=== PATIENT | male | born 1950 | race Caucasian/White ===

== ENCOUNTER 2020-11-04 16:18 | Emergency (ER) | payer MEDICARE, OTHER ==
[2020-11-04 18:46] LABS: Urine Blood 1+ (NEG); Urine Glucose TRACE (NEG); Urine Protein 2+ (NEG); Urine pH 5.5 (5.0-7.0)
[2020-11-04 19:04] LABS: Absolute Lymphocytes (CBC) 1.5 K/uL (0.7-4.9); Basophils % 1.2 % (0-1.3); Hematocrit 45.8 % (39.6-49.0); Lymphocytes % 20.6 % (15.3-44.8); MPV 8.8 fL (7.6-11.3); RBC Red Blood Cell Count 4.16 M/uL (4.33-5.43)
[2020-11-04] MEDS ORDERED: NA CHLORIDE 0.9% 1,000 ML ONE (19:11)
[2020-11-04] MEDS ORDERED: CEFTRIAXONE/SWI 1gm 1 GM/10 ML SYR ONE (19:11)
[2020-11-04 19:18] LABS: Albumin 3.4 g/dL (3.4-5.0); Bilirubin Total 4.1 mg/dL (0.2-1.0)
[2020-11-04 19:26] LABS: Platelet Estimate DECR; White Blood Cell Scan OK (OK)
[2020-11-04 19:26] LABS: Urine Bacteria <20 /HPF (NONE SEEN); Urine Mucus HEAVY /HPF (NONE SEEN); Urine RBC <5 /HPF (NONE SEEN)
[2020-11-04 19:27] LABS: Blood Morphology Comment NOTED (NOT SEEN); Macrocytosis 2+
[2020-11-04] MEDS ORDERED: POTASSIUM CL SA 10 MEQ TAB PO ONE (20:21)
--- NOTE | 2020-11-04 20:42 | EDPHYS ---
Physician Documentation [facility] Name: Peter Carson Age: 70 yrs Sex: Male : 1950 Arrival Date: 11/04/2020 Time: 16:22 Bed 5 Private MD: ED Physician Jewel Gonzalez HPI: 11/04 20:31 This 70 yrs old Male presents to ER via Ambulatory with complaints of Urinary jr8 Problem, Abdominal Pain, Nausea/Vomiting. 20:31 The patient presents with urinary symptoms, dysuria. Onset: The symptoms/episode jr8 began/occurred gradually, 4 day(s) ago. Modifying factors: The symptoms are alleviated by nothing, the symptoms are aggravated by nothing. Associated signs and symptoms: Pertinent positives: abdominal pain, nausea. Severity of symptoms: At their worst the symptoms were mild. The patient has not experienced similar symptoms in the past. The patient has not recently seen a physician. Patient stated that he has had a few days of urinary symptoms with mild right lower abdominal discomfort that has since subsided and some nausea. Stated that he relapsed from previously quitting alcohol as well and has been more anxious and wants to quit again . Historical: - Allergies: 16:41 PENICILLINS; ca1 - Home Meds: 16:41 aspirin Oral [Active]; Omeprazole Oral [Active]; ca1 16:43 atorvastatin 40 mg oral tab 1 tab once daily [Active]; ca1 - PMHx: 16:41 High Cholesterol; ca1 - PSHx: 16:41 Appendectomy; Exploratory lap; ca1 - Immunization history:: Pneumococcal vaccine is not up to date, Flu vaccine is not up to date. - Social history:: Smoking status: Patient reports the use of cigarette tobacco products, smokes one pack cigarettes per day. ROS: 20:31 Eyes: Negative for injury, pain, redness, and discharge, ENT: Negative for injury, jr8 pain, and discharge, Neck: Negative for injury, pain, and swelling, Cardiovascular: Negative for chest pain, palpitations, and edema, Respiratory: Negative for shortness of breath, cough, wheezing, and pleuritic chest pain, Back: Negative for injury and pain, MS/Extremity: Negative for injury and deformity, Skin: Negative for injury, rash, and discoloration, Neuro: Negative for headache, weakness, numbness, tingling, and seizure. 20:31 Abdomen/GI: Positive for abdominal pain, nausea and vomiting, Negative for diarrhea, constipation, abdominal cramps, abdominal distension, anorexia, dysphagia, hematemesis, black/tarry stool, rectal pain, rectal bleeding, bowel incontinence, flatulence. 20:31 : Positive for urinary symptoms. Exam: 20:31 Eyes: Pupils equal round and reactive to light, extra-ocular motions intact. Lids and jr8 lashes normal. Conjunctiva and sclera are non-icteric and not injected. Cornea within normal limits. Periorbital areas with no swelling, redness, or edema. ENT: Nares patent. No nasal discharge, no septal abnormalities noted. Tympanic membranes are normal and external auditory canals are clear. Oropharynx with no redness, swelling, or masses, exudates, or evidence of obstruction, uvula midline. Mucous membranes moist. Neck: Trachea midline, no thyromegaly or masses palpated, and no cervical lymphadenopathy. Supple, full range of motion without nuchal rigidity, or vertebral point tenderness. No Meningismus. Cardiovascular: Regular rate and rhythm with a normal S1 and S2. No gallops, murmurs, or rubs. Normal PMI, no JVD. No pulse deficits. Respiratory: Lungs have equal breath sounds bilaterally, clear to auscultation and percussion. No rales, rhonchi or wheezes noted. No increased work of breathing, no retractions or nasal flaring. Abdomen/GI: Soft, non-tender, with normal bowel sounds. No distension or tympany. No guarding or rebound. No evidence of tenderness throughout. Back: No spinal tenderness. No costovertebral tenderness. Full range of motion. Skin: Warm, dry with normal turgor. Normal color with no rashes, no lesions, and no evidence of cellulitis. MS/ Extremity: Pulses equal, no cyanosis. Neurovascular intact. Full, normal range of motion. Neuro: Awake and alert, GCS 15, oriented to person, place, time, and situation. Cranial nerves II-XII grossly intact. Motor strength 5/5 in all extremities. Sensory grossly intact. Cerebellar exam normal. Normal gait. Vital Signs: 16:35 BP 159 / 104; Pulse 94; Resp 18 S; Temp 97.9(TE); Pulse Ox 99% on R/A; Weight 83.91 kg ca1 (R); Height 5 ft. 9 in. (175.26 cm) (R); Pain 1/10; 20:08 BP 172 / 75; Pulse 76; Resp 19; Pulse Ox 99% ; ea 16:35 Body Mass Index 27.32 (83.91 kg, 175.26 cm) ca1 MDM: 18:46 Patient medically screened. jr8 20:31 Data reviewed: vital signs, nurses notes, lab test result(s), and as a result, I will jr8 discharge patient. Data interpreted: Pulse oximetry: on room air is 99 %. Interpretation: normal. Counseling: I had a detailed discussion with the patient and/or guardian regarding: the historical points, exam findings, and any diagnostic results supporting the discharge/admit diagnosis, lab results, the need for outpatient follow up, a family practitioner, a electrical electronics engineer, to return to the emergency department if symptoms worsen or persist or if there are any questions or concerns that arise at home. ED course: Detailed discussion with patient that even though his dipstick looked infected, it was thrown off by his urobilinogen count. Urine nereyda was clean. Pain had resolved and labs stable other than LFTs which we talked about. Discussed with him that we need to get him off alcohol immediately and that he needs to see GI for further cirrhosis work up. Patient agrees and wants to stop. Will also f/u. Discussed with him that if his pain were to come back or worsen to come back for further evaluation . 11/04 18:42 Order name: Urine Microscopic Only; Complete Time: 19:49 ca1 11/04 18:42 Order name: Urine Culture ca1 11/04 18:42 Order name: Urine Dipstick--Ancillary (enter results); Complete Time: 18:52 tt3 11/04 18:44 Order name: Basic Metabolic Panel; Complete Time: 19:49 jr8 11/04 18:44 Order name: CBC with Diff; Complete Time: 19:49 jr8 11/04 18:44 Order name: Hepatic Function; Complete Time: 19:49 jr8 11/04 18:42 Order name: Urine Dipstick-Ancillary (obtain specimen); Complete Time: 18:42 ca1 11/04 18:44 Order name: Lipase; Complete Time: 19:49 jr8 11/04 19:26 Order name: CBC Smear Scan; Complete Time: 19:49 EDMS 11/04 18:44 Order name: IV Saline Lock; Complete Time: 18:59 jr8 11/04 18:44 Order name: Labs collected and sent; Complete Time: 18:58 jr8 Administered Medications: 18:57 Drug: NS 0.9% 1000 ml Route: IV; Rate: 1000 ml; Site: right antecubital; ca1 20:00 Follow up: Response: No adverse reaction; IV Status: Completed infusion; IV Intake: ea 1000ml 18:58 Drug: Rocephin 1 grams Route: IV; Rate: calculated rate; Site: right antecubital; ca1 20:08 Drug: Potassium Chloride 40 mEq Route: PO; ea 20:48 Follow up: Response: Medication administered at discharge. ea 20:40 Drug: Zofran (Ondansetron) 4 mg Route: IVP; Site: right antecubital; ea 20:48 Follow up: Response: No adverse reaction ea 20:45 Drug: Librium - chlordiazePOXIDE 50 mg Route: PO; ea 20:48 Follow up: Response: Medication administered at discharge. ea Disposition: 11/04/20 20:40 Discharged to Home. Impression: Abnormal results of liver function studies, Alcohol abuse counseling and surveillance of alcoholic, Alcohol abuse with alcohol-induced anxiety disorder. - Condition is Stable. - Discharge Instructions: Finding Treatment for Addiction, Alcohol Use Disorder, Alcohol Abuse and Nutrition. - Prescriptions for chlordiazepoxide HCl 25 mg Oral capsule - take 2 capsule by ORAL route 3 times per day As needed up to 300 mg/day; 120 capsule. Zofran 4 mg Oral Tablet - take 1 tablet by ORAL route every 12 hours As needed; 20 tablet. - Medication Reconciliation Form, Thank You Letter, Antibiotic Education, Prescription Opioid Use form. - Follow up: Skyler Perez MD; When: 5 - 6 days; Reason: Recheck today's complaints, Continuance of care, Re-evaluation by your physician. - Problem is new. - Symptoms have improved. Addendum: 11/07/2020 06:26 Co-signature as Attending Physician, Jewel Gonzalez MD I agree with the assessment and t w4 plan of care. Signatures: Dispatcher [employer] [facility] Jarrett Hart PA PA jr8 Mayte Crockett, RN RN Jewel Mccullough MD MD tw4 Amanda Arthur RN RN ca1 Reji Maria tt3 Corrections: (The following items were deleted from the chart) 11/04 18:42 18:42 Urine Dipstick-Ancillary ordered. tt3 tt3 20:50 20:40 11/04/2020 20:40 Discharged to Home. Impression: Abnormal results of liver ea function studies; Alcohol abuse counseling and surveillance of alcoholic; Alcohol abuse with alcohol-induced anxiety disorder. Condition is Stable. Forms are Medication Reconciliation Form, Thank You Letter, Antibiotic Education, Prescription Opioid Use. Follow up: Skyler Perez; When: 5 - 6 days; Reason: Recheck today's complaints, Continuance of care, Re-evaluation by your physician. Problem is new. Symptoms have improved. jr8
--- NOTE | 2020-11-04 20:42 | ER ---
Nurse's Notes [facility] Name: Peter Carson Age: 70 yrs Sex: Male : 1950 Arrival Date: 11/04/2020 Time: 16:22 Bed 5 Private MD: Diagnosis: Abnormal results of liver function studies;Alcohol abuse counseling and surveillance of alcoholic;Alcohol abuse with alcohol-induced anxiety disorder Presentation: 11/04 16:35 Chief complaint: Patient states: N/V x 3 - 4 days. RLQ, R inguinal area pain since ca1 yesterday. Today, urine was dark and concentrated. Denies burning with urination, urinary urgency and frequency. Coronavirus screen: Client denies travel out of the [place] in the last 14 days. nausea, vomiting. Client presents with at least one sign or symptom that may indicate coronavirus-19. Standard/surgical mask placed on the client. Provider contacted for isolation considerations. Ebola Screen: Patient negative for fever greater than or equal to 101.5 degrees Fahrenheit, and additional compatible Ebola Virus Disease symptoms Patient denies exposure to infectious person. Patient denies travel to an Ebola-affected area in the 21 days before illness onset. No symptoms or risks identified at this time. Initial Sepsis Screen: Does the patient meet any 2 criteria? No. Patient's initial sepsis screen is negative. Does the patient have a suspected source of infection? No. Patient's initial sepsis screen is negative. Risk Assessment: Do you want to hurt yourself or someone else? Patient reports no desire to harm self or others. Onset of symptoms was November 04, 2020. 16:35 Method Of Arrival: Ambulatory ca1 16:35 Acuity: DEMETRI 3 ca1 Historical: - Allergies: 16:41 PENICILLINS; ca1 - Home Meds: 16:41 aspirin Oral [Active]; Omeprazole Oral [Active]; ca1 16:43 atorvastatin 40 mg oral tab 1 tab once daily [Active]; ca1 - PMHx: 16:41 High Cholesterol; ca1 - PSHx: 16:41 Appendectomy; Exploratory lap; ca1 - Immunization history:: Pneumococcal vaccine is not up to date, Flu vaccine is not up to date. - Social history:: Smoking status: Patient reports the use of cigarette tobacco products, smokes one pack cigarettes per day. Screenin:59 Abuse screen: Denies threats or abuse. Denies injuries from another. Nutritional ca1 screening: No deficits noted. Tuberculosis screening: No symptoms or risk factors identified. Fall Risk IV access (20 points). Assessment: 18:59 General: Appears in no apparent distress. comfortable, Behavior is calm, cooperative, ca1 appropriate for age. Pain: Complains of pain in right inguinal area. RLQ Pain currently is 1 out of 10 on a pain scale. Is intermittent. Neuro: Level of Consciousness is awake, alert, obeys commands, Oriented to person, place, time, situation. Cardiovascular: Heart tones S1 S2 present Capillary refill < 3 seconds. Respiratory: Airway is patent Respiratory effort is even, unlabored, Respiratory pattern is regular, symmetrical, Breath sounds are clear bilaterally. GI: Abdomen is round non-distended, Bowel sounds present X 4 quads. Abd is soft and non tender X 4 quads. : Urine is cloudy. EENT: No signs and/or symptoms were reported regarding the EENT system. Derm: Skin is intact, is healthy with good turgor, Skin is pink, warm \T\ dry. Musculoskeletal: Circulation, motion, and sensation intact. Capillary refill < 3 seconds. 20:08 General: Appears in no apparent distress. comfortable, Behavior is appropriate for age. ea Pain: Denies pain. Neuro: Level of Consciousness is awake, alert, obeys commands, Oriented to person, place, time, situation. Respiratory: Airway is patent Respiratory effort is even, unlabored, Respiratory pattern is regular, symmetrical. Derm: Skin is pink, warm \T\ dry. 20:49 Reassessment: Patient and/or family updated on plan of care and expected duration. Pain ea level reassessed. Patient is alert, oriented x 3, equal unlabored respirations, skin warm/dry/pink. Discharge instruction given to patient, verbalized the understanding of instruction. Given to patient, verbalized the understanding of instruction. Vital Signs: 16:35 BP 159 / 104; Pulse 94; Resp 18 S; Temp 97.9(TE); Pulse Ox 99% on R/A; Weight 83.91 kg ca1 (R); Height 5 ft. 9 in. (175.26 cm) (R); Pain 1/; 20:08 BP 172 / 75; Pulse 76; Resp 19; Pulse Ox 99% ; ea 16:35 Body Mass Index 27.32 (83.91 kg, 175.26 cm) ca1 ED Course: 16:22 Patient arrived in ED. ag5 16:38 Triage completed. ca1 16:41 Arm band placed on right wrist. ca1 18:43 Jarrett Hart PA is PHCP. jr8 18:43 Jewel Gonzalez MD is Attending Physician. jr8 18:47 Urine Microscopic Only Sent. ca1 18:47 Urine Culture Sent. ca1 18:59 Patient has correct armband on for positive identification. Bed in low position. Call ca1 light in reach. Side rails up X 1. Side rails up X 1. Side rails up X2. Pulse ox on. NIBP on. 18:59 Initial lab(s) drawn, by me, sent to lab. Inserted saline lock: 20 gauge in right ca1 antecubital area, using aseptic technique. Blood collected. 19:16 Pillow given. ekg monitor on. 5 19:56 Mayte Crockett, [place] is Primary Nurse. ea 20:38 Skyler Perez MD is Referral Physician. jr8 20:47 IV discontinued, intact, bleeding controlled, No redness/swelling at site. Pressure ea dressing applied. 20:49 No provider procedures requiring assistance completed. ea Administered Medications: 18:57 Drug: NS 0.9% 1000 ml Route: IV; Rate: 1000 ml; Site: right antecubital; ca1 20:00 Follow up: Response: No adverse reaction; IV Status: Completed infusion; IV Intake: ea 1000ml 18:58 Drug: Rocephin 1 grams Route: IV; Rate: calculated rate; Site: right antecubital; ca1 20:08 Drug: Potassium Chloride 40 mEq Route: PO; ea 20:48 Follow up: Response: Medication administered at discharge. ea 20:40 Drug: Zofran (Ondansetron) 4 mg Route: IVP; Site: right antecubital; ea 20:48 Follow up: Response: No adverse reaction ea 20:45 Drug: Librium - chlordiazePOXIDE 50 mg Route: PO; ea 20:48 Follow up: Response: Medication administered at discharge. ea Intake: 20:00 IV: 1000ml; Total: 1000ml. ea Outcome: 20:40 Discharge ordered by . jr8 20:50 Discharged to home ambulatory, with family. ea 20:50 Condition: stable 20:50 Discharge instructions given to patient, Instructed on discharge instructions, follow up and referral plans. medication usage, Demonstrated understanding of instructions, follow-up care, medications, Prescriptions given X 2. 20:50 Patient left the ED. ea Signatures: Jarrett Hart PA PA jr8 Martinez, [facility] Mayte Crockett RN Amanda Rowe ea, RN RN ca1 [place], [facility]
[2020-11-04] MEDS ORDERED: ONDANSETRON 4 MG/2 ML VIAL ONE (20:56)
[2020-11-04] MEDS ORDERED: chlordiazePOXIDE HCl 25 MG CAP ONE (20:56)
[2020-11-04 21:45] VITALS: TEMP 97.9; O2SAT 99
[2020-11-04 21:46] VITALS: BP 172/75
== END 2020-11-04 20:50 | disposition home or self-care (01) ==
LOC: ER 16:18
DX: F10.280 Alcohol dependence with alcohol-induced anxiety disorder (principal); Z71.41 Alcohol abuse counseling and surveillance of alcoholic; F17.210 Nicotine dependence, cigarettes, uncomplicated; E78.00 Pure hypercholesterolemia, unspecified; Z79.82 Long term (current) use of aspirin; Z88.0 Allergy status to penicillin
CPT/HCPCS: 96361; 85025; 87086; 80048; 36415; 80076; 83690; 96375; 96374; 99284; J0696; J7030; J2405; 81003; 81015; 87088

== ENCOUNTER 2021-04-08 09:24 | Emergency (ER) | payer OTHER ==
--- OUTSIDE RECORDS SUMMARY | 2021-04-08 09:27 | XMS REPORT | Continuity of Care Document ---
:1950 Author Organization [facility] t Address [address] [place] [address] Care Team Providers Name Role Phone Farmer DO Attending Clinician Doctor Unassigned, Name Attending Clinician Unavailable Problems This patient has no known problems. Allergies, Adverse Reactions, Alerts This patient has no known allergies or adverse reactions. Medications This patient has no known medications. Procedures This patient has no known procedures. Encounters Start End Encounter Admission Attending Care Care Encounter Source Date/Time Date/Time Type Type Clinicians Facility Department ID 2021-03-24 2021-03-24 Emergency Farmer, RUST [id number] 16:23:00 20:39:00 Rhys Cadet [id number] [place] [id number] [place] [id number] 2021-03-24 2021-03-24 Orders Doctor BRANT [id number] 00:00:00 00:00:00 Only UnassignedDOLLY [id number] [place] [facility] [id number] Results Test Description Test Time Test Comments Results Result Comments Source Comprehensive Metabolic Panel 2019-09-08 21:33:25 Test Item Value Reference Range Interpretation Comme nts Sodium Level (test code = Sodium Level) 146.0 mmol/L 135.0-145.0 H Potassium Level (test code = Potassium Level) 4.0 mmol/L 3.5-5.1 Chloride Level (test code = Chloride Level) 104 mmol/L 98-105 CO2 (test code = CO2) 30 mmol/L 22-29 H Anion Gap (test code = Anion Gap) 12 mmol/L 7-16 BUN (test code = BUN) 8.60 mg/dL 8.00-23.00 Creatinine Level (test code = Creatinine Level) 0.90 mg/dL 0.70-1 .20 BUN/Creat Ratio (test code = BUN/Creat Ratio) 10 N Glucose Level (test code = Glucose Level) 90 mg/dL 70-115 Calcium Level (test code = Calcium Level) 9.3 mg/dL 8.3-10.5 Alk Phos (test code = Alk Phos) 80 U/L 40-129 Bilirubin Total (test code = Bilirubin Total) 0.5 mg/dL 0.1-0.9 Albumin Level (test code = Albumin Level) 4.1 g/dL 3.5-5.2 Protein Total (test code = Protein Total) 6.9 g/dL 6.4-8.3 ALT (test code = ALT) 57 U/L 1-41 H AST (test code = AST) 54 U/L 1-40 H Globulin (test code = Globulin) 2.8 g/dL 2.9-3.1 L A/G Ratio (test code = A/G Ratio) 1.5 ratio N Comprehensive Metabolic [id number] 21:33:25 Test Item Value Reference Range Interpretation Comments Sodium Level (test 146.0 mmol/L 135.0-145.0 H code = Sodium Level) Potassium Level 4.0 mmol/L 3.5-5.1 (test code = Potassium Level) Chloride Level (test 104 mmol/L 98-105 code = Chloride Level) CO2 (test code = 30 mmol/L 22-29 H CO2) Anion Gap (test code 12 mmol/L 7-16 = Anion Gap) BUN (test code = 8.60 mg/dL 8.00-23.00 BUN) Creatinine Level 0.90 mg/dL 0.70-1.20 (test code = Creatinine Level) BUN/Creat Ratio 10 N (test code = BUN/Creat Ratio) Glucose Level (test 90 mg/dL 70-115 code = Glucose Level) Calcium Level (test 9.3 mg/dL 8.3-10.5 code = Calcium Level) Alk Phos (test code 80 U/L 40-129 = Alk Phos) Bilirubin Total 0.5 mg/dL 0.1-0.9 (test code = Bilirubin Total) Albumin Level (test 4.1 g/dL 3.5-5.2 code = Albumin Level) Protein Total (test 6.9 g/dL 6.4-8.3 code = Protein Total) ALT (test code = 57 U/L 1-41 H ALT) AST (test code = 54 U/L 1-40 H AST) Globulin (test code 2.8 g/dL 2.9-3.1 L = Globulin) A/G Ratio (test code 1.5 ratio N = A/G Ratio) eGFR AA (test code = >60 N eGFR (e stimated eGFR AA) mL/min/1.73 m2 Glomerular Filtration Rate ) is an estimated va lue, calculated from the patient's serum creatinine usin g the MDRD equation. It is NOT the patient 's actual GFR. The eGFR provides a more clinically usef ul measure of kidn ey disease than se rum creatinine alone.This calculation danielle es sex and race in to account, if the information is provided. If th e race is not provided, and t he patient is -Sandra n, multiply by 1.2 12. If sex is not provided, and t he patient is fema le, multiply by 0.7 42. Results for pat ients <18 years of ag e have not been validated by th e MDRD study and should be interpreted wit h caution. eGFR R esult Interpretation: eGFR > or = 60 is in the Normal RangeeGF R < 60 may mean kid marco a diseaseeGFR < 1 5 may mean kidney failure Rang es recommended by the National Kidney Foundation, http://nkdep.ni h.gov Lipid [id number] 21:33:25 Test Item Value Reference Range Interpretation Comments Cholesterol Total 132 mg/dL 0-200 RISK OF HE ART (test code = DISEASEPublishe d by Cholesterol Total) [place] [employer] María lyte Optimal Borderl ine Increased RiskC HOL <200 200-239 >2 40TRIG <150 150-199 >2 00HDL Male >60 <40H DL Female >60 <5 0LDL <100 130-159 >1 60LDL Near optimal is 100-129 Triglycerides (test 144 mg/dL 9-200 code = Triglycerides) HDL (test code = HDL) 59 mg/dL 40-60 LDL (test code = LDL) 44 mg/dL 0-130 The eq uation being used in this calcula tion is LDL = (Chol - H DL) - (Trig / 5) VLDL (test code = 29 mg/dL 5-40 The equati on being used VLDL) in this calcula tion is VLDL = Trig / 5 Chol/HDL (test code = 2.2 ratio 0.0-5.0 Chol/HDL) LDL/HDL Ratio (test 1 N The equa tion being used code = LDL/HDL Ratio) in thi s calculation is LDL/HDL Ratio=L DL Calc/HDL Chol Comprehensive Metabolic [id number] 21:33:25 Test Item Value Reference Range Interpretation Comments Sodium Level (test 146.0 mmol/L 135.0-145.0 H code = Sodium Level) Potassium Level 4.0 mmol/L 3.5-5.1 (test code = Potassium Level) Chloride Level (test 104 mmol/L 98-105 code = Chloride Level) CO2 (test code = 30 mmol/L 22-29 H CO2) Anion Gap (test code 12 mmol/L 7-16 = Anion Gap) BUN (test code = 8.60 mg/dL 8.00-23.00 BUN) Creatinine Level 0.90 mg/dL 0.70-1.20 (test code = Creatinine Level) BUN/Creat Ratio 10 N (test code = BUN/Creat Ratio) Glucose Level (test 90 mg/dL 70-115 code = Glucose Level) Calcium Level (test 9.3 mg/dL 8.3-10.5 code = Calcium Level) Alk Phos (test code 80 U/L 40-129 = Alk Phos) Bilirubin Total 0.5 mg/dL 0.1-0.9 (test code = Bilirubin Total) Albumin Level (test 4.1 g/dL 3.5-5.2 code = Albumin Level) Protein Total (test 6.9 g/dL 6.4-8.3 code = Protein Total) ALT (test code = 57 U/L 1-41 H ALT) AST (test code = 54 U/L 1-40 H AST) Globulin (test code 2.8 g/dL 2.9-3.1 L = Globulin) A/G Ratio (test code 1.5 ratio N = A/G Ratio) eGFR AA (test code = >60 N eGFR (e stimated eGFR AA) mL/min/1.73 m2 Glomerular Filtration Rate ) is an estimated va lue, calculated from the patient's serum creatinine usin g the MDRD equation. It is NOT the patient 's actual GFR. The eGFR provides a more clinically usef ul measure of kidn ey disease than se rum creatinine alone.This calculation danielle es sex and race in to account, if the information is provided. If th e race is not provided, and t he patient is -Sandra n, multiply by 1.2 12. If sex is not provided, and t he patient is fema le, multiply by 0.7 42. Results for pat ients <18 years of ag e have not been validated by [facility] MDRD study and should be interpreted wit h caution. eGFR R esult Interpretation: eGFR > or = 60 is in the Normal RangeeGF R < 60 may mean kid marco a diseaseeGFR < 1 5 may mean kidney failure Rang es recommended by the National Kidney Foundation, http://nkdep.ni h.gov eGFR Non-AA (test >60.00 N eGFR (dony mated code = eGFR Non-AA) mL/min/1.73 m2 Glomer ular Filtration Rate ) is an estimated va lue, calculated from the patient's serum creatinine usin g the MDRD equation. It is NOT the patient 's actual GFR. The eGFR provides a more clinically usef ul measure of kidn ey disease than se rum creatinine alone.This calculation danielle es sex and race in to account, if the information is provided. If th e race is not provided, and t he patient is -Sandra n, multiply by 1.2 12. If sex is not provided, and t he patient is fema le, multiply by 0.7 42. Results for pat ients <18 years of ag e have not been validated by [facility] MDRD study and should be interpreted wit h caution. eGFR R esult Interpretation: eGFR > or = 60 is in the Normal RangeeGF R < 60 may mean kid marco a diseaseeGFR < 1 5 may mean kidney failure Rang es recommended by the National Kidney Foundation, http://nkdep.ni h.gov Automated [id number] 20:56:24 Test Item Value Reference Range Interpretation Comments Neutro Auto (test code = Neutro 62.4 % 36.0-70.0 Auto) Lymph Auto (test code = Lymph Auto) 26.7 % 12.0-44.0 [place] Auto (test code = [place] Auto) 8.4 % 0.0-11.0 Eos, Auto (test code = Eos, Auto) 1.7 % 0.0-7.0 Basophil Auto (test code = Basophil 0.5 % 0.0-2.0 Auto) Neutro Absolute (test code = Neutro 6.0 x10 1.6-7.4 Absolute) Lymph Absolute (test code = Lymph 2.56 x10 .50-4.60 Absolute) [place] Absolute (test code = [place] .81 x10 .00-1.20 Absolute) Eos Absolute (test code = Eos 0.16 x10 0.00-0.74 Absolute) Baso Absolute (test code = Baso 0.05 x10 0.00-0.21 Absolute) IG [id number] 20:56:24 Test Item Value Reference Range Interpretation Comments IG (test code = IG) 0.3 % 0.0-5.0 IG Abs (test code = IG Abs) 0 x10 N Complete Blood Count with [id number] 20:56:24 Test Item Value Reference Range Interpretation Comments WBC (test code = WBC) 9.6 x10 4.4-10.5 RBC (test code = RBC) 4.23 x10 4.10-5.70 Hgb (test code = Hgb) 15.5 g/dL 13.4-17.4 MCV (test code = MCV) 111.60 fL 80.00-100.00 H Hct (test code = Hct) 47.2 % 38.7-52.0 MCHC (test code = 32.80 g/dL 32.00-37.50 MCHC) RDW CV (test code = 13.7 % 11.5-14.5 RDW CV) MCH (test code = MCH) 36.6 pg 27.0-32.5 H Platelets (test code = 204.0 x10 140.0-440.0 Platelets) MPV (test code = MPV) 11.8 fL N Slide Review (test Auto Auto Result cr eated by code = Slide Review) GL_SJM_ SLIDE_REV_AUTO [id number] nRBC (test code = 0 N nRBC) NRBC Abs (test code = 0.00 x10 N NRBC Abs) Pos Morph XN (test A N code = Pos Morph XN) IPF (test code = IPF) 0 % N
[2021-04-08 10:30] LABS: Absolute Lymphocytes (CBC) 1.5 K/uL (0.7-4.9); Basophils % 0.7 % (0-1.3); Hematocrit 41.5 % (39.6-49.0); Lymphocytes % 16.8 % (15.3-44.8); MPV 8.5 fL (7.6-11.3); RBC Red Blood Cell Count 4.13 M/uL (4.33-5.43)
[2021-04-08] MEDS ORDERED: NA CHLORIDE 0.9% 1,000 ML ONE (10:40)
[2021-04-08] MEDS ORDERED: THIAMINE 200 MG/2 ML INJ ONE (10:40)
[2021-04-08 10:41] LABS: Protime INR 1.01
[2021-04-08] MEDS ORDERED: FOLIC ACID 5 MG/ML VIAL ONE (10:50)
[2021-04-08 10:59] LABS: ALT/SGPT 81 U/L (12-78); AST/SGOT 131 U/L (15-37); Albumin 3.3 g/dL (3.4-5.0); Alkaline Phosphatase 125 U/L (45-117); BUN Blood Urea Nitrogen 26 mg/dL (7-18); Bicarbonate 30 mmol/L (21-32); Glucose Level 96 mg/dL (74-106); Lipase 195 U/L (73-393); NT PRO-BNP 252 pg/mL (<125); Potassium 3.1 mmol/L (3.5-5.1); Protein, Total 8.1 g/dL (6.4-8.2); Sodium Level 137 mmol/L (136-145); Troponin (Emerg Dept Use Only) < 0.02 ng/mL (0.0-0.045)
[2021-04-08] MEDS ORDERED: LORazepam 2 MG/ML VIAL ONE ×2 (11:07→12:08)
--- NOTE | 2021-04-08 11:16 | RAD REPORT ---
EXAM DESCRIPTION: RAD - Chest Single View - 04/08/2021 10:38 am CLINICAL HISTORY: COUGH TECHNIQUE: AP portable chest image was obtained 04/08/2021 10:38 am . FINDINGS: Lungs are clear. A few small granulomas are seen. Hilar granulomatous calcifications also present. Heart and vasculature are normal. No measurable pleural effusion and no pneumothorax. No acu te bony abnormality seen. No acute aortic findings suspected. IMPRESSION: No acute cardiopulmonary process.
[2021-04-08] MEDS ORDERED: FAMOTIDINE 20 MG/2 ML VIAL IV ONE (11:30)
[2021-04-08] MEDS ORDERED: CEFTRIAXONE/SWI 1gm 1 GM/10 ML SYR ONE (11:41)
[2021-04-08] MEDS ORDERED: FOLIC ACID 1 MG, MULTIVITAMINS INJ 10 ML, THIAMINE HCL 100 MG in NA CHLORIDE 0.9% 1,000 ML IV ONE (12:00)
--- NOTE | 2021-04-08 12:16 | RAD REPORT ---
EXAM DESCRIPTION: CT - Head C Spine Cap Frannie Sesay - 04/08/2021 12:00 pm CLINICAL HISTORY: Pain;Swellinghead, neck, chest and abdomen pain COMPARISON: No comparisons TECHNIQUE: Axial [address] head images were obtained. Axial [address] cervical spine images were obtaine d with sagittal and coronal reconstruction images reviewed. During dynamic enhancement of 100mL non-i onic contrast, axial 5 mm images of the chest, abdomen and pelvis were obtained. Biphasic technique p erformed of the abdomen and pelvis. All CT scans are performed using dose optimization technique as appropriate and may include automated exposure control or mA/KV adjustment according to patient size. FINDINGS: No intracranial hemorrhage, mass or edema. No midline shift or abnormal fluid collection. Mastoid air cells and paranasal sinuses are clear of acute findings. No skull fracture. Atrophy an d chronic ischemic changes are present mild to moderate in severity with ventricles in proportion to volume loss. Arterial tree calcifications are present. CT cervical spine imaging shows normal height. Normal alignment of the vertebrae. Mild C5-6 and moder ate C6-7 disc space narrowing. Endplate spurring and uncovertebral joint hypertrophy present along wi th facet hypertrophy. Multilevel foraminal stenosis seen. Canal is borderline stenotic at C5-6. No pa raspinal mass or hematoma seen. Central canal detail is inherently limited. Concerns for traumatic di sc herniation or traumatic cord injury can be further addressed with MR imaging. CT chest shows no pneumothorax, pulmonary contusion or pleural fluid collection. No mediastinal hemat rosa and the aorta and pulmonary arteries are unremarkable. No chest will mass or abnormal axillary fi nding. No displaced rib fractures seen. An acute thoracic bone process is not identified. Severity of respiratory motion degradation could obscure nondisplaced rib fractures. Atelectasis and scarring changes are present. CT abdomen and pelvis show no injury to solid abdominal viscera. Gallbladder and biliary tree are unr emarkable. No bowel injury or significant finding. No free air, free fluid or abnormal stranding. No urinary bladder abnormality. No significant bony finding. Disc and bone degenerative changes are present. No acute bone finding id entifiable. No significant vascular finding. IMPRESSION: No significant CT Head finding. Cervical spondylosis changes are present as detailed. No acute findings seen. No acute traumatic chest injury identified. The amount of respiratory motion degradation could obscur e nondisplaced rib fractures. No significant CT Abdomen and Pelvis finding.
[2021-04-08 12:59] LABS: Arterial Blood Carboxyhemoglob 1.5 % (0-1.5); Blood Gas Oxyhemoglobin 95.6 % (94-97); Blood O2 Saturation 97.9 % (92-98.5)
[2021-04-08] MEDS ORDERED: NA CHLORIDE 0.9% 250 ML ONE (13:00)
[2021-04-08] MEDS ORDERED: KCL 20 MEQ/100 mL IVPB 20 MEQ/100 ML BAG IV ONE (13:00)
[2021-04-08 13:22] LABS: Urine Blood Negative (Negative); Urine Glucose Negative (Negative); Urine Protein Trace (Negative); Urine pH 5.5 (5.0-7.0)
--- NOTE | 2021-04-08 13:28 | EDPHYS ---
Physician Documentation [facility] Name: Peter Carson Age: 71 yrs Sex: Male : 1950 Arrival Date: 04/08/2021 Time: : Bed 15 Private MD: MARGOTH Physician Aorldo Michelle HPI: 04/08 11:03 This 71 yrs old Male presents to ER via Wheelchair with complaints of javad disoriented/hallucinations. 11:03 The patient presents with abdominal pain abdominal distention in the lower abdomen. javad Onset: The symptoms/episode began/occurred 3 day(s) ago. hx of heavy etoh abuse. The patient presents with agitation, confusion, decreased mental status, trouble concentrating. Onset: The symptoms/episode began/occurred 1 week(s) ago. Possible causes: CVA or TIA, drug use, alcohol, head injury, low blood sugar, seizure, sepsis. Associated signs and symptoms: Pertinent positives: combativeness, confusion. Current symptoms: In the emergency department the patient's symptoms are unchanged from the initial presentation. The symptoms do not radiate. Historical: - Allergies: 09:45 PENICILLINS; iw - Home Meds: 09:45 None [Active]; iw - PMHx: 09:45 High Cholesterol; iw - PSHx: 09:45 Appendectomy; Exploratory lap; iw - Immunization history:: Adult Immunizations. - Social history:: Smoking status: Patient reports the use of cigarette tobacco products, smokes one pack cigarettes per day. Patient uses alcohol, on a daily basis. claims drinking about a 6 pack/day. patient/guardian reports chronic longstanding heavy alcohol consumption. - Family history:: not pertinent. ROS: 11:03 Constitutional: Negative for fever, chills, and weight loss, Eyes: Negative for injury, javad pain, redness, and discharge, ENT: Negative for injury, pain, and discharge, Neck: Negative for injury, pain, and swelling, Cardiovascular: Negative for chest pain, palpitations, and edema, Respiratory: Negative for shortness of breath, cough, wheezing, and pleuritic chest pain, Back: Negative for injury and pain, : Negative for injury, bleeding, discharge, and swelling, MS/Extremity: Negative for injury and deformity, Skin: Negative for injury, rash, and discoloration, Psych: Negative for depression, anxiety, suicide ideation, homicidal ideation, and hallucinations, Allergy/Immunology: Negative for hives, rash, and allergies, Endocrine: Negative for neck swelling, polydipsia, polyuria, polyphagia, and marked weight changes, Hematologic/Lymphatic: Negative for swollen nodes, abnormal bleeding, and unusual bruising. 11:03 Abdomen/GI: Positive for abdominal pain, of the suprapubic area, right lower quadrant and left lower quadrant. 11:03 Skin: Positive for jaundice. 11:03 Neuro: Positive for altered mental status, dizziness, gait disturbance, weakness. Exam: 11:03 Head/Face: Normocephalic, atraumatic. Neck: Trachea midline, no thyromegaly or masses javad palpated, and no cervical lymphadenopathy. Supple, full range of motion without nuchal rigidity, or vertebral point tenderness. No Meningismus. Respiratory: Lungs have equal breath sounds bilaterally, clear to auscultation and percussion. No rales, rhonchi or wheezes noted. No increased work of breathing, no retractions or nasal flaring. Back: No spinal tenderness. No costovertebral tenderness. Full range of motion. MS/ Extremity: Pulses equal, no cyanosis. Neurovascular intact. Full, normal range of motion. 11:03 Constitutional: The patient appears in obvious distress, mildly distressed. 11:03 Eyes: Sclera: icterus. 11:03 Cardiovascular: Exam negative for acute changes, Rate: normal. 11:03 ECG was reviewed by the Attending Physician. 11:03 Abdomen/GI: Inspection: distension, that is mild, that is moderate, Bowel sounds: normal, Palpation: mild abdominal tenderness, in the right lower quadrant and left lower quadrant, Liver: no appreciated palpable abnormalities, Hernia: not appreciated. 13:22 Neck: External neck: is normal, no acute changes, C-spine: appears grossly normal, no javad acute changes, Trachea: is midline with no obvious abnormalities, no acute changes, ROM/movement: is normal, no acute changes, Lymph nodes: no appreciated lymphadenopathy. Vital Signs: 09:41 BP 116 / 51; Pulse 73; Resp 16; Temp 97.4; Pulse Ox 97% on R/A; iw 11:00 BP 124 / 99; Pulse 90; Resp 20; Pulse Ox 100% on R/A; ca1 12:04 BP 132 / 78; Pulse 87; Resp 20; Pulse Ox 100% on 2 lpm NC; ca1 13:00 BP 120 / 77; Pulse 77; Resp 19 S; Pulse Ox 99% on R/A; ca1 14:05 BP 136 / 84; Pulse 75; Resp 18 S; Pulse Ox 100% on R/A; ca1 15:00 BP 125 / 76; Pulse 74; Resp 18 S; Pulse Ox 100% on 2 lpm NC; ca1 MDM: 10:10 Patient medically screened. [facility] 11:08 Differential Diagnosis altered mental status, sepsis, flu. Differential Diagnosis: CVA, javad electrolyte abnormality, alcohol intoxication, hypoglycemia, intracranial bleed, overdose, seizure, sepsis, TIA, UTI, volume depletion. Differential diagnosis: appendicitis, bowel obstruction, cholecystitis, Cholelithiasis, diverticulitis, gastritis, gastroesophageal reflux disease, GI Bleed, non-specific abd pain, pancreatitis, Peptic Ulcer Disease, Perf. Duodenal Ulcer, Peritonitis, Ureterolithiasis. Data reviewed: vital signs, nurses notes, lab test result(s), EKG, radiologic studies. Data interpreted: gambling monitor: rate is 73 beats/min, rhythm is regular, with no ectopy, Pulse oximetry: on room air is 73 %. Test interpretation: by ED physician or midlevel provider: ECG, plain radiologic studies. Counseling: I had a detailed discussion with the patient and/or guardian regarding: the historical points, exam findings, and any diagnostic results supporting the discharge/admit diagnosis, lab results. 04/08 10:14 Order name: Basic Metabolic Panel [facility] 04/08 10:14 Order name: CBC with Diff 04/08 10:14 Order name: LFT's; Complete Time: 11:35 04/08 10:14 Order name: Magnesium; Complete Time: 11:35 04/08 10:14 Order name: NT PRO-BNP; Complete Time: 11:35 04/08 10:14 Order name: PT-INR; Complete Time: 10:57 04/08 10:14 Order name: Troponin (emerg Dept Use Only); Complete Time: 11:35 04/08 10:14 Order name: Lipase; Complete Time: 11:35 [facility] 04/08 10:14 Order name: Acetaminophen; Complete Time: 11:35 [facility] 04/08 10:14 Order name: ETOH Level; Complete Time: 12:37 [facility] 04/08 10:14 Order name: Ptt, Activated; Complete Time: 10:57 [facility] 04/08 10:14 Order name: Salicylate; Complete Time: 11:35 04/08 10:14 Order name: Urine Drug Screen 04/08 10:14 Order name: XRAY Chest (1 view); Complete Time: 11:35 [facility] 04/08 10:14 Order name: Basic Metabolic Panel; Complete Time: 11:35 EDFL 04/08 10:14 Order name: CBC with Automated Diff; Complete Time: 10:57 EDFL 04/08 10:38 Order name: AMMONIA; Complete Time: 12:37 [facility] 04/08 11:01 Order name: CT Traumagram (Head C Spine CAP W Con); Complete Time: 12:37 [facility] 04/08 11:10 Order name: Blood Culture Adult (2) 04/08 11:10 Order name: Lactate; Complete Time: 12:37 [facility] 04/08 11:43 Order name: SARS-COV-2 RT PCR; Complete Time: 12:37 EDFL 04/08 12:38 Order name: ABG; Complete Time: 13:13 [facility] 04/08 13:13 Order name: Glucose, Ancillary Testing; Complete Time: 13:19 EDFL 04/08 13:22 Order name: Urine Dipstick-Ancillary; Complete Time: 13:49 EDFL 04/08 10:14 Order name: EKG; Complete Time: 10:15 04/08 10:14 Order name: Cardiac monitoring; Complete Time: 10: [facility] 04/08 10:14 Order name: EKG - Nurse/Tech; Complete Time: 10:31 04/08 10:14 Order name: IV Saline Lock; Complete Time: 10:04/08 10:14 Order name: Labs collected and sent; Complete Time: 10: [facility] 04/08 10:14 Order name: O2 Per Protocol; Complete Time: 10:04/08 10:14 Order name: O2 Sat Monitoring; Complete Time: :04/08 10:14 Order name: Urine Dipstick-Ancillary (obtain specimen); Complete Time: 13:22 [facility] 04/08 11:35 Order name: Labs - recollect needed: blood culture, cannot be drawn at same time; iw Complete Time: 12:43 EC:03 Rate is 87 beats/min. Rhythm is regular. QRS Harts is Normal. TX interval is normal. QRS javad interval is normal. QT interval is normal. No Q waves. T waves are Inverted in leads II, III, aVF, V1, V2, V3, V4, V5, V6. No ST changes noted. Clinical impression: NSR w/ Non-specific ST/T Changes and No evidence of ischemia. Interpreted by me. Reviewed by me. Administered Medications: 10:28 Drug: NS 0.9% 1000 ml Route: IV; Rate: 1 bolus; Site: right antecubital; ca1 11:30 Follow up: Response: No adverse reaction; IV Status: Completed infusion; IV Intake: ca1 1000ml 10:30 Drug: Thiamine 100 mg Route: IV; Rate: bolus; Site: right antecubital; ca1 11:30 Follow up: IV Status: Completed infusion ca1 10:32 Drug: foLIC Acid 1 mg Route: IVPB; Site: right antecubital; ca1 11:30 Follow up: Response: No adverse reaction; IV Status: Completed infusion ca1 11:15 Drug: Pepcid (famotidine) 20 mg Route: IVP; Site: right antecubital; ca1 12:00 Follow up: Response: No adverse reaction ca1 11:29 Drug: Ativan (LORazepam) 1 mg Route: IVP; Site: right antecubital; ca1 11:35 Follow up: Response: No adverse reaction ca1 11:35 Drug: Ativan (LORazepam) 1 mg Route: IVP; Site: right antecubital; ca1 11:45 Follow up: Response: No adverse reaction ca1 11:40 Drug: Ativan (LORazepam) 1 mg Route: IVP; Site: right antecubital; ca1 14:34 Follow up: Response: No adverse reaction ca1 11:45 Drug: Ativan (LORazepam) 1 mg Route: IVP; Site: right antecubital; ca1 12:00 Follow up: Response: No adverse reaction ca1 12:05 Drug: Rocephin (cefTRIAXone) 1 grams Route: IV; Rate: per protocol; Site: right ca1 antecubital; 13:00 Follow up: Response: No adverse reaction; IV Status: Completed infusion ca1 12:10 Drug: Banana Bag - (NS 0.9% 1000 ml, foLIC Acid 1 mg, Thiamine 100 mg, Multivitamin 1 ca1 amp) Route: IV; Rate: 125 ml/hr; Site: right antecubital; 14:33 Follow up: Response: No adverse reaction; IV Status: Infusion continued upon transfer ca1 12:43 Drug: Potassium Chloride 20 mEq Route: IV; Rate: per protocol; Site: left antecubital; ca1 14:50 Follow up: Response: No adverse reaction; IV Status: Completed infusion; IV Intake: ca1 100ml Disposition: 04/08/21 13:[address] [facility]. Diagnosis are Altered mental status, unspecified, Alcoholic cirrhosis of liver, Alcoholic cirrhosis of liver without ascites, Hypokalemia, Alcohol abuse, Urinary tract infection, site not specified. - Reason for transfer: Higher level of care. - Accepting physician is TO [facility]. - Condition is Fair. - Problem is new. - Symptoms have improved. Signatures: Dispatcher [employer] EDMS Aroldo Michelle MD MD cha Williams, Irene, RN RN iw Amanda Arthur RN RN ca1 Corrections: (The following items were deleted from the chart) 10:30 10:14 Suicide Screening ([place]) ordered. [facility] ca1 10:51 10:15 CORONAVIRUS+MR.LAB.BRZ ordered. EDMS EDMS 11:10 10:15 Head Brain Wo Cont+CT.RAD.BRZ ordered. EDFL EDMS 13:53 13:27 04/08/2021 13:[address] [facility]. javad Diagnosis is Altered mental status, unspecified; Alcoholic cirrhosis of liver; Alcoholic cirrhosis of liver without ascites; Hypokalemia; Alcohol abuse. Reason for transfer: Higher level of care. Accepting physician is TO [facility]. Condition is Fair. Problem is new. Symptoms have improved. javad 15:35 13:53 04/08/2021 13:[address] [facility]. ca1 Diagnosis is Altered mental status, unspecified; Alcoholic cirrhosis of liver; Alcoholic cirrhosis of liver without ascites; Hypokalemia; Alcohol abuse; Urinary tract infection, site not specified. Reason for transfer: Higher level of care. Accepting physician is TO [facility]. Condition is Fair. Problem is new. Symptoms have improved. javad
--- NOTE | 2021-04-08 13:28 | ER ---
Nurse's Notes [facility] Name: Peter Carson Age: 71 yrs Sex: Male : 1950 Arrival Date: 04/08/2021 Time: : Bed 15 Private MD: Diagnosis: Altered mental status, unspecified;Alcoholic cirrhosis of liver;Alcoholic cirrhosis of liver without ascites;Hypokalemia;Alcohol abuse;Urinary tract infection, site not specified Presentation: 04/08 09:41 Chief complaint: Patient's son or daughter states: has not been making sense for past iw 3-4 days, ammonia level was high recently, ETOH daily , also has been weak for 3-4 weeks , had labs drawn at upsetter yesterday , has been using wheelchair for past week, can't stand up on his own, pt seems to be hallucinating also. Coronavirus screen: At this time, the client does not indicate any symptoms associated with coronavirus-19. Ebola Screen: Patient negative for fever greater than or equal to 101.5 degrees Fahrenheit, and additional compatible Ebola Virus Disease symptoms Patient denies exposure to infectious person. Patient denies travel to an Ebola-affected area in the 21 days before illness onset. No symptoms or risks identified at this time. Initial Sepsis Screen: Does the patient meet any 2 criteria? No. Patient's initial sepsis screen is negative. Does the patient have a suspected source of infection? No. Patient's initial sepsis screen is negative. Risk Assessment: Do you want to hurt yourself or someone else? Patient reports no desire to harm self or others. Onset of symptoms was March 2021. 09:41 Method Of Arrival: Wheelchair iw 09:41 Acuity: DEMETRI 3 iw Historical: - Allergies: 09:45 PENICILLINS; iw - Home Meds: 09:45 None [Active]; iw - PMHx: 09:45 High Cholesterol; iw - PSHx: 09:45 Appendectomy; Exploratory lap; iw - Immunization history:: Adult Immunizations. - Social history:: Smoking status: Patient reports the use of cigarette tobacco products, smokes one pack cigarettes per day. Patient uses alcohol, on a daily basis. claims drinking about a 6 pack/day. patient/guardian reports chronic longstanding heavy alcohol consumption. - Family history:: not pertinent. Screenin:00 Abuse screen: Denies threats or abuse. Denies injuries from another. Nutritional ca1 screening: No deficits noted. Tuberculosis screening: No symptoms or risk factors identified. Fall Risk Fall in past 12 months (25 points). IV access (20 points). Mental Status- Overestimates/Forgets Limitations (15 pts.). Total Garcia Fall Scale indicates High Risk Score (45 or more points). Fall prevention measures have been instituted. Side Rails Up X 2 Frequent Obs/Assessments Occuring Family Present and informed to notify staff if the need to leave the bedside As available patient and family educated on Fall Prevention Program and Strategies. Assessment: 10:00 General: Appears in no apparent distress. uncomfortable, Behavior is drowsy. Pain: ca1 Complains of pain in right lower quadrant and left lower quadrant Unable to use pain scale. Patient is disoriented. Neuro: Level of Consciousness is confused, lethargic, Oriented to person. Cardiovascular: Heart tones S1 S2 present Capillary refill < 3 seconds Patient's skin is warm and dry. Rhythm is. Respiratory: Airway is patent Respiratory effort is even, unlabored, Respiratory pattern is regular, symmetrical, Breath sounds are clear bilaterally. GI: Abdomen is flat, non-distended, Bowel sounds present X 4 quads. Abd is soft and non tender X 4 quads. : No signs and/or symptoms were reported regarding the genitourinary system. EENT: No signs and/or symptoms were reported regarding the EENT system. Derm: Skin is fragile, is thin, with poor turgor Skin is pink, warm \T\ dry. Musculoskeletal: Circulation, motion, and sensation intact. Capillary refill < 3 seconds. 11:00 Reassessment: Patient appears in no apparent distress at this time. No changes from ca1 previously documented assessment. Patient and/or family updated on plan of care and expected duration. Pain level reassessed. 12:00 Reassessment: Patient appears in no apparent distress at this time. No changes from ca1 previously documented assessment. Patient and/or family updated on plan of care and expected duration. Pain level reassessed. 13:00 Reassessment: Patient appears in no apparent distress at this time. No changes from ca1 previously documented assessment. Patient and/or family updated on plan of care and expected duration. Pain level reassessed. 14:05 Reassessment: Patient appears in no apparent distress at this time. No changes from ca1 previously documented assessment. 14:34 Reassessment: Called for report. RN still in another pt's room. ca1 14:48 Reassessment: Report called to ANDRIA Haq. ca1 15:27 Reassessment: Patient appears in no apparent distress at this time. No changes from ca1 previously documented assessment. Patient and/or family updated on plan of care and expected duration. Pain level reassessed. Vital Signs: 09:41 BP 116 / 51; Pulse 73; Resp 16; Temp 97.4; Pulse Ox 97% on R/A; iw 11:00 BP 124 / 99; Pulse 90; Resp 20; Pulse Ox 100% on R/A; ca1 12:04 BP 132 / 78; Pulse 87; Resp 20; Pulse Ox 100% on 2 lpm NC; ca1 13:00 BP 120 / 77; Pulse 77; Resp 19 S; Pulse Ox 99% on R/A; ca1 14:05 BP 136 / 84; Pulse 75; Resp 18 S; Pulse Ox 100% on R/A; ca1 15:00 BP 125 / 76; Pulse 74; Resp 18 S; Pulse Ox 100% on 2 lpm NC; ca1 ED Course: 09:26 Patient arrived in ED. as 09:44 Triage completed. iw 09:46 Arm band placed on. iw 09:50 Merced Galloway, RN is Primary Nurse. ll1 10:00 Patient has correct armband on for positive identification. Placed in gown. Bed in low ca1 position. Call light in reach. Side rails up X2. engine monitor on. Pulse ox on. NIBP on. Door closed. Noise minimized. Lights dimmed. Warm blanket given. 10:08 Primary Nurse role handed off by Merced Galloway, ANDRIA ca1 10:08 Amanda Arthur, ANDRIA is Primary Nurse. ca1 10:10 Aroldo Michelle MD is Attending Physician. javad 10:23 Initial lab(s) drawn, by me, sent to lab. Inserted saline lock: 20 gauge in right ca1 antecubital area, using aseptic technique. Blood collected. 10:38 XRAY Chest (1 view) In Process Unspecified. EDMS 12:00 CT Traumagram (Head C Spine CAP W Con) In Process Unspecified. EDMS 12:39 Inserted saline lock: 22 gauge in left forearm, using aseptic technique. Blood ca1 collected. 12:39 Second set of blood cultures drawn by me. ca1 13:[address] Michelle with Mango Serrato Rn from the [facility]. 13:22 Straight cath inserted, using sterile technique, 16 Fr. Specimen obtained. Returned ca1 princess urine. Patient tolerated well. 13:48 connected the Chalk Molding Machine Operator and Hospitalist manager monitoring for [facility] with Dr. Miguel Angel ruano for patient transfer consultation. 15:27 No provider procedures requiring assistance completed. Patient transferred, IV remains ca1 in place. Administered Medications: 10:28 Drug: NS 0.9% 1000 ml Route: IV; Rate: 1 bolus; Site: right antecubital; ca1 11:30 Follow up: Response: No adverse reaction; IV Status: Completed infusion; IV Intake: ca1 1000ml 10:30 Drug: Thiamine 100 mg Route: IV; Rate: bolus; Site: right antecubital; ca1 11:30 Follow up: IV Status: Completed infusion ca1 10:32 Drug: foLIC Acid 1 mg Route: IVPB; Site: right antecubital; ca1 11:30 Follow up: Response: No adverse reaction; IV Status: Completed infusion ca1 11:15 Drug: Pepcid (famotidine) 20 mg Route: IVP; Site: right antecubital; ca1 12:00 Follow up: Response: No adverse reaction ca1 11:29 Drug: Ativan (LORazepam) 1 mg Route: IVP; Site: right antecubital; ca1 11:35 Follow up: Response: No adverse reaction ca1 11:35 Drug: Ativan (LORazepam) 1 mg Route: IVP; Site: right antecubital; ca1 11:45 Follow up: Response: No adverse reaction ca1 11:40 Drug: Ativan (LORazepam) 1 mg Route: IVP; Site: right antecubital; ca1 14:34 Follow up: Response: No adverse reaction ca1 11:45 Drug: Ativan (LORazepam) 1 mg Route: IVP; Site: right antecubital; ca1 12:00 Follow up: Response: No adverse reaction ca1 12:05 Drug: Rocephin (cefTRIAXone) 1 grams Route: IV; Rate: per protocol; Site: right ca1 antecubital; 13:00 Follow up: Response: No adverse reaction; IV Status: Completed infusion ca1 12:10 Drug: Banana Bag - (NS 0.9% 1000 ml, foLIC Acid 1 mg, Thiamine 100 mg, Multivitamin 1 ca1 amp) Route: IV; Rate: 125 ml/hr; Site: right antecubital; 14:33 Follow up: Response: No adverse reaction; IV Status: Infusion continued upon transfer ca1 12:43 Drug: Potassium Chloride 20 mEq Route: IV; Rate: per protocol; Site: left antecubital; ca1 14:50 Follow up: Response: No adverse reaction; IV Status: Completed infusion; IV Intake: ca1 100ml Intake: 11:30 IV: 1000ml; Total: 1000ml. ca1 14:50 IV: 100ml; Total: 1100ml. ca1 Output: 13:22 Urine: 100ml (Straight Cath); Total: 100ml. ca1 Outcome: 13:27 ER care complete, transfer ordered by MD. farnsworth 15:27 Transferred by ground EMS to [facility], Transfer form completed. ca1 X-rays sent w/ patient. 15:27 Condition: stable 15:27 Instructed on the need for transfer. 15:35 Patient left the ED. ca1 Signatures: Dispatcher [employer] Aroldo Lopez MD MD cha Martinez, Amelia as Williams, Irene, RN RN iw Botello, Elizabeth eb Acob, Cheryl, RN RN ca1 Lewis, Lynsay, RN RN ll1
[2021-04-08 14:32] LABS: Barbiturates NEGATIVE (NEGATIVE); Benzodiazepines POSITIVE (NEGATIVE); Cocaine NEGATIVE (NEGATIVE); METHAMPHETAM NEGATIVE (NEGATIVE); Methadone NEGATIVE (NEGATIVE); Opiates NEGATIVE (NEGATIVE); Phencyclidine NEGATIVE (NEGATIVE); THC Cannibis NEGATIVE (NEGATIVE)
[2021-04-08 15:59] VITALS: TEMP 97.4
[2021-04-08 16:07] VITALS: O2SAT 100
[2021-04-08 16:08] VITALS: BP 125/76
--- NOTE | 2021-04-09 08:45 | EKG ---
Test Date: 2021-04-08 Test Time: 10:34:54 Pesticide Use Medical Coordinator: AHMET MEASUREMENT RESULTS: Intervals: Rate: 87 MS: 182 QRSD: 112 QT: 434 QTc: 522 Orestes: P: 37 MS: 182 QRS: -37 T: -34 INTERPRETIVE STATEMENTS: Sinus rhythm with premature atrial complexes Left axis deviation Low voltage QRS Right bundle branch block T wave abnormality, consider lateral ischemia Abnormal ECG Compared to ECG 05/13/2007 07:28:10 Atrial premature complex(es) now present Left-axis deviation now present Low QRS voltage now present Right bundle-branch block now present T-wave abnormality now present Possible ischemia now present Sinus bradycardia no longer present Incomplete right bundle-branch block no longer present Electronically Signed On 04-09-21 08:43:23 CDT by Shankar Harry
== END 2021-04-08 15:35 | disposition short-term general hospital (02) ==
LOC: ER 09:24
DX: K70.30 Alcoholic cirrhosis of liver without ascites (principal); F10.10 Alcohol abuse, uncomplicated; N39.0 Urinary tract infection, site not specified; E87.6 Hypokalemia; F17.210 Nicotine dependence, cigarettes, uncomplicated; Z88.0 Allergy status to penicillin
CPT/HCPCS: 93005; 87040 ×2; 85025; 80048; 36415; 80320; 82140; 83735; 80329 ×2; 85610; 82947; 80076; 83605; 85730; 81003; 84484; 83690; 83880; 80307; 70450; 72125; 71260; 74177; 71045; 82805; U0003; Q9967; J3411 ×2; J3480; J0696; J7050; J7030 ×2; 51702; 99285

== ENCOUNTER 2022-03-28 13:15 | Emergency (ER) | payer OTHER ==
--- OUTSIDE RECORDS SUMMARY | 2022-03-28 13:20 | XMS REPORT | Continuity of Care Document ---
:1950 Author Organization [facility] t Address [address] [place] [address] Care Team Providers Name Role Phone Ann DEMARCO Attending Clinician Unavailable Singer VELEZ Attending Clinician Doctor Unassigned, Name Attending Clinician Unavailable Ann DEMARCO Admitting Clinician Unavailable [facility] Admitting Clinician Unavailable Payers Payer Name Policy Type Policy Number Effective Date Expiration Date S [facility] MEDICARE PART A \T\ [id number] 2015 B 00:00:00 [facility] [id number] 2018 MEDICARE SUPPLEMENT 00:00:00 UNITED MEDICARE HMO [id number] 2020 00:00:00 Problems This patient has no known problems. Allergies, Adverse Reactions, Alerts Allergy Allergy Status Severity Reaction(s) Onset Inactive Treating Comm ents Source Name Type Date Date Clinician [facility] DRUG Active Unknown-Cmnt 2018-0 Un kuldeep IN [facility] 3- ity of 00:00: [address] [facility] Allergy Active Other 2017- [facility] [place] [address] [facility] Medications This patient has no known medications. Vital Signs Vital Name Observation Time Observation Value Comments Source HEIGHT 2021-04-08 23:00:00 175.3 cm HEIGHT 2021-04-08 23:00:00 175.3 cm Procedures This patient has no known procedures. Encounters Start End Encounter Admission Attending Care Care Encounter Source Date/Time Date/Time Type Type Clinicians Facility Department ID 2021-08-14 Emergency [facility] [id number] [facility] 00:46:25 ity of [facility] 2021-07-23 Inpatient ER ADIO, [facility] [id number] [facility] 02:36:06 [place] 2021-03-24 2021-03-24 Emergency Farmer, [facility] [id number] 16:23:00 20:39:00 Rhys Cadet [id number] [place] [id number] Bernard [id number] 2021-03-24 2021-03-24 Orders Doctor BRANT [id number] 00:00:00 00:00:00 Only Unassigned, DOLLY 350.1.13.10 [facility] [id number] Results Test Description Test Time Test Comments Results Result Comments Source BASIC METABOLIC PANEL 2021-04-21 07:01:00 Test Item Value Reference Range Interpretation Comme nts SODIUM (BEAKER) (test code 136 meq/L 136-145 = 381) POTASSIUM (BEAKER) (test 3.6 meq/L 3.5-5.1 code = 379) CHLORIDE (BEAKER) (test 102 meq/L 98-107 code = 382) CO2 (BEAKER) (test code = 21 meq/L 22-29 L 355) BLOOD UREA NITROGEN 9 mg/dL 7-21 (BEAKER) (test code = 354) CREATININE (BEAKER) (test 0.74 mg/dL 0.57-1.25 code = 358) GLUCOSE RANDOM (BEAKER) 90 mg/dL 70-105 (test code = 652) CALCIUM (BEAKER) (test 9.8 mg/dL 8.4-10.2 code = 697) EGFR (BEAKER) (test code = 104 mL/min/1.73 sq m ESTIMATED GFR IS NOT 1092) ACCURATE CRE ATININE CLEARANCE IN RI EDICTING GLOMERULAR FILT RATION RATE. ESTIMATED GFR IS NOT APPLICABLE FOR DIALYSIS PATIENTS. Blue Line Trimmer ID - ADMINCBC W/PLT COUNT & AUTO [id number] 06:32:00 Test Item Value Reference Range Interpretation Comments WHITE BLOOD CELL COUNT (BEAKER) 5.8 K/ L 3.5-10.5 (test code = 775) RED BLOOD CELL COUNT (BEAKER) 3.41 M/ L 4.63-6.08 L (test code = 761) HEMOGLOBIN (BEAKER) (test code = 11.4 GM/DL 13.7-17.5 L 410) HEMATOCRIT (BEAKER) (test code = 34.1 % 40.1-51.0 L 411) MEAN CORPUSCULAR VOLUME (BEAKER) 100.0 fL 79.0-92.2 H (test code = 753) MEAN CORPUSCULAR HEMOGLOBIN 33.4 pg 25.7-32.2 H (BEAKER) (test code = 751) MEAN CORPUSCULAR HEMOGLOBIN CONC 33.4 GM/DL 32.3-36.5 (BEAKER) (test code = 752) RED CELL DISTRIBUTION WIDTH 17.0 % 11.6-14.4 H (BEAKER) (test code = 412) PLATELET COUNT (BEAKER) (test 343 K/CU MM 150-450 code = 756) MEAN PLATELET VOLUME (BEAKER) 10.2 fL 9.4-12.4 (test code = 754) NUCLEATED RED BLOOD CELLS 0 /100 WBC 0-0 (BEAKER) (test code = 413) NEUTROPHILS RELATIVE PERCENT 58 % (BEAKER) (test code = 429) LYMPHOCYTES RELATIVE PERCENT 29 % (BEAKER) (test code = 430) MONOCYTES RELATIVE PERCENT 12 % (BEAKER) (test code = 431) EOSINOPHILS RELATIVE PERCENT 1 % (BEAKER) (test code = 432) BASOPHILS RELATIVE PERCENT 1 % (BEAKER) (test code = 437) NEUTROPHILS ABSOLUTE COUNT 3.40 K/ L 1.78-5.38 (BEAKER) (test code = 670) LYMPHOCYTES ABSOLUTE COUNT 1.66 K/ L 1.32-3.57 (BEAKER) (test code = 414) MONOCYTES ABSOLUTE COUNT (BEAKER) 0.68 K/ L 0.30-0.82 (test code = 415) EOSINOPHILS ABSOLUTE COUNT 0.04 K/ L 0.04-0.54 (BEAKER) (test code = 416) BASOPHILS ABSOLUTE COUNT (BEAKER) 0.04 K/ L 0.01-0.08 (test code = 417) IMMATURE GRANULOCYTES-RELATIVE 0 % 0-1 PERCENT (BEAKER) (test code = 2801) CBC W/PLT COUNT & AUTO [id number] 05:38:00 Test Item Value Reference Range Interpretation Comments WHITE BLOOD CELL COUNT (BEAKER) 6.5 K/ L 3.5-10.5 (test code = 775) RED BLOOD CELL COUNT (BEAKER) 3.10 M/ L 4.63-6.08 L (test code = 761) HEMOGLOBIN (BEAKER) (test code = 10.3 GM/DL 13.7-17.5 L 410) HEMATOCRIT (BEAKER) (test code = 32.1 % 40.1-51.0 L 411) MEAN CORPUSCULAR VOLUME (BEAKER) 103.5 fL 79.0-92.2 H (test code = 753) MEAN CORPUSCULAR HEMOGLOBIN 33.2 pg 25.7-32.2 H (BEAKER) (test code = 751) MEAN CORPUSCULAR HEMOGLOBIN CONC 32.1 GM/DL 32.3-36.5 L (BEAKER) (test code = 752) RED CELL DISTRIBUTION WIDTH 17.3 % 11.6-14.4 H (BEAKER) (test code = 412) PLATELET COUNT (BEAKER) (test 293 K/CU MM 150-450 code = 756) MEAN PLATELET VOLUME (BEAKER) 10.5 fL 9.4-12.4 (test code = 754) NUCLEATED RED BLOOD CELLS 0 /100 WBC 0-0 (BEAKER) (test code = 413) (CELLAVISION MANUAL DIFF)2021-04-19 05:38:00 Test Item Value Reference Range Interpretation Comments NEUTROPHILS - REL 72 % (CELLAVISION)(BEAKER) (test code = 2816) LYMPHOCYTES - REL 20 % (CELLAVISION)(BEAKER) (test code = 2817) MONOCYTES - REL 6 % (CELLAVISION)(BEAKER) (test code = 2818) EOSINOPHILS - REL 1 % (CELLAVISION)(BEAKER) (test code = 2819) BASOPHILS - REL 1 % (CELLAVISION)(BEAKER) (test code = 2820) NEUTROPHILS - ABS 4.68 K/ul 1.78-5.38 (CELLAVISION)(BEAKER) (test code = 2830) LYMPHOCYTES - ABS 1.30 K/ul 1.32-3.57 L (CELLAVISION)(BEAKER) (test code = 2831) MONOCYTES - ABS 0.39 K/uL 0.30-0.82 (CELLAVISION)(BEAKER) (test code = 2832) EOSINOPHILS - ABS 0.07 K/uL 0.04-0.54 (CELLAVISION)(BEAKER) (test code = 2834) BASOPHILS - ABS 0.07 K/uL 0.01-0.08 (CELLAVISION)(BEAKER) (test code = 2835) TOTAL COUNTED (BEAKER) (test code = 100 1351) WBC MORPHOLOGY (BEAKER) (test code Normal = 487) GIANT PLATELETS (BEAKER) (test code Present = 313) ANISOCYTOSIS (BEAKER) (test code = 1+ few 961) MACROCYTES (BEAKER) (test code = 1+ few 964) POIKILOCYTES (BEAKER) (test code = 1+ few 966) OVALOCYTES (BEAKER) (test code = 1+ few 477) ARTIFACT (CELLAVISION)(BEAKER) Present (test code = 3432) PLATELET CONCENTRATION Adequate (CELLAVISION)(BEAKER) (test code = 3438) Blue Line Trimmer ID - Debbi comments: Slide comments:BASIC METABOLIC [id number] 05:14:00 Test Item Value Reference Range Interpretation Comments SODIUM (BEAKER) 135 meq/L 136-145 L (test code = 381) POTASSIUM (BEAKER) 4.1 meq/L 3.5-5.1 (test code = 379) CHLORIDE (BEAKER) 102 meq/L 98-107 (test code = 382) CO2 (BEAKER) (test 21 meq/L 22-29 L code = 355) BLOOD UREA NITROGEN 9 mg/dL 7-21 (BEAKER) (test code = 354) CREATININE (BEAKER) 0.69 mg/dL 0.57-1.25 (test code = 358) GLUCOSE RANDOM 97 mg/dL 70-105 (BEAKER) (test code = 652) CALCIUM (BEAKER) 9.5 mg/dL 8.4-10.2 (test code = 697) EGFR (BEAKER) (test 113 mL/min/1.73 ESTIM ATED GFR IS code = 1092) sq m NOT ACCURATE CREATININE CLEARANCE IN PREDICTING GLOMERULAR FILTRATION RATE . ESTIMATED GFR I S NOT APPLICABLE FOR DIALYSIS PATIEN TS. Blue Line Trimmer ID Wilbert RADER WCBC W/PLT COUNT & AUTO [id number] 08:36:00 Test Item Value Reference Range Interpretation Comments WHITE BLOOD CELL COUNT (BEAKER) 6.6 K/ L 3.5-10.5 (test code = 775) RED BLOOD CELL COUNT (BEAKER) 3.18 M/ L 4.63-6.08 L (test code = 761) HEMOGLOBIN (BEAKER) (test code = 10.7 GM/DL 13.7-17.5 L 410) HEMATOCRIT (BEAKER) (test code = 32.9 % 40.1-51.0 L 411) MEAN CORPUSCULAR VOLUME (BEAKER) 103.5 fL 79.0-92.2 H (test code = 753) MEAN CORPUSCULAR HEMOGLOBIN 33.6 pg 25.7-32.2 H (BEAKER) (test code = 751) MEAN CORPUSCULAR HEMOGLOBIN CONC 32.5 GM/DL 32.3-36.5 (BEAKER) (test code = 752) RED CELL DISTRIBUTION WIDTH 17.1 % 11.6-14.4 H (BEAKER) (test code = 412) PLATELET COUNT (BEAKER) (test 271 K/CU MM 150-450 code = 756) MEAN PLATELET VOLUME (BEAKER) 10.1 fL 9.4-12.4 (test code = 754) NUCLEATED RED BLOOD CELLS 0 /100 WBC 0-0 (BEAKER) (test code = 413) (CELLAVISION MANUAL DIFF)2021-04-18 08:36:00 Test Item Value Reference Range Interpretation Comments NEUTROPHILS - REL 52 % (CELLAVISION)(BEAKER) (test code = 2816) LYMPHOCYTES - REL 35 % (CELLAVISION)(BEAKER) (test code = 2817) MONOCYTES - REL 12 % (CELLAVISION)(BEAKER) (test code = 2818) EOSINOPHILS - REL 1 % (CELLAVISION)(BEAKER) (test code = 2819) NEUTROPHILS - ABS 3.43 K/ul 1.78-5.38 (CELLAVISION)(BEAKER) (test code = 2830) LYMPHOCYTES - ABS 2.31 K/ul 1.32-3.57 (CELLAVISION)(BEAKER) (test code = 2831) MONOCYTES - ABS 0.79 K/uL 0.30-0.82 (CELLAVISION)(BEAKER) (test code = 2832) EOSINOPHILS - ABS 0.07 K/uL 0.04-0.54 (CELLAVISION)(BEAKER) (test code = 2834) TOTAL COUNTED (BEAKER) (test code 100 = 1351) WBC MORPHOLOGY (BEAKER) (test Normal code = 487) PLT MORPHOLOGY (BEAKER) (test Normal code = 486) ANISOCYTOSIS (BEAKER) (test code 2+ moderate = 961) MACROCYTES (BEAKER) (test code = 2+ moderate 964) ARTIFACT (CELLAVISION)(BEAKER) Present (test code = 3432) PLATELET CONCENTRATION Adequate (CELLAVISION)(BEAKER) (test code = 3438) Blue Line Trimmer ID - Renetta OverholtUser comments: Slide comments:BASIC METABOLIC PANEL 2021-04-18 05:01:00 Test Item Value Reference Range Interpretation Comments SODIUM (BEAKER) 136 meq/L 136-145 (test code = 381) POTASSIUM (BEAKER) 4.2 meq/L 3.5-5.1 (test code = 379) CHLORIDE (BEAKER) 103 meq/L 98-107 (test code = 382) CO2 (BEAKER) (test 22 meq/L 22-29 code = 355) BLOOD UREA NITROGEN 9 mg/dL 7-21 (BEAKER) (test code = 354) CREATININE (BEAKER) 0.73 mg/dL 0.57-1.25 (test code = 358) GLUCOSE RANDOM 97 mg/dL 70-105 (BEAKER) (test code = 652) CALCIUM (BEAKER) 9.7 mg/dL 8.4-10.2 (test code = 697) EGFR (BEAKER) (test 106 mL/min/1.73 ESTIM ATED GFR IS code = 1092) sq m NOT ACCURATE CREATININE CLEARANCE IN PREDICTING GLOMERULAR FILTRATION RATE . ESTIMATED GFR I S NOT APPLICABLE FOR DIALYSIS PATIEN TS. Blue Line Trimmer ID - KAREEN MBASIC METABOLIC [id number] 06:24:00 Test Item Value Reference Range Interpretation Comments SODIUM (BEAKER) 135 meq/L 136-145 L (test code = 381) POTASSIUM (BEAKER) 4.7 meq/L 3.5-5.1 (test code = 379) CHLORIDE (BEAKER) 104 meq/L 98-107 (test code = 382) CO2 (BEAKER) (test 21 meq/L 22-29 L code = 355) BLOOD UREA NITROGEN 6 mg/dL 7-21 L (BEAKER) (test code = 354) CREATININE (BEAKER) 0.67 mg/dL 0.57-1.25 (test code = 358) GLUCOSE RANDOM 88 mg/dL 70-105 (BEAKER) (test code = 652) CALCIUM (BEAKER) 9.4 mg/dL 8.4-10.2 (test code = 697) EGFR (BEAKER) (test 117 mL/min/1.73 ESTIM ATED GFR IS code = 1092) sq m NOT ACCURATE CREATININE CLEARANCE IN PREDICTING GLOMERULAR FILTRATION RATE . ESTIMATED GFR I S NOT APPLICABLE FOR DIALYSIS PATIEN TS. Blue Line Trimmer ID - PIAYA LCBC W/PLT COUNT & AUTO [id number] 05:16:00 Test Item Value Reference Range Interpretation Comments WHITE BLOOD CELL COUNT (BEAKER) 6.3 K/ L 3.5-10.5 (test code = 775) RED BLOOD CELL COUNT (BEAKER) 3.07 M/ L 4.63-6.08 L (test code = 761) HEMOGLOBIN (BEAKER) (test code = 10.2 GM/DL 13.7-17.5 L 410) HEMATOCRIT (BEAKER) (test code = 31.2 % 40.1-51.0 L 411) MEAN CORPUSCULAR VOLUME (BEAKER) 101.6 fL 79.0-92.2 H (test code = 753) MEAN CORPUSCULAR HEMOGLOBIN 33.2 pg 25.7-32.2 H (BEAKER) (test code = 751) MEAN CORPUSCULAR HEMOGLOBIN CONC 32.7 GM/DL 32.3-36.5 (BEAKER) (test code = 752) RED CELL DISTRIBUTION WIDTH 17.1 % 11.6-14.4 H (BEAKER) (test code = 412) PLATELET COUNT (BEAKER) (test 244 K/CU MM 150-450 code = 756) MEAN PLATELET VOLUME (BEAKER) 10.8 fL 9.4-12.4 (test code = 754) NUCLEATED RED BLOOD CELLS 0 /100 WBC 0-0 (BEAKER) (test code = 413) NEUTROPHILS RELATIVE PERCENT 49 % (BEAKER) (test code = 429) LYMPHOCYTES RELATIVE PERCENT 38 % (BEAKER) (test code = 430) MONOCYTES RELATIVE PERCENT 11 % (BEAKER) (test code = 431) EOSINOPHILS RELATIVE PERCENT 1 % (BEAKER) (test code = 432) BASOPHILS RELATIVE PERCENT 1 % (BEAKER) (test code = 437) NEUTROPHILS ABSOLUTE COUNT 3.08 K/ L 1.78-5.38 (BEAKER) (test code = 670) LYMPHOCYTES ABSOLUTE COUNT 2.38 K/ L 1.32-3.57 (BEAKER) (test code = 414) MONOCYTES ABSOLUTE COUNT (BEAKER) 0.67 K/ L 0.30-0.82 (test code = 415) EOSINOPHILS ABSOLUTE COUNT 0.07 K/ L 0.04-0.54 (BEAKER) (test code = 416) BASOPHILS ABSOLUTE COUNT (BEAKER) 0.05 K/ L 0.01-0.08 (test code = 417) IMMATURE GRANULOCYTES-RELATIVE 1 % 0-1 PERCENT (BEAKER) (test code = 2801) BASIC METABOLIC [id number] 05:18:00 Test Item Value Reference Range Interpretation Comments SODIUM (BEAKER) 135 meq/L 136-145 L (test code = 381) POTASSIUM (BEAKER) 4.8 meq/L 3.5-5.1 (test code = 379) CHLORIDE (BEAKER) 106 meq/L 98-107 (test code = 382) CO2 (BEAKER) (test 20 meq/L 22-29 L code = 355) BLOOD UREA NITROGEN 7 mg/dL 7-21 (BEAKER) (test code = 354) CREATININE (BEAKER) 0.61 mg/dL 0.57-1.25 (test code = 358) GLUCOSE RANDOM 80 mg/dL 70-105 (BEAKER) (test code = 652) CALCIUM (BEAKER) 8.7 mg/dL 8.4-10.2 (test code = 697) EGFR (BEAKER) (test 130 mL/min/1.73 ESTIM ATED GFR IS code = 1092) sq m NOT ACCURATE CREATININE CLEARANCE IN PREDICTING GLOMERULAR FILTRATION RATE . ESTIMATED GFR I S NOT APPLICABLE FOR DIALYSIS PATIEN TS. Blue Line Trimmer ID - PIAYA LCBC W/PLT COUNT & AUTO [id number] 04:48:00 Test Item Value Reference Range Interpretation Comments WHITE BLOOD CELL COUNT (BEAKER) 5.3 K/ L 3.5-10.5 (test code = 775) RED BLOOD CELL COUNT (BEAKER) 2.81 M/ L 4.63-6.08 L (test code = 761) HEMOGLOBIN (BEAKER) (test code = 9.3 GM/DL 13.7-17.5 L 410) HEMATOCRIT (BEAKER) (test code = 29.3 % 40.1-51.0 L 411) MEAN CORPUSCULAR VOLUME (BEAKER) 104.3 fL 79.0-92.2 H (test code = 753) MEAN CORPUSCULAR HEMOGLOBIN 33.1 pg 25.7-32.2 H (BEAKER) (test code = 751) MEAN CORPUSCULAR HEMOGLOBIN CONC 31.7 GM/DL 32.3-36.5 L (BEAKER) (test code = 752) RED CELL DISTRIBUTION WIDTH 17.0 % 11.6-14.4 H (BEAKER) (test code = 412) PLATELET COUNT (BEAKER) (test 185 K/CU MM 150-450 code = 756) MEAN PLATELET VOLUME (BEAKER) 10.8 fL 9.4-12.4 (test code = 754) NUCLEATED RED BLOOD CELLS 0 /100 WBC 0-0 (BEAKER) (test code = 413) NEUTROPHILS RELATIVE PERCENT 51 % (BEAKER) (test code = 429) LYMPHOCYTES RELATIVE PERCENT 37 % (BEAKER) (test code = 430) MONOCYTES RELATIVE PERCENT 10 % (BEAKER) (test code = 431) EOSINOPHILS RELATIVE PERCENT 1 % (BEAKER) (test code = 432) BASOPHILS RELATIVE PERCENT 1 % (BEAKER) (test code = 437) NEUTROPHILS ABSOLUTE COUNT 2.66 K/ L 1.78-5.38 (BEAKER) (test code = 670) LYMPHOCYTES ABSOLUTE COUNT 1.96 K/ L 1.32-3.57 (BEAKER) (test code = 414) MONOCYTES ABSOLUTE COUNT (BEAKER) 0.54 K/ L 0.30-0.82 (test code = 415) EOSINOPHILS ABSOLUTE COUNT 0.03 K/ L 0.04-0.54 L (BEAKER) (test code = 416) BASOPHILS ABSOLUTE COUNT (BEAKER) 0.04 K/ L 0.01-0.08 (test code = 417) IMMATURE GRANULOCYTES-RELATIVE 0 % 0-1 PERCENT (BEAKER) (test code = 2801) BASIC METABOLIC [id number] 04:36:00 Test Item Value Reference Range Interpretation Comments SODIUM (BEAKER) 136 meq/L 136-145 (test code = 381) POTASSIUM (BEAKER) 5.0 meq/L 3.5-5.1 Specimen slightly (test code = 379) hemolyzed CHLORIDE (BEAKER) 106 meq/L 98-107 (test code = 382) CO2 (BEAKER) (test 21 meq/L 22-29 L code = 355) BLOOD UREA NITROGEN 17 mg/dL 7-21 (BEAKER) (test code = 354) CREATININE (BEAKER) 0.64 mg/dL 0.57-1.25 Specimen slightly (test code = 358) hemolyzed GLUCOSE RANDOM 98 mg/dL 70-105 (BEAKER) (test code = 652) CALCIUM (BEAKER) 9.4 mg/dL 8.4-10.2 (test code = 697) EGFR (BEAKER) (test 123 mL/min/1.73 ESTIM ATED GFR IS code = 1092) sq m NOT ACCURATE CREATININE CLEARANCE IN PREDICTING GLOMERULAR FILTRATION RATE . ESTIMATED GFR I S NOT APPLICABLE FOR DIALYSIS PATIEN TS. Blue Line Trimmer ID - KAREEN MCBC W/PLT COUNT & AUTO [id number] 04:11:00 Test Item Value Reference Range Interpretation Comments WHITE BLOOD CELL COUNT (BEAKER) 7.6 K/ L 3.5-10.5 (test code = 775) RED BLOOD CELL COUNT (BEAKER) 3.25 M/ L 4.63-6.08 L (test code = 761) HEMOGLOBIN (BEAKER) (test code = 10.6 GM/DL 13.7-17.5 L 410) HEMATOCRIT (BEAKER) (test code = 33.6 % 40.1-51.0 L 411) MEAN CORPUSCULAR VOLUME (BEAKER) 103.4 fL 79.0-92.2 H (test code = 753) MEAN CORPUSCULAR HEMOGLOBIN 32.6 pg 25.7-32.2 H (BEAKER) (test code = 751) MEAN CORPUSCULAR HEMOGLOBIN CONC 31.5 GM/DL 32.3-36.5 L (BEAKER) (test code = 752) RED CELL DISTRIBUTION WIDTH 17.1 % 11.6-14.4 H (BEAKER) (test code = 412) PLATELET COUNT (BEAKER) (test 215 K/CU MM 150-450 code = 756) MEAN PLATELET VOLUME (BEAKER) 10.8 fL 9.4-12.4 (test code = 754) NUCLEATED RED BLOOD CELLS 0 /100 WBC 0-0 (BEAKER) (test code = 413) NEUTROPHILS RELATIVE PERCENT 59 % (BEAKER) (test code = 429) LYMPHOCYTES RELATIVE PERCENT 30 % (BEAKER) (test code = 430) MONOCYTES RELATIVE PERCENT 10 % (BEAKER) (test code = 431) EOSINOPHILS RELATIVE PERCENT 1 % (BEAKER) (test code = 432) BASOPHILS RELATIVE PERCENT 1 % (BEAKER) (test code = 437) NEUTROPHILS ABSOLUTE COUNT 4.43 K/ L 1.78-5.38 (BEAKER) (test code = 670) LYMPHOCYTES ABSOLUTE COUNT 2.26 K/ L 1.32-3.57 (BEAKER) (test code = 414) MONOCYTES ABSOLUTE COUNT (BEAKER) 0.75 K/ L 0.30-0.82 (test code = 415) EOSINOPHILS ABSOLUTE COUNT 0.04 K/ L 0.04-0.54 (BEAKER) (test code = 416) BASOPHILS ABSOLUTE COUNT (BEAKER) 0.04 K/ L 0.01-0.08 (test code = 417) IMMATURE GRANULOCYTES-RELATIVE 0 % 0-1 PERCENT (BEAKER) (test code = 2801) COMPREHENSIVE METABOLIC [id number] 06:30:00 Test Item Value Reference Range Interpretation Comments TOTAL PROTEIN 6.6 gm/dL 6.0-8.3 Specimen sligh tly (BEAKER) (test code = hemoly zed 770) ALBUMIN (BEAKER) 3.2 g/dL 3.5-5.0 L Specimen sl ightly (test code = 1145) hemolyzed ALKALINE PHOSPHATASE 100 U/L 40-150 (BEAKER) (test code = 346) BILIRUBIN TOTAL 1.1 mg/dL 0.2-1.2 Specimen sli ghtly (BEAKER) (test code = hemoly zed 377) SODIUM (BEAKER) (test 138 meq/L 136-145 code = 381) POTASSIUM (BEAKER) 5.0 meq/L 3.5-5.1 Specimen slightly (test code = 379) hemolyzed CHLORIDE (BEAKER) 107 meq/L 98-107 (test code = 382) CO2 (BEAKER) (test 24 meq/L 22-29 code = 355) BLOOD UREA NITROGEN 17 mg/dL 7-21 (BEAKER) (test code = 354) CREATININE (BEAKER) 0.61 mg/dL 0.57-1.25 Specimen slightly (test code = 358) hemolyzed GLUCOSE RANDOM 86 mg/dL 70-105 (BEAKER) (test code = 652) CALCIUM (BEAKER) 8.8 mg/dL 8.4-10.2 (test code = 697) AST (SGOT) (BEAKER) 73 U/L 5-34 H Specimen slightly (test code = 353) hemolyzed ALT (SGPT) (BEAKER) 72 U/L 6-55 H Specimen slightly (test code = 347) hemolyzed EGFR (BEAKER) (test 130 ESTIMATE D GFR IS code = 1092) mL/min/1.73 sq NOT ACCURA TE m CREATININE CLEARANCE IN PREDICTING GLOMERULAR FILTRATION RATE . ESTIMATED GFR I S NOT APPLICABLE FOR DIALYSIS PATIEN TS. Blue Line Trimmer ID - EDASICBC W/PLT COUNT & AUTO [id number] 05:04:00 Test Item Value Reference Range Interpretation Comments WHITE BLOOD CELL COUNT (BEAKER) 9.8 K/ L 3.5-10.5 (test code = 775) RED BLOOD CELL COUNT (BEAKER) 3.92 M/ L 4.63-6.08 L (test code = 761) HEMOGLOBIN (BEAKER) (test code = 12.9 GM/DL 13.7-17.5 L 410) HEMATOCRIT (BEAKER) (test code = 40.0 % 40.1-51.0 L 411) MEAN CORPUSCULAR VOLUME (BEAKER) 102.0 fL 79.0-92.2 H (test code = 753) MEAN CORPUSCULAR HEMOGLOBIN 32.9 pg 25.7-32.2 H (BEAKER) (test code = 751) MEAN CORPUSCULAR HEMOGLOBIN CONC 32.3 GM/DL 32.3-36.5 (BEAKER) (test code = 752) RED CELL DISTRIBUTION WIDTH 17.2 % 11.6-14.4 H (BEAKER) (test code = 412) PLATELET COUNT (BEAKER) (test 227 K/CU MM 150-450 code = 756) MEAN PLATELET VOLUME (BEAKER) 10.6 fL 9.4-12.4 (test code = 754) NUCLEATED RED BLOOD CELLS 0 /100 WBC 0-0 (BEAKER) (test code = 413) NEUTROPHILS RELATIVE PERCENT 67 % (BEAKER) (test code = 429) LYMPHOCYTES RELATIVE PERCENT 21 % (BEAKER) (test code = 430) MONOCYTES RELATIVE PERCENT 11 % (BEAKER) (test code = 431) EOSINOPHILS RELATIVE PERCENT 0 % (BEAKER) (test code = 432) BASOPHILS RELATIVE PERCENT 0 % (BEAKER) (test code = 437) NEUTROPHILS ABSOLUTE COUNT 6.59 K/ L 1.78-5.38 H (BEAKER) (test code = 670) LYMPHOCYTES ABSOLUTE COUNT 2.06 K/ L 1.32-3.57 (BEAKER) (test code = 414) MONOCYTES ABSOLUTE COUNT (BEAKER) 1.03 K/ L 0.30-0.82 H (test code = 415) EOSINOPHILS ABSOLUTE COUNT 0.04 K/ L 0.04-0.54 (BEAKER) (test code = 416) BASOPHILS ABSOLUTE COUNT (BEAKER) 0.03 K/ L 0.01-0.08 (test code = 417) IMMATURE GRANULOCYTES-RELATIVE 0 % 0-1 PERCENT (BEAKER) (test code = 2801) BLOOD [id number] 22:00:00 Test Item Value Reference Range Interpretation Comments CULTURE (BEAKER) (test No growth in 5 days code = 1095) BLOOD [id number] 22:00:00 Test Item Value Reference Range Interpretation Comments CULTURE (BEAKER) (test No growth in 5 days code = 1095) VITAMIN D, [id number] 09:36:00 Test Item Value Reference Range Interpretation Comments VITAMIN D 25-OH (BEAKER) (test code 5.2 ng/mL 6.6-49.9 L = 2764) Effective 07/24/2017: Reference Range ChangeNew: 6.6-49.9 ng/mL Previous: 13.0-47.8 ng/mLRecommended Vitamin D Target Range: 30.0-40.0 ng/mLOperator ID - PIAYA LTSH/FREE T4 IF [id number] 08:53:00 Test Item Value Reference Range Interpretation Comments THYROID STIMULATING HORMONE 3.700 uIU/mL 0.350-4.940 (BEAKER) (test code = 772) [employer] Line Trimmer ID - PIAYA LVITAMIN B12 AND [id number] 08:53:00 Test Item Value Reference Range Interpretation Comments VITAMIN B12 (BEAKER) 830 pg/mL 213-816 H (test code = 774) FOLATE (BEAKER) 4.50 ng/mL See_Comment L [Automated message] (test code = 362) The system which generated this result transmitted ref erence range: >=7.00. The reference range was not used to interpr et this result as normal/abnormal . [employer] Line Trimmer ID - PIAYA LCOMPREHENSIVE METABOLIC [id number] 08:20:00 Test Item Value Reference Range Interpretation Comments TOTAL PROTEIN 6.8 gm/dL 6.0-8.3 (BEAKER) (test code = 770) ALBUMIN (BEAKER) 3.3 g/dL 3.5-5.0 L (test code = 1145) ALKALINE PHOSPHATASE 110 U/L 40-150 (BEAKER) (test code = 346) BILIRUBIN TOTAL 1.5 mg/dL 0.2-1.2 H (BEAKER) (test code = 377) SODIUM (BEAKER) (test 136 meq/L 136-145 code = 381) POTASSIUM (BEAKER) 4.7 meq/L 3.5-5.1 (test code = 379) CHLORIDE (BEAKER) 102 meq/L 98-107 (test code = 382) CO2 (BEAKER) (test 27 meq/L 22-29 code = 355) BLOOD UREA NITROGEN 10 mg/dL 7-21 (BEAKER) (test code = 354) CREATININE (BEAKER) 0.62 mg/dL 0.57-1.25 (test code = 358) GLUCOSE RANDOM 97 mg/dL 70-105 (BEAKER) (test code = 652) CALCIUM (BEAKER) 8.7 mg/dL 8.4-10.2 (test code = 697) AST (SGOT) (BEAKER) 102 U/L 5-34 H (test code = 353) ALT (SGPT) (BEAKER) 79 U/L 6-55 H (test code = 347) EGFR (BEAKER) (test 128 ESTIMATE D GFR IS code = 1092) mL/min/1.73 sq NOT ACCURA TE m CREATININE CLEARANCE IN PREDICTING GLOMERULAR FILTRATION RATE . ESTIMATED GFR I S NOT APPLICABLE FOR DIALYSIS PATIEN TS. [employer] Line Trimmer ID - PIAYA LCBC W/PLT COUNT & AUTO [id number] 08:04:00 Test Item Value Reference Range Interpretation Comments WHITE BLOOD CELL COUNT (BEAKER) 8.1 K/ L 3.5-10.5 (test code = 775) RED BLOOD CELL COUNT (BEAKER) 4.01 M/ L 4.63-6.08 L (test code = 761) HEMOGLOBIN (BEAKER) (test code = 13.2 GM/DL 13.7-17.5 L 410) HEMATOCRIT (BEAKER) (test code = 40.4 % 40.1-51.0 411) MEAN CORPUSCULAR VOLUME (BEAKER) 100.7 fL 79.0-92.2 H (test code = 753) MEAN CORPUSCULAR HEMOGLOBIN 32.9 pg 25.7-32.2 H (BEAKER) (test code = 751) MEAN CORPUSCULAR HEMOGLOBIN CONC 32.7 GM/DL 32.3-36.5 (BEAKER) (test code = 752) RED CELL DISTRIBUTION WIDTH 16.6 % 11.6-14.4 H (BEAKER) (test code = 412) PLATELET COUNT (BEAKER) (test 199 K/CU MM 150-450 code = 756) MEAN PLATELET VOLUME (BEAKER) 10.3 fL 9.4-12.4 (test code = 754) NUCLEATED RED BLOOD CELLS 0 /100 WBC 0-0 (BEAKER) (test code = 413) NEUTROPHILS RELATIVE PERCENT 68 % (BEAKER) (test code = 429) LYMPHOCYTES RELATIVE PERCENT 20 % (BEAKER) (test code = 430) MONOCYTES RELATIVE PERCENT 11 % (BEAKER) (test code = 431) EOSINOPHILS RELATIVE PERCENT 1 % (BEAKER) (test code = 432) BASOPHILS RELATIVE PERCENT 1 % (BEAKER) (test code = 437) NEUTROPHILS ABSOLUTE COUNT 5.50 K/ L 1.78-5.38 H (BEAKER) (test code = 670) LYMPHOCYTES ABSOLUTE COUNT 1.57 K/ L 1.32-3.57 (BEAKER) (test code = 414) MONOCYTES ABSOLUTE COUNT (BEAKER) 0.86 K/ L 0.30-0.82 H (test code = 415) EOSINOPHILS ABSOLUTE COUNT 0.04 K/ L 0.04-0.54 (BEAKER) (test code = 416) BASOPHILS ABSOLUTE COUNT (BEAKER) 0.05 K/ L 0.01-0.08 (test code = 417) IMMATURE GRANULOCYTES-RELATIVE 0 % 0-1 PERCENT (BEAKER) (test code = 2801) POCT-GLUCOSE [id number] 05:44:00 Test Item Value Reference Range Interpretation Comments POC-GLUCOSE METER 77 mg/dL 70-110 : TESTED A T [facility] 6720 (BEAKER) (test code = [place], 1538) [address]: [employer] Line Trimmer/Techni mallory ID = [id number] for [facility] Jennifer nicholas COMPREHENSIVE METABOLIC [id number] 05:19:00 Test Item Value Reference Range Interpretation Comments TOTAL PROTEIN 6.3 gm/dL 6.0-8.3 (BEAKER) (test code = 770) ALBUMIN (BEAKER) 3.1 g/dL 3.5-5.0 L (test code = 1145) ALKALINE PHOSPHATASE 107 U/L 40-150 (BEAKER) (test code = 346) BILIRUBIN TOTAL 1.2 mg/dL 0.2-1.2 (BEAKER) (test code = 377) SODIUM (BEAKER) (test 139 meq/L 136-145 code = 381) POTASSIUM (BEAKER) 4.1 meq/L 3.5-5.1 (test code = 379) CHLORIDE (BEAKER) 104 meq/L 98-107 (test code = 382) CO2 (BEAKER) (test 24 meq/L 22-29 code = 355) BLOOD UREA NITROGEN 6 mg/dL 7-21 L (BEAKER) (test code = 354) CREATININE (BEAKER) 0.64 mg/dL 0.57-1.25 (test code = 358) GLUCOSE RANDOM 77 mg/dL 70-105 (BEAKER) (test code = 652) CALCIUM (BEAKER) 8.4 mg/dL 8.4-10.2 (test code = 697) AST (SGOT) (BEAKER) 109 U/L 5-34 H (test code = 353) ALT (SGPT) (BEAKER) 77 U/L 6-55 H (test code = 347) EGFR (BEAKER) (test 123 ESTIMATE D GFR IS code = 1092) mL/min/1.73 sq NOT ACCURA TE m CREATININE CLEARANCE IN PREDICTING GLOMERULAR FILTRATION RATE . ESTIMATED GFR I S NOT APPLICABLE FOR DIALYSIS PATIEN TS. [employer] Line Trimmer ID - KAREEN [facility] W/PLT COUNT & AUTO [id number] 04:38:00 Test Item Value Reference Range Interpretation Comments WHITE BLOOD CELL COUNT (BEAKER) 5.9 K/ L 3.5-10.5 (test code = 775) RED BLOOD CELL COUNT (BEAKER) 3.62 M/ L 4.63-6.08 L (test code = 761) HEMOGLOBIN (BEAKER) (test code = 12.0 GM/DL 13.7-17.5 L 410) HEMATOCRIT (BEAKER) (test code = 37.4 % 40.1-51.0 L 411) MEAN CORPUSCULAR VOLUME (BEAKER) 103.3 fL 79.0-92.2 H (test code = 753) MEAN CORPUSCULAR HEMOGLOBIN 33.1 pg 25.7-32.2 H (BEAKER) (test code = 751) MEAN CORPUSCULAR HEMOGLOBIN CONC 32.1 GM/DL 32.3-36.5 L (BEAKER) (test code = 752) RED CELL DISTRIBUTION WIDTH 16.5 % 11.6-14.4 H (BEAKER) (test code = 412) PLATELET COUNT (BEAKER) (test 176 K/CU MM 150-450 code = 756) MEAN PLATELET VOLUME (BEAKER) 9.7 fL 9.4-12.4 (test code = 754) NUCLEATED RED BLOOD CELLS 0 /100 WBC 0-0 (BEAKER) (test code = 413) NEUTROPHILS RELATIVE PERCENT 59 % (BEAKER) (test code = 429) LYMPHOCYTES RELATIVE PERCENT 28 % (BEAKER) (test code = 430) MONOCYTES RELATIVE PERCENT 11 % (BEAKER) (test code = 431) EOSINOPHILS RELATIVE PERCENT 1 % (BEAKER) (test code = 432) BASOPHILS RELATIVE PERCENT 0 % (BEAKER) (test code = 437) NEUTROPHILS ABSOLUTE COUNT 3.48 K/ L 1.78-5.38 (BEAKER) (test code = 670) LYMPHOCYTES ABSOLUTE COUNT 1.67 K/ L 1.32-3.57 (BEAKER) (test code = 414) MONOCYTES ABSOLUTE COUNT (BEAKER) 0.62 K/ L 0.30-0.82 (test code = 415) EOSINOPHILS ABSOLUTE COUNT 0.05 K/ L 0.04-0.54 (BEAKER) (test code = 416) BASOPHILS ABSOLUTE COUNT (BEAKER) 0.02 K/ L 0.01-0.08 (test code = 417) IMMATURE GRANULOCYTES-RELATIVE 1 % 0-1 PERCENT (BEAKER) (test code = 2801) COMPREHENSIVE METABOLIC [id number] 06:06:00 Test Item Value Reference Range Interpretation Comments TOTAL PROTEIN 6.2 gm/dL 6.0-8.3 (BEAKER) (test code = 770) ALBUMIN (BEAKER) 3.1 g/dL 3.5-5.0 L (test code = 1145) ALKALINE PHOSPHATASE 107 U/L 40-150 (BEAKER) (test code = 346) BILIRUBIN TOTAL 1.3 mg/dL 0.2-1.2 H (BEAKER) (test code = 377) SODIUM (BEAKER) (test 141 meq/L 136-145 code = 381) POTASSIUM (BEAKER) 4.2 meq/L 3.5-5.1 (test code = 379) CHLORIDE (BEAKER) 106 meq/L 98-107 (test code = 382) CO2 (BEAKER) (test 22 meq/L 22-29 code = 355) BLOOD UREA NITROGEN 9 mg/dL 7-21 (BEAKER) (test code = 354) CREATININE (BEAKER) 0.69 mg/dL 0.57-1.25 (test code = 358) GLUCOSE RANDOM 65 mg/dL 70-105 L (BEAKER) (test code = 652) CALCIUM (BEAKER) 8.5 mg/dL 8.4-10.2 (test code = 697) AST (SGOT) (BEAKER) 114 U/L 5-34 H (test code = 353) ALT (SGPT) (BEAKER) 78 U/L 6-55 H (test code = 347) EGFR (BEAKER) (test 113 ESTIMATE D GFR IS code = 1092) mL/min/1.73 sq NOT ACCURA TE m CREATININE CLEARANCE IN PREDICTING GLOMERULAR FILTRATION RATE . ESTIMATED GFR I S NOT APPLICABLE FOR DIALYSIS PATIEN TS. [employer] Line Trimmer ID - KAREEN [id number] 06:06:00 Test Item Value Reference Range Interpretation Comments MAGNESIUM (BEAKER) (test code = 1.5 mg/dL 1.6-2.6 L 627) [employer] Line Trimmer ID - KAREEN [id number] 06:06:00 Test Item Value Reference Range Interpretation Comments PHOSPHORUS (BEAKER) (test code = 2.1 mg/dL 2.3-4.7 L 604) [employer] Trimmer ID - KAREEN [facility] W/PLT COUNT & AUTO [id number] 05:32:00 Test Item Value Reference Range Interpretation Comments WHITE BLOOD CELL COUNT (BEAKER) 5.1 K/ L 3.5-10.5 (test code = 775) RED BLOOD CELL COUNT (BEAKER) 3.55 M/ L 4.63-6.08 L (test code = 761) HEMOGLOBIN (BEAKER) (test code = 11.7 GM/DL 13.7-17.5 L 410) HEMATOCRIT (BEAKER) (test code = 36.6 % 40.1-51.0 L 411) MEAN CORPUSCULAR VOLUME (BEAKER) 103.1 fL 79.0-92.2 H (test code = 753) MEAN CORPUSCULAR HEMOGLOBIN 33.0 pg 25.7-32.2 H (BEAKER) (test code = 751) MEAN CORPUSCULAR HEMOGLOBIN CONC 32.0 GM/DL 32.3-36.5 L (BEAKER) (test code = 752) RED CELL DISTRIBUTION WIDTH 16.2 % 11.6-14.4 H (BEAKER) (test code = 412) PLATELET COUNT (BEAKER) (test 172 K/CU MM 150-450 code = 756) MEAN PLATELET VOLUME (BEAKER) 9.8 fL 9.4-12.4 (test code = 754) NUCLEATED RED BLOOD CELLS 0 /100 WBC 0-0 (BEAKER) (test code = 413) NEUTROPHILS RELATIVE PERCENT 59 % (BEAKER) (test code = 429) LYMPHOCYTES RELATIVE PERCENT 28 % (BEAKER) (test code = 430) MONOCYTES RELATIVE PERCENT 11 % (BEAKER) (test code = 431) EOSINOPHILS RELATIVE PERCENT 1 % (BEAKER) (test code = 432) BASOPHILS RELATIVE PERCENT 1 % (BEAKER) (test code = 437) NEUTROPHILS ABSOLUTE COUNT 3.01 K/ L 1.78-5.38 (BEAKER) (test code = 670) LYMPHOCYTES ABSOLUTE COUNT 1.42 K/ L 1.32-3.57 (BEAKER) (test code = 414) MONOCYTES ABSOLUTE COUNT (BEAKER) 0.54 K/ L 0.30-0.82 (test code = 415) EOSINOPHILS ABSOLUTE COUNT 0.05 K/ L 0.04-0.54 (BEAKER) (test code = 416) BASOPHILS ABSOLUTE COUNT (BEAKER) 0.03 K/ L 0.01-0.08 (test code = 417) IMMATURE GRANULOCYTES-RELATIVE 1 % 0-1 PERCENT (BEAKER) (test code = 2801) COMPREHENSIVE METABOLIC [id number] 05:37:00 Test Item Value Reference Range Interpretation Comments TOTAL PROTEIN 5.8 gm/dL 6.0-8.3 L (BEAKER) (test code = 770) ALBUMIN (BEAKER) 2.9 g/dL 3.5-5.0 L (test code = 1145) ALKALINE PHOSPHATASE 98 U/L 40-150 (BEAKER) (test code = 346) BILIRUBIN TOTAL 1.4 mg/dL 0.2-1.2 H (BEAKER) (test code = 377) SODIUM (BEAKER) (test 138 meq/L 136-145 code = 381) POTASSIUM (BEAKER) 3.4 meq/L 3.5-5.1 L (test code = 379) CHLORIDE (BEAKER) 104 meq/L 98-107 (test code = 382) CO2 (BEAKER) (test 24 meq/L 22-29 code = 355) BLOOD UREA NITROGEN 10 mg/dL 7-21 (BEAKER) (test code = 354) CREATININE (BEAKER) 0.66 mg/dL 0.57-1.25 (test code = 358) GLUCOSE RANDOM 69 mg/dL 70-105 L (BEAKER) (test code = 652) CALCIUM (BEAKER) 8.2 mg/dL 8.4-10.2 L (test code = 697) AST (SGOT) (BEAKER) 114 U/L 5-34 H (test code = 353) ALT (SGPT) (BEAKER) 66 U/L 6-55 H (test code = 347) EGFR (BEAKER) (test 119 ESTIMATE D GFR IS code = 1092) mL/min/1.73 sq NOT ACCURA TE m CREATININE CLEARANCE IN PREDICTING GLOMERULAR FILTRATION RATE . ESTIMATED GFR I S NOT APPLICABLE FOR DIALYSIS PATIEN TS. [employer] Trimmer ID - DIOR [id number] 05:37:00 Test Item Value Reference Range Interpretation Comments PHOSPHORUS (BEAKER) (test code = 2.0 mg/dL 2.3-4.7 L 604) [employer] Line Trimmer MARISOL RADER WCBC W/PLT COUNT & AUTO [id number] 04:53:00 Test Item Value Reference Range Interpretation Comments WHITE BLOOD CELL COUNT (BEAKER) 5.3 K/ L 3.5-10.5 (test code = 775) RED BLOOD CELL COUNT (BEAKER) 3.46 M/ L 4.63-6.08 L (test code = 761) HEMOGLOBIN (BEAKER) (test code = 11.4 GM/DL 13.7-17.5 L 410) HEMATOCRIT (BEAKER) (test code = 36.0 % 40.1-51.0 L 411) MEAN CORPUSCULAR VOLUME (BEAKER) 104.0 fL 79.0-92.2 H (test code = 753) MEAN CORPUSCULAR HEMOGLOBIN 32.9 pg 25.7-32.2 H (BEAKER) (test code = 751) MEAN CORPUSCULAR HEMOGLOBIN CONC 31.7 GM/DL 32.3-36.5 L (BEAKER) (test code = 752) RED CELL DISTRIBUTION WIDTH 16.4 % 11.6-14.4 H (BEAKER) (test code = 412) PLATELET COUNT (BEAKER) (test 151 K/CU MM 150-450 code = 756) MEAN PLATELET VOLUME (BEAKER) 10.0 fL 9.4-12.4 (test code = 754) NUCLEATED RED BLOOD CELLS 0 /100 WBC 0-0 (BEAKER) (test code = 413) NEUTROPHILS RELATIVE PERCENT 56 % (BEAKER) (test code = 429) LYMPHOCYTES RELATIVE PERCENT 32 % (BEAKER) (test code = 430) MONOCYTES RELATIVE PERCENT 10 % (BEAKER) (test code = 431) EOSINOPHILS RELATIVE PERCENT 1 % (BEAKER) (test code = 432) BASOPHILS RELATIVE PERCENT 1 % (BEAKER) (test code = 437) NEUTROPHILS ABSOLUTE COUNT 2.95 K/ L 1.78-5.38 (BEAKER) (test code = 670) LYMPHOCYTES ABSOLUTE COUNT 1.68 K/ L 1.32-3.57 (BEAKER) (test code = 414) MONOCYTES ABSOLUTE COUNT (BEAKER) 0.52 K/ L 0.30-0.82 (test code = 415) EOSINOPHILS ABSOLUTE COUNT 0.06 K/ L 0.04-0.54 (BEAKER) (test code = 416) BASOPHILS ABSOLUTE COUNT (BEAKER) 0.06 K/ L 0.01-0.08 (test code = 417) IMMATURE GRANULOCYTES-RELATIVE 0 % 0-1 PERCENT (BEAKER) (test code = 2801) BASIC METABOLIC [id number] 07:51:00 Test Item Value Reference Range Interpretation Comments SODIUM (BEAKER) 138 meq/L 136-145 (test code = 381) POTASSIUM (BEAKER) 3.0 meq/L 3.5-5.1 L (test code = 379) CHLORIDE (BEAKER) 103 meq/L 98-107 (test code = 382) CO2 (BEAKER) (test 25 meq/L 22-29 code = 355) BLOOD UREA NITROGEN 13 mg/dL 7-21 (BEAKER) (test code = 354) CREATININE (BEAKER) 0.68 mg/dL 0.57-1.25 (test code = 358) GLUCOSE RANDOM 81 mg/dL 70-105 (BEAKER) (test code = 652) CALCIUM (BEAKER) 8.1 mg/dL 8.4-10.2 L (test code = 697) EGFR (BEAKER) (test 115 mL/min/1.73 ESTIM ATED GFR IS code = 1092) sq m NOT ACCURATE CREATININE CLEARANCE IN PREDICTING GLOMERULAR FILTRATION RATE . ESTIMATED GFR I S NOT APPLICABLE FOR DIALYSIS PATIEN TS. [employer] Line Trimmer ID - DBHEPATIC FUNCTION [id number] 07:51:00 Test Item Value Reference Range Interpretation Comments TOTAL PROTEIN (BEAKER) (test code = 5.9 gm/dL 6.0-8.3 L 770) ALBUMIN (BEAKER) (test code = 1145) 2.9 g/dL 3.5-5.0 L BILIRUBIN TOTAL (BEAKER) (test code 1.4 mg/dL 0.2-1.2 H = 377) BILIRUBIN DIRECT (BEAKER) (test 1.0 mg/dL 0.1-0.5 H code = 706) ALKALINE PHOSPHATASE (BEAKER) (test 89 U/L 40-150 code = 346) AST (SGOT) (BEAKER) (test code = 94 U/L 5-34 H 353) ALT (SGPT) (BEAKER) (test code = 54 U/L 6-55 347) [employer] Trimmer ID - DBPROTHROMBIN [id number] 07:48:00 Test Item Value Reference Range Interpretation Comments PROTIME (BEAKER) 13.3 seconds 11.9-14.2 (test code = 759) INR (BEAKER) (test 1.03 See_Comment [Automat ed message] code = 370) The system Advise Only generated this result transmitted ref erence range: <=5.90. The reference range was not used to int erpret this result as normal/abnormal . RECOMMENDED COUMADIN/WARFARIN INR THERAPY RANGESSTANDARD DOSE: 2.0 - 3.0 Includes: PROPHYLAXIS forvenous thrombosis, systemic embolization; TREATMENT for venous thrombosis and/or pulmonary embolus.HIGH RISK: Target INR is 2.5-3.5 for patients with mechanical heart valves.CBC W/PLT COUNT & AUTO DIFFERENTIAL 2021-04-09 07:33:00 Test Item Value Reference Range Interpretation Comments WHITE BLOOD CELL COUNT (BEAKER) 6.3 K/ L 3.5-10.5 (test code = 775) RED BLOOD CELL COUNT (BEAKER) 3.61 M/ L 4.63-6.08 L (test code = 761) HEMOGLOBIN (BEAKER) (test code = 11.8 GM/DL 13.7-17.5 L 410) HEMATOCRIT (BEAKER) (test code = 37.5 % 40.1-51.0 L 411) MEAN CORPUSCULAR VOLUME (BEAKER) 103.9 fL 79.0-92.2 H (test code = 753) MEAN CORPUSCULAR HEMOGLOBIN 32.7 pg 25.7-32.2 H (BEAKER) (test code = 751) MEAN CORPUSCULAR HEMOGLOBIN CONC 31.5 GM/DL 32.3-36.5 L (BEAKER) (test code = 752) RED CELL DISTRIBUTION WIDTH 16.6 % 11.6-14.4 H (BEAKER) (test code = 412) PLATELET COUNT (BEAKER) (test 163 K/CU MM 150-450 code = 756) MEAN PLATELET VOLUME (BEAKER) 10.3 fL 9.4-12.4 (test code = 754) NUCLEATED RED BLOOD CELLS 0 /100 WBC 0-0 (BEAKER) (test code = 413) NEUTROPHILS RELATIVE PERCENT 55 % (BEAKER) (test code = 429) LYMPHOCYTES RELATIVE PERCENT 33 % (BEAKER) (test code = 430) MONOCYTES RELATIVE PERCENT 9 % (BEAKER) (test code = 431) EOSINOPHILS RELATIVE PERCENT 1 % (BEAKER) (test code = 432) BASOPHILS RELATIVE PERCENT 1 % (BEAKER) (test code = 437) NEUTROPHILS ABSOLUTE COUNT 3.51 K/ L 1.78-5.38 (BEAKER) (test code = 670) LYMPHOCYTES ABSOLUTE COUNT 2.10 K/ L 1.32-3.57 (BEAKER) (test code = 414) MONOCYTES ABSOLUTE COUNT (BEAKER) 0.55 K/ L 0.30-0.82 (test code = 415) EOSINOPHILS ABSOLUTE COUNT 0.09 K/ L 0.04-0.54 (BEAKER) (test code = 416) BASOPHILS ABSOLUTE COUNT (BEAKER) 0.05 K/ L 0.01-0.08 (test code = 417) IMMATURE GRANULOCYTES-RELATIVE 1 % 0-1 PERCENT (BEAKER) (test code = 2801) [id number] 07:12:00 Test Item Value Reference Range Interpretation Comments AMMONIA (BEAKER) (test code = 348) 40 mol/L 18-72 [employer] Trimmer ID - LORRIE WRAPID DRUG SCREEN, [id number] 03:47:00 Test Item Value Reference Range Interpretation Comments BARBITURATE URINE (BEAKER) (test Negative Negative code = 725) BENZODIAZEPINE SCREEN URINE (BEAKER) Positive Negative A (test code = 726) COCAINE (METAB.) SCREEN (BEAKER) Negative Negative (test code = 1164) METHADONE SCREEN (BEAKER) (test code Negative Negative = 1436) OPIATE SCREEN URINE (BEAKER) (test Negative Negative code = 734) CANNABINOID SCREEN URINE (BEAKER) Negative Negative (test code = 727) AMPH/METHAMPH SCREEN (BEAKER) (test Negative Negative code = 1438) PHENCYCLIDINE SCREEN URINE (BEAKER) Negative Negative (test code = 608) PH UA (BEAKER) (test code = 467) 6.0 5.0-8.0 DRUG CUTOFF CONC.Cocaine 300 ng/mL Cannabinoid 50 ng/mLBenzodiazepine 200 ng/mLBarbiturate 200 ng/mLPhencyclidine 25 ng/mLOpiate 300 ng/mLMethadone 300 ng/mLAmphetamine/ 1000 ng/mL MethamphetamineThis assay provides an unconfirmed qualitative test result for the clinical management of patients in emergency situations. Chain of custody not maintained. Some bmsm-deg-zbqntsm medications, as well as adulterants, may cause inaccurate results. Clinical correlation should be applied. A more comprehensivedrug screen or confirmation of a detected drug may be performed upon request.[employer] Trimmer ID - DBOperator ID - [auto][id number] 22:04:00 Test Item Value Reference Range Interpretation Comments PROCALCITONIN (BEAKER) (test code 0.15 ng/mL <0.05 H = 3036) SEPSIS RISK (ng/mL)Low: 0.05-0.50Intermediate: 0.51-2.00High: >=2.01URINALYSIS W/ REFLEX URINE [id number] 22:00:00 Test Item Value Reference Range Interpretation Comments COLOR (BEAKER) (test code = 470) Yellow CLARITY (BEAKER) (test code = 469) Clear SPECIFIC GRAVITY UA (BEAKER) (test 1.050 1.001-1.035 H code = 468) PH UA (BEAKER) (test code = 467) 6.5 5.0-8.0 PROTEIN UA (BEAKER) (test code = 10 mg/dL Negative A 464) GLUCOSE UA (BEAKER) (test code = Negative Negative 365) KETONES UA (BEAKER) (test code = Negative Negative 371) BILIRUBIN UA (BEAKER) (test code = Negative Negative 462) BLOOD UA (BEAKER) (test code = 461) Negative Negative NITRITE UA (BEAKER) (test code = Negative Negative 465) LEUKOCYTE ESTERASE UA (BEAKER) Trace Negative A (test code = 466) UROBILINOGEN UA (BEAKER) (test code 2.0 mg/dL 0.2-1.0 H = 463) RBC UA (BEAKER) (test code = 519) 1 /HPF WBC UA (BEAKER) (test code = 520) 14 /HPF BACTERIA (BEAKER) (test code = 517) Rare MUCUS (BEAKER) (test code = 1574) Rare CRYSTALS, URINE (BEAKER) (test code Rare = 1521) SOURCE(BEAKER) (test code = 2795) [employer] Trimmer ID - [auto][employer] Trimmer ID - techCOMPREHENSIVE METABOLIC [id number] 21:34:00 Test Item Value Reference Range Interpretation Comments TOTAL PROTEIN 6.3 gm/dL 6.0-8.3 (BEAKER) (test code = 770) ALBUMIN (BEAKER) 3.1 g/dL 3.5-5.0 L (test code = 1145) ALKALINE PHOSPHATASE 96 U/L 40-150 (BEAKER) (test code = 346) BILIRUBIN TOTAL 1.6 mg/dL 0.2-1.2 H (BEAKER) (test code = 377) SODIUM (BEAKER) (test 138 meq/L 136-145 code = 381) POTASSIUM (BEAKER) 3.3 meq/L 3.5-5.1 L (test code = 379) CHLORIDE (BEAKER) 103 meq/L 98-107 (test code = 382) CO2 (BEAKER) (test 24 meq/L 22-29 code = 355) BLOOD UREA NITROGEN 17 mg/dL 7-21 (BEAKER) (test code = 354) CREATININE (BEAKER) 0.82 mg/dL 0.57-1.25 (test code = 358) GLUCOSE RANDOM 81 mg/dL 70-105 (BEAKER) (test code = 652) CALCIUM (BEAKER) 8.2 mg/dL 8.4-10.2 L (test code = 697) AST (SGOT) (BEAKER) 92 U/L 5-34 H (test code = 353) ALT (SGPT) (BEAKER) 55 U/L 6-55 (test code = 347) EGFR (BEAKER) (test 93 mL/min/1.73 ESTIMA OLI GFR IS code = 1092) sq m NOT ACCURATE CREATININE CLEARANCE IN PREDICTING GLOMERULAR FILTRATION RATE . ESTIMATED GFR I S NOT APPLICABLE FOR DIALYSIS PATIEN TS. [employer] Trimmer ID - [id number] 21:34:00 Test Item Value Reference Range Interpretation Comments MAGNESIUM (BEAKER) (test code = 1.8 mg/dL 1.6-2.6 627) [employer] Trimmer ID - DBLACTIC ACID, [id number] 21:24:00 Test Item Value Reference Range Interpretation Comments LACTATE BLOOD VENOUS (2) (BEAKER) 1.26 mmol/L 0.50-2.20 (test code = 2872) [employer] Trimmer ID - DBPROTHROMBIN [id number] 21:24:00 Test Item Value Reference Range Interpretation Comments PROTIME (BEAKER) 13.5 seconds 11.9-14.2 (test code = 759) INR (BEAKER) (test 1.04 See_Comment [Automat ed message] code = 370) The system Advise Only generated this result transmitted ref erence range: <=5.90. The reference range was not used to int erpret this result as normal/abnormal . RECOMMENDED COUMADIN/WARFARIN INR THERAPY RANGESSTANDARD DOSE: 2.0 - 3.0 Includes: PROPHYLAXIS forvenous thrombosis, systemic embolization; TREATMENT for venous thrombosis and/or pulmonary embolus.HIGH RISK: Target INR is 2.5-3.5 for patients with mechanical heart valves.CBC W/PLT COUNT & AUTO DIFFERENTIAL 2021-04-08 21:16:00 Test Item Value Reference Range Interpretation Comments WHITE BLOOD CELL COUNT (BEAKER) 7.2 K/ L 3.5-10.5 (test code = 775) RED BLOOD CELL COUNT (BEAKER) 3.67 M/ L 4.63-6.08 L (test code = 761) HEMOGLOBIN (BEAKER) (test code = 12.3 GM/DL 13.7-17.5 L 410) HEMATOCRIT (BEAKER) (test code = 37.8 % 40.1-51.0 L 411) MEAN CORPUSCULAR VOLUME (BEAKER) 103.0 fL 79.0-92.2 H (test code = 753) MEAN CORPUSCULAR HEMOGLOBIN 33.5 pg 25.7-32.2 H (BEAKER) (test code = 751) MEAN CORPUSCULAR HEMOGLOBIN CONC 32.5 GM/DL 32.3-36.5 (BEAKER) (test code = 752) RED CELL DISTRIBUTION WIDTH 16.5 % 11.6-14.4 H (BEAKER) (test code = 412) PLATELET COUNT (BEAKER) (test 180 K/CU MM 150-450 code = 756) MEAN PLATELET VOLUME (BEAKER) 10.6 fL 9.4-12.4 (test code = 754) NUCLEATED RED BLOOD CELLS 0 /100 WBC 0-0 (BEAKER) (test code = 413) NEUTROPHILS RELATIVE PERCENT 58 % (BEAKER) (test code = 429) LYMPHOCYTES RELATIVE PERCENT 33 % (BEAKER) (test code = 430) MONOCYTES RELATIVE PERCENT 7 % (BEAKER) (test code = 431) EOSINOPHILS RELATIVE PERCENT 1 % (BEAKER) (test code = 432) BASOPHILS RELATIVE PERCENT 0 % (BEAKER) (test code = 437) NEUTROPHILS ABSOLUTE COUNT 4.17 K/ L 1.78-5.38 (BEAKER) (test code = 670) LYMPHOCYTES ABSOLUTE COUNT 2.36 K/ L 1.32-3.57 (BEAKER) (test code = 414) MONOCYTES ABSOLUTE COUNT (BEAKER) 0.52 K/ L 0.30-0.82 (test code = 415) EOSINOPHILS ABSOLUTE COUNT 0.07 K/ L 0.04-0.54 (BEAKER) (test code = 416) BASOPHILS ABSOLUTE COUNT (BEAKER) 0.03 K/ L 0.01-0.08 (test code = 417) IMMATURE GRANULOCYTES-RELATIVE 0 % 0-1 PERCENT (BEAKER) (test code = 2801) Comprehensive Metabolic [id number] 21:33:25 Test Item Value Reference Range Interpretation Comments Sodium Level (test code = Sodium 146.0 mmol/L 135.0-145.0 H Level) Potassium Level (test code = 4.0 mmol/L 3.5-5.1 Potassium Level) Chloride Level (test code = 104 mmol/L 98-105 Chloride Level) CO2 (test code = CO2) 30 mmol/L 22-29 H Anion Gap (test code = Anion 12 mmol/L 7-16 Gap) BUN (test code = BUN) 8.60 mg/dL 8.00-23.00 Creatinine Level (test code = 0.90 mg/dL 0.70-1.20 Creatinine Level) BUN/Creat Ratio (test code = 10 N BUN/Creat Ratio) Glucose Level (test code = 90 mg/dL 70-115 Glucose Level) Calcium Level (test code = 9.3 mg/dL 8.3-10.5 Calcium Level) Alk Phos (test code = Alk Phos) 80 U/L 40-129 Bilirubin Total (test code = 0.5 mg/dL 0.1-0.9 Bilirubin Total) Albumin Level (test code = 4.1 g/dL 3.5-5.2 Albumin Level) Protein Total (test code = 6.9 g/dL 6.4-8.3 Protein Total) ALT (test code = ALT) 57 U/L 1-41 H AST (test code = AST) 54 U/L 1-40 H Globulin (test code = Globulin) 2.8 g/dL 2.9-3.1 L A/G Ratio (test code = A/G 1.5 ratio N Ratio) Comprehensive Metabolic [id number] 21:33:25 Test Item Value Reference Range Interpretation [...] the National Kid[employer] Foundation, http://nkdep.ni h.gov Lipid [id number] 21:33:25 Test Item Value Reference Range Interpretation Comments Cholesterol Total 132 mg/dL 0-200 RISK OF HE ART (test code = DISEASEPublishe d by Cholesterol Total) [employer] María lyte Optimal Borderl ine [...] LDL/HDL Ratio=L DL Calc/HDL Chol Comprehensive Metabolic [id number] 21:33:25 Test Item Value Reference Range Interpretation [...] account, if the information is provided. If e race is not provided, and t he patient is -Sandra n, multiply by 1.2 12. If sex is not provided, and t he patient is fema le, multiply by 0.7 42. Results for pat ients <18 years of ag e have not been validated by [facility] MDRD study and should be interpreted wit h caution. eGFR R esult Interpretation: eGFR > or = 60 is in the Normal RangeeGF R < 60 may mean kid marco a diseaseeGFR < 1 5 may mean kidney failure Rang es recommended by the National Kid[employer] Foundation, http://nkdep.ni h.gov Complete Blood Count with [id number] 20:56:24 Test Item Value Reference Range Interpretation [...] (test code = IPF) 0 % N Automated [id number] 20:56:24 Test Item Value Reference Range Interpretation Comments Neutro Auto (test code = Neutro 62.4 % 36.0-70.0 Auto) Lymph Auto (test code = Lymph Auto) 26.7 % 12.0-44.0 Hernando Auto (test code = Hernando Auto) 8.4 % 0.0-11.0 Eos, Auto (test code = Eos, Auto) 1.7 % 0.0-7.0 Basophil Auto (test code = Basophil 0.5 % 0.0-2.0 Auto) Neutro Absolute (test code = Neutro 6.0 x10 1.6-7.4 Absolute) Lymph Absolute (test code = Lymph 2.56 x10 .50-4.60 Absolute) Hernando Absolute (test code = Hernando .81 x10 .00-1.20 Absolute) Eos Absolute (test code = Eos 0.16 x10 0.00-0.74 Absolute) Baso Absolute (test code = Baso 0.05 x10 0.00-0.21 Absolute) IG [id number] 20:56:24 Test Item Value Reference Range Interpretation Comments IG (test code = IG) 0.3 % 0.0-5.0 IG Abs (test code = IG Abs) 0 x10 N
[2022-03-28] MEDS ORDERED: LORazepam 2 MG/ML VIAL ONE ×2 (15:10→16:59)
[2022-03-28 15:34] LABS: Absolute Lymphocytes (CBC) 2.2 K/uL (0.7-4.9); Hematocrit 53.3 % (39.6-49.0); Lymphocytes % 30.9 % (15.3-44.8); MPV 8.3 fL (7.6-11.3); RBC Red Blood Cell Count 5.01 M/uL (4.33-5.43)
--- NOTE | 2022-03-28 16:26 | RAD REPORT ---
EXAM DESCRIPTION: US - Extrem Venous W Compress Phillip - 03/28/2022 4:16 pm CLINICAL HISTORY: SWELLING COMPARISON: No comparisons TECHNIQUE: Real-time sonographic evaluation of the lower extremity deep venous systems was performed using color Doppler, grayscale, and compression. FINDINGS: Bilateral lower extremities. Normal compressibility, flow augmentation, phasic flow and spontaneous flow is identified in both the left and right lower extremity deep venous systems. No intraluminal filling defects seen. IMPRESSION: No DVT in either lower extremity.
--- NOTE | 2022-03-28 16:28 | RAD REPORT ---
EXAM DESCRIPTION: US - Lower Extremity Arterial Bilat - 03/28/2022 4:16 pm CLINICAL HISTORY: Leg pain COMPARISON: None FINDINGS: The common femoral, superficial femoral and popliteal arteries bilaterally demonstrate tri phasic waveforms Monophasic flow is present within the right posterior tibial artery and dorsalis pedis artery. Biphas ic flow involving the left posterior tibial and dorsalis pedis arteries. IMPRESSION: Monophasic flow in the right posterior tibial artery and dorsalis pedis artery consisten t with at least a moderate stenosis.
[2022-03-28 17:07] LABS: Potassium 3.9 mmol/L (3.5-5.1)
[2022-03-28] MEDS ORDERED: ASPIRIN 81 MG CHEWABLE TABLET ONE (17:22)
--- NOTE | 2022-03-28 17:37 | EDPHYS ---
Physician Documentation [facility] Name: Peter Carson Age: 72 yrs Sex: Male : 1950 Arrival Date: 03/28/2022 Time: 13:16 Bed 12 Private MD: ED Physician Osmar العلي HPI: 03/28 15:00 This 72 yrs old Male presents to ER via Wheelchair with complaints of Feet Swelling - cp redness. 15:00 The patient presents with swelling, tenderness. The complaints affect the right foot. cp Context: resulted from an unknown cause, the patient can fully bear weight, the patient is able to ambulate, with mild difficulty, Problem is a result from a previous injury: No. 15:00 Onset: The symptoms/episode began/occurred 2 week(s) ago. cp 15:00 Modifying factors: the symptoms are aggravated by weight bearing, walking, sitting on cp edge of bed. Associated signs and symptoms: The patient has no apparent associated signs or symptoms. Historical: - Allergies: 13:28 PENICILLINS; "given to me in past, reaction when i was small child, dont remember"; tw2 - Home Meds: 13:28 None [Active]; tw2 - PMHx: 13:28 High Cholesterol; Parkinson like symptoms; Diverticulitis; tw2 - PSHx: 13:28 colon sx; tw2 - Immunization history:: Client reports receiving the 2nd dose of the Covid vaccine. - Social history:: Smoking status: Patient reports the use of cigarette tobacco products, smokes one pack cigarettes per day. "not that much anymore", Patient uses alcohol, on a daily basis. ROS: 15:05 Constitutional: Negative for body aches, chills, fever, poor PO intake. cp 15:05 Eyes: Negative for injury, pain, redness, and discharge. cp 15:05 ENT: Negative for drainage from ear(s), ear pain, sore throat, difficulty swallowing, difficulty handling secretions. 15:05 Cardiovascular: Negative for chest pain, edema, palpitations. 15:05 Respiratory: Negative for cough, shortness of breath, wheezing. 15:05 Abdomen/GI: Negative for abdominal pain, nausea, vomiting, and diarrhea. 15:05 Back: Negative for pain at rest, pain with movement. 15:05 : Negative for urinary symptoms. 15:05 Neuro: Negative for altered mental status, dizziness, headache, syncope, weakness. 15:05 All other systems are negative. Exam: 15:10 Head/Face: Normocephalic, atraumatic. cp 15:10 Constitutional: The patient appears in no acute distress, alert, awake, non-diaphoretic, non-toxic, well developed, well nourished, uncomfortable. 15:10 Eyes: Periorbital structures: appear normal, Conjunctiva: normal, no exudate, no injection, Sclera: no appreciated abnormality, Lids and lashes: appear normal, bilaterally. 15:10 ENT: External ear(s): are unremarkable, Nose: is normal, Mouth: Lips: moist, Oral mucosa: moist, Posterior pharynx: Airway: no evidence of obstruction, patent. 15:10 Neck: ROM/movement: is normal, is supple, without pain, no range of motions limitations. 15:10 Chest/axilla: Inspection: normal. 15:10 Cardiovascular: Rate: normal, Rhythm: regular, Pulses: bilateral dorsalis pedis pulse palpable but right weak, Edema: pedal edema, that is very mild, JVD: is not appreciated. 15:10 Respiratory: the patient does not display signs of respiratory distress, Respirations: normal, no use of accessory muscles, no retractions, labored breathing, is not present, Breath sounds: are clear throughout, no decreased breath sounds, no stridor, no wheezing. 15:10 Abdomen/GI: Inspection: abdomen appears normal, Palpation: abdomen is soft and non-tender, in all quadrants. 15:10 Back: pain, is absent, ROM is normal. 15:10 Skin: cellulitis, is not appreciated, right foot with mild redness/discoloration but skin not erythematous and not warm or cool to touch, no open wounds noted. 15:10 Neuro: Orientation: to person, place \\T\\ time. Mentation: is normal, Motor: moves all fours, strength is normal, Sensation: no obvious gross deficits. 15:15 ECG was reviewed by the Attending Physician. cp Vital Signs: 13:31 BP 128 / 66; Pulse 65; Resp 17; Temp 97.8(TE); Pulse Ox 95% on R/A; Weight 72.57 kg; tw2 Height 5 ft. 9 in. (175.26 cm); 13:32 Pain 5/10; tw2 15:24 BP 139 / 72; Pulse 71; Resp 18; Pulse Ox 97% on R/A; ld1 16:51 BP 137 / 81; Pulse 74; Resp 24; Pulse Ox 96% on R/A; ld1 13:31 Body Mass Index 23.63 (72.57 kg, 175.26 cm) tw2 MDM: 14:37 Patient medically screened. cp 15:00 Differential diagnosis: cellulitis, DVT, kidney failure, PAD, arterial occlusion. cp 17:35 Data reviewed: vital signs, nurses notes, lab test result(s), EKG, radiologic studies, cp ultrasound. 17:35 Test interpretation: by ED physician or midlevel provider: ECG. Counseling: I had a cp detailed discussion with the patient and/or guardian regarding: the historical points, exam findings, and any diagnostic results supporting the discharge/admit diagnosis, the presence of at least one elevated blood pressure reading (>120/80) during this emergency department visit, lab results, radiology results, the need for outpatient follow up, for definitive care, a product inspection supervisor, a family practitioner, vascular, to return to the emergency department if symptoms worsen or persist or if there are any questions or concerns that arise at home, smoking cessation. Response to treatment: the patient's symptoms have markedly improved after treatment, and as a result, I will discharge patient. ED course: VSS. Discussed results of labs. Patient with history of untreated hyperlipidemia. Discussed need for smoking cessation and f/u with vascular. Recommend daily baby aspirin. 03/28 14:57 Order name: Basic Metabolic Panel; Complete Time: 17:12 cp 03/28 17:12 Interpretation: Normal except: NA 135; GFR 78. cp 03/28 14:57 Order name: CBC with Diff; Complete Time: 16:24 cp 03/28 16:24 Interpretation: Normal except: HCT 53.3; MCV 106.5; MCH 35.4. cp 03/28 14:57 Order name: US Extremity Venous W Compression Phillip; Complete Time: 16:33 cp 03/28 16:57 Interpretation: Report reviewed. cp 03/28 14:57 Order name: US Lower Extremity Arterial Bilateral; Complete Time: 16:33 cp 03/28 16:34 Interpretation: Report reviewed. cp 03/28 14:57 Order name: BNP; Complete Time: 17:12 03/28 14:57 Order name: Troponin HS; Complete Time: 17:12 03/28 14:57 Order name: Cardiac monitoring; Complete Time: 15:23 03/28 14:57 Order name: IV Saline Lock; Complete Time: 15:23 03/28 14:57 Order name: Labs collected and sent; Complete Time: 15:23 03/28 14:57 Order name: EKG; Complete Time: 14:58 03/28 16:58 Order name: Foot Right 3 View XRAY 03/28 14:57 Order name: O2 Per Protocol; Complete Time: 15:24 03/28 14:57 Order name: O2 Sat Monitoring; Complete Time: 15:24 03/28 14:59 Order name: EKG - Nurse/Tech; Complete Time: 15:23 03/28 15:42 Order name: Labs - recollect needed: recollect lavender and green top; Complete Time: bd 16:42 EC:15 Rate is 57 beats/min. Rhythm is regular. [place] interval is normal. QRS interval is cp prolonged at 110 msec. QT interval is normal. T waves are Inverted in lead aVR. Interpreted by me. Reviewed by me. Administered Medications: 15:23 Drug: Ativan (LORazepam) 1 mg Route: IVP; Site: right forearm; ld1 16:55 Drug: Ativan (LORazepam) 1 mg Route: IVP; Site: right forearm; ld1 17:00 Follow up: Response: No adverse reaction jl7 17:20 Drug: Aspirin Chewable Tablet 324 mg Route: PO; tw2 17:50 Follow up: Response: No adverse reaction tw2 Disposition Summary: 03/28/22 17:37 Discharge Ordered Location: Home cp Problem: new cp Symptoms: have improved cp Condition: Stable cp Diagnosis - Peripheral vascular disease, unspecified cp Followup: cp - With: Shankar Harry MD - When: 2 - 3 days - Reason: Recheck today's complaints Discharge Instructions: - Discharge Summary Sheet cp - Intermittent Claudication cp - Peripheral Vascular Disease cp - Aspirin and Your Heart cp Forms: - Medication Reconciliation Form cp - Thank You Letter cp - Antibiotic Education cp - Prescription Opioid Use cp Signatures: Dispatcher [employer] EDJaqui Dunham Corey, PA PA cp Constanza Wilson RN RN tw2 Filomena Carter RN RN ld1 Deric Lowe RN jl7 Corrections: (The following items were deleted from the chart) 13:30 13:28 Home Meds: atorvastatin 40 mg Oral tab 1 tab once daily; tw2 tw2 14:58 14:57 EKG - Nurse/Tech ordered. cp cp 03/29 16:03/28 14:45 Constitutional: The patient appears in no acute distress, alert, awake, cp non-diaphoretic, non-toxic, well developed, well nourished, uncomfortable, cp 03/29 16:03/28 14:45 Head/Face: Normocephalic, atraumatic. cp cp 03/29 16:03/28 14:45 Eyes: Periorbital structures: appear normal, Conjunctiva: normal, no cp exudate, no injection, Sclera: no appreciated abnormality, Lids and lashes: appear normal, bilaterally, cp 03/29 16:03/28 14:45 ENT: External ear(s): are unremarkable, Nose: is normal, Mouth: Lips: cp moist, Oral mucosa: moist, Posterior pharynx: Airway: no evidence of obstruction, patent, cp 03/29 16:03/28 14:45 Neck: ROM/movement: is normal, is supple, without pain, no range of motions cp limitations, cp 03/29 16:03/28 14:45 Chest/axilla: Inspection: normal, cp cp 03/29 16:03/28 14:45 Cardiovascular: Rate: normal, Rhythm: regular, Pulses: bilateral dorsalis cp pedis pulse palpable but right weak, Edema: pedal edema, that is very mild, JVD: is not appreciated, cp 03/29 16:03/28 14:45 Respiratory: the patient does not display signs of respiratory distress, cp Respirations: normal, no use of accessory muscles, no retractions, labored breathing, is not present, Breath sounds: are clear throughout, no decreased breath sounds, no stridor, no wheezing, cp 03/29 16:03/28 14:45 Abdomen/GI: Inspection: abdomen appears normal, Palpation: abdomen is soft cp and non-tender, in all quadrants, cp 03/29 16:37 03/28 14:45 Back: pain, is absent, ROM is normal, cp cp 03/29 16:37 03/28 14:45 Skin: cellulitis, is not appreciated, right foot with mild cp redness/discoloration but skin not erythematous and not warm or cool to touch, no open wounds noted. cp 03/29 16:37 03/28 14:45 Neuro: Orientation: to person, place \\T\\ time. Mentation: is normal, Motor: cp moves all fours, strength is normal, Sensation: no obvious gross deficits, cp
--- NOTE | 2022-03-28 17:37 | ER ---
Nurse's Notes [facility] Name: Peter Carson Age: 72 yrs Sex: Male : 1950 Arrival Date: 03/28/2022 Time: 13:16 Bed 12 Private MD: Diagnosis: Peripheral vascular disease, unspecified Presentation: 03/28 13:26 Chief complaint: Patient states: i can feel the swelling in it Spouse and/or tw2 significant other states: he seems to have cellulitis in RIGHT foot. swelling redness. its been like this about 2 weeks and seems to be getting worse. Coronavirus screen: At this time, the client does not indicate any symptoms associated with coronavirus-19. Ebola Screen: Patient denies travel to an Ebola-affected area in the 21 days before illness onset. Onset of symptoms was March 28, 2022. 13:26 Method Of Arrival: Wheelchair tw2 13:26 Acuity: DEMETRI 3 tw2 13:31 Initial Sepsis Screen: Does the patient meet any 2 criteria? No. Patient's initial tw2 sepsis screen is negative. Does the patient have a suspected source of infection? No. Patient's initial sepsis screen is negative. Risk Assessment: Do you want to hurt yourself or someone else? Patient reports no desire to harm self or others. Triage Assessment: 13:28 General: Appears in no apparent distress. well groomed, Behavior is calm, cooperative, tw2 appropriate for age. Pain: Complains of pain in right foot. Derm: Skin temperature is warm. Musculoskeletal: Swelling present in right foot Reports increased redness noted. Historical: - Allergies: 13:28 PENICILLINS; "given to me in past, reaction when i was small child, dont remember"; tw2 - Home Meds: 13:28 None [Active]; tw2 - PMHx: 13:28 High Cholesterol; Parkinson like symptoms; Diverticulitis; tw2 - PSHx: 13:28 colon sx; tw2 - Immunization history:: Client reports receiving the 2nd dose of the Covid vaccine. - Social history:: Smoking status: Patient reports the use of cigarette tobacco products, smokes one pack cigarettes per day. "not that much anymore", Patient uses alcohol, on a daily basis. Screenin:24 Abuse screen: Denies threats or abuse. Denies injuries from another. Nutritional ld1 screening: No deficits noted. Tuberculosis screening: No symptoms or risk factors identified. Fall Risk None identified. Assessment: 15:24 General: Appears in no apparent distress. uncomfortable, Behavior is cooperative, ld1 anxious. Pain: Complains of pain in right leg and left leg Pain does not radiate. Pain currently is 8 out of 10 on a pain scale. Neuro: Level of Consciousness is awake, alert, obeys commands, Oriented to person, place, time, situation. Cardiovascular: Capillary refill < 3 seconds Patient's skin is warm and dry. Respiratory: Airway is patent Respiratory effort is even, unlabored. GI: Abdomen is round non-distended. : No signs and/or symptoms were reported regarding the genitourinary system. EENT: No signs and/or symptoms were reported regarding the EENT system. Derm: No signs and/or symptoms reported regarding the dermatologic system. Musculoskeletal: No signs and/or symptoms reported regarding the musculoskeletal system. 16:51 Reassessment: Patient appears in no apparent distress at this time. Patient and/or ld1 family updated on plan of care and expected duration. Pain level reassessed. Pt reporting anxiety and left foot pain. Notified ERP. See MAR for orders. 17:55 Reassessment: Patient appears in no apparent distress at this time. Patient and/or tw2 family updated on plan of care and expected duration. Pain level reassessed. Vital Signs: 13:31 BP 128 / 66; Pulse 65; Resp 17; Temp 97.8(TE); Pulse Ox 95% on R/A; Weight 72.57 kg; tw2 Height 5 ft. 9 in. (175.26 cm); 13:32 Pain 5/10; tw2 15:24 BP 139 / 72; Pulse 71; Resp 18; Pulse Ox 97% on R/A; ld1 16:51 BP 137 / 81; Pulse 74; Resp 24; Pulse Ox 96% on R/A; ld1 13:31 Body Mass Index 23.63 (72.57 kg, 175.26 cm) tw2 ED Course: 13:16 Patient arrived in ED. as 13:28 Triage completed. tw2 13:31 Arm band placed on. tw2 13:57 Aroldo Miller PA is PHCP. cp 13:57 Osmar العلي MD is Attending Physician. cp 14:40 Filomena Carter, RN is Primary Nurse. ld1 15:20 Inserted saline lock: 20 gauge in right antecubital area, using aseptic technique. tp1 Blood collected. 15:24 Patient has correct armband on for positive identification. Placed in gown. Bed in low ld1 position. Call light in reach. Side rails up X2. airline station agent on. Pulse ox on. NIBP on. Door closed. Noise minimized. Warm blanket given. 15:24 No provider procedures requiring assistance completed. ld1 16:18 US Extremity Venous W Compression Phillip In Process Unspecified. EDMS 16:18 US Lower Extremity Arterial Bilateral In Process Unspecified. EDMS 16:37 Lab(s) recollected, by me, sent to lab. tp1 17:30 Foot Right 3 View XRAY In Process Unspecified. EDMS 17:36 Shankar Harry MD is Referral Physician. cp 17:55 IV discontinued, intact, bleeding controlled, No redness/swelling at site. Pressure tw2 dressing applied. Administered Medications: 15:23 Drug: Ativan (LORazepam) 1 mg Route: IVP; Site: right forearm; ld1 16:55 Drug: Ativan (LORazepam) 1 mg Route: IVP; Site: right forearm; ld1 17:00 Follow up: Response: No adverse reaction jl7 17:20 Drug: Aspirin Chewable Tablet 324 mg Route: PO; tw2 17:50 Follow up: Response: No adverse reaction tw2 Medication: 15:24 VIS not applicable for this client. ld1 Outcome: 17:37 Discharge ordered by MD. cp 17:54 Discharged to home via wheelchair, with significant other. tw2 17:54 Condition: stable 17:54 Discharge instructions given to patient, significant other, Instructed on discharge instructions, follow up and referral plans. Demonstrated understanding of instructions, follow-up care. 17:55 Patient left the ED. tw2 Signatures: Dispatcher [employer] EDMS Inga Odonnell Corey, PA PA cp Constanza Wilson, RN RN tw2 Deric Lowe RN RN jl7 Filomena Carter, ANDRIA RN ld1 Eri Pacheco tp1 Corrections: (The following items were deleted from the chart) 13:30 13:28 Home Meds: atorvastatin 40 mg Oral tab 1 tab once daily; tw2 tw2 13:32 13:26 Chief complaint: Patient states: i can feel the swelling in it Spouse and/or tw2 significant other states: he seems to have cellulitis in RIGHT foot. swelling redness. tw2
--- NOTE | 2022-03-28 17:52 | RAD REPORT ---
EXAM DESCRIPTION: RAD - Foot Right 3 View - 03/28/2022 5:28 pm CLINICAL HISTORY: Pain COMPARISON: No comparisons FINDINGS/IMPRESSION: No acute fracture. No malalignment. Calcaneal spurring. Mild midfoot and forefo ot degenerative changes. No radiographic evidence of osteomyelitis identified.
[2022-03-28 18:10] VITALS: TEMP 97.8
[2022-03-28 18:15] VITALS: BP 137/81; O2SAT 96
--- NOTE | 2022-03-28 19:15 | EKG ---
Test Date: 2022-03-28 Test Time: 15:10:22 Regional Construction Manager: SCOTT MEASUREMENT RESULTS: Intervals: Rate: 57 OK: 194 QRSD: 110 QT: 410 QTc: 399 Lexa: P: 73 OK: 194 QRS: -30 T: 26 INTERPRETIVE STATEMENTS: Sinus bradycardia Left axis deviation Right bundle branch block Abnormal ECG Compared to ECG 04/08/2021 10:34:54 Sinus rhythm no longer present Atrial premature complex(es) no longer present T-wave abnormality no longer present Possible ischemia no longer present Electronically Signed On 03-28-22 19:15:37 CDT by Shankar Harry
== END 2022-03-28 17:55 | disposition home or self-care (01) ==
LOC: ER 13:15
DX: I73.9 Peripheral vascular disease, unspecified (principal); Z88.0 Allergy status to penicillin; E78.00 Pure hypercholesterolemia, unspecified; F17.210 Nicotine dependence, cigarettes, uncomplicated
CPT/HCPCS: 36415; 80048; 83880; 84484; 85025; 93005; 93925; 93970; 96374; 99284

== ENCOUNTER 2022-09-12 09:03 | Emergency (ER) | payer OTHER ==
--- NOTE | 2022-09-12 09:39 | RAD REPORT ---
EXAM DESCRIPTION: CT - Ct Stroke Brain Wo Cont - 09/12/2022 9:32 am CLINICAL HISTORY: Right-sided weakness COMPARISON: none TECHNIQUE: Computed axial tomography of the head was obtained. All CT scans are performed using dose optimization technique as appropriate and may include automated exposure control or mA/KV adjustment according to patient size. FINDINGS: An intracranial bleed is not seen . The ventricles are normal in caliber. No extra-axial fluid collection is noted. Mild low-density within periventricular, deep and subcortical white matter likely ischemic changes se condary to small vessel disease Fluid within the sinuses/ mastoids is not seen. IMPRESSION: No acute intracranial abnormality is seen. If patient's symptoms persist MRI of the bra in would be recommended. Dr Diggs of the emergency room was notified at 9:34 a.m. September 12, 2022
--- NOTE | 2022-09-12 10:08 | RAD REPORT ---
EXAM DESCRIPTION: Pradip Angio09/12/2022 9:51 am CLINICAL HISTORY: Syncope COMPARISON: None TECHNIQUE: 50 cc Isovue 370 was administered intravenously. 3D MIP reconstruction performed All CT scans are performed using dose optimization technique as appropriate and may include automated exposure control or mA/KV adjustment according to patient size. FINDINGS: Mild stenosis left subclavian artery. Mild plaque right subclavian artery. Mild plaque common carotid, internal and external carotid arteries bilaterally Mild calcified plaque origin right vertebral artery. The proximal and mid left vertebral artery unopacified. Distal left vertebral artery is small IMPRESSION: Unopacification of the proximal and mid left vertebral artery. This could be secondary t o a dissection. The age is indeterminate although chronic is probably more likely than acute. This sh ould be correlated clinically NASCET criteria used. Mild 0-49% stenosis Moderate 50-69% stenosis Severe 70-99% stenosis
--- NOTE | 2022-09-12 10:13 | RAD REPORT ---
EXAM DESCRIPTION: CTHead angio09/12/2022 9:51 am CLINICAL HISTORY: Right-sided weakness COMPARISON: None TECHNIQUE: CT angiogram of the head was obtained. 3D MIPS reconstruction performed. All CT scans are performed using dose optimization technique as appropriate and may include automated exposure control or mA/KV adjustment according to patient size. FINDINGS: Plaque is present within the basilar artery resulting in a high-grade stenosis. Minimal calcified plaque distal internal carotid arteries. Anterior cerebral, middle cerebral and posterior cerebral arteries do not demonstrate a significant a bnormality. 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
[2022-09-12] MEDS ORDERED: FOLIC ACID 1 MG, THIAMINE HCL 100 MG, MULTIVITAMINS INJ 10 ML in NA CHLORIDE 0.9% 1,000 ML IV ONE (10:45)
[2022-09-12 10:53] LABS: Absolute Lymphocytes (CBC) 1.3 K/uL (0.7-4.9); Lymphocytes % 14.2 % (15.3-44.8); MCV 103.5 fL (80-100); MPV 8.1 fL (7.6-11.3); RBC Red Blood Cell Count 5.02 M/uL (4.33-5.43)
--- NOTE | 2022-09-12 10:54 | ER ---
Nurse's Notes [facility] Name: Peter Carson Age: 72 yrs Sex: Male : 1950 Arrival Date: 09/12/2022 Time: 09:10 Bed 17 Private MD: Diagnosis: Right sided weakness;Altered mental status;Hypokalemia;Vertebral artery dissection;High grade basilar artery stenosis Presentation: 09/12 09:14 Chief complaint: EMS states: toned out for swelling of bilateral lower extremities, kr3 patient has hx of ETOH, patient had a mix drink by chairside when EMS arrived. Daughter stated he has had withdrawal and she bought him a pint of alcohol. patient is in and out of AMS. Coronavirus screen: Vaccine status: Patient reports being unvaccinated. Client denies travel out of the [place] in the last 14 days. Ebola Screen: Patient denies exposure to infectious person. Patient denies travel to an Ebola-affected area in the 21 days before illness onset. Initial Sepsis Screen: Does the patient meet any 2 criteria? No. Patient's initial sepsis screen is negative. Does the patient have a suspected source of infection? No. Patient's initial sepsis screen is negative. Risk Assessment: Do you want to hurt yourself or someone else? Patient reports no desire to harm self or others. Onset of symptoms was September 12, 2022. 09:14 Method Of Arrival: EMS kr3 09:14 Acuity: DEMETRI 3 kr3 Triage Assessment: 09:20 General: Appears distressed, unkempt, eyes are red, hollering out, smells of ETOH . kr3 General: Behavior is cooperative, hollering for daughter on minute and asleep the next. . Historical: - Allergies: 14:34 PENICILLINS; "given to me in past, reaction when i was small child, dont remember"; kr3 - PMHx: 14:34 Parkinson like symptoms; High Cholesterol; Diverticulitis; kr3 - PSHx: 14:34 colon sx; kr3 - Immunization history:: Adult Immunizations not up to date. - Social history:: Smoking status: Patient reports the use of cigarette tobacco products, smokes one pack cigarettes per day. Screenin:02 Abuse screen: Denies threats or abuse. Denies injuries from another. Nutritional iw screening: No deficits noted. Tuberculosis screening: No symptoms or risk factors identified. Fall Risk IV access (20 points). Assessment: 10:15 Pain: Unable to use pain scale. Patient is disoriented. Neuro: Level of Consciousness kr3 is awake, confused, Oriented to person. Cardiovascular: Patient's skin is warm and dry. Respiratory: Airway is patent Respiratory effort is even, unlabored, Respiratory pattern is regular, symmetrical. GI: Abdomen is round non-distended. : Urine is clear. EENT: No signs and/or symptoms were reported regarding the EENT system. Derm: Skin is dry, Skin temperature is warm. Musculoskeletal: Circulation, motion, and sensation intact. 11:15 Reassessment: Patient and/or family updated on plan of care and expected duration. Pain kr3 level reassessed. patient left lateral position in bed with eyes closed . 12:15 Reassessment: Patient and/or family updated on plan of care and expected duration. Pain kr3 level reassessed. General: Appears uncomfortable, Behavior is calm, restless. 13:15 Reassessment: Patient and/or family updated on plan of care and expected duration. Pain kr3 level reassessed. daughter at bedside, causing patient to be anxious. 14:07 Reassessment: daughter at bedside causing the patient to become more agitated. Daughter kr3 was told if she continues to cause him to be anxious she will have to leave. Daughter caught by ex sister in law trying to give patient Valium out of her medication bottle, ex ATIF took daughter to lobby . 14:10 Reassessment: Patient and/or family updated on plan of care and expected duration. Pain kr3 level reassessed. patient has jerking motions with arms on and off. states it is because he has seen a lot and been through alot.. 14:12 Reassessment: ex at bedside helping keep patient calm . kr3 14:36 Reassessment: Patient and/or family updated on plan of care and expected duration. Pain kr3 level reassessed. 14:55 Reassessment: patient has less jerking of arms and has eyes closed . kr3 15:10 Reassessment: Patient and/or family updated on plan of care and expected duration. Pain kr3 level reassessed. patient sitting at edge of bed with feet hanging for comfort. 15:40 Reassessment: patient back in bed sitting up. kr3 16:59 Reassessment: Patient and/or family updated on plan of care and expected duration. Pain kr3 level reassessed. patient sitting upright in bed with eyes closed, less arm jerking noted at this time . 19:20 Reassessment: ASSUMED CARE OF PT. PT LYING IN BED. FAMILY AT BEDSIDE. VS STABLE. PT IS jj7 JUMPY AND ANXIOUS. EX STATES HE IS VERY ANXIOUS WOULD LIKE SOMETHING FOR HIS ANXIETY. MD INFORMED. 20:00 Reassessment: PT READJUSTED IN BED FOR COMFORT WITH ASSISTANCE. ALL ORDERED MEDS GIVEN jj7 PT TOLERATED WELL. VS STABLE. 21:18 Reassessment: REPORT GIVEN TO KRISTA CARBAJAL RN AT [facility]. jj7 21:30 Reassessment: PT SLEEPING IN BED. NO DISTRESS NOTED. FAMILY INFORMED OF PLAN OF CARE jj7 AND EMS ARRIVAL TIME FOR TRANSFER. 22:04 Reassessment: EMS AT BEDSIDE PREPARING TO TAKE PT FOR TRANSFER. PT VERY ANXIOUS. WILL jj7 MEDICATE WITH ATIVAN BEFORE DEPARTURE. Vital Signs: 09:14 BP 146 / 78; Pulse 66; Resp 17; Temp 97.6; Pulse Ox 97% ; Weight 70.31 kg; Height 5 ft. kr3 9 in. (175.26 cm); 10:15 BP 131 / 70; Pulse 61; Resp 17; Pulse Ox 91% on R/A; kr3 11:15 BP 121 / 68; Pulse 75; Resp 17; Pulse Ox 96% on R/A; kr3 12:15 BP 111 / 57; Pulse 86; Resp 17; Pulse Ox 93% on R/A; kr3 13:15 BP 121 / 65; Pulse 93; Resp 20; Pulse Ox 92% on R/A; kr3 14:15 BP 148 / 67; Pulse 71; Resp 17; Pulse Ox 94% on 2 lpm NC; kr3 15:15 BP 125 / 96; Pulse 62; Resp 18; Pulse Ox 96% on 2 lpm NC; kr3 16:15 BP 134 / 53; Pulse 64; Resp 18; Pulse Ox 95% 2 lpm ; kr3 19:10 BP 142 / 71; Pulse 61; Resp 20; Pulse Ox 96% ; jj7 20:10 BP 142 / 76; Pulse 75; Resp 20; Pulse Ox 95% ; jj7 21:16 BP 102 / 57; Pulse 62; Resp 20; Pulse Ox 96% ; Pain 0/10; jj7 09:14 Body Mass Index 22.89 (70.31 kg, 175.26 cm) kr3 NIH Stroke Scale Scores: 19:47 NIHSS Score: 0 javad ED Course: 09:10 Patient arrived in ED. bd 09:10 Jennifer Diggs MD is Attending Physician. sd2 09:14 Roula Lomeli, RN is Primary Nurse. kr3 09:20 Triage completed. kr3 09:24 Arm band placed on right wrist. Patient placed in an exam room, on a stretcher. kr3 09:33 Ct Stroke Brain Wo Cont In Process Unspecified. EDMS 09:53 CT Head Angio In Process Unspecified. EDMS 09:53 CT Neck Angio In Process Unspecified. EDMS 10:15 Stroke CXR 1 View In Process Unspecified. EDMS 10:33 initiated transfer to [facility]. bd 11:01 Maintain EMS IV. Gauge \\T\\ site: 18 rac. iw 11:45 Jennifer Diggs MD is Hospitalizing Provider. sd2 11:45 Jeremías Lowe is Hospitalizing Provider. sd2 11:[address] Diggs. bd 13:49 re initiated transfer to [facility]. bd 18:13 pt on wait list for ICU bed at [facility], may be a couple of days for pt to get a bed. [facility] not taking any transfers from "sister" hospitals, per Tamela. 19:08 Attending Physician role handed off by Jennifer Diggs MD rt 19:08 Rafael Cardenas MD is Attending Physician. rt 19:10 Attending Physician role handed off by Rafael Cardenas MD javad 19:10 Aroldo Michelle MD is Attending Physician. javad 19:20 Patient has correct armband on for positive identification. Call light in reach. Side jj7 rails up X2. Adult w/ patient. 19:21 Attempting to initiate a transfer with [facility] [place]. wm 19:52 Pt accepted for transfer to [facility], by Dr. Oziel Mac per Monalisa Vargas. 22:10 Patient transferred, IV remains in place. jj7 22:23 No provider procedures requiring assistance completed. jj7 Administered Medications: 09:14 CANCELLED (Physician Discretion): NS 0.9% 500 ml IV at bolus once sd2 11:13 Drug: Banana Bag - (NS 0.9% 1000 ml, foLIC Acid 1 mg, Thiamine 100 mg, Multivitamin 1 db amp) Route: IV; Rate: calculated rate; Site: right wrist; 12:23 Drug: Aspirin 325 mg Route: PO; iw 22:12 Follow up: Response: No adverse reaction jj7 12:23 Drug: PlaVIX (clopidogrel) 75 mg Route: PO; iw 14:32 Drug: Ativan (LORazepam) 0.5 mg Route: IVP; Site: left antecubital; kr3 22:12 Follow up: Response: No adverse reaction jj7 18:56 Drug: Nicotine Patch 21 mg/24 hr 1 patches Route: Transdermal; Site: anterior chest kr3 wall; 22:10 Follow up: Response: No adverse reaction jj7 20:08 Drug: Potassium Effervescent Tablet 25 mEq Route: PO; jj7 22:10 Follow up: Response: No adverse reaction jj7 20:08 Drug: foLIC Acid 1 mg Route: IVPB; Site: right antecubital; jj7 22:09 Follow up: Response: No adverse reaction jj7 20:08 Drug: Ativan (LORazepam) 1 mg Route: IVP; Site: right antecubital; jj7 22:09 Follow up: Response: No adverse reaction jj7 22:08 Drug: Ativan (LORazepam) 1 mg Route: IVP; Site: right wrist; jj7 Medication: 19:20 VIS not applicable for this client. jj7 Outcome: 10:54 ER care complete, transfer ordered by . sd2 11:46 Decision to Hospitalize by Provider. sd2 12:42 ER care complete, transfer ordered by . sd2 22:10 Transferred by ground EMS to other acute care facility: [facility]. jj7 Transfer form completed. 22:10 Condition: stable 22:25 Patient left the ED. jj7 NIH Stroke Scale - NIH Stroke Score Date: 09/12/2022 Time: 19:47 Total Score = 0 1a. Level of Consciousness (LOC) - 0(Alert) 1b. Level of Consciousness (LOC) (Month \\T\\ Age) - 0(Both) 1c. LOC Commands (Open \\T\\ Closes Eyes/Political Organizer) - 0(Both) 2. Best Gaze (Lateral Gaze Paresis) - 0(Normal) 3. Visual Field Loss - 0(No visual loss) 4. Facial Palsy - 0(Normal) 5a. Left Arm: Motor (10-second hold) - 0(No drift) 5b. Right Arm: Motor (10-second hold) - 0(No drift) 6a. Left Leg: Motor (5-second hold - always test supine) - 0(No drift) 6b. Right Leg: Motor (5-second hold - always test supine) - 0(No drift) 7. Limb Ataxia (finger/nose \\T\\ heel/frank - test with eyes open) - 0(Absent) 8. Sensory Loss (pinprick arms/legs/face) - 0(Normal) 9. Best Language: Aphasia (description/naming/reading) - 0(No aphasia) 10. Dysarthria (speech clarity - read or repeat words) - 0(Normal) 11. Extinction and Inattention (visual/tactile/auditory/spatial/personal) - 0(No abnormality) Initials: javad Signatures: Dispatcher [employer] EDMS Jaqui Carty Corey, MD MD cha Williams, Irene, RN RN iw Marsh, Wendy wm Dunlop, Stephanie, MD MD sd2 Roula Lomeli RN RN kr3 Johnson, Juwairiyah, RN RN jj7 Yarelis Benoit RN RN db Rafael Cardenas MD MD rt Corrections: (The following items were deleted from the chart) 14:45 14:07 Reassessment: daughter at bedside causing the patient to become more kr3 agitated. Daughter was told if she continues to cause him to be anxious she will have to leave.. kr3 14:46 12:15 General: Appears uncomfortable, Behavior is kr3 kr3 16:54 14:12 Reassessment: ex at bedside keeping patient calm . kr3 kr3 16:58 15:30 Reassessment: No changes from previously documented assessment. Patient kr3 and/or family updated on plan of care and expected duration. Pain level reassessed. kr3 16:59 16:58 Reassessment: patient back in bed sitting up. kr3 kr3
--- NOTE | 2022-09-12 10:54 | EDPHYS ---
Physician Documentation [facility] Name: Peter Carson Age: 72 yrs Sex: Male : 1950 Arrival Date: 09/12/2022 Time: 09:10 Bed 17 Private MD: ED Physician Aroldo Michelle HPI: 09/12 09:14 72 yo M presents with CC of AMS via EMS. EMS reports they were initially called by sd2 patient's daughter because of leg swelling. When they arrived, the patient was altered and not answering questions appropriately with R sided deficits on exam. Deficits resolved briefly thereafter and patient returned to his baseline and was A\\T\\Ox3 just with slurred speech. However, deficits and confusion returned upon patient's arrival to the ER. pt does have extensive history of ETOH abuse and daughter gives him a pint of rum a day to keep him from withdrawing and he has had that already today as well. Daughter also reported he was diagnosed with "mini strokes" 2 weeks ago. Symptoms per daughter's report have been ongoing since 4AM at least but unclear last known well time as daughter was a poor historian per EMS. Unclear if patient is taking blood thinners as well.. Historical: - Allergies: 14:34 PENICILLINS; "given to me in past, reaction when i was small child, dont remember"; kr3 - PMHx: 14:34 Parkinson like symptoms; High Cholesterol; Diverticulitis; kr3 - PSHx: 14:34 colon sx; kr3 - Immunization history:: Adult Immunizations not up to date. - Social history:: Smoking status: Patient reports the use of cigarette tobacco products, smokes one pack cigarettes per day. ROS: 09:14 Unable to obtain ROS due to altered mental status. sd2 Exam: 09:14 Constitutional: This is a well developed, well nourished patient who is awake, alert, sd2 and in no acute distress. Head/Face: Normocephalic, atraumatic. Eyes: EOMI, normal conjunctiva bilaterally, pupils sluggish but reactive and equal bilaterally Chest/axilla: Normal chest wall appearance and motion. Nontender with no deformity. Cardiovascular: Regular rate and rhythm with a normal S1 and S2. No gallops, murmurs, or rubs. 2+ distal pulses. Respiratory: Lungs have equal breath sounds bilaterally, clear to auscultation and percussion. No rales, rhonchi or wheezes noted. No increased work of breathing, no retractions or nasal flaring. Abdomen/GI: Soft, non-tender, with normal bowel sounds. No guarding or rebound. No evidence of tenderness throughout. Skin: Warm, dry with normal turgor. Normal color with no rashes, no lesions, and no evidence of cellulitis. MS/ Extremity: Pulses equal, no cyanosis. Full, normal range of motion. Neuro: Awake and alert, mumbling words only stating he is cold repeatedly when asked, unable to tell me his name or follow commands but patient observed moving all 4 extremities, he was able to hold his LUE in the air with no drift but not with the right but unclear if this is due to patient not following command or actual weakness 12:20 ECG was reviewed by the Attending Physician. NSR, rate 69, no SEMI criteria, RBBB sd2 present, 1st degree AV block Vital Signs: 09:14 BP 146 / 78; Pulse 66; Resp 17; Temp 97.6; Pulse Ox 97% ; Weight 70.31 kg; Height 5 ft. kr3 9 in. (175.26 cm); 10:15 BP 131 / 70; Pulse 61; Resp 17; Pulse Ox 91% on R/A; kr3 11:15 BP 121 / 68; Pulse 75; Resp 17; Pulse Ox 96% on R/A; kr3 12:15 BP 111 / 57; Pulse 86; Resp 17; Pulse Ox 93% on R/A; kr3 13:15 BP 121 / 65; Pulse 93; Resp 20; Pulse Ox 92% on R/A; kr3 14:15 BP 148 / 67; Pulse 71; Resp 17; Pulse Ox 94% on 2 lpm NC; kr3 15:15 BP 125 / 96; Pulse 62; Resp 18; Pulse Ox 96% on 2 lpm NC; kr3 16:15 BP 134 / 53; Pulse 64; Resp 18; Pulse Ox 95% 2 lpm ; kr3 19:10 BP 142 / 71; Pulse 61; Resp 20; Pulse Ox 96% ; jj7 20:10 BP 142 / 76; Pulse 75; Resp 20; Pulse Ox 95% ; jj7 21:16 BP 102 / 57; Pulse 62; Resp 20; Pulse Ox 96% ; Pain 0/10; jj7 09:14 Body Mass Index 22.89 (70.31 kg, 175.26 cm) kr3 NIH Stroke Scale Scores: 19:47 NIHSS Score: 0 javad MDM: 09:10 Patient medically screened. sd2 09:20 Differential Diagnosis Dehydration, electrolyte abnormality, UTI, PNA, anemia among sd2 others. Data reviewed: vital signs, nurses notes, EMS record. 10:20 ED course: CT Head negative. CTA with possible vertebral artery dissection. Pt remains sd2 altered but is moving all extremities now with good strength once again. Discussed case with Dr. Varma who recommends transfer for possible intervention 2/2 dissection or LVO.. 11:28 ED course: Discussed case with Dr. Andrade, Neuro ICU at [facility], who sd2 states no intervention recommended at this time even if dissection present and states ASA or heparin gtt dependent upon provider preference. Currently no deficits and no signs of LVO. Dr. Varma contacted and is comfortable with keeping patient here and recommends ASA and plavix which have been ordered. Pt to be admitted to hospitalist at this time. . 09/12 09:14 Order name: Basic Metabolic Panel; Complete Time: 11:21 sd09/12 09:14 Order name: CBC with Diff; Complete Time: 11:09/12 09:14 Order name: Hepatic Function; Complete Time: 11:09/12 09:14 Order name: High Sensitivity Troponin; Complete Time: 11:09/12 09:14 Order name: Magnesium; Complete Time: 11:09/12 09:14 Order name: Protime (+inr); Complete Time: 11:21 09/12 09:14 Order name: Ptt, Activated; Complete Time: 11:21 09/12 09:14 Order name: UDS; Complete Time: 11:21 09/12 09:14 Order name: Procalcitonin; Complete Time: 11:21 sd2 09/12 09:14 Order name: AMMONIA; Complete Time: 12:24 sd2 09/12 09:14 Order name: Urine Microscopic Only; Complete Time: 11:21 sd09/12 09:14 Order name: Ethanol; Complete Time: 11:09/12 09:14 Order name: BNP; Complete Time: 11:21 sd2 09/12 10:30 Order name: SARS RAPID; Complete Time: 11:44 bd 09/12 09:14 Order name: CT Stroke Brain w/o Contrast sd2 09/12 09:14 Order name: Stroke CXR 1 View; Complete Time: 11:21 sd2 09/12 09:14 Order name: CT Head Angio; Complete Time: 10:53 sd2 09/12 09:14 Order name: CT Neck Angio; Complete Time: 10:10 sd2 09/12 09:18 Order name: Ct Stroke Brain Wo Cont; Complete Time: 10:03 EDMS 09/12 11:05 Order name: Urine Dipstick-Ancillary; Complete Time: 11:21 EDMS 09/12 12:15 Order name: CREATININE WHOLE BLOOD; Complete Time: 12:24 EDMS 09/12 09:14 Order name: EKG; Complete Time: 09:15 sd2 09/12 09:14 Order name: Accucheck; Complete Time: 11:02 sd2 09/12 09:14 Order name: Cardiac monitoring; Complete Time: 11:02 sd2 09/12 09:14 Order name: EKG - Nurse/Tech; Complete Time: 12:01 sd2 09/12 09:14 Order name: IV Saline Lock; Complete Time: 10:39 sd2 09/12 09:14 Order name: Labs collected and sent; Complete Time: 10:39 sd2 09/12 09:14 Order name: NPO; Complete Time: 10:39 sd2 09/12 09:14 Order name: O2 Per Protocol; Complete Time: 10:39 sd2 09/12 09:14 Order name: O2 Sat Monitoring; Complete Time: 10:39 sd2 09/12 09:14 Order name: Stroke Swallow Screen; Complete Time: 11:02 sd2 09/12 09:14 Order name: Urine Dipstick-Ancillary (obtain specimen); Complete Time: 11:07 sd2 09/12 10:56 Order name: Labs - recollect needed: recollect ammonia; Complete Time: 11:43 bd 09/12 16:28 Order name: Diet Regular; Complete Time: 16:29 bd Administered Medications: 09:14 CANCELLED (Physician Discretion): NS 0.9% 500 ml IV at bolus once sd2 11:13 Drug: Banana Bag - (NS 0.9% 1000 ml, foLIC Acid 1 mg, Thiamine 100 mg, Multivitamin 1 db amp) Route: IV; Rate: calculated rate; Site: right wrist; 12:23 Drug: Aspirin 325 mg Route: PO; iw 22:12 Follow up: Response: No adverse reaction jj7 12:23 Drug: PlaVIX (clopidogrel) 75 mg Route: PO; iw 14:32 Drug: Ativan (LORazepam) 0.5 mg Route: IVP; Site: left antecubital; kr3 22:12 Follow up: Response: No adverse reaction jj7 18:56 Drug: Nicotine Patch 21 mg/24 hr 1 patches Route: Transdermal; Site: anterior chest kr3 wall; 22:10 Follow up: Response: No adverse reaction jj7 20:08 Drug: Potassium Effervescent Tablet 25 mEq Route: PO; jj7 22:10 Follow up: Response: No adverse reaction jj7 20:08 Drug: foLIC Acid 1 mg Route: IVPB; Site: right antecubital; jj7 22:09 Follow up: Response: No adverse reaction jj7 20:08 Drug: Ativan (LORazepam) 1 mg Route: IVP; Site: right antecubital; jj7 22:09 Follow up: Response: No adverse reaction jj7 22:08 Drug: Ativan (LORazepam) 1 mg Route: IVP; Site: right wrist; jj7 Disposition: 12:20 Chart complete. sd2 Disposition Summary: 09/12/22 12:42 Transfer Ordered Transfer Location: [facility](09/12/22 12:42) sd2 Reason: Higher level of care(09/12/22 12:42) sd2 Condition: Stable(09/12/22 12:42) sd2 Problem: new(09/12/22 12:42) sd2 Symptoms: are resolved(09/12/22 12:42) sd2 Accepting Physician: Dr. Andrade(09/12/22 22:25) jj7 Diagnosis - Right sided weakness sd2 - Altered mental status sd2 - Hypokalemia sd2 - Vertebral artery dissection sd2 - High grade basilar artery stenosis sd2 Forms: - Medication Reconciliation Form sd2 - SBAR form sd2 NIH Stroke Scale - NIH Stroke Score Date: 09/12/2022 Time: 19:47 Total Score = 0 1a. Level of Consciousness (LOC) - 0(Alert) 1b. Level of Consciousness (LOC) (Month \\T\\ Age) - 0(Both) 1c. LOC Commands (Open \\T\\ Closes Eyes/Institution Director) - 0(Both) 2. Best Gaze (Lateral Gaze Paresis) - 0(Normal) 3. Visual Field Loss - 0(No visual loss) 4. Facial Palsy - 0(Normal) 5a. Left Arm: Motor (10-second hold) - 0(No drift) 5b. Right Arm: Motor (10-second hold) - 0(No drift) 6a. Left Leg: Motor (5-second hold - always test supine) - 0(No drift) 6b. Right Leg: Motor (5-second hold - always test supine) - 0(No drift) 7. Limb Ataxia (finger/nose \\T\\ heel/frank - test with eyes open) - 0(Absent) 8. Sensory Loss (pinprick arms/legs/face) - 0(Normal) 9. Best Language: Aphasia (description/naming/reading) - 0(No aphasia) 10. Dysarthria (speech clarity - read or repeat words) - 0(Normal) 11. Extinction and Inattention (visual/tactile/auditory/spatial/personal) - 0(No abnormality) Initials: javad Signatures: Dispatcher [employer] Jaqui Hernandez Corey, MD MD cha Mickail, Joel, PA PA jmm Williams, Irene, RN RN iw Dunlop, Stephanie, MD MD sd2 Roula Lomeli RN RN kr3 Bruce Lawson RN RN jj7 Yarelis Benoit, ANDRIA RN db Corrections: (The following items were deleted from the chart) 09:14 09:14 NS 0.9% 500 ml IV at bolus once ordered. sd2 sd2 11:44 10:54 TBD sd2 sd2 11:44 10:54 [facility] sd2 sd2 11:44 10:54 Higher level of care sd2 sd2 11:44 10:54 Stable sd2 sd2 11:44 10:54 new sd2 sd2 11:44 10:54 are unchanged sd2 sd2 11:44 10:54 Vertebral artery dissection sd2 sd2 11:44 10:54 Right sided weakness, resolved sd2 sd2 11:44 10:54 Altered mental status sd2 sd2 11:44 10:54 Alcohol abuse sd2 sd2 12:41 11:46 Inpatient Admission sd2 sd2 12:41 11:46 LatriciaJeremías turcios sd2 sd2 12:41 11:46 Telemetry/MedSurg (Inpatient) sd2 sd2 12:41 11:46 Stable sd2 sd2 12:41 11:46 new sd2 sd2 12:41 11:46 have improved sd2 sd2 12:41 11:46 Standard sd2 sd2 12:41 11:46 sd2 sd2 12:41 11:46 Right sided weakness, resolved sd2 sd2 12:41 11:46 Altered mental status sd2 sd2 12:41 11:46 Hypokalemia sd2 sd2 12:41 11:46 Alcohol abuse sd2 sd2 22:25 12:42 Dr. Andrade sd2 jj7
[2022-09-12 11:02] LABS: Protime INR 1.01
[2022-09-12 11:05] LABS: Urine Blood Negative (Negative); Urine Glucose Negative (Negative); Urine Protein Negative (Negative)
[2022-09-12 11:07] LABS: Urine Mucus Slight /HPF (None Seen); Urine RBC <5 /HPF (None Seen)
--- NOTE | 2022-09-12 11:07 | RAD REPORT ---
EXAM DESCRIPTION: Janet Single View09/12/2022 10:14 am CLINICAL HISTORY: CVA COMPARISON: 2020 FINDINGS: The lungs appear clear of acute infiltrate. The heart is normal size IMPRESSION: No acute abnormalities displayed
[2022-09-12 11:12] LABS: ALT/SGPT 21 U/L (12-78); AST/SGOT 18 U/L (15-37); Albumin 3.3 g/dL (3.4-5.0); Alkaline Phosphatase 74 U/L (45-117); BUN Blood Urea Nitrogen 8 mg/dL (7-18); Bicarbonate 27 mmol/L (21-32); Bilirubin Total 0.3 mg/dL (0.2-1.0); Glomerular Filtration Rate 93 ml/min (=/>90); Glucose Level 91 mg/dL (74-106); Magnesium 1.8 mg/dL (1.8-2.4); NT PRO-BNP 76 pg/mL (<125); Potassium 3.2 mmol/L (3.5-5.1); Protein, Total 7.3 g/dL (6.4-8.2); Sodium Level 142 mmol/L (136-145); Troponin High Sensitivity 8.1 pg/mL (<58.9)
[2022-09-12 11:17] LABS: Barbiturates NEGATIVE (NEGATIVE); Benzodiazepines POSITIVE (NEGATIVE); Cocaine NEGATIVE (NEGATIVE); METHAMPHETAM NEGATIVE (NEGATIVE); Methadone NEGATIVE (NEGATIVE); Opiates NEGATIVE (NEGATIVE); Phencyclidine NEGATIVE (NEGATIVE); THC Cannibis NEGATIVE (NEGATIVE)
[2022-09-12 11:17] LABS: Bilirubin Direct < 0.1 mg/dL (0-0.2)
[2022-09-12 11:33] LABS: SARS-CoV-2 Antigen Rapid Res Negative (Negative)
[2022-09-12] MEDS ORDERED: CLOPIDOGREL 75 MG TABLET ONE (12:18)
[2022-09-12] MEDS ORDERED: ASPIRIN 325 MG TAB ONE (12:18)
[2022-09-12] MEDS ORDERED: LORazepam 2 MG/ML VIAL ONE ×3 (14:30→22:07)
[2022-09-12] MEDS ORDERED: CEFTRIAXONE 1000 MG/VIAL ONE (17:18)
[2022-09-12] MEDS ORDERED: NA CHLORIDE 0.9% 50 ML IV ONE (17:18)
[2022-09-12] MEDS ORDERED: NICOTINE 21 MG/PAT TD ONE (18:57)
[2022-09-12] MEDS ORDERED: POTASSIUM 25 MEQ EFFERV TAB ONE (19:52)
[2022-09-12] MEDS ORDERED: FOLIC ACID 5 MG/ML VIAL ONE (19:53)
[2022-09-12 23:26] VITALS: TEMP 97.6
[2022-09-12 23:38] VITALS: BP 102/57; O2SAT 96
--- NOTE | 2022-09-13 13:23 | EKG ---
Test Date: 2022-09-12 Test Time: 11:17:17 Scorekeeper: AMOL MEASUREMENT RESULTS: Intervals: Rate: 69 TN: 230 QRSD: 118 QT: 404 QTc: 432 [place]: P: 52 TN: 230 QRS: -64 T: 25 INTERPRETIVE STATEMENTS: Sinus rhythm with 1st degree AV block Left axis deviation Right bundle branch block Abnormal ECG Compared to ECG 03/28/2022 15:10:22 First degree AV block now present Sinus bradycardia no longer present Electronically Signed On 09-13-22 13:22:18 MATERIAL YARD CLERK by Alex Quispe
== END 2022-09-12 22:25 | disposition short-term general hospital (02) ==
LOC: ER 09:03
DX: G81.91 Hemiplegia, unspecified affecting right dominant side (principal); R41.82 Altered mental status, unspecified; E87.6 Hypokalemia; I77.74 Dissection of vertebral artery; I65.1 Occlusion and stenosis of basilar artery; F17.210 Nicotine dependence, cigarettes, uncomplicated; Z88.0 Allergy status to penicillin; Z20.822 Contact with and (suspected) exposure to COVID-19
CPT/HCPCS: 93005; 85025; 80048; 36415; 80320; 82140; 83735; 85610; 82565; 80076; 85730; 84484; 84145; 83880; 80307; 70496; 70498; 70450; 71045; 99285; 87811; Q9967; J3411; J7030; 81003; 81015

== ENCOUNTER 2022-10-10 09:47 | Emergency (ER) | payer OTHER ==
--- OUTSIDE RECORDS SUMMARY | 2022-10-10 09:53 | XMS REPORT | Continuity of Care Document ---
:1950 Author Organization [facility] t Address [address] [place] [place] [address] Care Team Providers Name Role Phone Pricila Andrade MD, I. Attending Clinician ARMINDA DEMARCO Attending Clinician Unavailable MARY ALICE GORDON Attending Clinician Unavailable Rhys Farmer DO Attending Clinician Doctor Unassigned, Boomer Attending Clinician Unavailable PRICILA ANDRADE I. Admitting Clinician Unavailable ARMINDA DEMARCO Admitting Clinician Unavailable LOWELL HAMMER Admitting Clinician Unavailable HAIDER TOM Admitting Clinician Unavailable Payers Payer Name Policy Type Policy Number Effective Date Ex[place] [facility] [place] \T\ [id number] 2015 B 00:00:00 [facility] [id number] 2018 MEDICARE SUPPLEMENT 00:00:00 Problems Condition Condition Condition Status Onset Resolution Last Treating Co mments Source Name Details Category Date Date Treatment Clinician Date Hepatic Hepatic Disease Active [facility] Center AMS AMS Disease Active [facility]: [facility] status) status) 00 Center Allergies, Adverse Reactions, Alerts Allergy Allergy Status Severity Reaction(s) Onset Inactive Treating Comm ents Source Name Type Date Date Clinician PENICILL DRUG Active Unknown-Cmnt Un kuldeep IN [facility] 01-09 [facility] [place] [facility]ICILL Allergy Active Other [facility] Penicill Drug Active Other (See Other [facility] Allergy Comments) 2-05 reaction( [facility] 00:00: s): Other Medical 00 (see Center comments) Unknown reaction as an infant.Un known reaction as an . Social History Social Habit Start Date Stop Date Quantity Comments Source History of tobacco Cigarette Smoker [facility] use [facility] Alcohol intake 2021-04-08 2021-04-08 [facility]00 of alcohol [facility] (finding) Cigarettes smoked 2021-04-08 2021-04-[address] [facility] current (pack per 00:00:00 00:00:00 [facility] Center day) - Reported Cigarette 2021-04-08 2021-04-[address] [facility] pack-years 00:00:00 00:00:00 [facility] Tobacco use and 2021-04-08 2021-04-[address] [facility] exposure 00:00:00 00:00:00 [facility] Sex Assigned [birth year] [facility] kes 00:00:00 00:00:00 [facility] Smoking Status Start Date Stop Date Source Current every day smoker 2021-04-08 00:00:00 [facility] Medications Ordered Filled Start Stop Current Ordering Indication Dosage Frequency Signature Comments Components Source Medication Medication Date Date Medication? Clinician (SIG) Name Name tamsulosin Yes .4mg QD Take 1 [facility]FL[facility] 0.4 mg Cap 00:00: (0.4 mg Medi phyllis 24 hr 00 total) by Center capsule mouth daily. tamsulosin Yes .4mg QD Take [facility] 0.4 mg Cap 00:00: (0.4 mg Medi phyllis 24 hr 00 total) by Center capsule mouth daily. tamsulosin 2021-0 Yes .4mg QD Take 1 [facility]FLOMAX[facility] 0.4 mg Cap 00:00: (0.4 mg Medi phyllis 24 hr 00 total) by Center capsule mouth daily. tamsulosin 2021-0 Yes .4mg QD Take 1 [facility] (FLOMAX[facility] 0.4 mg Cap 00:00: (0.4 mg Medi phyllis 24 hr 00 total) by Center capsule mouth daily. tamsulosin 2021-0 Yes .4mg QD Take 1 [facility] (FLOMAX[facility]10 [facility] 0.4 mg Cap 00:00: (0.4 mg Medi phyllis 24 hr 00 total) by Center capsule mouth daily. tamsulosin 2021-0 Yes .4mg QD Take 1 [facility] (FLOMAX[facility]10 [facility] 0.4 mg Cap 00:00: (0.4 mg Medi phyllis 24 hr 00 total) by Center capsule mouth daily. tamsulosin 2021-0 Yes .4mg QD Take 1 [facility] (FLOMAX[facility] 7[facility]10 [facility] 0.4 mg Cap 00:00: (0.4 mg Medi phyllis 24 hr 00 total) by Center capsule mouth daily. tamsulosin 2021-0 Yes .4mg QD Take 1 [facility] (FLOMAX[facility] 7[facility]10 [facility] 0.4 mg Cap 00:00: (0.4 mg Medi phyllis 24 hr 00 total) by Center capsule mouth daily. tamsulosin 2021-0 Yes .4mg QD Take 1 [facility] (FLOMAX[facility]10 [facility] 0.4 mg Cap 00:00: (0.4 mg Medi phyllis 24 hr 00 total) by Center capsule mouth daily. tamsulosin 2021-0 Yes .4mg QD Take 1 [facility] (FLOMAX[facility] 7[facility]10 [facility] 0.4 mg Cap 00:00: (0.4 mg Medi phyllis 24 hr 00 total) by Center capsule mouth daily. tamsulosin 2021-0 Yes .4mg QD Take 1 [facility] (FLOMAX[facility]10 [facility] 0.4 mg Cap 00:00: (0.4 mg Medi phyllis 24 hr 00 total) by Center capsule mouth daily. tamsulosin 2021-0 Yes .4mg QD Take 1 [facility] (FLOMAX[facility] 7-10 [facility] 0.4 mg Cap 00:00: (0.4 mg Medi phyllis 24 hr 00 total) by Center capsule mouth daily. tamsulosin 2021-0 Yes .4mg QD Take 1 [facility] (FLOMAX[facility]10 [facility] 0.4 mg Cap 00:00: (0.4 mg Medi phyllis 24 hr 00 total) by Center capsule mouth daily. tamsulosin 2021-0 Yes .4mg QD Take 1 [facility] (FLOMAX[facility]10 [facility] 0.4 mg Cap 00:00: (0.4 mg Medi phyllis 24 hr 00 total) by Center capsule mouth daily. tamsulosin 2021-0 Yes .4mg QD Take 1 [facility] (FLOMAX) 7-10 [facility] 0.4 mg Cap 00:00: (0.4 mg Medi phyllis 24 hr 00 total) by Center capsule mouth daily. tamsulosin 2021-0 Yes .4mg QD Take 1 [facility] (FLOMAX[facility] 7-10 [facility] 0.4 mg Cap 00:00: (0.4 mg Medi phyllis 24 hr 00 total) by Center capsule mouth daily. folic acid 2021- No 1mg QD Take [address] [facility] (FOLVITE) 1 7-10 07-10 tablet (1 [facility] MG tablet 00:00: 23:59 mg total) Me dical 00 :00 by mouth Center daily. multivitami 2020-2021- No 1{tbl} QD Take [address] [facility] 7-10 07-10 tablet by [facility] (THERAGRAN) 00:00: 23:59 mouth Medi phyllis tablet 00 :00 daily. Center thiamine 2021- No 100mg QD Take 1 [facility] 100 MG 7-10 07-10 tablet [facility] tablet 00:00: 23:59 (100 mg Medical 00 :00 total) by Center mouth daily. folic acid 2020-2021- No 1mg QD Take [address] [facility] (FOLVITE) 1 7-10 07-10 tablet (1 [facility] MG tablet 00:00: 23:59 mg total) Me dical 00 :00 by mouth Center daily. multivitami 2020-2021- No 1{tbl} QD Take [address] n 7-10 07-10 tablet by [facility] (THERAGRAN) 00:00: 23:59 mouth Medi phyllis tablet 00 :00 daily. [place] thiamine 2020-2021- No 100mg QD Take 1 [facility] MG 7-10 07-10 tablet [facility] tablet 00:00: 23:59 (100 mg Medical 00 :00 total) by Center mouth daily. folic acid 2020-2021- No 1mg QD Take [address] [facility] (FOLVITE) 1 7-10 07-10 tablet (1 [facility] MG tablet 00:00: 23:59 mg total) Me dical 00 :00 by mouth Center daily. multivitami 2020-2021- No 1{tbl} QD Take [address] n 7-10 07-10 tablet by [facility] (Effcon MXRAN) 00:00: 23:59 mouth Medi phyllis tablet 00 :00 daily. [place] thiamine 2020-2021- No 100mg QD Take 1 [facility] 100 MG 7-10 07-10 tablet [facility] tablet 00:00: 23:59 (100 mg Medical 00 :00 total) by Center mouth daily. folic acid 2020-2021- No 1mg QD Take [address] [facility] (FOLVITE) 1 7-10 07-10 tablet (1 [facility] MG tablet 00:00: 23:59 mg total) Me dical 00 :00 by mouth Center daily. multivitami 2020-2021- No 1{tbl} QD Take [address] n 7-10 07-10 tablet by [facility] (THERAGRAN) 00:00: 23:59 mouth Medi phyllis tablet 00 :00 daily. [place] thiamine 2020-2021- No 100mg QD Take 1 [facility] 100 MG 7-10 07-10 tablet [facility] tablet 00:00: 23:59 (100 mg Medical 00 :00 total) by Center mouth daily. folic acid 2020-2021- No 1mg QD Take [address] [facility] (FOLVITE) 1 7-10 07-10 tablet (1 [facility] MG tablet 00:00: 23:59 mg total) Me dical 00 :00 by mouth Center daily. multivitami 2020-2021- No 1{tbl} QD Take [address] n 7-10 07-10 tablet by [facility] ([place]ff[place] MXRAN) 00:00: 23:59 mouth Medi phyllis tablet 00 :00 daily. [place] thiamine 2020-2021- No 100mg QD Take 1 [facility] 100 MG 7-10 07-10 tablet [facility] tablet 00:00: 23:59 (100 mg Medical 00 :00 total) by Center mouth daily. folic acid 2021- No 1mg QD Take [address] [facility] [address] (FOLVITE) 1 7-10 07-10 tablet (1 [facility] MG tablet 00:00: 23:59 mg total) Me dical 00 :00 by mouth Center daily. multivitami 2020-2021- No 1{tbl} QD Take [address] n 7-10 07-10 tablet by [facility] (THERAGRAN) 00:00: 23:59 mouth Medi phyllis tablet 00 :00 daily. [place] thiamine 2020-2021- No 100mg QD Take 1 [facility] MG 7-10 07-10 tablet [facility] tablet 00:00: 23:59 (100 mg Medical 00 :00 total) by Center mouth daily. folic acid 2021- No 1mg QD Take [address] [facility] (FOLVITE) 1 7-10 07-10 tablet (1 [facility] MG tablet 00:00: 23:59 mg total) Me dical 00 :00 by mouth Center daily. multivitami 2020-2021- No 1{tbl} QD Take [address] n 7-10 07-10 tablet by [facility] (THERAGRAN) 00:00: 23:59 mouth Medi phyllis tablet 00 :00 daily. [place] thiamine 2020-2021- No 100mg QD Take 1 [facility] MG 7-10 07-10 tablet [facility] tablet 00:00: 23:59 (100 mg Medical 00 :00 total) by Center mouth daily. folic acid 2021- No 1mg QD Take [address] [facility] (FOLVITE) 1 7-10 07-10 tablet (1 [facility] MG tablet 00:00: 23:59 mg total) Me dical 00 :00 by mouth Center daily. multivitami 2020-2021- No 1{tbl} QD Take [address] n 7-10 07-10 tablet by [facility] (THERAGRAN) 00:00: 23:59 mouth Medi phyllis tablet 00 :00 daily. [place] thiamine 2021- No 100mg QD Take 1 [facility] MG 7-10 07-10 tablet [facility] tablet 00:00: 23:59 (100 mg Medical 00 :00 total) by Center mouth daily. folic acid 2020-2021- No 1mg QD Take [address] [facility] (FOLVITE) 1 7-10 07-10 tablet (1 [facility] MG tablet 00:00: 23:59 mg total) Me dical 00 :00 by mouth Center daily. multivitami 2020-2021- No 1{tbl} QD Take [address] n 7-10 07-10 tablet by [facility] (THERAGRAN) 00:00: 23:59 mouth Medi phyllis tablet 00 :00 daily. [place] thiamine 2020-2021- No 100mg QD Take 1 [facility] MG 7-10 07-10 tablet [facility] tablet 00:00: 23:59 (100 mg Medical 00 :00 total) by Center mouth daily. folic acid 2020-2021- No 1mg QD Take [address] [facility] (FOLVITE) 1 7-10 07-10 tablet (1 [facility] MG tablet 00:00: 23:59 mg total) Me dical 00 :00 by mouth Center daily. multivitami 2020-2021- No 1{tbl} QD Take [address] n 7-10 07-10 tablet by [facility] (THERAGRAN) 00:00: 23:59 mouth Medi phyllis tablet 00 :00 daily. [place] thiamine 2021- No 100mg QD Take 1 [facility] 100 MG 7-10 07-10 tablet [facility] tablet 00:00: 23:59 (100 mg Medical 00 :00 total) by Center mouth daily. folic acid 2021- No 1mg QD Take [address] [facility] (FOLVITE) 1 7-10 07-10 tablet (1 [facility] MG tablet 00:00: 23:59 mg total) Me dical 00 :00 by mouth Center daily. multivitami 2020-2021- No 1{tbl} QD Take [address] n 7-10 07-10 tablet by [facility] (THERAGRAN) 00:00: 23:59 mouth Medi phyllis tablet 00 :00 daily. [place] thiamine 2020-2021- No 100mg QD Take 1 [facility] 100 MG 7-10 07-10 tablet [facility] tablet 00:00: 23:59 (100 mg Medical 00 :00 total) by Center mouth daily. folic acid 2021- No 1mg QD Take [address] [facility] (FOLVITE) 1 7-10 07-10 tablet (1 [facility] MG tablet 00:00: 23:59 mg total) Me dical 00 :00 by mouth Center daily. multivitami 2021- No 1{tbl} QD Take [address] n 7-10 07-10 tablet by [facility] (THERAGRAN) 00:00: 23:59 mouth Medi phyllis tablet 00 :00 daily. Center thiamine 2020-2021- No 100mg QD Take 1 [facility] 7-10 07-10 tablet [facility] tablet 00:00: 23:59 (100 mg Medical 00 :00 total) by Center mouth daily. folic acid 2021- No 1mg QD Take [address] [facility] (FOLVITE) 1 7-10 07-10 tablet (1 [facility] MG tablet 00:00: 23:59 mg total) Me dical 00 :00 by mouth Center daily. multivitami 2021- No 1{tbl} QD Take [address] n 7-10 07-10 tablet by [facility] (THERAGRAN) 00:00: 23:59 mouth Medi phyllis tablet 00 :00 daily. [place] thiamine 2020-2021- No 100mg QD Take [facility] 7-10 07-10 [facility] tablet 00:00: 23:59 (100 mg Medical 00 :00 total) by Center mouth daily. folic acid 2021- No 1mg QD Take [address] [facility] (FOLVITE) 1 7-10 07-10 tablet (1 [facility] MG tablet 00:00: 23:59 mg total) Me dical 00 :00 by mouth Center daily. multivitami 2021- No 1{tbl} QD Take [address] n 7-10 07-10 tablet by [facility] (THERAGRAN) 00:00: 23:59 mouth Medi phyllis tablet 00 :00 daily. [place] thiamine 2020-2021- No 100mg QD Take 1 [facility] MG 7-10 07-10 tablet [facility] tablet 00:00: 23:59 (100 mg Medical 00 :00 total) by Center mouth daily. folic acid 2020-2021- No 1mg QD Take [address] [facility] (FOLVITE) 1 7-10 07-10 tablet (1 [facility] MG tablet 00:00: 23:59 mg total) Me dical 00 :00 by mouth Center daily. multivitami 2020-2021- No 1{tbl} QD Take [address] n 7-10 07-10 tablet by [facility] (THERAGRAN) 00:00: 23:59 mouth Medi phyllis tablet 00 :00 daily. [place] thiamine 2020-2021- No 100mg QD Take 1 [facility] 7-10 07-10 tablet [facility] tablet 00:00: 23:59 (100 mg Medical 00 :00 total) by Center mouth daily. folic acid 2021- No 1mg QD Take [address] [facility] (FOLVITE) 1 7-10 07-10 tablet (1 [facility] MG tablet 00:00: 23:59 mg total) Me dical 00 :00 by mouth Center daily. multivitami 2020-2021- No 1{tbl} QD Take [address] n 7-10 07-10 tablet by [facility] (THERAGRAN) 00:00: 23:59 mouth Medi phyllis tablet 00 :00 daily. [place] thiamine 2020-2021- No 100mg QD Take 1 [facility] 7-10 07-10 [facility] tablet 00:00: 23:59 (100 mg Medical 00 :00 total) by Center mouth daily. omeprazole 2020-0 Yes 20mg QD Take [address] (PriLOSEC) 7-09 by mouth [facility] 20 MG 15:27: daily. Medical capsule 38 [place] ondansetron 2020-0 Yes 4mg Take [address] (ZOFRAN) 4 7-09 by mouth 3 [facility] MG tablet 15:27: (three) Medic al 38 times Center daily as needed for Nausea. omeprazole 2020-0 Yes 20mg QD Take [address] (PriLOSEC) 7-09 by mouth [facility] 20 MG 15:27: daily. Medical capsule 38 [place] ondansetron 2020-0 Yes 4mg Take [address] (ZOFRAN) 4 7-09 by mouth 3 [facility] MG tablet 15:27: (three) Medic al 38 times Center daily as needed for Nausea. omeprazole 2021-0 Yes 20mg QD Take [address] (PriLOSEC) 7-09 by mouth [facility] 20 MG 15:27: daily. Medical capsule 38 Center ondansetron 2021-0 Yes 4mg Take [address] (ZOFRAN) 4 7-09 by mouth 3 [facility] MG tablet 15:27: (three) Medic al 38 times Center daily as needed for Nausea. omeprazole 2021-0 Yes 20mg QD Take [address] (PriLOSEC) 7-09 by mouth [facility] 20 MG 15:27: daily. Medical capsule 38 Center ondansetron 2021-0 Yes 4mg Take [address] (ZOFRAN) 4 7-09 by mouth 3 [facility] MG tablet 15:27: (three) Medic al 38 times Center daily as needed for Nausea. omeprazole 2021-0 Yes 20mg QD Take [address] (PriLOSEC) 7-09 by mouth [facility] 20 MG 15:27: daily. Medical capsule 38 Center ondansetron 1-0 Yes 4mg Take [address] (ZOFRAN) 4 7-09 by mouth 3 [facility] MG tablet 15:27: (three) Medic al 38 times Center daily as needed for Nausea. omeprazole 2021-0 Yes 20mg QD Take [address] (PriLOSEC) 7-09 by mouth [facility] 20 MG 15:27: daily. Medical capsule 38 Center ondansetron 2021-0 Yes 4mg Take [address] (ZOFRAN) 4 7-09 by mouth 3 [facility] MG tablet 15:27: (three) Medic al 38 times Center daily as needed for Nausea. omeprazole 2021-0 Yes 20mg QD Take [address] (PriLOSEC) 7-09 by mouth [facility] 20 MG 15:27: daily. Medical capsule 38 Center ondansetron 2021-0 Yes 4mg Take [address] (ZOFRAN) 4 7-09 by mouth 3 [facility] MG tablet 15:27: (three) Medic al 38 times Center daily as needed for Nausea. omeprazole 2021-0 Yes 20mg QD Take [address] (PriLOSEC) 7-09 by mouth [facility] 20 MG 15:27: daily. Medical capsule 38 Center ondansetron 2021-0 Yes 4mg Take [address] (ZOFRAN) 4 7-09 by mouth 3 [facility] MG tablet 15:27: (three) Medic al 38 times Center daily as needed for Nausea. omeprazole 2021-0 Yes 20mg QD Take [address] (PriLOSEC) 7-09 by mouth [facility] 20 MG 15:27: daily. Medical capsule 38 Center ondansetron 2021-0 Yes 4mg Take [address] (ZOFRAN) 4 7-09 by mouth 3 [facility] MG tablet 15:27: (three) Medic al 38 times Center daily as needed for Nausea. omeprazole 2021-0 Yes 20mg QD Take [address] (PriLOSEC) 7-09 by mouth [facility] 20 MG 15:27: daily. Medical capsule 38 Center ondansetron 1-0 Yes 4mg Take [address] (ZOFRAN) 4 7-09 by mouth 3 [facility] MG tablet 15:27: (three) Medic al 38 times Center daily as needed for Nausea. omeprazole 2021-0 Yes 20mg QD Take [address] (PriLOSEC) 7-09 by mouth [facility] 20 MG 15:27: daily. Medical capsule 38 Center ondansetron 2021-0 Yes 4mg Take [address] (ZOFRAN) 4 7-09 by mouth 3 [facility] MG tablet 15:27: (three) Medic al 38 times Center daily as needed for Nausea. omeprazole 2021-0 Yes 20mg QD Take [address] (PriLOSEC) 7-09 by mouth [facility] 20 MG 15:27: daily. Medical capsule 38 Center ondansetron 2021-0 Yes 4mg Take [address] (ZOFRAN) 4 7-09 by mouth 3 [facility] MG tablet 15:27: (three) Medic al 38 times Center daily as needed for Nausea. omeprazole 2021-0 Yes 20mg QD Take [address] (PriLOSEC) 7-09 by mouth [facility] 20 MG 15:27: daily. Medical capsule 38 Center ondansetron 2021-0 Yes 4mg Take [address] (ZOFRAN) 4 7-09 by mouth 3 [facility] MG tablet 15:27: (three) Medic al 38 times Center daily as needed for Nausea. omeprazole 2021-0 Yes 20mg QD Take [address] (PriLOSEC) 7-09 by mouth [facility] 20 MG 15:27: daily. Medical capsule 38 Center ondansetron 2021-0 Yes 4mg Take [address] (ZOFRAN) 4 7-09 by mouth 3 [facility] MG tablet 15:27: (three) Medic al 38 times Center daily as needed for Nausea. omeprazole 2021-0 Yes 20mg QD Take [address] (PriLOSEC) 7-09 by mouth [facility] 20 MG 15:27: daily. Medical capsule 38 Center ondansetron 2021-0 Yes 4mg Take [address] (ZOFRAN) 4 7-09 by mouth 3 [facility] MG tablet 15:27: (three) Medic al 38 times Center daily as needed for Nausea. omeprazole 2021-0 Yes 20mg QD Take [address] (PriLOSEC) 7-09 by mouth [facility] 20 MG 15:27: daily. Medical capsule 38 Center ondansetron 2021-0 Yes 4mg Take [address] (ZOFRAN) 4 7-09 by mouth 3 [facility] MG tablet 15:27: (three) Medic al 38 times Center daily as needed for Nausea. Vital Signs Vital Name Observation Time Observation Value Comments Source HEIGHT 2021-04-08 23:00:00 175.3 cm HEIGHT 2021-04-08 23:00:00 175.3 cm Procedures This patient has no known procedures. Plan of Care Planned Activity Planned Date Details Comments Source Future Scheduled 2022-06-14 INFLUENZA VACCINE (#1) [facility] 00:00:00 [code = INFLUENZA Medical Ce nter VACCINE (#1)] Future Scheduled 2022-06-14 INFLUENZA VACCINE (#1) [facility] 00:00:00 [code = INFLUENZA Medical Ce nter VACCINE (#1)] Future Scheduled 2022-06-14 INFLUENZA VACCINE (#1) [facility] 00:00:00 [code = INFLUENZA Medical Ce nter VACCINE (#1)] Future Scheduled 2022-06-14 INFLUENZA VACCINE (#1) [facility] 00:00:00 [code = INFLUENZA Medical Ce nter VACCINE (#1)] Future Scheduled 2022-06-14 INFLUENZA VACCINE (#1) [facility] 00:00:00 [code = INFLUENZA Medical Ce nter VACCINE (#1)] Future Scheduled 2022-06-14 INFLUENZA VACCINE (#1) [facility] 00:00:00 [code = INFLUENZA Medical Ce nter VACCINE (#1)] Future Scheduled 2022-06-14 INFLUENZA VACCINE (#1) [facility] 00:00:00 [code = INFLUENZA Medical Ce nter VACCINE (#1)] Future Scheduled 2022-06-14 INFLUENZA VACCINE (#1) [facility] 00:00:00 [code = INFLUENZA Medical Ce nter VACCINE (#1)] Future Scheduled 2022-06-14 INFLUENZA VACCINE (#1) [facility] 00:00:00 [code = INFLUENZA Medical Ce nter VACCINE (#1)] Future Scheduled 2022-06-14 INFLUENZA VACCINE (#1) [facility] 00:00:00 [code = INFLUENZA Medical Ce nter VACCINE (#1)] Future Scheduled 2022-06-14 INFLUENZA VACCINE (#1) [facility] 00:00:00 [code = INFLUENZA Medical Ce nter VACCINE (#1)] Future Scheduled 2022-06-14 INFLUENZA VACCINE (#1) [facility] 00:00:00 [code = INFLUENZA Medical Ce nter VACCINE (#1)] Future Scheduled 2022-06-14 INFLUENZA VACCINE (#1) [facility] 00:00:00 [code = INFLUENZA Medical Ce nter VACCINE (#1)] Future Scheduled 2022-06-14 INFLUENZA VACCINE (#1) [facility] 00:00:00 [code = INFLUENZA Medical Ce nter VACCINE (#1)] Future Scheduled 2022-06-14 INFLUENZA VACCINE (#1) [facility] 00:00:00 [code = INFLUENZA Medical Ce nter VACCINE (#1)] Future Scheduled 2022-06-14 INFLUENZA VACCINE (#1) [facility] 00:00:00 [code = INFLUENZA Medical Ce nter VACCINE (#1)] Future Scheduled 2021-10-[address] [facility] 00:00:00 WELLNESS (YEAR 2 or Medical Center FIRST YEAR if no IPPE) [code = MEDICARE ANNUAL WELLNESS (YEAR 2 or FIRST YEAR if no IPPE)] Future Scheduled 2021-10-[address] [facility] 00:00:00 WELLNESS (YEAR 2 or Medical Center FIRST YEAR if no IPPE) [code = MEDICARE ANNUAL WELLNESS (YEAR 2 or FIRST YEAR if no IPPE)] Future Scheduled 2021-10-[address] [facility] 00:00:00 WELLNESS (YEAR 2 or Medical Center FIRST YEAR if no IPPE) [code = MEDICARE ANNUAL WELLNESS (YEAR 2 or FIRST YEAR if no IPPE)] Future Scheduled 2021-10-[address] [facility] 00:00:00 WELLNESS (YEAR 2 or Medical Center FIRST YEAR if no IPPE) [code = MEDICARE ANNUAL WELLNESS (YEAR 2 or FIRST YEAR if no IPPE)] Future Scheduled 2021-10-[address] [address] [facility] 00:00:00 WELLNESS (YEAR 2 or Medical Center FIRST YEAR if no IPPE) [code = MEDICARE ANNUAL WELLNESS (YEAR 2 or FIRST YEAR if no IPPE)] Future Scheduled 2021-10-[address] [address] [facility] 00:00:00 WELLNESS (YEAR 2 or Medical Center FIRST YEAR if no IPPE) [code = MEDICARE ANNUAL WELLNESS (YEAR 2 or FIRST YEAR if no IPPE)] Future Scheduled 2021-10-[address] [facility] 00:00:00 WELLNESS (YEAR 2 or Medical Center FIRST YEAR if no IPPE) [code = MEDICARE ANNUAL WELLNESS (YEAR 2 or FIRST YEAR if no IPPE)] Future Scheduled 2021-10-[address] [facility] 00:00:00 WELLNESS (YEAR 2 or Medical Center FIRST YEAR if no IPPE) [code = MEDICARE ANNUAL WELLNESS (YEAR 2 or FIRST YEAR if no IPPE)] Future Scheduled 2021-10-[address] [facility] 00:00:00 WELLNESS (YEAR 2 or Medical Center FIRST YEAR if no IPPE) [code = MEDICARE ANNUAL WELLNESS (YEAR 2 or FIRST YEAR if no IPPE)] Future Scheduled 2021-10-[address] [address] [facility] 00:00:00 WELLNESS (YEAR 2 or Medical Center FIRST YEAR if no IPPE) [code = MEDICARE ANNUAL WELLNESS (YEAR 2 or FIRST YEAR if no IPPE)] Future Scheduled 2021-10-[address] [facility] 00:00:00 WELLNESS (YEAR 2 or Medical Center FIRST YEAR if no IPPE) [code = MEDICARE ANNUAL WELLNESS (YEAR 2 or FIRST YEAR if no IPPE)] Future Scheduled 2021-10-[address] [facility] 00:00:00 WELLNESS (YEAR 2 or Medical Center FIRST YEAR if no IPPE) [code = MEDICARE ANNUAL WELLNESS (YEAR 2 or FIRST YEAR if no IPPE)] Future Scheduled 2021-10-[address] [facility] Test 00:00:00 WELLNESS (YEAR 2 or Medical Center FIRST YEAR if no IPPE) [code = MEDICARE ANNUAL WELLNESS (YEAR 2 or FIRST YEAR if no IPPE)] Future Scheduled 2021-10-[address] [facility] Test 00:00:00 WELLNESS (YEAR 2 or Medical Center FIRST YEAR if no IPPE) [code = MEDICARE ANNUAL WELLNESS (YEAR 2 or FIRST YEAR if no IPPE)] Future Scheduled 2021-10-[address] [facility] Test 00:00:00 WELLNESS (YEAR 2 or Medical Center FIRST YEAR if no IPPE) [code = MEDICARE ANNUAL WELLNESS (YEAR 2 or FIRST YEAR if no IPPE)] Future Scheduled 2021-10-[address] [facility] Test 00:00:00 WELLNESS (YEAR 2 or Medical Center FIRST YEAR if no IPPE) [code = MEDICARE ANNUAL WELLNESS (YEAR 2 or FIRST YEAR if no IPPE)] Future Scheduled 2021-10-[address] [facility] 00:00:00 (12+) [code = Medical Center DEPRESSION SCREENING (12+)] Future Scheduled 2021-10-14 [place] [address] [facility]CREENING [facility] 00:00:00 [code = FALLS RISK Medical C enter SCREENING] Future Scheduled 2021-10-[address] [facility] 00:00:00 (12+) [code = Medical Center DEPRESSION SCREENING (12+)] Future Scheduled 2021-10-14 FALLS RISK SCREENING [facility] 00:00:00 [code = FALLS RISK Medical C enter SCREENING] Future Scheduled 2021-10-[address] [facility] Test 00:00:00 (12+) [code = Medical Center DEPRESSION SCREENING (12+)] Future Scheduled 2021-10-14 FALLS RISK SCREENING [facility] 00:00:00 [code = FALLS RISK Medical C enter SCREENING] Future Scheduled 2021-10-[address] [facility] 00:00:00 (12+) [code = Medical Center DEPRESSION SCREENING (12+)] Future Scheduled 2021-10-14 FALLS RISK SCREENING [facility] 00:00:00 [code = FALLS RISK Medical C enter SCREENING] Future Scheduled 2021-10-[address] [facility] 00:00:00 (12+) [code = Medical Center DEPRESSION SCREENING (12+)] Future Scheduled 2021-10-14 FALLS RISK SCREENING [facility] 00:00:00 [code = FALLS RISK Medical C enter SCREENING] Future Scheduled 2021-10-[address] [facility] 00:00:00 (12+) [code = Medical Center DEPRESSION SCREENING (12+)] Future Scheduled 2021-10-14 FALLS RISK SCREENING [facility] 00:00:00 [code = FALLS RISK Medical C enter SCREENING] Future Scheduled 2021-10-[address] [facility] 00:00:00 (12+) [code = Medical Center DEPRESSION SCREENING (12+)] Future Scheduled 2021-10-14 FALLS RISK SCREENING [facility] 00:00:00 [code = FALLS RISK Medical C enter SCREENING] Future Scheduled 2021-10-[address] [facility] 00:00:00 (12+) [code = Medical Center DEPRESSION SCREENING (12+)] Future Scheduled 2021-10-14 FALLS RISK SCREENING [facility] 00:00:00 [code = FALLS RISK Medical C enter SCREENING] Future Scheduled 2021-10-[address] [facility] 00:00:00 (12+) [code = Medical Center DEPRESSION SCREENING (12+)] Future Scheduled 2021-10-14 FALLS RISK SCREENING [facility] 00:00:00 [code = FALLS RISK Medical C enter SCREENING] Future Scheduled 2021-10-[address] [facility] 00:00:00 (12+) [code = Medical Center DEPRESSION SCREENING (12+)] Future Scheduled 2021-10-14 FALLS RISK SCREENING [facility] 00:00:00 [code = FALLS RISK Medical C enter SCREENING] Future Scheduled 2021-10-[address] [facility] 00:00:00 (12+) [code = Medical Center DEPRESSION SCREENING (12+)] Future Scheduled 2021-10-14 FALLS RISK SCREENING [facility] 00:00:00 [code = FALLS RISK Medical C enter SCREENING] Future Scheduled 2021-10-[address] [facility] 00:00:00 (12+) [code = Medical Center DEPRESSION SCREENING (12+)] Future Scheduled 2021-10-14 FALLS RISK SCREENING [facility] 00:00:00 [code = FALLS RISK Medical C enter SCREENING] Future Scheduled 2021-10-[address] [facility] 00:00:00 (12+) [code = Medical Center DEPRESSION SCREENING (12+)] Future Scheduled 2021-10-14 FALLS RISK SCREENING [facility] 00:00:00 [code = FALLS RISK Medical C enter SCREENING] Future Scheduled 2021-10-[address] [facility] 00:00:00 (12+) [code = Medical Center DEPRESSION SCREENING (12+)] Future Scheduled 2021-10-14 FALLS RISK SCREENING [facility] 00:00:00 [code = FALLS RISK Medical C enter SCREENING] Future Scheduled 2021-10-[address] [facility] 00:00:00 (12+) [code = Medical Center DEPRESSION SCREENING (12+)] Future Scheduled 2021-10-14 FALLS RISK SCREENING [facility] 00:00:00 [code = FALLS RISK Medical C enter SCREENING] Future Scheduled 2021-10-[address] [facility] 00:00:00 (12+) [code = Medical Center DEPRESSION SCREENING (12+)] Future Scheduled 2021-10-14 FALLS RISK SCREENING [facility] 00:00:00 [code = FALLS RISK Medical C enter SCREENING] Future Scheduled 2020-09-30 SHINGLES VACCINES ([address] [facility] 00:00:00 3) [code = SHINGLES Medical Center VACCINES (2 of 3)] Future Scheduled 2020-09-30 SHINGLES VACCINES ([address] [facility] 00:00:00 3) [code = SHINGLES Medical Center VACCINES (2 of 3)] Future Scheduled 2020-09-30 SHINGLES VACCINES ([address] [facility] 00:00:00 3) [code = SHINGLES Medical Center VACCINES (2 of 3)] Future Scheduled 2020-09-30 SHINGLES VACCINES ([address] [facility] 00:00:00 3) [code = SHINGLES Medical Center VACCINES (2 of 3)] Future Scheduled 2020-09-30 SHINGLES VACCINES ([address] [facility] 00:00:00 3) [code = SHINGLES Medical Center VACCINES (2 of 3)] Future Scheduled 2020-09-30 SHINGLES VACCINES ([address] [facility] 00:00:00 3) [code = SHINGLES Medical Center VACCINES (2 of 3)] Future Scheduled 2020-09-30 SHINGLES VACCINES ([address] [facility] 00:00:00 3) [code = SHINGLES Medical Center VACCINES (2 of 3)] Future Scheduled 2020-09-30 SHINGLES VACCINES ([address] [facility] 00:00:00 3) [code = SHINGLES Medical Center VACCINES (2 of 3)] Future Scheduled 2020-09-30 SHINGLES VACCINES ([address] [facility] 00:00:00 3) [code = SHINGLES Medical Center VACCINES (2 of 3)] Future Scheduled 2020-09-30 SHINGLES VACCINES ([address] [facility] 00:00:00 3) [code = SHINGLES Medical Center VACCINES (2 of 3)] Future Scheduled 2020-09-30 SHINGLES VACCINES ([address] [facility] 00:00:00 3) [code = SHINGLES Medical Center VACCINES (2 of 3)] Future Scheduled 2020-09-30 SHINGLES VACCINES ([address] [facility] 00:00:00 3) [code = SHINGLES Medical Center VACCINES (2 of 3)] Future Scheduled 2020-09-30 SHINGLES VACCINES ([address] [facility] 00:00:00 3) [code = SHINGLES Medical Center VACCINES (2 of 3)] Future Scheduled 2020-09-30 SHINGLES VACCINES ([address] [facility] 00:00:00 3) [code = SHINGLES Medical Center VACCINES (2 of 3)] Future Scheduled 2020-09-30 SHINGLES VACCINES ([address] [facility] 00:00:00 3) [code = SHINGLES Medical Center VACCINES (2 of 3)] Future Scheduled 2020-09-30 SHINGLES VACCINES ([address] [facility] 00:00:00 3) [code = SHINGLES [facility] VACCINES (2 of 3)] Future Scheduled 2000-02-21 Screening for malignant [facility] 00:00:00 neoplasm of lung [facility] (procedure) [code = [id number]] Future Scheduled 2000-02-21 Screening for malignant [facility] 00:00:00 neoplasm of lung [facility] (procedure) [code = [id number]] Future Scheduled 2000-02-21 Screening for malignant [facility] 00:00:00 neoplasm of lung [facility] (procedure) [code = [id number]] Future Scheduled 2000-02-21 Screening for malignant [facility] 00:00:00 neoplasm of lung [facility] (procedure) [code = [id number]] Future Scheduled 2000-02-21 Screening for malignant [facility] 00:00:00 neoplasm of lung [facility] (procedure) [code = 822304570] Future Scheduled 2000-02-21 Screening for malignant [facility] 00:00:00 neoplasm of lung [facility] (procedure) [code = 242807962] Future Scheduled 2000-02-21 Screening for malignant [facility] 00:00:00 neoplasm of lung [facility] (procedure) [code = 948214417] Future Scheduled 2000-02-21 Screening for malignant [facility] 00:00:00 neoplasm of lung [facility] (procedure) [code = 829276465] Future Scheduled 2000-02-21 Screening for malignant [facility] 00:00:00 neoplasm of lung [facility] (procedure) [code = [id number]] Future Scheduled 2000-02-21 Screening for malignant [facility] 00:00:00 neoplasm of lung [facility] (procedure) [code = 754937757] Future Scheduled 2000-02-21 Screening for malignant [facility] 00:00:00 neoplasm of lung [facility] (procedure) [code = 535125216] Future Scheduled 2000-02-21 Screening for malignant [facility] 00:00:00 neoplasm of lung [facility] (procedure) [code = 284777903] Future Scheduled 2000-02-21 Screening for malignant [facility] 00:00:00 neoplasm of lung [facility] (procedure) [code = 601566271] Future Scheduled 2000-02-21 Screening for malignant [facility] 00:00:00 neoplasm of lung [facility] (procedure) [code = 342043048] Future Scheduled 2000-02-21 Screening for malignant [facility] 00:00:00 neoplasm of lung [facility] (procedure) [code = 892596403] Future Scheduled 2000-02-21 Screening for malignant [facility] 00:00:00 neoplasm of lung Medical [facility] (procedure) [code = 015809523] Future Scheduled 1969 DTAP/TDAP/TD VACCINES [facility] 00:00:00 (1 - Tdap) [code = Medical C enter DTAP/TDAP/TD VACCINES (1 - Tdap)] Future Scheduled 1969 DTAP/TDAP/TD VACCINES [facility] 00:00:00 (1 - Tdap) [code = Medical C enter DTAP/TDAP/TD VACCINES (1 - Tdap)] Future Scheduled 1969 DTAP/TDAP/TD VACCINES [facility] 00:00:00 (1 - Tdap) [code = Medical C enter DTAP/TDAP/TD VACCINES (1 - Tdap)] Future Scheduled 1969 DTAP/TDAP/TD VACCINES [facility] 00:00:00 (1 - Tdap) [code = Medical C enter DTAP/TDAP/TD VACCINES (1 - Tdap)] Future Scheduled 1969 DTAP/TDAP/TD VACCINES [facility] 00:00:00 (1 - Tdap) [code = Medical C enter DTAP/TDAP/TD VACCINES (1 - Tdap)] Future Scheduled 1969 DTAP/TDAP/TD VACCINES [facility] 00:00:00 (1 - Tdap) [code = Medical C enter DTAP/TDAP/TD VACCINES (1 - Tdap)] Future Scheduled 1969 DTAP/TDAP/TD VACCINES [facility] 00:00:00 (1 - Tdap) [code = Medical C enter DTAP/TDAP/TD VACCINES (1 - Tdap)] Future Scheduled 1969 DTAP/TDAP/TD VACCINES [facility] 00:00:00 (1 - Tdap) [code = Medical C enter DTAP/TDAP/TD VACCINES (1 - Tdap)] Future Scheduled 1969 DTAP/TDAP/TD [facility]00 (1 - Tdap) [code = Medical C enter DTAP/TDAP/TD VACCINES (1 - Tdap)] Future Scheduled 1969 DTAP/TDAP/TD [facility]00 (1 - Tdap) [code = Medical C enter DTAP/TDAP/TD VACCINES (1 - Tdap)] Future Scheduled 1969 DTAP/TDAP/TD [facility]:00:00 (1 - Tdap) [code = Medical C enter DTAP/TDAP/TD VACCINES (1 - Tdap)] Future Scheduled 1969 DTAP/TDAP/TD [facility]:00 (1 - Tdap) [code = Medical C enter DTAP/TDAP/TD VACCINES (1 - Tdap)] Future Scheduled 1969 DTAP/TDAP/TD [facility]:00:00 (1 - Tdap) [code = Medical C enter DTAP/TDAP/TD VACCINES (1 - Tdap)] Future Scheduled 1969 DTAP/TDAP/TD VACCINES [facility] 00:00:00 (1 - Tdap) [code = Medical C enter DTAP/TDAP/TD VACCINES (1 - Tdap)] Future Scheduled 1969 DTAP/TDAP/TD [facility]:00:00 (1 - Tdap) [code = Medical C enter DTAP/TDAP/TD VACCINES (1 - Tdap)] Future Scheduled 1969 DTAP/TDAP/TD VACCINES [facility] 00:00:00 (1 - Tdap) [code = Medical C enter DTAP/TDAP/TD VACCINES (1 - Tdap)] Future Scheduled 1968-02-21 HEPATITIS C SCREENING [facility] 00:00:00 [code = HEPATITIS C [facility] Center SCREENING] Future Scheduled 1968-02-21 HEPATITIS C SCRE[facility]ING [facility] 00:00:00 [code = HEPATITIS C Medical Center SCREENING] Future Scheduled 1968-02-21 HEPATITIS C SCRE[facility]ING [facility] 00:00:00 [code = HEPATITIS C [facility] Center SCREENING] Future Scheduled 1968-02-21 HEPATITIS C SCRE[facility]ING [facility] 00:00:00 [code = HEPATITIS C [facility] Center SCREENING] Future Scheduled 1968-02-21 HEPATITIS C SCRE[facility]ING [facility]:00:00 [code = HEPATITIS C [facility] Center SCREENING] Future Scheduled 1968-02-21 HEPATITIS C SCRE[facility]ING [facility] 00:00:00 [code = HEPATITIS C [facility] Center SCREENING] Future Scheduled 1968-02-21 HEPATITIS C [facility]CRE[facility]ING [facility] 00:00:00 [code = HEPATITIS C [facility] Center SCREENING] Future Scheduled 1968-02-21 HEPATITIS C [facility]CRE[facility]ING [facility] 00:00:00 [code = HEPATITIS C Medical Center SCREENING] Future Scheduled 1968-02-21 HEPATITIS C [facility]CRE[facility]ING [facility] 00:00:00 [code = HEPATITIS C [facility] Center SCREENING] Future Scheduled 1968-02-21 HEPATITIS C [facility]CRE[facility]ING [facility] 00:00:00 [code = HEPATITIS C [facility] Center SCREENING] Future Scheduled 1968-02-21 HEPATITIS C [facility]CRE[facility]ING [facility] 00:00:00 [code = HEPATITIS C [facility] Center SCREENING] Future Scheduled 1968-02-21 HEPATITIS C [facility]CRE[facility]ING [facility] 00:00:00 [code = HEPATITIS C [facility] Center SCREENING] Future Scheduled 1968-02-21 HEPATITIS C [facility]CRE[facility]ING [facility] 00:00:00 [code = HEPATITIS C [facility] Center SCREENING] Future Scheduled 1968-02-21 HEPATITIS C [facility]CRE[facility]ING [facility] 00:00:00 [code = HEPATITIS C [facility] Center SCREENING] Future Scheduled 1968-02-21 HEPATITIS C [facility]CRE[facility]ING [facility] 00:00:00 [code = HEPATITIS C [facility] Center SCREENING] Future Scheduled 1968-02-21 HEPATITIS C SCRE[facility]ING [facility] 00:00:00 [code = HEPATITIS C Medical Center SCREENING] Future Scheduled [address] [facility] 00:00:00 Counseling and Medical Cente r Screening (12+) [code = Tobacco Cessation Counseling and Screening (12+)] Future Scheduled [address] [facility] 00:00:00 Counseling and Medical Cente r Screening (12+) [code = Tobacco Cessation Counseling and Screening (12+)] Future Scheduled [address] [facility] 00:00:00 Counseling and Medical Cente r Screening (12+) [code = Tobacco Cessation Counseling and Screening (12+)] Future Scheduled [address] [facility] 00:00:00 Counseling and Medical Cente r Screening (12+) [code = Tobacco Cessation Counseling and Screening (12+)] Future Scheduled [address] [facility] 00:00:00 Counseling and Medical Cente r Screening (12+) [code = Tobacco Cessation Counseling and Screening (12+)] Future Scheduled [address] [facility] 00:00:00 Counseling and Medical Cente r Screening (12+) [code = Tobacco Cessation Counseling and Screening (12+)] Future Scheduled [address] [facility] 00:00:00 Counseling and Medical Cente r Screening (12+) [code = Tobacco Cessation Counseling and Screening (12+)] Future Scheduled [address] [facility] 00:00:00 Counseling and Medical Cente r Screening (12+) [code = Tobacco Cessation Counseling and Screening (12+)] Future Scheduled [address] [facility] 00:00:00 Counseling and Medical Cente r Screening (12+) [code = Tobacco Cessation Counseling and Screening (12+)] Future Scheduled [address] [facility] 00:00:00 Counseling and Medical Cente r Screening (12+) [code = Tobacco Cessation Counseling and Screening (12+)] Future Scheduled [address] [facility] 00:00:00 Counseling and Medical Cente r Screening (12+) [code = Tobacco Cessation Counseling and Screening (12+)] Future Scheduled [address] [facility] 00:00:00 Counseling and Medical Cente r Screening (12+) [code = Tobacco Cessation Counseling and Screening (12+)] Future Scheduled [address] [facility] 00:00:00 Counseling and Medical Cente r Screening (12+) [code = Tobacco Cessation Counseling and Screening (12+)] Future Scheduled [address] [facility] 00:00:00 Counseling and Medical Cente r Screening (12+) [code = Tobacco Cessation Counseling and Screening (12+)] Future Scheduled [address] [facility] 00:00:00 Counseling and Medical Cente r Screening (12+) [code = Tobacco Cessation Counseling and Screening (12+)] Future Scheduled [address] [facility] 00:00:00 Counseling and Medical Cente r Screening (12+) [code = Tobacco Cessation Counseling and Screening (12+)] Future Scheduled 1956-02-21 PNEUMOCOCCAL 65+ YRS ([address] [facility] 00:00:00 - PCV) [code = Medical Cent[facility] r PNEUMOCOCCAL 65+ YRS (1 - PCV)] Future Scheduled 1956-02-21 PNEUMOCOCCAL 65+ YRS ([address] [facility] 00:00:00 - PCV) [code = Medical Cente r PNEUMOCOCCAL 65+ YRS (1 - PCV)] Future Scheduled 1956-02-21 PNEUMOCOCCAL 65+ YRS ([address] [facility] 00:00:00 - PCV) [code = Medical Cent[facility] r PNEUMOCOCCAL 65+ YRS (1 - PCV)] Future Scheduled 1956-02-21 PNEUMOCOCCAL 65+ YRS ([address] [facility] 00:00:00 - PCV) [code = Medical Cent[facility] PNEUMOCOCCAL 65+ YRS (1 - PCV)] Future Scheduled 1956-02-21 PNEUMOCOCCAL 65+ YRS ([address] [facility] 00:00:00 - PCV) [code = Medical Cent[facility] r PNEUMOCOCCAL 65+ YRS (1 - PCV)] Future Scheduled 1956-02-21 PNEUMOCOCCAL 65+ YRS ([address] [facility] 00:00:00 - PCV) [code = Medical Cent[facility] r PNEUMOCOCCAL 65+ YRS (1 - PCV)] Future Scheduled 1956-02-21 PNEUMOCOCCAL 65+ YRS ([address] [facility] 00:00:00 - PCV) [code = Medical Cent[facility] r PNEUMOCOCCAL 65+ YRS (1 - PCV)] Future Scheduled 1956-02-21 PNEUMOCOCCAL 65+ YRS ([address] [facility] 00:00:00 - PCV) [code = Medical Cent[facility] PNEUMOCOCCAL 65+ YRS (1 - PCV)] Future Scheduled 1956-02-21 PNEUMOCOCCAL 65+ YRS ([address] [facility] 00:00:00 - PCV) [code = Medical Cent[facility] r PNEUMOCOCCAL 65+ YRS (1 - PCV)] Future Scheduled 1956-02-21 PNEUMOCOCCAL 65+ YRS ([address] [facility] 00:00:00 - PCV) [code = Medical Cent[facility] PNEUMOCOCCAL 65+ YRS (1 - PCV)] Future Scheduled 1956-02-21 PNEUMOCOCCAL 65+ YRS ([address] [facility] 00:00:00 - PCV) [code = Medical [facility] PNEUMOCOCCAL 65+ YRS (1 - PCV)] Future Scheduled 1956-02-21 PNEUMOCOCCAL 65+ YRS ([address] [facility] 00:00:00 - PCV) [code = Medical [facility] PNEUMOCOCCAL 65+ YRS (1 - PCV)] Future Scheduled 1956-02-21 PNEUMOCOCCAL 65+ YRS ([address] [facility] 00:00:00 - PCV) [code = Medical [facility] PNEUMOCOCCAL 65+ YRS (1 - PCV)] Future Scheduled 1956-02-21 PNEUMOCOCCAL 65+ YRS ([address] [facility] 00:00:00 - PCV) [code = Medical [facility] PNEUMOCOCCAL 65+ YRS (1 - PCV)] Future Scheduled 1956-02-21 PNEUMOCOCCAL 65+ YRS ([address] [facility] 00:00:00 - PCV) [code = Medical [facility] PNEUMOCOCCAL 65+ YRS (1 - PCV)] Future Scheduled 1956-02-21 PNEUMOCOCCAL 65+ YRS ([address] [facility] 00:00:00 - PCV) [code = Medical Cent[facility] PNEUMOCOCCAL 65+ YRS (1 - PCV)] Future Scheduled 1950 COVID-19 VACCINE (#1) [facility]:00 [code = COVID-[address] VACCINE (#1)] Future Scheduled 1950 COVID-19 VACCINE (#1) [facility]:00:00 [code = COVID-[address] VACCINE (#1)] Future Scheduled 1950 COVID-19 VACCINE (#1) [facility]:00:00 [code = COVID-[address] VACCINE (#1)] Future Scheduled 1950 COVID-19 VACCINE (#1) [facility]:00:00 [code = COVID-[address] VACCINE (#1)] Future Scheduled 1950 COVID-19 VACCINE (#1) [facility]:00:00 [code = COVID-[address] VACCINE (#1)] Future Scheduled 1950 COVID-19 VACCINE (#1) [facility]:00:00 [code = COVID-[address] VACCINE (#1)] Future Scheduled 1950 COVID-19 VACCINE (#1) [facility]:00:00 [code = COVID-[address] VACCINE (#1)] Future Scheduled 1950 COVID-19 VACCINE (#1) [facility]:00:00 [code = COVID-[address] VACCINE (#1)] Future Scheduled 1950 COVID-19 VACCINE (#1) [facility]:00:00 [code = COVID-[address] VACCINE (#1)] Future Scheduled 1950 COVID-19 VACCINE (#1) [facility]:00:00 [code = COVID-[address] VACCINE (#1)] Future Scheduled 1950 COVID-19 VACCINE (#1) [facility]:00:00 [code = COVID-[address] VACCINE (#1)] Future Scheduled 1950 COVID-19 VACCINE (#1) [facility]:00:00 [code = COVID-[address] VACCINE (#1)] Future Scheduled 1950 COVID-19 VACCINE (#1) [facility]:00:00 [code = COVID-[address] VACCINE (#1)] Future Scheduled 1950 COVID-19 VACCINE (#1) [facility]:00:00 [code = COVID-[address] VACCINE (#1)] Future Scheduled 1950 COVID-19 VACCINE (#1) [facility]:00:00 [code = COVID-[address] VACCINE (#1)] Future Scheduled 1950 COVID-19 VACCINE (#1) [facility]:00:00 [code = COVID-[address] VACCINE (#1)] Future Scheduled 1950 CT Colonography (combo) [facility] 00:[facility]:00 [code = CT Colonography [facility] (combo)] Future Scheduled 1950 Screening for malignant [facility] 00:00:00 neoplasm of colon [facility] Ce [facility] (procedure) [code = [id number]] Future Scheduled 1950 Screening for malignant [facility] 00:00:00 neoplasm of colon Medical Ce [facility] (procedure) [code = 279882370] Future Scheduled 1950 Screening for malignant [facility] 00:00:00 neoplasm of colon Medical Ce [facility] (procedure) [code = 532412336] Future Scheduled 1950 Screening for malignant [facility] 00:00:00 neoplasm of colon Medical Ce [facility] (procedure) [code = 126043958] Future Scheduled 1950 Sigmoidoscopy [code = [facility] S[facility]oidoscopy] Medical Cent[facility] Future Scheduled 1950 CT Colonography (combo) [facility] 00:00:00 [code = CT Colonography [facility] (combo)] Future Scheduled 1950 Screening for malignant [facility] 00:00:00 neoplasm of colon [facility] (procedure) [code = 577300880] Future Scheduled 1950 Screening for malignant [facility] 00:00:00 neoplasm of colon Medical Ce [facility] (procedure) [code = 603401556] Future Scheduled 1950 Screening for malignant [facility] 00:00:00 neoplasm of colon Medical Ce [facility] (procedure) [code = 399082454] Future Scheduled 1950 Screening for malignant [facility] 00:00:00 neoplasm of colon [facility] Ce [facility] (procedure) [code = 746202348] Future Scheduled 1950 Sigmoidoscopy [code = [facility] S[facility]oidoscopy] [facility] Cent[facility] Future Scheduled 1950 CT Colonography (combo) [facility] 00:00:00 [code = [facility] ([facility])] Future Scheduled 1950 Screening for malignant [facility] 00:00:00 neoplasm of colon [facility] (procedure) [code = 636116175] Future Scheduled 1950 Screening for malignant [facility] 00:00:00 neoplasm of colon [facility] (procedure) [code = 731941563] Future Scheduled 1950 Screening for malignant [facility] 00:00:00 neoplasm of colon [facility] Ce [facility] (procedure) [code = 081674023] Future Scheduled 1950 Screening for malignant [facility] 00:00:00 neoplasm of colon [facility] (procedure) [code = 594143194] Future Scheduled 1950 Sigmoidoscopy [code = [facility] Sigmoidoscopy] [facility] Cent[facility] Future Scheduled 1950 CT Colonography (combo) [facility] 00:00:00 [code = CT Colonography [facility] (combo)] Future Scheduled 1950 Screening for malignant [facility] 00:00:00 neoplasm of colon [facility] Ce [facility] (procedure) [code = 874128943] Future Scheduled 1950 Screening for malignant [facility] 00:00:00 neoplasm of colon [facility] Ce [facility] (procedure) [code = 204637489] Future Scheduled 1950 Screening for malignant [facility] 00:00:00 neoplasm of colon [facility] Ce [facility] (procedure) [code = 069127261] Future Scheduled 1950 Screening for malignant [facility] 00:00:00 neoplasm of colon [facility] Ce [facility] (procedure) [code = 108169566] Future Scheduled 1950 Sigmoidoscopy [code = [facility] Sigmoidoscopy] [facility] Cent[facility] Future Scheduled 1950 CT Colonography (combo) [facility] 00:00:00 [code = [facility] ([facility])] Future Scheduled 1950 Screening for malignant [facility] 00:00:00 neoplasm of colon Medical Ce [facility] (procedure) [code = 531136995] Future Scheduled 1950 Screening for malignant [facility] 00:00:00 neoplasm of colon [facility] Ce [facility] (procedure) [code = 278794040] Future Scheduled 1950 Screening for malignant [facility] 00:00:00 neoplasm of colon [facility] Ce [facility] (procedure) [code = 273040107] Future Scheduled 1950 Screening for malignant [facility] 00:00:00 neoplasm of colon Medical Ce [facility]ter (procedure) [code = 602458382] Future Scheduled 1950 Sigmoidoscopy [code = [facility] Sigmoidoscopy] [facility] [place] [facility] Future Scheduled 1950 CT Colonography (combo) [facility] 00:00:00 [code = CT [facility] (com[facility])] Future Scheduled 1950 Screening for malignant [facility] 00:00:00 neoplasm of colon Medical Ce [facility] (procedure) [code = 680085532] Future Scheduled 1950 Screening for malignant [facility] 00:00:00 neoplasm of colon Medical Ce [facility] (procedure) [code = 606440724] Future Scheduled 1950 Screening for malignant [facility] 00:00:00 neoplasm of colon Medical Ce [facility] (procedure) [code = 040324926] Future Scheduled 1950 Screening for malignant [facility] 00:00:00 neoplasm of colon Medical Ce [facility] (procedure) [code = 285732612] Future Scheduled 1950 Sigmoidoscopy [code = [facility] Sigmoidoscopy] [facility] Cent[facility] Future Scheduled 1950 CT Colonography (combo) [facility] 00:00:00 [code = [facility] ([facility])] Future Scheduled 1950 Screening for malignant [facility] 00:00:00 neoplasm of colon Medical Ce [facility] (procedure) [code = 133163604] Future Scheduled 1950 Screening for malignant [facility] 00:00:00 neoplasm of colon Medical Ce [facility]ter (procedure) [code = 189520459] Future Scheduled 1950 Screening for malignant [facility] 00:00:00 neoplasm of colon [facility] (procedure) [code = 591723134] Future Scheduled 1950 Screening for malignant [facility] 00:00:00 neoplasm of colon Medical Ce [facility] (procedure) [code = 470698945] Future Scheduled 1950 Sigmoidoscopy [facility]code = [facility] Future Scheduled 1950 CT Colonography (combo) [facility] 00:00:00 [code = [facility] Future Scheduled 1950 Screening for malignant [facility] 00:00:00 neoplasm of colon [facility] Ce [facility] (procedure) [code = 985368170] Future Scheduled 1950 Screening for malignant [facility] 00:00:00 neoplasm of colon [facility] (procedure) [code = 470728782] Future Scheduled 1950 Screening for malignant [facility] 00:00:00 neoplasm of colon Medical Ce [facility] (procedure) [code = 502935960] Future Scheduled 1950 Screening for malignant [facility] 00:00:00 neoplasm of colon [facility] (procedure) [code = 465468031] Future Scheduled 1950 Sigmoidoscopy [facility]code = [facility] S[facility]oscopy] [facility] Cent[facility] Future Scheduled 1950 CT Colonography (combo) [facility] 00:00:00 [code = CT [facility])] Future Scheduled 1950 Screening for malignant [facility] 00:00:00 neoplasm of colon [facility] (procedure) [code = 737696483] Future Scheduled 1950 Screening for malignant [facility] 00:00:00 neoplasm of colon [facility] (procedure) [code = 487378874] Future Scheduled 1950 Screening for malignant [facility] 00:00:00 neoplasm of colon [facility] (procedure) [code = 546781173] Future Scheduled 1950 Screening for malignant [facility] 00:00:00 neoplasm of colon [facility] Ce [facility] (procedure) [code = 873866444] Future Scheduled 1950 Sigmoidoscopy [facility]code [facility] (combo) [facility] 00:00:00 [code = CT Colonography [facility] (combo)] Future Scheduled 1950 Screening for malignant [facility] 00:00:00 neoplasm of colon Medical Ce [facility] (procedure) [code = 949963535] Future Scheduled 1950 Screening for malignant [facility] 00:00:00 neoplasm of colon Medical Ce [facility] (procedure) [code = 088462720] Future Scheduled 1950 Screening for malignant [facility] 00:00:00 neoplasm of colon Medical Ce [facility] (procedure) [code = 705267065] Future Scheduled 1950 Screening for malignant [facility] 00:00:00 neoplasm of colon Medical Ce [facility] (procedure) [code = 974281883] Future Scheduled 1950 Sigmoidoscopy [facility]code [facility] Colon[facility] (combo) [facility] 00:00:00 [code = CT Colonography [facility] (combo)] Future Scheduled 1950 Screening for malignant [facility] 00:00:00 neoplasm of colon Medical [facility] (procedure) [code = 940861668] Future Scheduled 1950 Screening for malignant [facility] 00:00:00 neoplasm of colon Medical Ce [facility] (procedure) [code = 598026724] Future Scheduled 1950 Screening for malignant [facility] 00:00:00 neoplasm of colon Medical Ce [facility] (procedure) [code = 875434873] Future Scheduled 1950 Screening for malignant [facility] 00:00:00 neoplasm of colon Medical Ce [facility] (procedure) [code = 808233188] Future Scheduled 1950 Sigmoidoscopy [code = [facility] 00:[facility] S[facility]oscopy] [facility] Cent[facility] Future Scheduled 1950 CT Colonography (combo) [facility] 00:00:00 [code = CT Colonography [facility] (combo)] Future Scheduled 1950 Screening for malignant [facility] 00:00:00 neoplasm of colon Medical Ce [facility] (procedure) [code = 323160270] Future Scheduled 1950 Screening for malignant [facility] 00:00:00 neoplasm of colon Medical Ce [facility] (procedure) [code = 754439884] Future Scheduled 1950 Screening for malignant [facility] 00:00:00 neoplasm of colon Medical Ce [facility] (procedure) [code = 339206433] Future Scheduled 1950 Screening for malignant [facility] 00:00:00 neoplasm of colon Medical Ce [facility] (procedure) [code = 614997430] Future Scheduled 1950 Sigmoidoscopy [code = [facility] 00:[facility] S[facility]oscopy] [facility] Future Scheduled 1950 CT Colonography (combo) [facility] 00:00:00 [code = CT Colonography [facility] (combo)] Future Scheduled 1950 Screening for malignant [facility] 00:00:00 neoplasm of colon Medical Ce [facility] (procedure) [code = 494105664] Future Scheduled 1950 Screening for malignant [facility] 00:00:00 neoplasm of colon Medical Ce [facility] (procedure) [code = 949269247] Future Scheduled 1950 Screening for malignant [facility] 00:00:00 neoplasm of colon Medical Ce [facility]ter (procedure) [code = 571018389] Future Scheduled 1950 Screening for malignant [facility] 00:00:00 neoplasm of colon Medical Ce [facility] (procedure) [code = 342984197] Future Scheduled 1950 Sigmoidoscopy [code = [facility] 00:[facility] S[facility]oidoscopy] [facility] Cent[facility] Future Scheduled 1950 CT Colonography (combo) [facility] 00:00:00 [code = CT [facility])] Future Scheduled 1950 Screening for malignant [facility] 00:00:00 neoplasm of colon Medical Ce [facility]ter (procedure) [code = 352339682] Future Scheduled 1950 Screening for malignant [facility] 00:00:00 neoplasm of colon Medical Ce [facility]ter (procedure) [code = 141504490] Future Scheduled 1950 Screening for malignant [facility] 00:00:00 neoplasm of colon Medical Ce [facility] (procedure) [code = 593536897] Future Scheduled 1950 Screening for malignant [facility] 00:00:00 neoplasm of colon Medical Ce [facility] (procedure) [code = 766481209] Future Scheduled 1950 Sigmoidoscopy [facility]code = [facility] 00:[facility]oscopy] [facility] Cent[facility] Future Scheduled 1950 CT Colonography (combo) [facility] 00:00:00 [code = CT Colonography [facility] (combo)] Future Scheduled 1950 Screening for malignant [facility] 00:00:00 neoplasm of colon Medical Ce [facility]ter (procedure) [code = 317903712] Future Scheduled 1950 Screening for malignant [facility] 00:00:00 neoplasm of colon Medical Ce [facility]ter (procedure) [code = 020254529] Future Scheduled 1950 Screening for malignant [facility] 00:00:00 neoplasm of colon Medical Ce [facility]ter (procedure) [code = 688820374] Future Scheduled 1950 Screening for malignant [facility] 00:00:00 neoplasm of colon Medical Ce [facility]ter (procedure) [code = 430886394] Future Scheduled 1950 Sigmoidoscopy [code = [facility] 00:[facility] S[facility]oidoscopy] Medical Cent[facility] Future Scheduled 1950 CT Colonography (combo) [facility] 00:00:00 [code = CT [facility] Future Scheduled 1950 Screening for malignant [facility] 00:00:00 neoplasm of colon Medical Ce [facility]ter (procedure) [code = 923358136] Future Scheduled 1950 Screening for malignant [facility] 00:00:00 neoplasm of colon Medical Ce [facility]ter (procedure) [code = 681910271] Future Scheduled 1950 Screening for malignant [facility] 00:00:00 neoplasm of colon Medical Ce [facility]ter (procedure) [code = 343395690] Future Scheduled 1950 Screening for malignant [facility] 00:00:00 neoplasm of colon Medical Ce [facility]ter (procedure) [code = 420588852] Future Scheduled 1950 Sigmoidoscopy [facility]code [facility] S[facility]oscopy] Medical Cente r Encounters Start End Encounter Admission Attending Care Care Encounter Source Date/Time Date/Time Type Type Clinicians Facility Department ID 2022-09-12 [facility] ER [facility] [id number] 00:[facility]00 Encounter [facility] 2022-09-[address] [facility] [id number] 00:[facility]:00 Encounter [facility] 2021-08-14 Emergency [facility] [id number] [facility] 00:46:25 [facility] 2021-07-23 Inpatient ER ADIO, [facility] [id number] [facility] 02:36:06 [place] 2022-09-12 2022-09-16 [facility] [id number] [address] 23:38:00 15:50:00 MARY ALICE Nichols [facility] 2021-03-24 2021-03-24 [facility] [id number] 16:23:00 20:39:00 Rhys Cadet 350.1.13.10 [place] [id number] [place] [id number] 2021-03-24 2021-03-24 Orders Doctor BRANT [id number] 00:00:00 00:00:00 Only Unassigned, DOLLY 350.1.13.10 [facility] 4.2.7.2.686 [id number] Results Test Description Test Time Test [...] NOT 1092) ACCURATE CRE ATININE CLEARANCE IN [place] EDICTING GLOMERULAR FILT RATION RATE. ESTIMATED GFR IS NOT APPLICABLE FOR DIALYSIS PATIENTS. Marine Engine Driver ID - ADMINCBC W/PLT COUNT & AUTO [id number] 06:32:00 Test Item Value Reference Range Interpretation [...] = 2801) CBC W/PLT COUNT & AUTO [id number] 05:38:00 Test Item Value Reference Range Interpretation [...] CONCENTRATION Adequate (CELLAVISION)(BEAKER) (test code = 3438) Marine Engine Driver ID - Debib comments: Slide comments:BASIC METABOLIC [id number] 05:14:00 Test Item Value Reference Range Interpretation [...] S NOT APPLICABLE FOR DIALYSIS PATIEN TS. Marine Engine Driver ID - DIOR WCBC W/PLT COUNT & AUTO [id number] 08:36:00 Test Item Value Reference Range Interpretation [...] CONCENTRATION Adequate (CELLAVISION)(BEAKER) (test code = 3438) Marine Engine Driver ID - Renetta OverholtUser comments: Slide comments:BASIC [...] S NOT APPLICABLE FOR DIALYSIS PATIEN TS. Marine Engine Driver ID - KAREEN PHLILIPSASIC METABOLIC [id number] 06:24:00 Test Item Value Reference Range Interpretation [...] S NOT APPLICABLE FOR DIALYSIS PATIEN TS. Marine Engine Driver ID - CASS LCBC W/PLT COUNT & AUTO [id number] 05:16:00 Test Item Value Reference Range Interpretation [...] (BEAKER) (test code = 2801) BASIC METABOLIC [id number] 05:18:00 Test Item Value Reference Range Interpretation [...] S NOT APPLICABLE FOR DIALYSIS PATIEN TS. Marine Engine Driver ID - PIAYA LCBC W/PLT COUNT & AUTO [id number] 04:48:00 Test Item Value Reference Range Interpretation [...] (BEAKER) (test code = 2801) BASIC METABOLIC [id number] 04:36:00 Test Item Value Reference Range Interpretation [...] S NOT APPLICABLE FOR DIALYSIS PATIEN TS. Marine Engine Driver ID - KAREEN MCBC W/PLT COUNT & AUTO [id number] 04:11:00 Test Item Value Reference Range Interpretation [...] (BEAKER) (test code = 2801) COMPREHENSIVE METABOLIC [id number] 06:30:00 Test Item Value Reference Range Interpretation [...] S NOT APPLICABLE FOR DIALYSIS PATIEN TS. Marine Engine Driver ID - EDASICBC W/PLT COUNT & AUTO [id number] 05:04:00 Test Item Value Reference Range Interpretation [...] PERCENT (BEAKER) (test code = 2801) BLOOD [id number] 22:00:00 Test Item Value Reference Range Interpretation Comments CULTURE (BEAKER) (test No growth in 5 days code = 1095) BLOOD [id number] 22:00:00 Test Item Value Reference Range Interpretation Comments CULTURE (BEAKER) (test No growth in 5 days code = 1095) VITAMIN D, [id number] 09:36:00 Test Item Value Reference Range Interpretation Comments VITAMIN D 25-OH (BEAKER) (test code 5.2 ng/mL 6.6-49.9 L = 2764) Effective 07/24/2017: Reference Range ChangeNew: 6.6-49.9 ng/mL Previous: 13.0- 47.8 ng/mLRecommendedVitamin D Target Range: 30.0-40.0 ng/mLOperator ID - TONYAYA LTSH/FREE T4 IF [id number] 08:53:00 Test Item Value Reference Range Interpretation Comments THYROID STIMULATING HORMONE 3.700 uIU/mL 0.350-4.940 (BEAKER) (test code = 772) Marine Engine Driver ID - PIAYA LVITAMIN B12 AND [id number] 08:53:00 Test Item Value Reference Range Interpretation Comments VITAMIN B12 (BEAKER) 830 pg/mL 213-816 H (test code = 774) FOLATE (BEAKER) 4.50 ng/mL See_Comment L [Automated message] (test code = 362) The system which generated this result transmitted ref erence range: >=7.00. The reference range was not used to interpr et this result as normal/abnormal . Marine Engine Driver ID - PIAYA LCOMPREHENSIVE METABOLIC [id number] 08:20:00 Test Item Value Reference Range Interpretation [...] S NOT APPLICABLE FOR DIALYSIS PATIEN TS. Marine Engine Driver ID - PIAYA LCBC W/PLT COUNT & AUTO [id number] 08:04:00 Test Item Value Reference Range Interpretation [...] PERCENT (BEAKER) (test code = 2801) POCT-GLUCOSE [id number] 05:44:00 Test Item Value Reference Range Interpretation Comments POC-GLUCOSE METER 77 mg/dL 70-110 : TESTED A T [facility] 6720 (BEAKER) (test code = [place], 1538) [address]: Marine Engine Driver/Techni mallory ID = [id number] for [facility] tamicarmen Jennifer COMPREHENSIVE METABOLIC [id number] 05:19:00 Test Item Value Reference Range Interpretation [...] S NOT APPLICABLE FOR DIALYSIS PATIEN TS. Marine Engine Driver ID - KAREEN MCBC W/PLT COUNT & AUTO [id number] 04:38:00 Test Item Value Reference Range Interpretation [...] (BEAKER) (test code = 2801) COMPREHENSIVE METABOLIC [id number] 06:06:00 Test Item Value Reference Range Interpretation [...] S NOT APPLICABLE FOR DIALYSIS PATIEN TS. Marine Engine Driver ID - KAREEN [id number] 06:06:00 Test Item Value Reference Range Interpretation Comments MAGNESIUM (BEAKER) (test code = 1.5 mg/dL 1.6-2.6 L 627) Marine Engine Driver ID - KAREEN [id number] 06:06:00 Test Item Value Reference Range Interpretation Comments PHOSPHORUS (BEAKER) (test code = 2.1 mg/dL 2.3-4.7 L 604) Marine Engine Driver ID - KAREEN MCBC W/PLT COUNT & AUTO [id number] 05:32:00 Test Item Value Reference Range Interpretation [...] (BEAKER) (test code = 2801) COMPREHENSIVE METABOLIC [id number] 05:37:00 Test Item Value Reference Range Interpretation [...] S NOT APPLICABLE FOR DIALYSIS PATIEN TS. Marine Engine Driver ID Wilbert RADER [id number] 05:37:00 Test Item Value Reference Range Interpretation Comments PHOSPHORUS (BEAKER) (test code = 2.0 mg/dL 2.3-4.7 L 604) Marine Engine Driver ID - DIOR WCBC W/PLT COUNT & AUTO [id number] 04:53:00 Test Item Value Reference Range Interpretation [...] (BEAKER) (test code = 2801) BASIC METABOLIC [id number] 07:51:00 Test Item Value Reference Range Interpretation [...] S NOT APPLICABLE FOR DIALYSIS PATIEN TS. Marine Engine Driver ID - DBHEPATIC FUNCTION [id number] 07:51:00 Test Item Value Reference Range Interpretation [...] (test code = 54 U/L 6-55 347) Marine Engine Driver ID - DBPROTHROMBIN [id number] 07:48:00 Test Item Value Reference Range Interpretation Comments PROTIME (BEAKER) 13.3 seconds 11.9-14.2 (test code = 759) INR (BEAKER) (test 1.03 See_Comment [Automat ed message] code = 370) The system [employer] generated this result transmitted ref erence range: <=5.90. The reference range was not used to int erpret this result as normal/abnormal . RECOMMENDED COUMADIN/WARFARIN INR THERAPY RANGESSTANDARD DOSE: 2.0 - 3.0 Includes: PROPHYLAXIS for venous thrombosis, systemic embolization; TREATMENT for venous thrombosis and/or pulmonary embolus.HIGH RISK: Target INR is 2.5-3.5 for patients with mechanical heart valves.CBC W/PLT COUNT & AUTO [id number] 07:33:00 Test Item Value Reference Range Interpretation [...] 0-1 PERCENT (BEAKER) (test code = 2801) [id number] 07:12:00 Test Item Value Reference Range Interpretation Comments AMMONIA (BEAKER) (test code = 348) 40 mol/L 18-72 Marine Engine Driver ID - LORRIE PENA DRUG SCREEN, [id number] 03:47:00 Test Item Value Reference Range Interpretation [...] ng/mLOpiate 300 ng/mLMethadone 300 ng/mLAmphetamine/ 1000 ng/mL MethamphetamineThisassay provides an unconfirmed qualitative test result for the clinical management of patients in emergency situations. Chain of custody not maintained. Some axai-dli-dmvjuhb medications, as well as adulterants, may cause inaccurate results. Clinical correlation should be applied. A more comprehensive drug screen or confirmation of a detected drug may be performed upon request.Marine Engine Driver ID - DBOperatorID - [auto] [id number] 22:04:00 Test Item Value Reference Range Interpretation Comments PROCALCITONIN (BEAKER) (test code 0.15 ng/mL <0.05 H = 3036) SEPSIS RISK (ng/mL)Low: 0.05-0.50Intermediate: 0.51-2.00High: >=2.01 URINALYSIS W/ REFLEX URINE [id number] 22:00:00 Test Item Value Reference Range Interpretation [...] = 1521) SOURCE(BEAKER) (test code = 2795) Marine Engine Driver ID - [auto]Marine Engine Driver ID - techCOMPREHENSIVE METABOLIC [id number] 21:34:00 Test Item Value Reference Range Interpretation [...] S NOT APPLICABLE FOR DIALYSIS PATIEN TS. Marine Engine Driver ID - [id number] 21:34:00 Test Item Value Reference Range Interpretation Comments MAGNESIUM (BEAKER) (test code = 1.8 mg/dL 1.6-2.6 627) Marine Engine Driver ID - DBLACTIC ACID, [id number] 21:24:00 Test Item Value Reference Range Interpretation Comments LACTATE BLOOD VENOUS (2) (BEAKER) 1.26 mmol/L 0.50-2.20 (test code = 2872) Marine Engine Driver ID - DBPROTHROMBIN [id number] 21:24:00 Test Item Value Reference Range Interpretation Comments PROTIME (BEAKER) 13.5 seconds 11.9-14.2 (test code = 759) INR (BEAKER) (test 1.04 See_Comment [Automat ed message] code = 370) The system [employer] generated this result transmitted ref erence range: <=5.90. The reference range was not used to int erpret this result as normal/abnormal . RECOMMENDED COUMADIN/WARFARIN INR THERAPY RANGESSTANDARD DOSE: 2.0 - 3.0 Includes: PROPHYLAXIS for venous thrombosis, systemic embolization; TREATMENT for venous thrombosis and/or pulmonary embolus.HIGH RISK: Target INR is 2.5-3.5 for patients with mechanical heart valves.CBC W/PLT COUNT & AUTO [id number] 21:16:00 Test Item Value Reference Range Interpretation [...] (BEAKER) (test code = 2801) Comprehensive Metabolic [id number] 21:33:25 Test Item Value Reference Range Interpretation [...] A/G 1.5 ratio N Ratio) Comprehensive Metabolic [id number] 21:33:25 Test Item Value Reference Range Interpretation [...] the National Kidney Foundation, http://nkdep.ni h.gov Lipid [id number] 21:33:25 Test Item Value Reference Range Interpretation Comments Cholesterol Total 132 mg/dL 0-200 RISK OF HE ART (test code = DISEASEPublishe d by Cholesterol Total) [place] [employer] María lyte Optimal Borderl ine Increased RiskC HOL <200 200-239 >240TRI G <150 150-199 >200HDL Male >60 <40HDL Fema le >60 <50LDL <100 130 -159 >160LDL Near op timal is 100-129 Triglycerides (test 144 mg/dL 9-200 [...] LDL/HDL Ratio=L DL Calc/HDL Chol Comprehensive Metabolic [id number] 21:33:25 Test Item Value Reference Range Interpretation [...] Foundation, http://nkdep.ni h.gov Complete Blood Count with [id number] 20:56:24 Test Item Value Reference Range Interpretation [...] code = IPF) 0 % N Automated [id number] 20:56:24 Test Item Value Reference Range Interpretation Comments Neutro Auto (test code = Neutro 62.4 % 36.0-70.0 Auto) Lymph Auto (test code = Lymph Auto) 26.7 % 12.0-44.0 Norman Auto (test code = Norman Auto) 8.4 % 0.0-11.0 Eos, Auto (test code = Eos, Auto) 1.7 % 0.0-7.0 Basophil Auto (test code = Basophil 0.5 % 0.0-2.0 Auto) Neutro Absolute (test code = Neutro 6.0 x10 1.6-7.4 Absolute) Lymph Absolute (test code = Lymph 2.56 x10 .50-4.60 Absolute) Norman Absolute (test code = Norman .81 x10 .00-1.20 Absolute) Eos Absolute (test code = Eos 0.16 x10 0.00-0.74 Absolute) Baso Absolute (test code = Baso 0.05 x10 0.00-0.21 Absolute) IG [id number] 20:56:24 Test Item Value Reference Range Interpretation Comments IG (test code = IG) 0.3 % 0.0-5.0 IG Abs (test code = IG Abs) 0 x10 N
--- NOTE | 2022-10-10 11:05 | RAD REPORT ---
EXAM DESCRIPTION: CT - Ct Stroke Brain Wo Cont - 10/10/2022 10:59 am CLINICAL HISTORY: ams COMPARISON: Head angio dated 09/12/2022; Ct Stroke Brain Wo Cont dated 09/12/2022 TECHNIQUE: All CT scans are performed using dose optimization technique as appropriate and may inclu de automated exposure control or mA/KV adjustment according to patient size. FINDINGS: No intracranial hemorrhage, hydrocephalus or extra-axial fluid collection.No areas of brai n edema or evidence of midline shift. The paranasal sinuses and mastoids are clear. The calvarium is intact. IMPRESSION: No acute intracranial abnormality. Called to Dr. Cardenas by Dr. Interiano at 1101 on 10/10/22
[2022-10-10 11:12] LABS: Absolute Lymphocytes (CBC) 1.4 K/uL (0.7-4.9); Hematocrit 50.5 % (39.6-49.0); Lymphocytes % 16.2 % (15.3-44.8); MCV 102.7 fL (80-100); MPV 9.1 fL (7.6-11.3); Protime INR 1.05; RBC Red Blood Cell Count 4.91 M/uL (4.33-5.43)
--- NOTE | 2022-10-10 11:28 | RAD REPORT ---
EXAM DESCRIPTION: CT - Neck Angio - 10/10/2022 11:18 am CLINICAL HISTORY: ams COMPARISON: Neck Angio dated 09/12/2022 TECHNIQUE: CT angiography of the neck vessels was performed with MIPs. All CT scans are performed using dose optimization technique as appropriate and may include automated exposure control or mA/KV adjustment according to patient size. FINDINGS: No significant flow abnormality is seen of the common carotid bilaterally. Moderate stenosis (50-69%) of the right proximal ICA just beyond the bulb secondary to calcified and noncalcified plaque. Calcified and noncalcified plaque is present at the left proximal ICA but no hem odynamically significant stenosis. Both common carotid arteries are widely patent. The external carot id arteries are patent. 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 The right vertebral artery is dominant but likely has at least a moderate if not severe stenosis a t its origin. IMPRESSION: 1. 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 Note that the right vertebral artery is dominant and also likely has a stenosis at its origin wh ich is probably moderate if not severe. 2. Moderate (50-69%) stenosis at the right proximal ICA which is unchanged. The left carotid system i s widely patent.
--- NOTE | 2022-10-10 11:31 | RAD REPORT ---
EXAM DESCRIPTION: CT - Head angio - 10/10/2022 11:18 am CLINICAL HISTORY: ams COMPARISON: Ct Stroke Brain Wo Cont dated 10/10/2022; Head angio dated 09/12/2022 TECHNIQUE: CT angiography of the head was performed with MIPs. All CT scans are performed using dose optimization technique as appropriate and may include automated exposure control or mA/KV adjustment according to patient size. FINDINGS: Anterior circulation: No aneurysm or large vessel occlusion. No hemodynamically significant stenosis. No arteriovenous malf ormation identified. Posterior circulation: No aneurysm or large vessel occlusion. No hemodynamically significant stenosis. No arteriovenous malf ormation identified. Diminutive nondominant left vertebral artery. IMPRESSION: No significant flow abnormality is detected. Basilar filling defect on the prior head CT A is no longer identified.
[2022-10-10 11:41] LABS: Albumin 3.7 g/dL (3.4-5.0); Bilirubin Direct 0.2 mg/dL (0-0.2); Bilirubin Total 0.6 mg/dL (0.2-1.0); Magnesium 1.9 mg/dL (1.6-2.4); Potassium 3.7 mmol/L (3.5-5.1); Protein, Total 7.7 g/dL (6.4-8.2); Troponin High Sensitivity 8.4 pg/mL (<58.9)
[2022-10-10 12:19] LABS: Urine Blood Trace-intact (Negative); Urine Glucose Negative (Negative); Urine Protein Negative (Negative); Urine pH 5.5 (5.0-7.0)
--- NOTE | 2022-10-10 12:33 | RAD REPORT ---
EXAM DESCRIPTION: RAD - Chest Single View - 10/10/2022 12:28 pm CLINICAL HISTORY: ams COMPARISON: Chest Single View dated 09/12/2022; Chest Single View dated 04/08/2021 FINDINGS: Lines: None. Lungs: No evidence of edema or pneumonia. Pleural: No significant pleural effusions or pneumothorax. Cardiac: The heart size is within normal limits. Mediastinum: Within normal limits. Bones: No acute fractures. Other: None IMPRESSION: No acute cardiopulmonary disease.
[2022-10-10 12:37] LABS: Urine Bacteria None Seen /HPF (<20); Urine RBC <5 /HPF (None Seen)
[2022-10-10 12:53] LABS: Barbiturates NEGATIVE (NEGATIVE); Benzodiazepines POSITIVE (NEGATIVE); Cocaine NEGATIVE (NEGATIVE); METHAMPHETAM NEGATIVE (NEGATIVE); Methadone NEGATIVE (NEGATIVE); Opiates NEGATIVE (NEGATIVE); Phencyclidine NEGATIVE (NEGATIVE); THC Cannibis NEGATIVE (NEGATIVE)
--- NOTE | 2022-10-10 13:08 | EDPHYS ---
Physician Documentation [facility] Name: Peter Carson Age: 72 yrs Sex: Male : 1950 Arrival Date: 10/10/2022 Time: 09:53 Bed 7 Private MD: ED Physician Rafael Cardenas HPI: 10/10 13:02 This 72 yrs old Male presents to ER via EMS with complaints of Hallucinations. rt 13:08 The patient presents to the emergency department with hallucination. Severity of rt symptoms: At their worst the symptoms were moderate. Patient presents to the ED with a visual hallucination, seeing alligators in his room. This did resolve when the patient was given Valium by his daughter. The patient has reported history of alcohol abuse, however, states that he has not had a drink in about a year. The patient denies any physical complaints at this time. Symptoms are moderate in severity, no other aggravating or alleviating factors.. Historical: - Allergies: 09:55 PENICILLINS; "given to me in past, reaction when i was small child, dont remember"; ss - PMHx: 09:55 Diverticulitis; High Cholesterol; Parkinson like symptoms; ss - PSHx: 09:55 colon sx; ss - Immunization history:: unknown. - Social history:: Smoking status: Patient reports the use of cigarette tobacco products, smokes one pack cigarettes per day. - Family history:: not pertinent. ROS: 13:08 Constitutional: Negative for fever, chills, and weight loss, Eyes: Negative for injury, rt pain, redness, and discharge, ENT: Negative for injury, pain, and discharge, Neck: Negative for injury, pain, and swelling, Cardiovascular: Negative for chest pain, palpitations, and edema, Respiratory: Negative for shortness of breath, cough, wheezing, and pleuritic chest pain, Abdomen/GI: Negative for abdominal pain, nausea, vomiting, diarrhea, and constipation, MS/Extremity: Negative for injury and deformity, Skin: Negative for injury, rash, and discoloration. 13:08 Neuro: Negative for headache, weakness, numbness, tingling, and seizure. 13:08 Psych: Positive for visual hallucinations, Negative for suicidal ideation. Exam: 13:08 Constitutional: This is a well developed, well nourished patient who is awake, alert, rt and in no acute distress. Head/Face: Normocephalic, atraumatic. Eyes: Pupils equal round and reactive to light, extra-ocular motions intact. Lids and lashes normal. Conjunctiva and sclera are non-icteric and not injected. Cornea within normal limits. Periorbital areas with no swelling, redness, or edema. ENT: Nares patent. No nasal discharge, no septal abnormalities noted. Tympanic membranes are normal and external auditory canals are clear. Oropharynx with no redness, swelling, or masses, exudates, or evidence of obstruction, uvula midline. Mucous membranes moist. Neck: Trachea midline, no thyromegaly or masses palpated, and no cervical lymphadenopathy. Supple, full range of motion without nuchal rigidity, or vertebral point tenderness. No Meningismus. Chest/axilla: Normal chest wall appearance and motion. Nontender with no deformity. No lesions are appreciated. Cardiovascular: Regular rate and rhythm with a normal S1 and S2. No gallops, murmurs, or rubs. Normal PMI, no JVD. No pulse deficits. Respiratory: Lungs have equal breath sounds bilaterally, clear to auscultation and percussion. No rales, rhonchi or wheezes noted. No increased work of breathing, no retractions or nasal flaring. Abdomen/GI: Soft, non-tender, with normal bowel sounds. No distension or tympany. No guarding or rebound. No evidence of tenderness throughout. MS/ Extremity: Pulses equal, no cyanosis. Neurovascular intact. Full, normal range of motion. 13:08 ECG was reviewed by the Attending Physician. 13:08 Neuro: Renal nerves II through XII intact, strength and sensation intact in upper and lower extremities, no ataxia on [id number].. 13:08 Psych: On, cooperative, reports resolved visual hallucinations, no suicidal ideation. Vital Signs: 09:53 BP 135 / 75; Pulse 73; Resp 17; Pulse Ox 98% ; Weight 81.65 kg (M); Height 5 ft. 9 in. ss (175.26 cm); 11:30 BP 120 / 72; Pulse 83; Resp 18; Pulse Ox 96% on R/A; kr3 12:35 BP 117 / 68; Pulse 78; Resp 18; Pulse Ox 96% on R/A; kr3 12:52 Temp 97.8; kr3 14:39 BP 118 / 66; Pulse 64; Resp 18; Pulse Ox 96% on R/A; kr3 09:53 Body Mass Index 26.58 (81.65 kg, 175.26 cm) ss MDM: 10:00 Patient medically screened. rt 13:11 Differential diagnosis: drug withdrawal. acute psychotic break, psychosis secondary to rt non-compliance. Data reviewed: vital signs, nurses notes, old medical records, lab test result(s), EKG, radiologic studies. ED course: Presents to the ED with visual hallucinations that resolved when the patient took his prescribed Valium. Warnicke Korsakoff syndrome was considered, ever, patient has not had a drink in several months. Has no vital sign normalities. CT scan of the head is unremarkable, CT angiogram was obtained due to recent stenosis in a vertebral artery, this does appear to be resolved. Patient is on appropriate stroke preventative. He has no focal neurologic deficits. The patient does have returned to baseline mental status. No further work-up syndicate this time, patient is stable for outpatient care, return precautions discussed. 10/10 10:19 Order name: Basic Metabolic Panel; Complete Time: 12:11 rt 10/10 10:19 Order name: CBC with Diff; Complete Time: 12:11 rt 10/10 10:19 Order name: Hepatic Function; Complete Time: 12:11 rt 10/10 10:19 Order name: High Sensitivity Troponin; Complete Time: 12:11 rt 10/10 10:19 Order name: Magnesium; Complete Time: 12:11 rt 10/10 10:19 Order name: Protime (+inr); Complete Time: 12:11 rt 10/10 10:19 Order name: Ptt, Activated; Complete Time: 12:11 rt 10/10 10:19 Order name: UDS; Complete Time: 12:56 rt 10/10 10:19 Order name: CT Stroke Brain w/o Contrast; Complete Time: 12:11 rt 10/10 10:19 Order name: Alcohol Level; Complete Time: 12:11 rt 10/10 10:19 Order name: UA MICROSCOPIC; Complete Time: 12:46 rt 10/10 11:43 Order name: CREATININE WHOLE BLOOD; Complete Time: 12:11 EDMS 10/10 12:20 Order name: Urine Dipstick-Ancillary; Complete Time: 12:46 EDMS 10/10 10:19 Order name: Stroke CXR 1 View; Complete Time: 12:46 rt 10/10 10:19 Order name: EKG; Complete Time: 10:20 rt 10/10 10:19 Order name: Accucheck rt 10/10 10:19 Order name: Cardiac monitoring; Complete Time: 17:32 rt 10/10 10:19 Order name: EKG - Nurse/Tech; Complete Time: 17:32 rt 10/10 10:19 Order name: IV Saline Lock; Complete Time: 17:32 rt 10/10 10:19 Order name: Labs collected and sent; Complete Time: 17:31 rt 10/10 10:19 Order name: NPO; Complete Time: 17:31 rt 10/10 10:19 Order name: O2 Per Protocol; Complete Time: 17:31 rt 10/10 10:19 Order name: O2 Sat Monitoring; Complete Time: 17:31 rt 10/10 10:19 Order name: Stroke Swallow Screen rt 10/10 10:19 Order name: CT Head Angio; Complete Time: 12:11 rt 10/10 10:19 Order name: CT Neck Angio; Complete Time: 12:11 rt EC:08 Rate is 59 beats/min. Rhythm is regular, 1st Degree Block with No ectopy, Right bundle rt branch block. Left axis deviation noted. IL interval is normal. QRS interval is normal. QT interval is normal. No Q waves. Interpreted by me. Administered Medications: No medications were administered Disposition Summary: 10/10/22 13:07 Discharge Ordered Location: Home rt Problem: new rt Symptoms: are resolved rt Condition: Stable rt Diagnosis - Visual hallucinations rt Followup: rt - With: Private Physician - When: 2 - 3 days - Reason: Followup: rt - With: Emergency Department - When: - Reason: Worsening of condition Discharge Instructions: - Discharge Summary Sheet rt - Confusion rt Forms: - Medication Reconciliation Form rt - Thank You Letter rt - Antibiotic Education rt - Prescription Opioid Use rt Signatures: Dispatcher [employer] EDViolet Colbert RN RN Rafael Daniels MD MD rt Corrections: (The following items were deleted from the chart) 12:34 10:19 URINALYSIS+[id number].LAB.BRZ ordered. EDMS EDMS
--- NOTE | 2022-10-10 13:08 | ER ---
Nurse's Notes [facility] Name: Peter Carson Age: 72 yrs Sex: Male : 1950 Arrival Date: 10/10/2022 Time: 09:53 Bed 7 Private MD: Diagnosis: Visual hallucinations Presentation: 10/10 09:53 Chief complaint: EMS states: Called 911 because patient was seeing alligators on the ss floor. Pt has no complaints at this time. Coronavirus screen: Client denies travel out of the [place] in the last 14 days. Ebola Screen: Patient denies exposure to infectious person. Patient denies travel to an Ebola-affected area in the 21 days before illness onset. Initial Sepsis Screen: Does the patient meet any 2 criteria? No. Patient's initial sepsis screen is negative. Does the patient have a suspected source of infection? No. Patient's initial sepsis screen is negative. Risk Assessment: Do you want to hurt yourself or someone else? Patient reports no desire to harm self or others. Onset of symptoms was October 10, 2022. 09:53 Method Of Arrival: EMS: [facility] 09:53 Acuity: DEMETRI 3 Triage Assessment: 10:11 General: Appears in no apparent distress. comfortable, Behavior is calm, cooperative. kr3 Pain: Complains of pain in buttocks. EENT: No signs and/or symptoms were reported regarding the EENT system. Neuro: Level of Consciousness is awake, alert, obeys commands, Oriented to person, place. Cardiovascular: Clubbing of nail beds is present Patient's skin is warm and dry. Respiratory: Airway is patent Respiratory effort is even, unlabored, Respiratory pattern is regular, symmetrical. GI: Abdomen is round non-distended. : No signs and/or symptoms were reported regarding the genitourinary system. Derm: No deficits noted. Musculoskeletal: Range of motion: limited in left knee and right knee. Historical: - Allergies: 09:55 PENICILLINS; "given to me in past, reaction when i was small child, dont remember"; ss - PMHx: 09:55 Diverticulitis; High Cholesterol; Parkinson like symptoms; ss - PSHx: 09:55 colon sx; ss - Immunization history:: unknown. - Social history:: Smoking status: Patient reports the use of cigarette tobacco products, smokes one pack cigarettes per day. - Family history:: not pertinent. Assessment: 10:23 Reassessment: EMS states patient was given 10 mg of diazepam this am. kr3 11:30 Reassessment: Patient appears in no apparent distress at this time. Patient and/or kr3 family updated on plan of care and expected duration. Pain level reassessed. Patient is alert, oriented x 3, equal unlabored respirations, skin warm/dry/pink. 12:30 Reassessment: Patient appears in no apparent distress at this time. Patient and/or kr3 family updated on plan of care and expected duration. Pain level reassessed. Patient is alert, oriented x 3, equal unlabored respirations, skin warm/dry/pink. 13:30 Reassessment: Patient appears in no apparent distress at this time. Patient and/or kr3 family updated on plan of care and expected duration. Pain level reassessed. Patient is alert, oriented x 3, equal unlabored respirations, skin warm/dry/pink. 14:36 Reassessment: Patient appears in no apparent distress at this time. Patient and/or kr3 family updated on plan of care and expected duration. Pain level reassessed. Patient is alert, oriented x 3, equal unlabored respirations, skin warm/dry/pink. 16:30 Reassessment: spoke with daughter and she said she would not come up here to get him. kr3 Spoke with brother and he stated that he would be here in 1 1/2 hrs. 16:31 Reassessment: patient is discharged but does not have a ride home. kr3 Vital Signs: 09:53 BP 135 / 75; Pulse 73; Resp 17; Pulse Ox 98% ; Weight 81.65 kg (M); Height 5 ft. 9 in. (175.26 cm); 11:30 BP 120 / 72; Pulse 83; Resp 18; Pulse Ox 96% on R/A; kr3 12:35 BP 117 / 68; Pulse 78; Resp 18; Pulse Ox 96% on R/A; kr3 12:52 Temp 97.8; kr3 14:39 BP 118 / 66; Pulse 64; Resp 18; Pulse Ox 96% on R/A; kr3 09:53 Body Mass Index 26.58 (81.65 kg, 175.26 cm) ED Course: 09:53 Patient arrived in ED. ss 09:55 Triage completed. ss 09:56 Rafael Cardenas MD is Attending Physician. rt 10:17 Arm band placed on right wrist. Patient placed in an exam room, on a stretcher. kr3 10:23 Roula Lomeli, RN is Primary Nurse. kr3 11:01 CT Stroke Brain w/o Contrast In Process Unspecified. EDMS 11:20 CT Head Angio In Process Unspecified. EDMS 11:20 CT Neck Angio In Process Unspecified. EDMS 12:30 Stroke CXR 1 View In Process Unspecified. EDMS Administered Medications: No medications were administered Outcome: 13:07 Discharge ordered by . rt 19:00 Patient left the ED. kr3 Signatures: Dispatcher [employer] EDMS Violet Perkins RN RN Roula Lomeli, RN RN kr3 Rafael Cardenas MD MD rt
[2022-10-10 19:06] VITALS: O2SAT 96
[2022-10-10 19:08] VITALS: TEMP 97.8
[2022-10-10 19:09] VITALS: BP 118/66
--- NOTE | 2022-10-11 17:46 | EKG ---
Test Date: 2022-10-10 Test Time: 12:57:19 Fire Truck Driver: LIT MEASUREMENT RESULTS: Intervals: Rate: 65 GA: 240 QRSD: 118 QT: 416 QTc: 432 [place]: P: 65 GA: 240 QRS: -39 T: 28 INTERPRETIVE STATEMENTS: Sinus rhythm with 1st degree AV block with premature atrial complexes Left axis deviation Right bundle branch block Abnormal ECG Compared to ECG 09/12/2022 11:17:17 Atrial premature complex(es) now present Electronically Signed On 10-11-22 17:44:11 DESIGN LEADER by Alex Quispe
--- NOTE | 2022-10-11 17:46 | EKG ---
Test Date: 2022-10-10 Test Time: 12:58:35 Core Shaper Top: ES MEASUREMENT RESULTS: Intervals: Rate: 66 CT: 236 QRSD: 128 QT: 422 QTc: 442 [place]: P: 70 CT: 236 QRS: -34 T: 37 INTERPRETIVE STATEMENTS: Sinus rhythm with marked sinus arrhythmia with 1st degree AV block Left axis deviation Right bundle branch block Abnormal ECG Compared to ECG 09/12/2022 11:17:17 No significant changes Electronically Signed On 10-11-22 17:44:08 CHILD LIFE ASSISTANT by Alex Quispe
== END 2022-10-10 19:00 | disposition home or self-care (01) ==
LOC: ER 09:47
DX: R44.1 Visual hallucinations (principal); F17.210 Nicotine dependence, cigarettes, uncomplicated; Z88.0 Allergy status to penicillin
CPT/HCPCS: 85025; 80048; 36415; 80320; 83735; 85610; 82565; 80076; 85730; 84484; 80307; 70496; 70498; 70450; 71045; Q9967; 81003; 81015; 93005

== ENCOUNTER 2023-02-28 13:51 | Observation (INO) | payer OTHER ==
--- OUTSIDE RECORDS SUMMARY | 2023-02-28 13:57 | XMS REPORT | Continuity of Care Document ---
:[address] [facility] t Address [address] [facility]. [address] [place] [address] Care Team Providers Name Role Phone Pricila Andrade MD, I. Attending Clinician [phone] ARMINDA DEMARCO Attending Clinician Unavailable MARY ALICE GORDON Attending Clinician Unavailable Rhys Farmer DO Attending Clinician Doctor Unassigned, [place] Attending Clinician Unavailable PRICILA ANDRADE I. Admitting Clinician Unavailable ARMINDA DEMARCO Admitting Clinician Unavailable LOWELL HAMMER Admitting Clinician Unavailable HAIDER TOM Admitting Clinician Unavailable Payers Payer Name Policy Type Policy Number Effective Date Expiration Date S sania MEDICARE PART A \T\ [id number] 2015 B 00:00:00 [facility] [id number] 2018 MEDICARE SUPPLEMENT 00:00:00 Problems Condition Condition Condition Status Onset Resolution Last Treating Co mments Source Name Details Category Date Date Treatment Clinician Date Hepatic Hepatic Disease Recurre [facility] 6- [facility] at[facility] athy 00:00: Medical 00 Center AMS AMS Disease Active [facility]08 [facility]: Medical status) status) [...] (see Center comments) Unknown reaction as an .Un known reaction as an infant. Social History Social Habit Start Date Stop Date Quantity Comments Source History of tobacco Cigarette Smoker [facility] use [facility] Tobacco use and 2021-04-08 2021-04-08 Never used [facility] St Ling kes exposure 00:00:00 00:00:00 [facility] Alcohol intake 2021-04-08 2021-04-08 [facility]00 of alcohol [facility] (finding) Cigarettes smoked 2021-04-08 2021-04-[address] [facility] [address] [facility] current (pack per 00:00:00 00:00:00 [facility] day) - Reported Cigarette 2021-04-08 2021-04-[address] [facility] [address] [facility] pack-years 00:00:00 00:00:00 [facility] Sex Assigned At [birth year] [facility] 00:00:00 00:00:00 [facility] Smoking Status Start Date Stop Date Source Current every day smoker 2021-04-08 00:00:00 [facility] Medications Ordered Filled Start Stop Current [...] phyllis tablet 00 :00 daily. Center thiamine 2020-2- No 100mg QD Take 1 [facility] [...] mouth Medi phyllis tablet 00 :00 daily. [place] thiamine 2020-2021- No 100mg QD Take 1 [...] mouth Medi phyllis tablet 00 :00 daily. [place] thiamine 2020-2021- No 100mg QD Take 1 [facility] 7-10 07-10 [facility] tablet 00:00: 23:59 (100 mg Medical 00 :00 total) by Center mouth daily. folic acid 2020-2- No 1mg QD Take [address] [facility] (FOLVITE) 1 7-10 07-10 tablet (1 [facility] MG tablet 00:00: 23:59 mg total) Me dical 00 :00 by mouth Center daily. multivitami 2021- No 1{tbl} QD Take [address] n 7-10 07-10 tablet by [facility] (THERAGRAN) 00:00: 23:59 mouth Medi phyllis tablet 00 :00 daily. [place] thiamine 2020-2- No 100mg QD Take 1 [facility] [...] mouth Medi phyllis tablet 00 :00 daily. [place] thiamine 2021- No 100mg QD Take 1 [...] mouth Medi phyllis tablet 00 :00 daily. [place] thiamine 2020-2021- No 100mg QD Take 1 [facility] MG 7-10 07-10 [facility] tablet 00:00: 23:59 (100 mg Medical 00 :00 total) by Center mouth daily. folic acid 2021- No 1mg QD Take [address] [facility] (FOLVITE) 1 7-10 07-10 tablet (1 [facility] MG tablet 00:00: 23:59 mg total) Me dical 00 :00 by mouth Center daily. multivitami 2021-2021- No 1{tbl} QD Take [address] n 7-10 07-10 [facility] by [facility] (THERAGRAN) 00:00: 23:59 mouth Medi phyllis tablet 00 :00 daily. [place] thiamine 2020-2- No 100mg QD Take 1 [facility] [...] mouth Medi phyllis tablet 00 :00 daily. [place] thiamine 2020-2021- No 100mg QD Take 1 [...] mouth Medi phyllis tablet 00 :00 daily. [place] thiamine 2020-2021- No 100mg QD Take 1 [facility] MG 7-10 07-10 [facility] tablet 00:00: 23:59 (100 mg Medical 00 :00 total) by Center mouth daily. folic acid 2020-2021- No 1mg QD Take [address] [facility] (FOLVITE) 1 7-10 07-10 tablet (1 [facility] MG tablet 00:00: 23:59 mg total) Me dical 00 :00 by mouth Center daily. multivitami 2020-0 2022- No 1{tbl} QD Take [address] n 7-10 07-10 [facility] by [facility] (THERAGRAN) 00:00: 23:59 mouth Medi phyllis tablet 00 :00 daily. [place] thiamine 2020-2021- No 100mg QD Take 1 [...] mouth Medi phyllis tablet 00 :00 daily. [place] thiamine 2021- No 100mg QD Take 1 [...] mouth Medi phyllis tablet 00 :00 daily. [place] thiamine 2021- No 100mg QD Take 1 [...] mouth Medi phyllis tablet 00 :00 daily. [place] thiamine 2020-2021- No 100mg QD Take 1 [...] mouth Medi phyllis tablet 00 :00 daily. [place] thiamine 2020-2021- No 100mg QD Take 1 [...] phyllis tablet 00 :00 daily. Center thiamine 2020-0 2022- No 100mg QD Take 1 [facility] 7-10 07-10 [facility] tablet 00:00: 23:59 (100 mg Medical 00 :00 total) by Center mouth daily. omeprazole 1-0 Yes 20mg QD Take [address] (PriLOSEC) 7-09 by mouth [facility] 20 MG 15:27: daily. Medical capsule 38 Center ondansetron 1-0 Yes 4mg Take [address] (ZOFRAN) 4 7-09 by mouth 3 Shira es MG tablet 15:27: (three) Medic al 38 times Center daily as needed for Nausea. omeprazole 1-0 Yes 20mg QD Take [address] (PriLOSEC) 7-09 by mouth [facility] 20 MG 15:27: daily. Medical capsule 38 [place] ondansetron 1-0 Yes 4mg Take [address] (ZOFRAN) 4 7-09 by mouth 3 Shira es MG tablet 15:27: (three) Medic al 38 times Center daily as needed for Nausea. omeprazole 1-0 Yes 20mg QD Take [address] (PriLOSEC) 7-09 by mouth [facility] 20 MG 15:27: daily. Medical capsule 38 [place] ondansetron 1-0 Yes 4mg Take [address] (ZOFRAN) 4 7-09 by mouth 3 Shira es MG tablet 15:27: (three) Medic al 38 times Center daily as needed for Nausea. omeprazole 1-0 Yes 20mg QD Take [address] (PriLOSEC) 7-09 by mouth [facility] 20 MG 15:27: daily. Medical capsule 38 [place] ondansetron 2021-0 Yes 4mg Take [address] (ZOFRAN) 4 7-09 by mouth 3 Shira es MG tablet 15:27: (three) Medic al 38 times Center daily as needed for Nausea. omeprazole 2021-0 Yes 20mg QD Take [address] (PriLOSEC) 7-09 by mouth [facility] 20 MG 15:27: daily. Medical capsule 38 [place] ondansetron 1-0 Yes 4mg Take 4 mg [...] Center daily as needed for Nausea. omeprazole 1-0 Yes 20mg QD Take [address] (PriLOSEC) 7-09 by mouth [facility] 20 MG 15:27: daily. Medical capsule 38 Center ondansetron 1-0 Yes 4mg Take [address] (ZOFRAN) 4 7-09 by mouth 3 [facility]ira es MG tablet 15:27: (three) Medic al 38 times Center daily as needed for Nausea. omeprazole 1-0 Yes 20mg QD Take 20 mg C [...] 20 MG 15:27: daily. Medical capsule 38 [place] ondansetron 2021-0 Yes 4mg Take 4 mg [...] 15:27: daily. Medical capsule 38 Center ondansetron Yes 4mg Take [address] (ZOFRAN) 4 7-09 by mouth 3 Shira es MG tablet 15:27: (three) Medic al 38 times Center daily as needed for Nausea. omeprazole Yes 20mg QD Take [address] (PriLOSEC) 7-09 by mouth [facility] 20 MG 15:27: daily. Medical capsule 38 Center ondansetron 0 Yes 4mg Take 4 mg C [facility] [...] Planned Date Details Comments Source Future Scheduled 2023-06-[address] [facility] 00:00:00 (Season Ended) [code = Medic al Center INFLUENZA VACCINE (Season Ended)] Future Scheduled 2022-10-[address] [facility] 00:00:00 (12+) [code = Medical Center DEPRESSION SCREENING (12+)] Future Scheduled 2022-10-14 FALLS RISK SCREENING [facility] 00:00:00 [code = FALLS RISK Medical C enter SCREENING] Future Scheduled 2022-06-14 INFLUENZA VACCINE (#1) C [...] [facility] Test 00:00:00 3) [code = SHINGLES [facility] VACCINES (2 of 3)] Future Scheduled [...] [facility] Test 00:00:00 3) [code = SHINGLES [facility] VACCINES (2 of 3)] Future Scheduled 2020-09-30 SHINGLES VACCINES ([address] [facility] 00:00:00 3) [code = SHINGLES [facility] VACCINES (2 of 3)] Future Scheduled 2020-09-30 SHINGLES VACCINES ([address] [facility]:00[facility]00 [facility] Future Scheduled 2000-02-21 Screening for malignant [facility] 00:00:00 neoplasm of lung [facility] (procedure) [code = [id number]] Future Scheduled 2000-02-21 Screening [facility] malignant [facility] 00:00:00 neoplasm of lung [facility] (procedure) [code = [id number]] Future Scheduled 2000-02-21 Screening [facility] malignant [facility] 00:00:00 neoplasm of lung [facility] (procedure) [code = 923950284] Future Scheduled 2000-02-21 Screening [facility] malignant [facility] 00:00:00 neoplasm of lung [facility] (procedure) [code = 740419190] Future Scheduled 2000-02-21 Screening [facility] malignant [facility] 00:00:00 neoplasm of lung [facility] (procedure) [code = 608181957] Future Scheduled 2000-02-21 Screening [facility] malignant [facility] 00:00:00 neoplasm of lung [facility] (procedure) [code = 836162291] Future Scheduled 2000-02-21 Screening [facility] malignant [facility] 00:00:00 neoplasm of lung [facility] (procedure) [code = 230864039] Future Scheduled 2000-02-21 Screening [facility] malignant [facility] 00:00:00 neoplasm of lung [facility] (procedure) [code = 172852805] Future Scheduled 2000-02-21 Screening [facility] malignant [facility] 00:00:00 neoplasm of lung [facility] (procedure) [code = 622716262] Future Scheduled 2000-02-21 Screening for malignant [facility] 00:00:00 neoplasm of lung [facility] (procedure) [code = 230649695] Future Scheduled 2000-02-21 Screening for malignant [facility] 00:00:00 neoplasm of lung [facility] (procedure) [code = 432122234] Future Scheduled 2000-02-21 Screening for malignant [facility] 00:00:00 neoplasm of lung [facility] (procedure) [code = 461425954] Future Scheduled 2000-02-21 Screening for malignant [facility] 00:00:00 neoplasm of lung [facility] (procedure) [code = 867430184] Future Scheduled 2000-02-21 Screening for malignant [facility] 00:00:00 neoplasm of lung [facility] (procedure) [code = 073526069] Future Scheduled 2000-02-21 Screening for malignant [facility] 00:00:00 neoplasm of lung [facility] (procedure) [code = 829878641] Future Scheduled 2000-02-21 Screening for malignant [facility] 00:00:00 neoplasm of lung [facility] (procedure) [code = 689012387] Future Scheduled 2000-02-21 Screening [facility] malignant [facility] 00:00:00 neoplasm of lung [facility] (procedure) [code = 241709529] Future Scheduled 1969 DTAP/TDAP/TD VACCINES [facility] [...] [facility] Test 00:00:00 [code = CT Colonography [facility] (combo)] Future Scheduled 1950 Screening for malignant [facility] 00:00:00 neoplasm of colon Medical Ce nter (procedure) [code = 447587203] Future Scheduled 1950 Screening for malignant [facility] 00:00:00 neoplasm of colon Medical Ce nter (procedure) [code = 272630984] Future Scheduled 1950 Screening for malignant [facility] 00:00:00 neoplasm of colon Medical Ce nter (procedure) [code = 912258926] Future Scheduled 1950 Screening for malignant [facility] 00:00:00 neoplasm of colon Medical Ce nter (procedure) [code = 419019113] Future Scheduled 1950 Sigmoidoscopy [facility] 00:[facility] [code = CT Colonography [facility] (combo)] Future Scheduled 1950 Screening for malignant [facility] 00:00:00 neoplasm of colon Medical Ce nter (procedure) [code = 151869010] Future Scheduled 1950 Screening for malignant [facility] 00:00:00 neoplasm of colon Medical Ce nter (procedure) [code = 582196202] Future Scheduled 1950 Screening for malignant [facility] 00:00:00 neoplasm of colon Medical Ce nter (procedure) [code = 739697828] Future Scheduled 1950 Screening for malignant [facility] 00:00:00 neoplasm of colon Medical Ce nter (procedure) [code = 804431744] Future Scheduled 1950 S[facility]oidoscopy [facility]code [facility] ([facility]bo[facility] 00:00:00 [code = CT Colonography [facility] (combo)] Future Scheduled 1950 Screening for malignant [facility] 00:00:00 neoplasm of colon Medical Ce nter (procedure) [code = 565579456] Future Scheduled 1950 Screening for malignant [facility] 00:00:00 neoplasm of colon Medical Ce nter (procedure) [code = 190086693] Future Scheduled 1950 Screening for malignant [facility] 00:00:00 neoplasm of colon Medical Ce nter (procedure) [code = 698033431] Future Scheduled 1950 Screening for malignant [facility] 00:00:00 neoplasm of colon Medical Ce nter (procedure) [code = 747774147] Future Scheduled 1950 Sigmoidoscopy [facility]code = [facility]] [facility] Future Scheduled 1950 CT Colonography (combo) [facility] 00:00:00 [code = CT Colonography [facility] (combo)] Future Scheduled 1950 Screening for malignant [facility] 00:00:00 neoplasm of colon Medical Ce nter (procedure) [code = 945873700] Future Scheduled 1950 Screening for malignant [facility] 00:00:00 neoplasm of colon Medical Ce nter (procedure) [code = 940632822] Future Scheduled 1950 Screening for malignant [facility] 00:00:00 neoplasm of colon Medical Ce nter (procedure) [code = 003890000] Future Scheduled 1950 Screening for malignant [facility] 00:00:00 neoplasm of colon Medical Ce nter (procedure) [code = 615128102] Future Scheduled 1950 Sigmoidoscopy [facility]code = [facility]] [facility] Cent[facility] r Future Scheduled 1950 CT Colonography (combo) [facility] 00:00:00 [code = CT Colonography [facility] (combo)] Future Scheduled 1950 Screening for malignant [facility] 00:00:00 neoplasm of colon Medical Ce [facility]ter (procedure) [code = 363177690] Future Scheduled 1950 Screening for malignant [facility] 00:00:00 neoplasm of colon Medical Ce nter (procedure) [code = 930518924] Future Scheduled 1950 Screening for malignant [facility] 00:00:00 neoplasm of colon Medical Ce nter (procedure) [code = 797328363] Future Scheduled 1950 Screening for malignant [facility] 00:00:00 neoplasm of colon Medical Ce [facility]ter (procedure) [code = 780209552] Future Scheduled 1950 Sigmoidoscopy [facility]code = [facility]] Medical Cent[facility] r Future Scheduled 1950 CT Colonography (combo) [facility] 00:00:00 [code = CT Colonography [facility] (combo)] Future Scheduled 1950 Screening for malignant [facility] 00:00:00 neoplasm of colon Medical Ce [facility]ter (procedure) [code = 742247570] Future Scheduled 1950 Screening for malignant [facility] 00:00:00 neoplasm of colon Medical Ce nter (procedure) [code = 649849954] Future Scheduled 1950 Screening for malignant [facility] 00:00:00 neoplasm of colon Medical Ce [facility]ter (procedure) [code = 587716679] Future Scheduled 1950 Screening for malignant [facility] 00:00:00 neoplasm of colon Medical Ce [facility]ter (procedure) [code = 947498311] Future Scheduled 1950 Sigmoidoscopy [facility]code = [facility]] Medical Cente r Future Scheduled 1950 CT Colonography (combo) [facility] 00:00:00 [code = CT Colonography [facility] (combo)] Future Scheduled 1950 Screening for malignant [facility] 00:00:00 neoplasm of colon Medical Ce [facility]ter (procedure) [code = 703118027] Future Scheduled 1950 Screening for malignant [facility] 00:00:00 neoplasm of colon Medical Ce [facility]ter (procedure) [code = 060111727] Future Scheduled 1950 Screening for malignant [facility] 00:00:00 neoplasm of colon Medical Ce [facility]ter (procedure) [code = 984371549] Future Scheduled 1950 Screening for malignant [facility] 00:00:00 neoplasm of colon Medical Ce nter (procedure) [code = 798133288] Future Scheduled 1950 Sigmoidoscopy [facility]code = [facility]] Medical Cente r Future Scheduled 1950 CT Colonography (combo) [facility] 00:00:00 [code = CT Colonography [facility] (combo)] Future Scheduled 1950 Screening for malignant [facility] 00:00:00 neoplasm of colon Medical Ce [facility]ter (procedure) [code = 167014608] Future Scheduled 1950 Screening for malignant [facility] 00:00:00 neoplasm of colon Medical Ce nter (procedure) [code = 671693854] Future Scheduled 1950 Screening for malignant [facility] 00:00:00 neoplasm of colon Medical Ce [facility]ter (procedure) [code = 319703475] Future Scheduled 1950 Screening for malignant [facility] 00:00:00 neoplasm of colon Medical Ce [facility]ter (procedure) [code = 172584140] Future Scheduled 1950 Sigmoidoscopy [facility]code = [facility]oscopy] Medical Cente r Future Scheduled 1950 CT Colonography (combo) [facility] 00:00:00 [code = [facility] ([facility])] Future Scheduled 1950 Screening for malignant [facility] 00:00:00 neoplasm of colon Medical Ce [facility]ter (procedure) [code = 360383944] Future Scheduled 1950 Screening for malignant [facility] 00:00:00 neoplasm of colon Medical Ce [facility]ter (procedure) [code = 408967700] Future Scheduled 1950 Screening for malignant [facility] 00:00:00 neoplasm of colon Medical Ce [facility]ter (procedure) [code = 073209239] Future Scheduled 1950 Screening for malignant [facility] 00:00:00 neoplasm of colon Medical Ce [facility]ter (procedure) [code = 183013604] Future Scheduled 1950 Sigmoidoscopy [code = [facility]oscopy] Medical Cente r Future Scheduled 1950 CT Colonography (combo) [facility] 00:00:00 [code = CT [facility] (combo)] Future Scheduled 1950 Screening for malignant [facility] 00:00:00 neoplasm of colon Medical Ce [facility] (procedure) [code = 419145929] Future Scheduled 1950 Screening for malignant [facility] 00:00:00 neoplasm of colon Medical Ce [facility]ter (procedure) [code = 742788214] Future Scheduled 1950 Screening for malignant [facility] 00:00:00 neoplasm of colon Medical Ce [facility]ter (procedure) [code = 760474331] Future Scheduled 1950 Screening for malignant [facility] 00:00:00 neoplasm of colon Medical Ce [facility]ter (procedure) [code = 101900571] Future Scheduled 1950 Sigmoidoscopy [facility]code = [facility]oscopy] Medical Cent[facility] r Future Scheduled 1950 CT Colonography (combo) [facility] 00:00:00 [code = CT Colonography [facility] (combo)] Future Scheduled 1950 Screening for malignant [facility] 00:00:00 neoplasm of colon Medical Ce [facility]ter (procedure) [code = 938063110] Future Scheduled 1950 Screening for malignant [facility] 00:00:00 neoplasm of colon Medical Ce [facility]ter (procedure) [code = 030233544] Future Scheduled 1950 Screening for malignant [facility] 00:00:00 neoplasm of colon Medical Ce [facility]ter (procedure) [code = 947102742] Future Scheduled 1950 Screening for malignant [facility] 00:00:00 neoplasm of colon Medical Ce [facility]ter (procedure) [code = 558784322] Future Scheduled 1950 Sigmoidoscopy [facility]code = [facility]oscopy] Medical Cente r Future Scheduled 1950 CT Colonography (combo) [facility] 00:00:00 [code = CT Colonography [facility] (combo)] Future Scheduled 1950 Screening for malignant [facility] 00:00:00 neoplasm of colon Medical Ce [facility]ter (procedure) [code = 586046416] Future Scheduled 1950 Screening for malignant [facility] 00:00:00 neoplasm of colon Medical Ce [facility]ter (procedure) [code = 188749709] Future Scheduled 1950 Screening for malignant [facility] 00:00:00 neoplasm of colon Medical Ce [facility]ter (procedure) [code = 647519826] Future Scheduled 1950 Screening for malignant [facility] 00:00:00 neoplasm of colon Medical Ce nter (procedure) [code = 163668491] Future Scheduled 1950 Sigmoidoscopy [facility]code [facility]oscopy] Medical [place] r Future Scheduled 1950 CT Colonography (combo) [facility] 00:00:00 [code = CT Colonography [facility] (combo)] Future Scheduled 1950 Screening for malignant [facility] 00:00:00 neoplasm of colon Medical Ce [facility]ter (procedure) [code = 962243836] Future Scheduled 1950 Screening for malignant [facility] 00:00:00 neoplasm of colon Medical Ce [facility]ter (procedure) [code = 842176892] Future Scheduled 1950 Screening for malignant [facility] 00:00:00 neoplasm of colon Medical Ce [facility]ter (procedure) [code = 798301480] Future Scheduled 1950 Screening for malignant [facility] 00:00:00 neoplasm of colon Medical Ce [facility]ter (procedure) [code = 592950914] Future Scheduled 1950 Sigmoidoscopy [facility]code [facility]oscopy] Medical [place] r Future Scheduled 1950 CT Colonography (combo) [facility] 00:00:00 [code = CT Colonography [facility] (combo)] Future Scheduled 1950 Screening for malignant [facility] 00:00:00 neoplasm of colon Medical Ce [facility]ter (procedure) [code = 562992529] Future Scheduled 1950 Screening for malignant [facility] 00:00:00 neoplasm of colon Medical Ce [facility]ter (procedure) [code = 122070008] Future Scheduled 1950 Screening for malignant [facility] 00:00:00 neoplasm of colon Medical Ce [facility]ter (procedure) [code = 660905967] Future Scheduled 1950 Screening for malignant [facility] 00:00:00 neoplasm of colon Medical Ce [facility]ter (procedure) [code = 652078491] Future Scheduled 1950 Sigmoidoscopy [facility]code [facility]oscopy] Medical [place] r Future Scheduled 1950 CT Colonography (combo) [facility] 00:00:00 [code = CT Colonography [facility] (combo)] Future Scheduled 1950 Screening for malignant [facility] 00:00:00 neoplasm of colon Medical Ce [facility]ter (procedure) [code = 031632018] Future Scheduled 1950 Screening for malignant [facility] 00:00:00 neoplasm of colon Medical Ce [facility]ter (procedure) [code = 240375018] Future Scheduled 1950 Screening for malignant [facility] 00:00:00 neoplasm of colon Medical Ce [facility]ter (procedure) [code = 473137195] Future Scheduled 1950 Screening for malignant [facility] 00:00:00 neoplasm of colon Medical Ce [facility]ter (procedure) [code = 568691937] Future Scheduled 1950 Sigmoidoscopy [facility]code [facility]] Medical Cente r Future Scheduled 1950 CT Colonography (combo) [facility] 00:00:00 [code = [facility] (combo)] Future Scheduled 1950 Screening for malignant [facility] 00:00:00 neoplasm of colon Medical Ce [facility]ter (procedure) [code = 258104063] Future Scheduled 1950 Screening for malignant [facility] 00:00:00 neoplasm of colon Medical Ce [facility]ter (procedure) [code = 385741282] Future Scheduled 1950 Screening for malignant [facility] 00:00:00 neoplasm of colon Medical Ce [facility]ter (procedure) [code = 358723167] Future Scheduled 1950 Screening for malignant [facility] 00:00:00 neoplasm of colon Medical Ce [facility]ter (procedure) [code = 615932913] Future Scheduled 1950 Sigmoidoscopy [facility]code [facility]] Medical Cent[facility] r Future Scheduled 1950 CT Colonography (combo) [facility] 00:00:00 [code = [facility] ([facility])] Future Scheduled 1950 Screening for malignant [facility] 00:00:00 neoplasm of colon Medical Ce [facility]ter (procedure) [code = 078388141] Future Scheduled 1950 Screening for malignant [facility] 00:00:00 neoplasm of colon Medical Ce [facility]ter (procedure) [code = 839497946] Future Scheduled 1950 Screening for malignant [facility] 00:00:00 neoplasm of colon Medical Ce [facility]ter (procedure) [code = 850923449] Future Scheduled 1950 [facility] malignant [facility] 00:00:00 neoplasm of colon Medical Ce nter (procedure) [code = 330876793] Future Scheduled 1950 Sigmoidoscopy [code = [facility] 00:[facility]:00 S[facility]] Medical Cente r Encounters Start End Encounter Admission Attending Care Care Encounter Source Date/Time Date/Time Type Type Clinicians Facility Department ID 2022-09-12 [facility] ER [facility] [id number] 00:[facility]00 [facility] 2022-09-12 [facility] [id number] 00:00:00 Encounter [facility] Gali Morales [facility] 2021-08-14 Emergency [facility] [id number] Univers 00:46:25 ity [facility] 2021-07-23 Inpatient ER ADIO, [facility] G[facility] [id number] SLE 02:36:06 [place] 2022-09-12 2022-09-16 Inpatient [facility] [id number] Memoria 23:38:00 15:50:00 MARY ALICE Nichols [facility] 2021-03-24 2021-03-24 Emergency [facility] [id number] 16:23:00 20:39:00 Rhys Cadet [id number] [place] [id number] [place] [id number] 2021-03-24 2021-03-24 Orders Doctor BRANT [id number] 00:00:00 00:00:00 Only UnassignedDOLLY 350.1.13.10 [place] [facility] [id number] [id number] Results Test Description Test Time Test [...] NOT 1092) ACCURATE CRE ATININE CLEARANCE IN [place] EDICTING GLOMERULAR FILT RATION RATE. ESTIMATED GFR IS NOT APPLICABLE FOR DIALYSIS PATIENTS. Sewer Builder ID - ADMINCBC W/PLT COUNT & AUTO [id number] 06:32:00 Test Item Value Reference Range Interpretation [...] = 2801) CBC W/PLT COUNT & AUTO [id number] 05:38:00 Test Item Value Reference Range Interpretation [...] CONCENTRATION Adequate (CELLAVISION)(BEAKER) (test code = 3438) Sewer Builder ID - Debbi comments: Slide comments:BASIC METABOLIC [id number] 05:14:00 Test Item Value Reference Range Interpretation [...] S NOT APPLICABLE FOR DIALYSIS PATIEN TS. Sewer Builder ID - DIOR WCBC W/PLT COUNT & AUTO [id number] 08:36:00 Test Item Value Reference Range Interpretation [...] CONCENTRATION Adequate (CELLAVISION)(BEAKER) (test code = 3438) Sewer Builder ID - Renetta OverholtUser comments: Slide comments:BASIC [...] S NOT APPLICABLE FOR DIALYSIS PATIEN TS. Sewer Builder ID - KAREEN MBASIC METABOLIC [id number] 06:24:00 Test Item Value Reference Range Interpretation [...] S NOT APPLICABLE FOR DIALYSIS PATIEN TS. Sewer Builder ID - CASS LCBC W/PLT COUNT & AUTO [id number] 05:16:00 Test Item Value Reference Range Interpretation [...] (BEAKER) (test code = 2801) BASIC METABOLIC [id number] 05:18:00 Test Item Value Reference Range Interpretation [...] S NOT APPLICABLE FOR DIALYSIS PATIEN TS. Sewer Builder ID - PIAYA LCBC W/PLT COUNT & AUTO [id number] 04:48:00 Test Item Value Reference Range Interpretation [...] (BEAKER) (test code = 2801) BASIC METABOLIC [id number] 04:36:00 Test Item Value Reference Range Interpretation [...] S NOT APPLICABLE FOR DIALYSIS PATIEN TS. Sewer Builder ID - KAREEN MCBC W/PLT COUNT & AUTO [id number] 04:11:00 Test Item Value Reference Range Interpretation [...] % 0-1 PERCENT (BEAKER) (test code = 2809) COMPREHENSIVE METABOLIC [id number] 06:30:00 Test Item Value Reference Range Interpretation [...] S NOT APPLICABLE FOR DIALYSIS PATIEN TS. Sewer Builder ID - EDASICBC W/PLT COUNT & AUTO [id number] 05:04:00 Test Item Value Reference Range Interpretation [...] PERCENT (BEAKER) (test code = 2801) BLOOD [id number] 22:00:00 Test Item Value Reference Range Interpretation Comments CULTURE (BEAKER) (test No growth in 5 days code = 1095) BLOOD [id number] 22:00:00 Test Item Value Reference Range Interpretation Comments CULTURE (BEAKER) (test No growth in 5 days code = 1095) VITAMIN D, [id number] 09:36:00 Test Item Value Reference Range Interpretation Comments VITAMIN D 25-OH (BEAKER) (test code 5.2 ng/mL 6.6-49.9 L = 2764) Effective 07/24/2017: Reference Range ChangeNew: 6.6-49.9 ng/mL Previous: 13.0- 47.8 ng/mLRecommendedVitamin D Target Range: 30.0-40.0 ng/mLOperator ID - PIAYA LTSH/FREE T4 IF [id number] 08:53:00 Test Item Value Reference Range Interpretation Comments THYROID STIMULATING HORMONE 3.700 uIU/mL 0.350-4.940 (BEAKER) (test code = 772) Sewer Builder ID - PIAYA LVITAMIN B12 AND [id number] 08:53:00 Test Item Value Reference Range Interpretation Comments VITAMIN B12 (BEAKER) 830 pg/mL 213-816 H (test code = 774) FOLATE (BEAKER) 4.50 ng/mL See_Comment L [Automated message] (test code = 362) The system which generated this result transmitted ref erence range: >=7.00. The reference range was not used to interpr et this result as normal/abnormal . Sewer Builder ID - PIAYA LCOMPREHENSIVE METABOLIC [id number] 08:20:00 Test Item Value Reference Range Interpretation [...] S NOT APPLICABLE FOR DIALYSIS PATIEN TS. Sewer Builder ID - PIAYA LCBC W/PLT COUNT & AUTO [id number] 08:04:00 Test Item Value Reference Range Interpretation [...] PERCENT (BEAKER) (test code = 2801) POCT-GLUCOSE [id number] 05:44:00 Test Item Value Reference Range Interpretation Comments POC-GLUCOSE METER 77 mg/dL 70-110 : TESTED A T [facility] 6720 (BEAKER) (test code = [place], 1538) [address]: Sewer Builder/Techni mallory ID = [id number] for [facility] tamiJennifer morales COMPREHENSIVE METABOLIC [id number] 05:19:00 Test Item Value Reference Range Interpretation [...] S NOT APPLICABLE FOR DIALYSIS PATIEN TS. Sewer Builder ID - KAREEN MCBC W/PLT COUNT & AUTO [id number] 04:38:00 Test Item Value Reference Range Interpretation [...] (BEAKER) (test code = 2801) COMPREHENSIVE METABOLIC [id number] 06:06:00 Test Item Value Reference Range Interpretation [...] S NOT APPLICABLE FOR DIALYSIS PATIEN TS. Sewer Builder ID - KAREEN [id number] 06:06:00 Test Item Value Reference Range Interpretation Comments MAGNESIUM (BEAKER) (test code = 1.5 mg/dL 1.6-2.6 L 627) Sewer Builder ID - KAREEN [id number] 06:06:00 Test Item Value Reference Range Interpretation Comments PHOSPHORUS (BEAKER) (test code = 2.1 mg/dL 2.3-4.7 L 604) Sewer Builder ID - KAREEN MCBC W/PLT COUNT & AUTO [id number] 05:32:00 Test Item Value Reference Range Interpretation [...] (BEAKER) (test code = 2801) COMPREHENSIVE METABOLIC [id number] 05:37:00 Test Item Value Reference Range Interpretation [...] S NOT APPLICABLE FOR DIALYSIS PATIEN TS. Sewer Builder ID Wilbert RADER [id number] 05:37:00 Test Item Value Reference Range Interpretation Comments PHOSPHORUS (BEAKER) (test code = 2.0 mg/dL 2.3-4.7 L 604) Sewer Builder ID Wilbert RADER WCBC W/PLT COUNT & AUTO [id number] 04:53:00 Test Item Value Reference Range Interpretation [...] (BEAKER) (test code = 2801) BASIC METABOLIC [id number] 07:51:00 Test Item Value Reference Range Interpretation [...] S NOT APPLICABLE FOR DIALYSIS PATIEN TS. Sewer Builder ID - DBHEPATIC FUNCTION [id number] 07:51:00 Test Item Value Reference Range Interpretation [...] (test code = 54 U/L 6-55 347) Sewer Builder ID - DBPROTHROMBIN [id number] 07:48:00 Test Item Value Reference Range Interpretation Comments PROTIME (BEAKER) 13.3 seconds 11.9-14.2 (test code = 759) INR (BEAKER) (test 1.03 See_Comment [Automat ed message] code = 370) The system SoundOut generated this result transmitted ref erence range: <=5.90. The reference range was not used to int erpret this result as normal/abnormal . RECOMMENDED COUMADIN/WARFARIN INR THERAPY RANGESSTANDARD DOSE: 2.0 - 3.0 Includes: PROPHYLAXIS for venous thrombosis, systemic embolization; TREATMENT for venous thrombosis and/or pulmonary embolus.HIGH RISK: Target INR is 2.5-3.5 for patients with mechanical heart valves.CBC W/PLT COUNT & AUTO [id number] 07:33:00 Test Item Value Reference Range Interpretation [...] 0-1 PERCENT (BEAKER) (test code = 2801) [id number] 07:12:00 Test Item Value Reference Range Interpretation Comments AMMONIA (BEAKER) (test code = 348) 40 mol/L 18-72 Sewer Builder ID - LORRIE PENA DRUG SCREEN, [id number] 03:47:00 Test Item Value Reference Range Interpretation [...] situations. Chain of custody not maintained. Some nckr-eeu-dpldsya medications, as well as adulterants, may cause inaccurate results. Clinical correlation should be applied. A more comprehensive drug screen or confirmation of a detected drug may be performed upon request.Sewer Builder ID - DBOperator ID - [auto] [id number] 22:04:00 Test Item Value Reference Range Interpretation Comments PROCALCITONIN (BEAKER) (test code 0.15 ng/mL <0.05 H = 3036) SEPSIS RISK (ng/mL)Low: 0.05-0.50Intermediate: 0.51-2.00High: >=2.01 URINALYSIS W/ REFLEX URINE [id number] 22:00:00 Test Item Value Reference Range Interpretation [...] = 1521) SOURCE(BEAKER) (test code = 2795) Sewer Builder ID - [auto]Sewer Builder ID - techCOMPREHENSIVE METABOLIC [id number] 21:34:00 Test Item Value Reference Range Interpretation [...] S NOT APPLICABLE FOR DIALYSIS PATIEN TS. Sewer Builder ID - [id number] 21:34:00 Test Item Value Reference Range Interpretation Comments MAGNESIUM (BEAKER) (test code = 1.8 mg/dL 1.6-2.6 627) Sewer Builder ID - DBLACTIC ACID, [id number] 21:24:00 Test Item Value Reference Range Interpretation Comments LACTATE BLOOD VENOUS (2) (BEAKER) 1.26 mmol/L 0.50-2.20 (test code = 2872) Sewer Builder ID - DBPROTHROMBIN [id number] 21:24:00 Test Item Value Reference Range Interpretation Comments PROTIME (BEAKER) 13.5 seconds 11.9-14.2 (test code = 759) INR (BEAKER) (test 1.04 See_Comment [Automat ed message] code = 370) The system SoundOut generated this result transmitted ref erence range: <=5.90. The reference range was not used to int erpret this result as normal/abnormal . RECOMMENDED COUMADIN/WARFARIN INR THERAPY RANGESSTANDARD DOSE: 2.0 - 3.0 Includes: PROPHYLAXIS for venous thrombosis, systemic embolization; TREATMENT for venous thrombosis and/or pulmonary embolus.HIGH RISK: Target INR is 2.5-3.5 for patients with mechanical heart valves.CBC W/PLT COUNT & AUTO [id number] 21:16:00 Test Item Value Reference Range Interpretation [...] (BEAKER) (test code = 2801) Comprehensive Metabolic [id number] 21:33:25 Test Item Value Reference Range Interpretation [...] A/G 1.5 ratio N Ratio) Comprehensive Metabolic [id number] 21:33:25 Test Item Value Reference Range Interpretation [...] the National Kidney Foundation, http://nkdep.ni h.gov Lipid [id number] 21:33:25 Test Item Value Reference Range Interpretation Comments Cholesterol Total 132 mg/dL 0-200 RISK OF HE ART (test code = DISEASEPublishe d by Cholesterol Total) [place] [employer] María lyte Optimal Borderl ine [...] LDL/HDL Ratio=L DL Calc/HDL Chol Comprehensive Metabolic [id number] 21:33:25 Test Item Value Reference Range Interpretation [...] ag e have not been validated by e MDRD study and should be interpreted wit h caution. eGFR R esult Interpretation: eGFR > or = 60 is in the Normal RangeeGF R < 60 may mean kid marco a diseaseeGFR < 1 5 may mean kidney failure Rang es recommended by the National Kidney Foundation, http://nkdep.ni h.gov Complete Blood Count with [id number] 20:56:24 Test Item Value Reference Range Interpretation [...] code = IPF) 0 % N Automated [id number] 20:56:24 Test Item Value Reference Range Interpretation Comments Neutro Auto (test code = Neutro 62.4 % 36.0-70.0 Auto) Lymph Auto (test code = Lymph Auto) 26.7 % 12.0-44.0 [place] Auto (test code = [place] Auto) 8.4 % 0.0-11.0 Eos, Auto (test code = Eos, Auto) 1.7 % 0.0-7.0 Basophil Auto (test code = Basophil 0.5 % 0.0-2.0 Auto) Neutro Absolute (test code = Neutro 6.0 x10 1.6-7.4 Absolute) Lymph Absolute (test code = Lymph 2.56 x10 .50-4.60 Absolute) [place] Absolute (test code = [place] .81 x10 .00-1.20 Absolute) Eos Absolute (test code = Eos 0.16 x10 0.00-0.74 Absolute) Baso Absolute (test code = Baso 0.05 x10 0.00-0.21 Absolute) IG [id number] 20:56:24 Test Item Value Reference Range Interpretation Comments IG (test code = IG) 0.3 % 0.0-5.0 IG Abs (test code = IG Abs) 0 x10 N
[2023-02-28] MEDS ORDERED: DIAZEPAM 10 MG/2 ML INJ SYRINGE ONE ×2 (14:12→18:47)
[2023-02-28] MEDS ORDERED: DICYCLOMINE HCL 20 MG/2 ML AMP IM ONE (14:13)
[2023-02-28] MEDS ORDERED: NA CHLORIDE 0.9% 1,000 ML ONE (14:13)
[2023-02-28 14:30] LABS: Absolute Lymphocytes (CBC) 0.7 K/uL (0.7-4.9); Hematocrit 56.6 % (39.6-49.0); Lymphocytes % 5.6 % (15.3-44.8); MCV 97.7 fL (80-100); MPV 9.1 fL (7.6-11.3); RBC Red Blood Cell Count 5.79 M/uL (4.33-5.43)
[2023-02-28] MEDS ORDERED: MORPHINE 4 MG/ML SYR ONE (15:25)
[2023-02-28 15:28] LABS: Albumin 4.5 g/dL (3.4-5.0); Bilirubin Total 0.9 mg/dL (0.2-1.0); Protein, Total 9.3 g/dL (6.4-8.2)
[2023-02-28 15:29] LABS: Potassium 4.2 mEq/L (3.5-5.1)
[2023-02-28] MEDS ORDERED: MAGNES/ALUMIN/SIMET 30ML UCUP ONE (16:31)
[2023-02-28] MEDS ORDERED: LIDOCAINE VISCOUS 2% SOLN 15 ML UDC ONE (16:31)
[2023-02-28 17:06] LABS: Specific Gravity > 1.030 (1.005-1.030); Urine Bacteria <20 /HPF (<20); Urine Bilirubin NEGATIVE (Negative); Urine Blood Trace (Negative); Urine Clarity Clear (Clear); Urine Color Yellow (Yellow); Urine Glucose NEGATIVE (Negative); Urine Mucus 2+ /HPF (None Seen); Urine Protein 1+ (Negative); Urine Urobilinogen Normal (Normal); Urine pH 5.5 (5.0-7.0)
--- NOTE | 2023-02-28 17:34 | RAD REPORT ---
EXAM DESCRIPTION: CT - Abdomen Pelvis W Contrast - 02/28/2023 4:09 pm CLINICAL HISTORY: ABD PAIN COMPARISON: Abdomen Pelvis W Contrast dated 11/18/2020; Abdomen Pelvis W Contrast dated 12/09/2018 TECHNIQUE: Thin cut axial CT imaging of the abdomen and pelvis was performed following intravenous a dministration of 95 mL Isovue 300. Multiplanar reformats were generated and reviewed. All CT scans are performed using dose optimization technique as appropriate and may include automated exposure control or mA/KV adjustment according to patient size. FINDINGS: No suspicious findings in the lung bases. Round atelectasis in the posterior right basal l parvez The liver, spleen, and pancreas show no suspicious findings. Gallbladder and biliary tree are also wi thout suspicious finding. Right adrenal ovoid 2.9 x 2.5 centimeter nodule is stable in size, not well characterized on this sin gle-phase CT. Another small nodule on the left, measuring approximately 1.4 centimeter is also stable Symmetric renal function is seen with no hydronephrosis or suspicious renal mass. Dilated proximal small bowel loops with fecalization. Relatively gradual transition to nondistended s mall bowel in the lower abdomen just right of midline, see series 201 images 57-63. No free air, free fluid or inflammatory stranding. No hernia, mass or bulky lymphadenopathy. The urinary bladder is wi thout significant finding. No suspicious bony findings. IMPRESSION: Dilated proximal small bowel loops with fecalization within relatively gradual transitio n, suggestive of ileus. Other stable findings as above.
[2023-02-28] MEDS ORDERED: METOCLOPRAMIDE 10 MG/2mL INJ ONE (18:05)
[2023-02-28] MEDS ORDERED: NA CHLORIDE 0.9% 50 ML ONE (18:05)
[2023-02-28] MEDS ORDERED: DIPHENHYDRAMINE 50 MG/ML VIAL ONE (18:05)
--- NOTE | 2023-02-28 18:06 | ER ---
Nurse's Notes [facility] Name: Peter Carson Age: 73 yrs Sex: Male : 1950 Arrival Date: 02/28/2023 Time: 13:51 Bed 18 Private MD: Diagnosis: Ileus, unspecified Presentation: 02/28 14:01 Chief complaint: EMS states: abdominal pain, n/v with anxiety that started today. kc6 Coronavirus screen: At this time, the client does not indicate any symptoms associated with coronavirus-19. Ebola Screen: No symptoms or risks identified at this time. Initial Sepsis Screen: Does the patient meet any 2 criteria? No. Patient's initial sepsis screen is negative. Does the patient have a suspected source of infection? No. Patient's initial sepsis screen is negative. Risk Assessment: Do you want to hurt yourself or someone else? Patient reports no desire to harm self or others. Onset of symptoms was February 28, 2023. 14:01 Method Of Arrival: EMS kc 14:01 Acuity: DEMETRI 3 kc6 Triage Assessment: 14:01 General: Appears in no apparent distress. uncomfortable, Behavior is cooperative, kc6 appropriate for age, anxious, restless. Pain: Denies pain. Neuro: Hunt Agitation-Sedation Scale (RASS): +1 Restless Level of Consciousness is awake, alert, obeys commands, Oriented to person, place, time, situation, Appropriate for age. GI: Abdomen is flat, non-distended, Reports nausea, vomiting. 14:01 EENT: No signs and/or symptoms were reported regarding the EENT system. Cardiovascular: kc6 Capillary refill < 3 seconds. Respiratory: Airway is patent Trachea midline Respiratory effort is even, unlabored, Respiratory pattern is regular, symmetrical. : No signs and/or symptoms were reported regarding the genitourinary system. Derm: No signs and/or symptoms reported regarding the dermatologic system. Skin is intact, Skin is pink, warm \\T\\ dry. Musculoskeletal: No signs and/or symptoms reported regarding the musculoskeletal system. Circulation, motion, and sensation intact. Capillary refill < 3 seconds, Range of motion: intact in all extremities. Historical: - Allergies: 14:01 PENICILLINS; "given to me in past, reaction when i was small child, dont remember"; [facility]6 [facility] Diverticulitis; High Cholesterol; Parkinson like symptoms; Dementia; Chronic kc6 obstructive lung disease; - PSHx: 14:01 colon sx; kc6 - Immunization history:: Client reports receiving the 2nd dose of the Covid vaccine, Flu vaccine is not up to date. - Social history:: Smoking status: Patient reports the use of cigarette tobacco products, smokes one pack cigarettes per day. - Family history:: not pertinent. Screenin:26 [facility] ED Fall Risk Assessment (Adult) History of falling in the last 3 months, kc6 including since admission No falls in past 3 months (0 pts) Confusion or Disorientation Yes (5 pts) Intoxicated or Sedated No (0 pts) Impaired Gait No (0 pts) Mobility Assist Device Used No (0 pt) Altered Elimination No (0 pt) Score/Fall Risk Level 0 - 2 = Low Risk Oriented to surroundings, Maintained a safe environment, Educated pt \\T\\ family on fall prevention, incl call for assistance when getting out of bed, Assessed \\T\\ reinforced patient's understanding of fall precautions, Hourly rounding (assess needs \\T\\ fall precautionary measures) done. Abuse screen: Denies threats or abuse. Denies injuries from another. Nutritional screening: No deficits noted. Tuberculosis screening: No symptoms or risk factors identified. Assessment: 14:01 Reassessment: please see triage assessment. kc6 15:00 Reassessment: Patient and/or family updated on plan of care and expected duration. Pain eh3 level reassessed. Patient is alert, oriented x 3, equal unlabored respirations, skin warm/dry/pink. 16:00 Reassessment: Patient and/or family updated on plan of care and expected duration. Pain eh3 level reassessed. Patient is alert, oriented x 3, equal unlabored respirations, skin warm/dry/pink. 17:00 Reassessment: Patient and/or family updated on plan of care and expected duration. Pain eh3 level reassessed. Patient is alert, oriented x 3, equal unlabored respirations, skin warm/dry/pink. 18:00 Reassessment: Patient and/or family updated on plan of care and expected duration. Pain eh3 level reassessed. Patient is alert, oriented x 3, equal unlabored respirations, skin warm/dry/pink. 19:34 General: Appears in no apparent distress. uncomfortable, Behavior is cooperative, lg3 anxious. Pain: Complains of pain in abdomen. Neuro: Hunt Agitation-Sedation Scale (RASS): 0 - Alert and Calm Level of Consciousness is awake, obeys commands, confused, Oriented to person, place, situation. Cardiovascular: No deficits noted. Denies chest pain, shortness of breath, Capillary refill < 3 seconds Clubbing of nail beds is absent JVD is absent Patient's skin is warm and dry. Respiratory: No deficits noted. Airway is patent Respiratory effort is even, unlabored, Respiratory pattern is regular, symmetrical. GI: No deficits noted. Abdomen is round non-distended, Reports cramping, nausea. : No deficits noted. No signs and/or symptoms were reported regarding the genitourinary system. EENT: No deficits noted. No signs and/or symptoms were reported regarding the EENT system. Derm: No deficits noted. No signs and/or symptoms reported regarding the dermatologic system. Skin is intact, is healthy with good turgor, Skin is dry, Skin is normal, Skin temperature is warm. Musculoskeletal: No deficits noted. Circulation, motion, and sensation intact. Range of motion: intact in all extremities. 19:47 General: attempted to give report. per Jennifer, nurse not available but she will call [facility] back shortly for report. Vital Signs: 14:01 BP 160 / 74; Pulse 71; Resp 19 S; Pulse Ox 96% on R/A; Weight 86.18 kg; Height 5 ft. 9 kc6 in. ; 15:00 BP 148 / 64; Pulse 63; Resp 18; Pulse Ox 95% on R/A; eh3 16:00 BP 145 / 71; Pulse 68; Resp 18; Pulse Ox 95% on R/A; eh3 17:00 BP 145 / 71; Pulse 71; Resp 18; Pulse Ox 95% on R/A; eh3 18:00 BP 140 / 60; Pulse 76; Resp 18; Pulse Ox 95% on R/A; eh3 19:34 BP 146 / 81; Pulse 89; Resp 16 S; Pulse Ox 96% on R/A; lg3 14:01 Body Mass Index 28.06 (86.18 kg, 175.26 cm) 6 ED Course: 13:54 Patient arrived in ED. em1 13:54 Rafael Cardenas MD is Attending Physician. rt 14:00 Paula Fuentes RN is Primary Nurse. kc6 14:01 Triage completed. kc6 14:01 Arm band placed on. kc6 14:14 Radiology exam delayed due to lab results not completed at this time. (BUN/Creatinine) jg10 IV insertion attempt and/or patient not having appropriate IV at this time. 14:26 Patient has correct armband on for positive identification. Bed in low position. Call kc6 light in reach. Side rails up X2. Adult w/ patient. 14:26 Inserted saline lock: 20 gauge in right antecubital area, using aseptic technique. kc6 Blood collected. 15:00 Report received from ANDRIA Mitchell. 3 15:55 CT Abd/Pelvis - IV Contrast Only In Process Unspecified. 3 18:05 Jeremías Lowe is Hospitalizing Provider. rt 20:13 No provider procedures requiring assistance completed. Patient admitted, IV remains in lg3 place. intact, No redness/swelling at site. Administered Medications: 14:25 Drug: NS 0.9% IV 1000 ml Route: IV; Rate: 1 bolus; Site: right antecubital; kc6 16:00 Follow up: IV Status: Completed infusion; IV Intake: 1000ml 3 14:25 Drug: Dicyclomine IM 20 mg Route: IM; Site: right deltoid; kc6 16:00 Follow up: Response: No adverse reaction eh3 14:25 Drug: Diazepam IM 10 mg Route: IM; Site: left deltoid; kc6 16:00 Follow up: Response: No adverse reaction 3 15:20 Drug: morphine IVP or IV 4 mg Route: IVP; Infused Over: 4 mins; Site: right antecubital;eh3 16:00 Follow up: Response: No adverse reaction eh3 16:30 Drug: GI Cocktail without - (Maalox PO Suspension 30 ml, Lidocaine Mucous eh3 Membrane Liquid 2 % 15 ml) Route: PO; 17:35 Follow up: Response: No adverse reaction eh3 18:07 Drug: metoCLOPramide IVP 10 mg Route: IVP; Site: right antecubital; eh3 19:36 Follow up: Response: No adverse reaction 3 18:07 Drug: diphenhydrAMINE IVP 25 mg Route: IVP; Site: right antecubital; eh3 19:36 Follow up: Response: No adverse reaction lg3 18:38 Not Given (Patient Refused): Ativan IVP 1 mg IVP once ll1 18:45 Drug: Diazepam IVP 5 mg Route: IVP; Site: right antecubital; eh3 19:36 Follow up: Response: No adverse reaction; No change in condition; RASS: Restless (+1) lg3 19:20 Drug: Nicoderm CQ Transdermal Patch 21 mg/24 hr 1 patches Route: Transdermal; Site: lg3 affected area; 19:37 Follow up: Response: No adverse reaction lg3 Medication: 19:34 VIS not applicable for this client. lg3 Intake: 16:00 IV: 1000ml; Total: 1000ml. eh3 Outcome: 18:06 Decision to Hospitalize by Provider. rt 20:13 Admitted to Med/surg accompanied by tech, via wheelchair, room 205, Report called to [facility] Jennifer 20:13 Condition: stable 20:13 Instructed on the need for admit, Demonstrated understanding of instructions. 21:00 Patient left the ED. 3 Signatures: Dispatcher [employer] EDMitchell Dominguez em1 Madelyn Alberts RN RN lg3 Arely Lr RN RN eh3 Paula Fuentes RN RN kc6 Lisette Smith jg10 Rafael Cardenas MD MD rt Merced Galloway RN ll1 Corrections: (The following items were deleted from the chart) 14:26 14:01 Chief complaint: EMS states: abdominal pain, n/v with anxiety that started today kc6 kc6 14:28 14:01 General: Appears in no apparent distress. uncomfortable, Behavior is cooperative, kc6 appropriate for age, anxious, restless, kc6 16:09 16:09 Reassessment: Patient and/or family updated on plan of care and expected eh3 duration. Pain level reassessed. Patient is alert, oriented x 3, equal unlabored respirations, skin warm/dry/pink. eh3 16:10 16:10 In radiology for Abdomen Pelvis W Con+CT.RAD.BRZ. EDMS eh3
--- NOTE | 2023-02-28 18:06 | EDPHYS ---
Physician Documentation [facility] Name: Peetr Carson Age: 73 yrs Sex: Male : 1950 Arrival Date: 02/28/2023 Time: 13:51 Bed 18 Private MD: ED Physician Rafael Cardenas HPI: 02/28 14:29 This 73 yrs old Male presents to ER via EMS with complaints of Abdominal pain. 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 The rt patient presents to the ED with about 1 day of abdominal pain, nausea, vomiting. The patient's caregiver states that he has had pain and tenderness to the right side of the abdomen. Denies other acute complaints at this time. Symptoms are moderate severity, no other aggravating or alleviating factors.. Historical: - Allergies: 14:01 PENICILLINS; "given to me in past, reaction when i was small child, dont remember"; kc6 - PMHx: 14:01 Diverticulitis; High Cholesterol; Parkinson like symptoms; Dementia; Chronic kc6 obstructive lung disease; - PSHx: 14:01 colon sx; kc6 - Immunization history:: Client reports receiving the 2nd dose of the Covid vaccine, Flu vaccine is not up to date. - Social history:: Smoking status: Patient reports the use of cigarette tobacco products, smokes one pack cigarettes per day. - Family history:: not pertinent. ROS: 14:33 Unable to obtain ROS due to baseline dementia. rt Exam: 14:33 Constitutional: This is a well developed, well nourished patient who is awake, alert, rt and in no acute distress. Head/Face: Normocephalic, atraumatic. Chest/axilla: Normal chest wall appearance and motion. Nontender with no deformity. No lesions are appreciated. Cardiovascular: Regular rate and rhythm with a normal S1 and S2. No gallops, murmurs, or rubs. Normal PMI, no JVD. No pulse deficits. Respiratory: Lungs have equal breath sounds bilaterally, clear to auscultation and percussion. No rales, rhonchi or wheezes noted. No increased work of breathing, no retractions or nasal flaring. Skin: Warm, dry with normal turgor. Normal color with no rashes, no lesions, and no evidence of cellulitis. MS/ Extremity: Pulses equal, no cyanosis. Neurovascular intact. Full, normal range of motion. 14:33 ECG was reviewed by the Attending Physician. 14:33 Abdomen/GI: Mild tenderness diffusely without rebound, guarding, distention. 14:33 Neuro: Spastic movements noted, at baseline.. Vital Signs: 14:01 BP 160 / 74; Pulse 71; Resp 19 S; Pulse Ox 96% on R/A; Weight 86.18 kg; Height 5 ft. 9 kc6 in. ; 15:00 BP 148 / 64; Pulse 63; Resp 18; Pulse Ox 95% on R/A; eh3 16:00 BP 145 / 71; Pulse 68; Resp 18; Pulse Ox 95% on R/A; eh3 17:00 BP 145 / 71; Pulse 71; Resp 18; Pulse Ox 95% on R/A; eh3 18:00 BP 140 / 60; Pulse 76; Resp 18; Pulse Ox 95% on R/A; eh3 19:34 BP 146 / 81; Pulse 89; Resp 16 S; Pulse Ox 96% on R/A; lg3 14:01 Body Mass Index 28.06 (86.18 kg, 175.26 cm) kc6 MDM: 13:56 Patient medically screened. rt 18:06 Differential diagnosis: Bowel obstruction, ileus, colitis. Data reviewed: vital signs, rt nurses notes. Consideration of Admission/Observation Patient was admitted/placed on observation. Management of patient was discussed with the following: Hospitalist: Agrees to admit. I considered the following discharge prescriptions or medication management in the emergency department Medications were administered in the Emergency Department. See MAR. Care significantly affected by the following chronic conditions: Warnicke's encephalopathy. Counseling: I had a detailed discussion with the patient and/or guardian regarding: the historical points, exam findings, and any diagnostic results supporting the discharge/admit diagnosis, lab results, radiology results, the need for further work-up and treatment in the hospital. Response to treatment: the patient's symptoms have mildly improved after treatment. 02/28 13:56 Order name: CBC with Diff; Complete Time: 15:13 rt 02/28 13:56 Order name: CMP; Complete Time: 16:25 rt 02/28 13:56 Order name: AMMONIA; Complete Time: 15:13 rt 02/28 13:56 Order name: Lipase; Complete Time: 16:25 rt 02/28 13:56 Order name: UAM; Complete Time: 17:08 rt 02/28 13:56 Order name: Magnesium; Complete Time: 16:25 rt 02/28 14:05 Order name: CT Abd/Pelvis - IV Contrast Only; Complete Time: 17:36 rt 02/28 13:56 Order name: EKG; Complete Time: 13:57 rt 02/28 13:56 Order name: EKG - Nurse/Tech; Complete Time: 14:25 rt EC:33 Rate is 56 beats/min. Rhythm is regular, Normal Sinus Rhythm with No ectopy. Left axis rt deviation noted. GA interval is normal. QRS interval is normal. QT interval is normal. No Q waves. T waves are Inverted in lead V1. Administered Medications: 14:25 Drug: NS 0.9% IV 1000 ml Route: IV; Rate: 1 bolus; Site: right antecubital; kc6 16:00 Follow up: IV Status: Completed infusion; IV Intake: 1000ml eh3 14:25 Drug: Dicyclomine IM 20 mg Route: IM; Site: right deltoid; kc6 16:00 Follow up: Response: No adverse reaction eh3 14:25 Drug: Diazepam IM 10 mg Route: IM; Site: left deltoid; kc6 16:00 Follow up: Response: No adverse reaction eh3 15:20 Drug: morphine IVP or IV 4 mg Route: IVP; Infused Over: 4 mins; Site: right antecubital;eh3 16:00 Follow up: Response: No adverse reaction eh3 16:30 Drug: GI Cocktail without - (Maalox PO Suspension 30 ml, Lidocaine Mucous eh3 Membrane Liquid 2 % 15 ml) Route: PO; 17:35 Follow up: Response: No adverse reaction eh3 18:07 Drug: metoCLOPramide IVP 10 mg Route: IVP; Site: right antecubital; eh3 19:36 Follow up: Response: No adverse reaction lg3 18:07 Drug: diphenhydrAMINE IVP 25 mg Route: IVP; Site: right antecubital; eh3 19:36 Follow up: Response: No adverse reaction lg3 18:38 Not Given (Patient Refused): Ativan IVP 1 mg IVP once ll1 18:45 Drug: Diazepam IVP 5 mg Route: IVP; Site: right antecubital; eh3 19:36 Follow up: Response: No adverse reaction; No change in condition; RASS: Restless (+1) lg3 19:20 Drug: Nicoderm CQ Transdermal Patch 21 mg/24 hr 1 patches Route: Transdermal; Site: lg3 affected area; 19:37 Follow up: Response: No adverse reaction lg3 Disposition Summary: 02/28/23 18:06 Hospitalization Ordered Hospitalization Status: Observation rt Provider: Jeremías Lowe rt Location: Telemetry/MedSurg (observation) rt Condition: Stable rt Problem: new rt Symptoms: have improved rt Bed/Room Type: Standard rt Room Assignment: 205(02/28/23 19:38) dw Diagnosis - Ileus, unspecified rt Forms: - Medication Reconciliation Form rt - SBAR form rt Signatures: Dispatcher [employer] Lauren Mckay RN RN dw Madelyn Alberts RN RN lg3 Mila Siddiqi RN RN vg1 Merced Galloway RN RN ll1 Arely Lr RN RN eh3 Paula Fuentes RN RN kc6 Nubia Randolph PA-C PAJennifer toussaint4 Rafael Cardenas MD MD rt Corrections: (The following items were deleted from the chart) 19:38 18:06 rt dw
[2023-02-28] MEDS ORDERED: LORazepam 2 MG/ML VIAL ONE (18:42)
[2023-02-28] MEDS ORDERED: NICOTINE 21 MG/PAT TD ONE (19:23)
--- NOTE | 2023-02-28 19:25 | P.HP ---
Certification for Inpatient Patient admitted to: Observation With expected LOS: <2 Midnights Patient will require the following post-hospital care: None Practitioner: I am a practitioner with admitting privileges, knowledge of patient current condition, hospital course, and medical plan of care. Services: Services provided to patient in accordance with Admission requirements found in Title 42 Section 412.3 of the Code of Federal Regulations Patient History Date of Service: 02/28/23 Reason for admission: Ileus History of Present Illness: Ms. Carson is a 73 year old male with past medical history of dementia, COPD who presented to the emergency department via EMS with complaints of abdominal pain and vomiting. He does have advanced dementia so history is limited. Ex at bedside giving most history. His labs are significant for WBC 13, hemoglobin 18, hematocrit 56, sodium 131. CT abdomen pelvis showed " Dilated proximal small bowel loops with fecalization within relatively gradual transition, suggestive of ileus." Vomiting has resolved, patient only complains of abdominal cramping at this time. Mild tenderness on exam. He is passing gas, has had very small BMs. Will admit for observation. Allergies Penicillins Allergy (Intermediate, Verified 01/25/17 19:56) Itching Home medications list reviewed: Yes Home Medications: Naproxen Sodium 2 tab PO BID 01/25/17 Ranitidine [Zantac] 150 mg PO DAILY 01/25/17 - Past Medical/Surgical History Diabetic: No -: Dementia -: Diverticulitis -: COPD -: Hyperlipidemia -: BOWEL SURGERY CUT OUT ADHESIONS -: RIB RESECTION -: NECK SURGERY/CERVICAL -: EAR SURGERY Psychosocial/ Personal History: Patient lives at home with his daughter. His ex helps take care of him as well. - Family History Father -: Heart disease Mother -: GI disease, Cancer Notes: GI cancer (intestines) Brother -: Other (see notes) Notes: Hep C and many back surgeries - Social History Smoking Status: Current every day smoker Smoking therapy provided: Yes Alcohol use: Yes CD- Drugs: No Caffeine use: Yes Place of Residence: Home Review of Systems Gastrointestinal: Nausea, Vomiting, Abdominal Pain, No Distention Physical Examination - Vital Signs Blood Pressure: 140/60 Pulse: 76 Respirations: 18 Pulse Ox (%): 95 - Physical Exam General: Alert, In no apparent distress HEENT: Atraumatic, EOMI, Sclerae nonicteric Neck: Supple, 2+ carotid pulse no bruit Respiratory: Clear to auscultation bilaterally, Normal air movement Cardiovascular: Regular rate/rhythm, Normal S1 S2 Gastrointestinal: Hypoactive, No rebound, No guarding, Tenderness Musculoskeletal: No tenderness Integumentary: No rashes Neurological: Normal speech, Normal affect - Studies Laboratory Data (last 24 hrs) 02/28/23 14:22: Sodium 131 L, Potassium 4.2, BUN 15, Creatinine 1.28, Glucose 138 H, Magnesium 2.0, Total Bilirubin 0.9, AST 17, ALT 49, Alkaline Phosphatase 104, Lipase 27 02/28/23 14:22: WBC 13.40 H, Hgb 18.9 H, Hct 56.6 H, Plt Count 253 Assessment and Plan - Problems (Diagnosis) (1) Ileus Current Visit: Yes Status: Acute (2) Tobacco abuse Current Visit: Yes Status: Chronic (3) COPD (chronic obstructive pulmonary disease) Current Visit: Yes Status: Chronic Qualifiers: COPD type: unspecified COPD Qualified Code(s): J44.9 - Chronic obstructive pulmonary disease, unspecified (4) Hyperlipidemia Current Visit: Yes Status: Chronic Qualifiers: Hyperlipidemia type: unspecified Qualified Code(s): E78.5 - Hyperlipidemia, unspecified (5) Dementia Current Visit: Yes Status: Chronic Qualifiers: Dementia type: unspecified type Dementia severity: moderate Dementia behavioral or psychological symptom: with anxiety Qualified Code(s): F03.B4 - Unspecified dementia, moderate, with anxiety - Plan Patient is admitted for observation for management of ileus. NPO. IV hydration. KUB ordered for the morning. Supportive measures with pain medications and antiemetics. Consider surgical consult if no clinical improvement. Patient is not vomiting. Will hold on NGT at this time and insert if necessary. Zosyn ordered given leukocytosis. No infectious process clearly identified at this time. Monitor and replete electrolytes per protocol. Reconcile and continue home medications. Lovenox for VTE prophylaxis. Full code. Discharge Plan: Home Plan to discharge in: 24 Hours - Advance Directives Does patient have a Living Will: Yes Does patient have a Durable POA for Healthcare: Yes - Code Status/Comfort Care Code Status Assessed: Yes Code Status: Full Code Physician Review: Patient Assessed, Agree with Above Assessment and Plan Critical Care: No Time Spent Managing Pts Care (In Minutes): 50
[2023-02-28] MEDS ORDERED: HALOPERIDOL LACT 5 MG/ML INJ IV PRN (21:00)
[2023-02-28] MEDS ORDERED: MORPHINE 2 MG/ML SYR IV PRN (21:00)
[2023-02-28 21:04] VITALS: BMI 24.7
[2023-02-28] MEDS: NA CHLORIDE 0.9% 1,000 ML IV SCH (21:36)
[2023-02-28] MEDS: ONDANSETRON 4 MG/2 ML VIAL IV PRN (21:36)
[2023-02-28] MEDS ORDERED: WATER FOR INJ,STERILE 10 ML IM PRN (22:23)
[2023-02-28] MEDS ORDERED: ZIPRASIDONE MESYLA 20 MG/VIAL IM ONE (22:23)
[2023-02-28] MEDS: PIPER TAZO 3.375 GM in NA CHLORIDE 0.9% 100 ML IV SCH (22:51)
[2023-02-28 23:25] LABS: Urine Bacteria None Seen /HPF (<20); Urine Bilirubin NEGATIVE (Negative); Urine Blood Trace (Negative); Urine Clarity Clear (Clear); Urine Color Light-Yellow (Yellow); Urine Glucose NEGATIVE (Negative); Urine Mucus Slight /HPF (None Seen); Urine Protein NEGATIVE (Negative); Urine RBC <5 /HPF (None Seen); Urine Urobilinogen Normal (Normal); Urine pH 6.5 (5.0-7.0)
[2023-02-28 23:28] LABS: Specific Gravity > 1.030 (1.005-1.030)
[2023-03-01] MEDS ORDERED: PROMETHAZINE INJ 25 MG/ML AMP IV ONE (00:29)
[2023-03-01] MEDS: ONDANSETRON 4 MG/2 ML VIAL IV PRN (03:30)
[2023-03-01] MEDS ORDERED: DIAZEPAM 10 MG/2 ML INJ SYRINGE IV ONE (03:31)
[2023-03-01] MEDS: PIPER TAZO 3.375 GM in NA CHLORIDE 0.9% 100 ML IV SCH ×2 (05:37→14:00)
[2023-03-01] MEDS: NA CHLORIDE 0.9% 1,000 ML IV SCH ×2 (05:40→13:00)
[2023-03-01] MEDS ORDERED: METOCLOPRAMIDE 10 MG/2mL INJ IV SCH (06:00)
[2023-03-01 08:36] LABS: Absolute Lymphocytes (CBC) 0.6 K/uL (0.7-4.9); Hematocrit 50.7 % (39.6-49.0); Lymphocytes % 5.8 % (15.3-44.8); MPV 8.6 fL (7.6-11.3); RBC Red Blood Cell Count 5.17 M/uL (4.33-5.43)
[2023-03-01 08:50] LABS: Magnesium 2.3 mg/dL (1.6-2.4); Phosphorus 3.8 mg/dL (2.5-4.9); Potassium 4.1 mEq/L (3.5-5.1)
[2023-03-01] MEDS ORDERED: ENOXAPARIN 40 MG/0.4 ML SQ SCH (09:00)
--- NOTE | 2023-03-01 09:10 | RAD REPORT ---
EXAM DESCRIPTION: RAD - Abdomen 1 View (KUB) - 02/28/2023 11:49 pm CLINICAL HISTORY: ileus COMPARISON: Abdomen Pelvis W Contrast dated 02/28/2023 TECHNIQUE: Single AP view of the abdomen. FINDINGS: Moderate dilation of small bowel loops in the left flank, up to 5 centimeter in caliber. N o evidence of free air or air-fluid levels. Surgical clips noted left of midline. Excreted contrast i n the bladder. No suspicious calcifications. No significant bony abnormality. IMPRESSION: Persistent dilated small bowel loops in the left flank.
--- NOTE | 2023-03-01 13:27 | EKG ---
Test Date: 2023-02-28 Test Time: 14:25:05 Coin Collector: LIT MEASUREMENT RESULTS: Intervals: Rate: 56 KS: 192 QRSD: 110 QT: 440 QTc: 424 Aneta: P: KS: 192 QRS: -71 T: 30 INTERPRETIVE STATEMENTS: Sinus bradycardia with sinus arrhythmia Left axis deviation Right bundle branch block Abnormal ECG Compared to ECG 10/10/2022 12:58:35 Sinus rhythm no longer present First degree AV block no longer present Electronically Signed On 03-01-23 13:25:53 CDT by Alex Quispe
--- NOTE | 2023-03-01 15:51 | P.DS ---
Admission Date: 02/28/23 Discharge Date: 03/01/23 Disposition: DC HOME/HOME HEALTH CARE Discharge Condition: FAIR Reason for Admission: Ileus - Problems (1) Ileus Current Visit: Yes Status: Acute (2) Dementia with behavioral disturbance Current Visit: Yes Status: Acute Brief History of Present Illness: Ms. Carson is a 73 year old male with past medical history of dementia, COPD who presented to the emergency department via EMS with complaints of abdominal pain and vomiting. He does have advanced dementia so history was limited. His labs were significant for WBC 13, hemoglobin 18, hematocrit 56, sodium 131. CT abdomen pelvis showed " Dilated proximal small bowel loops with fecalization within relatively gradual transition, suggestive of ileus." Vomiting resolved, patient was complaining of only abdominal cramping when seen for examination. He also had flatus and small BMs. Patient was hospitalized for further management. Hospital Course: Patient treated with supportive measures, placed on IV Reglan and antibiotics. He had multiple large bowel movements. Ileus resolved. Patient tolerated diet. He was intermittently agitated. This was managed with IV Haldol. Patient currently has no symptoms, ileus resolved. Patient is discharged with constipation prophylaxis. Vital Signs/Physical Exam: Temp Pulse Resp BP Pulse Ox 99.4 F 129 H 20 129/77 92 03/01/23 08:00 03/01/23 08:00 03/01/23 08:00 03/01/23 08:00 03/01/23 08:00 General: Alert, In no apparent distress, Oriented x3 HEENT: Mucous membr. moist/pink Neck: Supple, JVD not distended Respiratory: Clear to auscultation bilaterally, Normal air movement Cardiovascular: No edema, Regular rate/rhythm, Normal S1 S2 Gastrointestinal: Soft and benign, Non-distended Musculoskeletal: No swelling Integumentary: No cyanosis Neurological: Normal strength at 5/5 x4 extr Laboratory Data at Discharge: WBC 9.70 thou/uL (4.3-10.9) 03/01/23 08:27 Hgb 16.7 g/dL (13.6-17.9) D 03/01/23 08:27 Hct 50.7 % (39.6-49.0) H 03/01/23 08:27 Plt Count 191 thou/uL (152-406) 03/01/23 08:27 Sodium 136 mEq/L (136-145) D 03/01/23 08:27 Potassium 4.1 mEq/L (3.5-5.1) 03/01/23 08:27 BUN 18 mg/dL (7-18) 03/01/23 08:27 Creatinine 1.04 mg/dL (0.70-1.30) 03/01/23 08:27 Glucose 133 mg/dL (74-106) H 03/01/23 08:27 Phosphorus 3.8 mg/dL (2.5-4.9) 03/01/23 08:27 Magnesium 2.3 mg/dL (1.6-2.4) 03/01/23 08:27 Total Bilirubin 0.9 mg/dL (0.2-1.0) 02/28/23 14:22 AST 17 U/L (15-37) 02/28/23 14:22 ALT 49 U/L (16-61) 02/28/23 14:22 Alkaline Phosphatase 104 U/L (45-117) 02/28/23 14:22 Triglycerides 68 mg/dL (<150) 03/01/23 08:27 Cholesterol 158 mg/dL (<200) 03/01/23 08:27 HDL Cholesterol 45 mg/dL (40-60) 03/01/23 08:27 Cholesterol/HDL Ratio 3.51 03/01/23 08:27 Lipase 27 U/L (13-75) 02/28/23 14:22 Home Medications: Ensure Clear 237 ml PO BID #30 can 03/01/23 Polyethylene Glycol 3350 [Miralax] 17 gm PO BID PRN #60 packet 03/01/23 Sennosides [Senokotxtra] 17.2 mg PO BID #120 tab 03/01/23 New Medications: Ensure Clear 237 ml PO BID #30 can Polyethylene Glycol 3350 [Miralax] 17 gm PO BID PRN #60 packet PRN Reason: Constipation Sennosides [Senokotxtra] 17.2 mg PO BID #120 tab Diet: Regular Activity: Fall precautions Time spent managing pt's care (in minutes): 32
[2023-03-01 16:16] VITALS: BP 109/67; TEMP 98.7
[2023-03-01 16:59] VITALS: O2SAT 92
[2023-03-01] MEDS ORDERED: ENSURE CLEAR 200 ML CAN PO SCH (21:00)
== END 2023-03-01 16:42 | disposition home health service (06) ==
LOC: ER 13:51 → ERHOLD 19:18 → 2ND 19:49
PROVIDERS: ADMIT Internal Medicine; ATTEND Internal Medicine
DX: K56.7 Ileus, unspecified (principal); F17.210 Nicotine dependence, cigarettes, uncomplicated; J44.9 Chronic obstructive pulmonary disease, unspecified; F03.918 Unspecified dementia, unspecified severity, with other behavioral disturbance; E78.5 Hyperlipidemia, unspecified; F03.B4 Unspecified dementia, moderate, with anxiety; Z82.49 Family history of ischemic heart disease and other diseases of the circulatory system; Z80.9 Family history of malignant neoplasm, unspecified
CPT/HCPCS: 96361; 93005; 85025 ×2; 81001 ×2; 80048; 36415; 82140; 83735 ×2; 84100; 80061; 83690; 80053; 74177; 74018; 96375; 96372; 96374; 99285; Q9967; J2550; J1630; J2765 ×2; J0500; J1200; J2543 ×2; J3360 ×3; J3486; J2405 ×2; J7030 ×3; G0378; J1650

== ENCOUNTER 2023-09-02 12:31 | Observation (INO) | payer OTHER ==
--- OUTSIDE RECORDS SUMMARY | 2023-09-02 12:38 | XMS REPORT | Continuity of Care Document ---
:1950 Author Organization [facility] t Address [address] [place] [address] [place] [id number] Care Team Providers Name Role Phone Pricila Andrade MD, I Attending Clinician ARMINDA DEMARCO Attending Clinician Unavailable SOTO BARNES Attending Clinician Unavailable RAJINDER TOLBERT Attending Clinician Unavailable MARY ALICE GORDON Attending Clinician Unavailable Rhys Farmer DO Attending Clinician Doctor Unassigned, Teller Attending Clinician Unavailable PRICILA ANDRADE I. Admitting Clinician Unavailable ARMINDA DEMARCO Admitting Clinician Unavailable URVASHI GAGE Admitting Clinician Unavailable LOWELL HAMMER Admitting Clinician Unavailable HAIDER TOM Admitting Clinician Unavailable Payers Payer Name Policy Type Policy Number Effective Date Expiration Date S ource MEDICARE PART A \T\ [id number] 2015 B 00:00:00 [facility] [id number] 2018 MEDICARE SUPPLEMENT 00:00:00 [facility] MEDICARE [id number] 2022 ADVANTAGE 00:00:00 Problems Condition Condition Condition Status Onset Resolution Last Treating Co mments Source Name Details Category Date Date Treatment Clinician Date Hepatic Hepatic Disease Recurre [facility]08 [facility] 00 Center AMS AMS Disease Active [facility] status) status) 00 Center Allergies, Adverse Reactions, Alerts Allergy Allergy Status Severity Reaction(s) Onset Inactive Treating Comm ents Source Name Type Date Date Clinician P[facility]ICILL DRUG Active Unknown-Cmnt Un kuldeep IN INGREDI 01-09 ity of 00:00: [place] [id number] [facility] PENICILL Allergy Active Other [facility] Penicill Drug Active Other (See Other [facility] Allergy Comments) 2 reaction( Shira es 00:00: s): Other Medical 00 (see Center comments) Unknown reaction as an infant.Un known reaction as an . Social History Social Habit Start Date Stop Date Quantity Comments Source History of tobacco Cigarette Smoker [facility] use [facility] Sexual orientation [facility] Tobacco use and 2021-04-08 2021-04-08 Smokeless tobacco [facility] exposure [facility]00 00:00:00 non-user [facility] Alcohol intake 2021-04-08 2021-04-08 [facility]00 [facility] alcohol [facility] (finding) Cigarettes smoked 2021-04-08 2021-04-08 [facility] current (pack per 00:00:00 00:00:00 Medical Center day) - Reported Cigarette 2021-04-08 2021-04-[address] [facility] pack-years 00:00:00 00:00:00 [facility] Sex Assigned At [address] [facility] [address] Ling keodessa 00:00:00 00:00:00 [facility] Smoking Status Start Date Stop Date Source Smokes tobacco daily 2021-04-08 00:00:00 [facility] Medications Ordered Filled Start Stop Current Ordering Indication Dosage Frequency Signature Comments Components Source Medication Medication Date Date Medication? Clinician (SIG) Name Name tamsulosin 2021-0 Yes .4mg QD Take 1 [...] mouth Medi phyllis tablet 00 :00 daily. Barry thiamine 2020-2021- No 100mg QD Take 1 [...] mouth Medi phyllis tablet 00 :00 daily. Barry thiamine 2020-2021- No 100mg QD Take 1 [...] mouth Medi phyllis tablet 00 :00 daily. Barry thiamine 2020-2021- No 100mg QD Take 1 [...] mouth Medi phyllis tablet 00 :00 daily. Barry thiamine 2020-2021- No 100mg QD Take 1 [...] mouth Medi phyllis tablet 00 :00 daily. Barry thiamine 2020-2- No 100mg QD Take 1 [...] mouth Medi phyllis tablet 00 :00 daily. Barry thiamine 2020-2021- No 100mg QD Take 1 [...] mouth Medi phyllis tablet 00 :00 daily. Barry thiamine 2020-2021- No 100mg QD Take 1 [...] mouth Medi phyllis tablet 00 :00 daily. Barry thiamine 2020-2021- No 100mg QD Take 1 [...] mouth Medi phyllis tablet 00 :00 daily. Barry thiamine 2021- No 100mg QD Take 1 [...] 20 MG 15:27: daily. Medical capsule 38 Barry ondansetron 2020-0 Yes 4mg Take 4 mg [...] [address] (ZOFRAN) 4 09 by mouth 3 Shira es MG tablet [...] Center INFLUENZA VACCINE (Season Ended)] Future Scheduled 2023-06-14 Influenza Vaccine (#1) [facility] 00:00[facility]00 [code = Influenza Medical Ce nter Vaccine (#1)] Future Scheduled 2023-06-14 Influenza Vaccine (#1) [facility] 00:00:00 [code = Influenza Medical Ce nter Vaccine (#1)] Future Scheduled 2022-10-[address] [facility] Test 00:00:00 (12+) [code = Medical Center DEPRESSION SCREENING (12+)] Future Scheduled 2022-10-14 FALLS RISK SCREENING [facility] 00:00:00 [code = FALLS RISK Medical C enter SCREENING] Future Scheduled 2022-10-[address] [facility] 00:00:00 (12+) [code = Medical Center DEPRESSION SCREENING (12+)] Future Scheduled 2022-10-14 FALLS RISK SCREENING [facility] 00:00:00 [code = FALLS RISK Medical C enter SCREENING] Future Scheduled 2022-10-[address] [...] lung [facility] (procedure) [code = [id number]] Future Scheduled 2000-02-21 Screening [facility] malignant [facility] 00:00:00 neoplasm of lung [facility] (procedure) [code = 813605395] Future Scheduled 2000-02-21 Screening [facility] malignant [facility] 00:00:00 neoplasm of lung [facility] (procedure) [code = 229439711] Future Scheduled 2000-02-21 Screening [facility] malignant [facility] 00:00:00 neoplasm of lung [facility] (procedure) [code = 607389496] Future Scheduled 2000-02-21 Screening [facility] malignant [facility] 00:00:00 neoplasm of lung [facility] (procedure) [code = 823546320] Future Scheduled 2000-02-21 Screening [facility] malignant [facility] 00:00:00 neoplasm of lung [facility] (procedure) [code = 475389895] Future Scheduled 2000-02-21 Screening [facility] malignant [facility] 00:00:00 neoplasm of lung [facility] (procedure) [code = 916208939] Future Scheduled 2000-02-21 Screening [facility] malignant [facility] 00:00:00 neoplasm of lung [facility] (procedure) [code = 395316090] Future Scheduled 2000-02-21 Screening [facility] malignant [facility] 00:00:00 neoplasm of lung [facility] (procedure) [code = 024905888] Future Scheduled 2000-02-21 Screening [facility] malignant [facility] 00:00:00 neoplasm of lung [facility] (procedure) [code = 083975735] Future Scheduled 2000-02-21 Screening [facility] malignant [facility] 00:00:00 neoplasm of lung [facility] (procedure) [code = 644795307] Future Scheduled 2000-02-21 Screening [facility] malignant [facility] 00:00:00 neoplasm of lung [facility] (procedure) [code = 236718440] Future Scheduled 2000-02-21 Screening [facility] malignant [facility] 00:00:00 neoplasm of lung [facility] (procedure) [code = 918565750] Future Scheduled 2000-02-21 Screening [facility] malignant [facility] 00:00:00 neoplasm of lung [facility] (procedure) [code = 513758026] Future Scheduled 2000-02-21 Screening [facility] malignant [facility] 00:00:00 neoplasm of lung [facility] (procedure) [code = 398857872] Future Scheduled 2000-02-21 Screening [facility] malignant [facility] 00:00:00 neoplasm of lung [facility] (procedure) [code = 663597619] Future Scheduled 2000-02-21 Screening [facility] malignant [facility] 00:00:00 neoplasm of lung [facility] (procedure) [code = 724719419] Future Scheduled 1969 DTAP/TDAP/TD VACCINES CH I [...] colon Medical Ce nter (procedure) [code = 117514821] Future Scheduled 1950 Screening [facility] malignant [facility] 00:00:00 neoplasm of colon Medical Ce nter (procedure) [code = 824109926] Future Scheduled 1950 Screening [facility] malignant [facility] 00:00:00 neoplasm of colon Medical Ce nter (procedure) [code = 737678782] Future Scheduled 1950 Screening for malignant [facility] 00:00:00 neoplasm of colon Medical Ce nter (procedure) [code = 735156346] Future Scheduled 1950 Sigmoidoscopy [code = [facility] 00:[facility] Sigmoidoscopy] Medical Cente r Future Scheduled 1950 CT Colonography (combo) [facility] 00:00:00 [code = CT Colonography [facility] Center (combo)] Future Scheduled 1950 Screening for malignant [facility] 00:00:00 neoplasm of colon Medical Ce nter (procedure) [code = 179264854] Future Scheduled 1950 Screening for malignant [facility] 00:00:00 neoplasm of colon Medical Ce nter (procedure) [code = 165720760] Future Scheduled 1950 Screening for malignant [facility] 00:00:00 neoplasm of colon Medical Ce nter (procedure) [code = 830991034] Future Scheduled 1950 Screening for malignant [facility] 00:00:00 neoplasm of colon Medical Ce nter (procedure) [code = 549997896] Future Scheduled 1950 Sigmoidoscopy [code = [facility] 00:[facility] Sigmoidoscopy] Medical [place]al[place] r Future Scheduled 1950 CT Colonography (combo) [facility] 00:00:00 [code = CT Colonography [facility] Center (combo)] Future Scheduled 1950 Screening for malignant [facility] 00:00:00 neoplasm of colon Medical Ce nter (procedure) [code = 589469747] Future Scheduled 1950 Screening for malignant [facility] 00:00:00 neoplasm of colon Medical Ce nter (procedure) [code = 364085686] Future Scheduled 1950 Screening for malignant [facility] 00:00:00 neoplasm of colon Medical Ce nter (procedure) [code = 036989761] Future Scheduled 1950 Screening for malignant [facility] 00:00:00 neoplasm of colon Medical Ce nter (procedure) [code = 914409316] Future Scheduled 1950 Sigmoidoscopy [code = [facility] 00:[facility] S[facility]oidoscopy] Medical [place] r Future Scheduled 1950 CT Colonography (combo) [facility] 00:00:00 [code = CT Colonography [facility] Center (combo)] Future Scheduled 1950 Screening for malignant [facility] 00:00:00 neoplasm of colon Medical Ce nter (procedure) [code = 285677126] Future Scheduled 1950 Screening for malignant [facility] 00:00:00 neoplasm of colon Medical Ce nter (procedure) [code = 361302265] Future Scheduled 1950 Screening for malignant [facility] 00:00:00 neoplasm of colon Medical Ce nter (procedure) [code = 909400315] Future Scheduled 1950 Screening for malignant [facility] 00:00:00 neoplasm of colon Medical Ce nter (procedure) [code = 295315571] Future Scheduled 1950 Sigmoidoscopy [code = [facility] 00:[facility] S[facility]oidoscopy] Medical [place] r Future Scheduled 1950 CT Colonography (combo) [facility] 00:00:00 [code = CT Colonography [facility] Center (combo)] Future Scheduled 1950 Screening for malignant [facility] 00:00:00 neoplasm of colon Medical Ce nter (procedure) [code = 208349561] Future Scheduled 1950 Screening for malignant [facility] 00:00:00 neoplasm of colon Medical Ce nter (procedure) [code = 087499035] Future Scheduled 1950 Screening for malignant [facility] 00:00:00 neoplasm of colon Medical Ce nter (procedure) [code = 237016177] Future Scheduled 1950 Screening for malignant [facility] 00:00:00 neoplasm of colon Medical Ce nter (procedure) [code = 457322563] Future Scheduled 1950 Sigmoidoscopy [code = [facility] 00:[facility] S[facility]oidoscopy] Medical Cente r Future Scheduled 1950 CT Colonography (combo) [facility] 00:00:00 [code = CT Colonography [facility] Center (combo)] Future Scheduled 1950 Screening for malignant [facility] 00:00:00 neoplasm of colon Medical Ce nter (procedure) [code = 040304728] Future Scheduled 1950 Screening for malignant [facility] 00:00:00 neoplasm of colon Medical Ce nter (procedure) [code = 076722995] Future Scheduled 1950 Screening for malignant [facility] 00:00:00 neoplasm of colon Medical Ce nter (procedure) [code = 932017501] Future Scheduled 1950 Screening for malignant [facility] 00:00:00 neoplasm of colon Medical Ce nter (procedure) [code = 330021650] Future Scheduled 1950 Sigmoidoscopy [code = [facility] 00:[facility] S[facility]oidoscopy] Medical Cente r Future Scheduled 1950 CT Colonography (combo) [facility] 00:00:00 [code = CT Colonography [facility] Center (combo)] Future Scheduled 1950 Screening for malignant [facility] 00:00:00 neoplasm of colon Medical Ce nter (procedure) [code = 140631638] Future Scheduled 1950 Screening for malignant [facility] 00:00:00 neoplasm of colon Medical Ce nter (procedure) [code = 308018380] Future Scheduled 1950 Screening for malignant [facility] 00:00:00 neoplasm of colon Medical Ce nter (procedure) [code = 993055283] Future Scheduled 1950 Screening for malignant [facility] 00:00:00 neoplasm of colon Medical Ce nter (procedure) [code = 919568398] Future Scheduled 1950 Sigmoidoscopy [code = [facility] 00:[facility] Sigmoidoscopy] Medical Cente r Future Scheduled 1950 CT Colonography (combo) [facility] 00:00:00 [code = CT Colonography [facility] Center (combo)] Future Scheduled 1950 Screening for malignant [facility] 00:00:00 neoplasm of colon Medical Ce nter (procedure) [code = 997400229] Future Scheduled 1950 Screening for malignant [facility] 00:00:00 neoplasm of colon Medical Ce nter (procedure) [code = 959963463] Future Scheduled 1950 Screening for malignant [facility] 00:00:00 neoplasm of colon Medical Ce nter (procedure) [code = 998197508] Future Scheduled 1950 Screening for malignant [facility] 00:00:00 neoplasm of colon Medical Ce nter (procedure) [code = 265714054] Future Scheduled 1950 Sigmoidoscopy [code = [facility] 00:[facility] S[facility]oidoscopy] Medical Cente r Future Scheduled 1950 CT Colonography (combo) [facility] 00:00:00 [code = CT Colonography [facility] Center (combo)] Future Scheduled 1950 Screening for malignant [facility] 00:00:00 neoplasm of colon Medical Ce nter (procedure) [code = 492867435] Future Scheduled 1950 Screening for malignant [facility] 00:00:00 neoplasm of colon Medical Ce nter (procedure) [code = 863757979] Future Scheduled 1950 Screening for malignant [facility] 00:00:00 neoplasm of colon Medical Ce nter (procedure) [code = 769372110] Future Scheduled 1950 Screening for malignant [facility] 00:00:00 neoplasm of colon Medical Ce nter (procedure) [code = 645526949] Future Scheduled 1950 Sigmoidoscopy [facility]code [facility] ([facility]bo[facility] 00:00:00 [code = CT Colonography [facility] Center (combo)] Future Scheduled 1950 Screening for malignant [facility] 00:00:00 neoplasm of colon Medical Ce nter (procedure) [code = 831651219] Future Scheduled 1950 Screening for malignant [facility] 00:00:00 neoplasm of colon Medical Ce nter (procedure) [code = 104724121] Future Scheduled 1950 Screening for malignant [facility] 00:00:00 neoplasm of colon Medical Ce nter (procedure) [code = 748996016] Future Scheduled 1950 Screening for malignant [facility] 00:00:00 neoplasm of colon Medical Ce nter (procedure) [code = 946500533] Future Scheduled 1950 Sigmoidoscopy [facility]code [facility] 00:[facility] S[facility]oidoscopy] Medical Cente r Future Scheduled 1950 CT Colonography (combo) [facility] 00:00:00 [code = CT Colonography [facility] Center (combo)] Future Scheduled 1950 Screening for malignant [facility] 00:00:00 neoplasm of colon Medical Ce nter (procedure) [code = 979439802] Future Scheduled 1950 Screening for malignant [facility] 00:00:00 neoplasm of colon Medical Ce nter (procedure) [code = 655831998] Future Scheduled 1950 Screening for malignant [facility] 00:00:00 neoplasm of colon Medical Ce nter (procedure) [code = 953813612] Future Scheduled 1950 Screening for malignant [facility] 00:00:00 neoplasm of colon Medical Ce nter (procedure) [code = 080906413] Future Scheduled 1950 Sigmoidoscopy [facility]code = [facility] 00:[facility] S[facility]oidoscopy] Medical Cente r Future Scheduled 1950 CT Colonography (combo) [facility] 00:00:00 [code = CT Colonography [facility] (combo)] Future Scheduled 1950 Screening for malignant [facility] 00:00:00 neoplasm of colon Medical Ce nter (procedure) [code = 044060127] Future Scheduled 1950 Screening for malignant [facility] 00:00:00 neoplasm of colon Medical Ce nter (procedure) [code = 209991003] Future Scheduled 1950 Screening for malignant [facility] 00:00:00 neoplasm of colon Medical Ce nter (procedure) [code = 354333643] Future Scheduled 1950 Screening for malignant [facility] 00:00:00 neoplasm of colon Medical Ce nter (procedure) [code = 810246273] Future Scheduled 1950 Sigmoidoscopy [facility]code [facility] 00:[facility] S[facility]oidoscopy] Medical Cente r Future Scheduled 1950 CT Colonography (combo) [facility] 00:00:00 [code = CT Colonography [facility] (combo)] Future Scheduled 1950 Screening for malignant [facility] 00:00:00 neoplasm of colon Medical Ce nter (procedure) [code = 904517427] Future Scheduled 1950 Screening for malignant [facility] 00:00:00 neoplasm of colon Medical Ce nter (procedure) [code = 932456210] Future Scheduled 1950 Screening for malignant [facility] 00:00:00 neoplasm of colon Medical Ce nter (procedure) [code = 075531800] Future Scheduled 1950 Screening for malignant [facility] 00:00:00 neoplasm of colon Medical Ce nter (procedure) [code = 129023588] Future Scheduled 1950 Sigmoidoscopy [facility]code = [facility] 00:[facility] S[facility]oidoscopy] Medical Cente r Future Scheduled 1950 CT Colonography (combo) [facility] 00:00:00 [code = CT Colonography [facility] Center (combo)] Future Scheduled 1950 Screening for malignant [facility] 00:00:00 neoplasm of colon Medical Ce nter (procedure) [code = 832138977] Future Scheduled 1950 Screening for malignant [facility] 00:00:00 neoplasm of colon Medical Ce nter (procedure) [code = 998150732] Future Scheduled 1950 Screening for malignant [facility] 00:00:00 neoplasm of colon Medical Ce nter (procedure) [code = 410961792] Future Scheduled 1950 Screening for malignant [facility] 00:00:00 neoplasm of colon Medical Ce nter (procedure) [code = 253832465] Future Scheduled 1950 Sigmoidoscopy [facility]code = [facility] 00:[facility] S[facility]oscopy] Medical Cente r Future Scheduled 1950 CT Colonography (combo) [facility] 00:00:00 [code = CT Colonography [facility] (combo)] Future Scheduled 1950 Screening for malignant [facility] 00:00:00 neoplasm of colon Medical Ce nter (procedure) [code = 637899418] Future Scheduled 1950 Screening for malignant [facility] 00:00:00 neoplasm of colon Medical Ce nter (procedure) [code = 888593097] Future Scheduled 1950 Screening for malignant [facility] 00:00:00 neoplasm of colon Medical Ce nter (procedure) [code = 388735759] Future Scheduled 1950 Screening for malignant [facility] 00:00:00 neoplasm of colon Medical Ce nter (procedure) [code = 969383638] Future Scheduled 1950 Sigmoidoscopy [facility]code = [facility] 00:[facility] S[facility]oscopy] Medical Cente r Future Scheduled 1950 CT Colonography (combo) [facility] 00:00:00 [code = CT Colonography [facility] (combo)] Future Scheduled 1950 Screening for malignant [facility] 00:00:00 neoplasm of colon Medical Ce nter (procedure) [code = 792736788] Future Scheduled 1950 Screening for malignant [facility] 00:00:00 neoplasm of colon Medical Ce nter (procedure) [code = 842172353] Future Scheduled 1950 Screening for malignant [facility] 00:00:00 neoplasm of colon Medical Ce nter (procedure) [code = 575210933] Future Scheduled 1950 Screening for malignant [facility] 00:00:00 neoplasm of colon Medical Ce nter (procedure) [code = 179842132] Future Scheduled 1950 Sigmoidoscopy [facility]code = [facility]oscopy] Medical Cente r Future Scheduled 1950 CT Colonography (combo) [facility] 00:00:00 [code = CT Colonography [facility] (combo)] Future Scheduled 1950 Screening for malignant [facility] 00:00:00 neoplasm of colon Medical Ce nter (procedure) [code = 348300408] Future Scheduled 1950 Screening for malignant [facility] 00:00:00 neoplasm of colon Medical Ce nter (procedure) [code = 398469819] Future Scheduled 1950 Screening for malignant [facility] 00:00:00 neoplasm of colon Medical Ce nter (procedure) [code = 650537793] Future Scheduled 1950 Screening for malignant [facility] 00:00:00 neoplasm of colon Medical Ce nter (procedure) [code = 268252143] Future Scheduled 1950 Sigmoidoscopy [facility]code [facility] 00:[facility]oscopy] Medical Cente r Future Scheduled 1950 CT Colonography (combo) [facility] 00:00:00 [code = CT Colonography [facility] (combo)] Future Scheduled 1950 Screening for malignant [facility] 00:00:00 neoplasm of colon Medical Ce nter (procedure) [code = 188475030] Future Scheduled 1950 Screening for malignant [facility] 00:00:00 neoplasm of colon Medical Ce nter (procedure) [code = 848340965] Future Scheduled 1950 Screening for malignant [facility] 00:00:00 neoplasm of colon Medical Ce nter (procedure) [code = 891999447] Future Scheduled 1950 Screening for malignant [facility] 00:00:00 neoplasm of colon Medical Ce nter (procedure) [code = 787827915] Future Scheduled 1950 Sigmoidoscopy [facility]code = [facility] 00:[facility] S[facility]oscopy] Medical Cente r Future Scheduled 1950 CT Colonography (combo) [facility] 00:00:00 [code = CT Colonography [facility] (combo)] Future Scheduled 1950 Screening for malignant [facility] 00:00:00 neoplasm of colon Medical Ce nter (procedure) [code = 362130206] Future Scheduled 1950 Screening for malignant [facility] 00:00:00 neoplasm of colon Medical Ce nter (procedure) [code = 051505822] Future Scheduled 1950 Screening for malignant [facility] 00:00:00 neoplasm of colon Medical Ce nter (procedure) [code = 877142652] Future Scheduled 1950 Screening for malignant [facility] 00:00:00 neoplasm of colon Medical Ce nter (procedure) [code = 267658161] Future Scheduled 1950 Sigmoidoscopy [facility]code [facility]oscopy] Medical Cente r Encounters Start End Encounter Admission Attending Care Care Encounter Source Date/Time Date/Time Type Type Clinicians Facility Department ID 2022-09-12 [facility] [id number] 00:[facility]00 Encounter [facility] 2022-09-12 [facility] [id number] 00:00:00 Encounter [facility] 2021-08-14 Emergency [facility] [id number] [facility] 00:46:25 [facility] 2021-07-23 Inpatient ER NIL[facility] [id number] [facility] 02:36:06 TITILOLA 2023-09-16 2023-09-16 Outpatient CAMERON [facility] [id number] [place] 10:00:00 10:00:00 [facility] 2023-07-31 2023-08-15 Inpatient E IMELDA-CO [facility] [id number] [facility] 15:47:00 17:47:00 RAJINDER CANO 2022-09-12 2022-09-16 Inpatient U EVAN, [facility] [id number] [facility] 23:38:00 15:50:00 MARY ALICE Nichols [facility] 2021-03-24 2021-03-24 Emergency Farmer, [facility] [id number] 16:23:00 20:39:00 Rhys Cadet [id number] [place] [id number] [place] [id number] 2021-03-24 2021-03-24 Orders Doctor BRANT [id number] 00:00:00 00:00:00 Only Unassigned, DOLLY [id number] Teller [facility] [id number] Results Test Description Test Time Test [...] GFR IS NOT APPLICABLE FOR DIALYSIS PATIENTS. Medicaid Plan Compliance Director ID - ADMINCBC W/PLT COUNT & AUTO [id number] 06:32:00 Test Item Value Reference Range Interpretation [...] = 2801) CBC W/PLT COUNT & AUTO [id number] 05:38:00 Test Item Value Reference Range Interpretation [...] CONCENTRATION Adequate (CELLAVISION)(BEAKER) (test code = 3438) Medicaid Plan Compliance Director ID - Debbi comments: Slide comments:BASIC METABOLIC [id number] 05:14:00 Test Item Value Reference Range Interpretation [...] S NOT APPLICABLE FOR DIALYSIS PATIEN TS. Medicaid Plan Compliance Director ID - DIOR WCBC W/PLT COUNT & AUTO [id number] 08:36:00 Test Item Value Reference Range Interpretation [...] CONCENTRATION Adequate (CELLAVISION)(BEAKER) (test code = 3438) Medicaid Plan Compliance Director ID - Renetta OverholtUser comments: Slide comments:BASIC [...] S NOT APPLICABLE FOR DIALYSIS PATIEN TS. Medicaid Plan Compliance Director ID - KAREEN MBASIC METABOLIC [id number] 06:24:00 Test Item Value Reference Range Interpretation [...] S NOT APPLICABLE FOR DIALYSIS PATIEN TS. Medicaid Plan Compliance Director ID - PIAYA LCBC W/PLT COUNT & AUTO [id number] 05:16:00 Test Item Value Reference Range Interpretation [...] (BEAKER) (test code = 2801) BASIC METABOLIC [id number] 05:18:00 Test Item Value Reference Range Interpretation [...] S NOT APPLICABLE FOR DIALYSIS PATIEN TS. Medicaid Plan Compliance Director ID - PIAYA LCBC W/PLT COUNT & AUTO [id number] 04:48:00 Test Item Value Reference Range Interpretation [...] (BEAKER) (test code = 2801) BASIC METABOLIC [id number] 04:36:00 Test Item Value Reference Range Interpretation [...] S NOT APPLICABLE FOR DIALYSIS PATIEN TS. Medicaid Plan Compliance Director ID - KAREEN MCBC W/PLT COUNT & AUTO [id number] 04:11:00 Test Item Value Reference Range Interpretation [...] (BEAKER) (test code = 2801) COMPREHENSIVE METABOLIC [id number] 06:30:00 Test Item Value Reference Range Interpretation [...] S NOT APPLICABLE FOR DIALYSIS PATIEN TS. Medicaid Plan Compliance Director ID - EDASICBC W/PLT COUNT & AUTO [id number] 05:04:00 Test Item Value Reference Range Interpretation [...] PERCENT (BEAKER) (test code = 2801) BLOOD [id number] 22:00:00 Test Item Value Reference Range Interpretation Comments CULTURE (BEAKER) (test No growth in 5 days code = 1095) BLOOD [id number] 22:00:00 Test Item Value Reference Range Interpretation Comments CULTURE (BEAKER) (test No growth in 5 days code = 1095) VITAMIN D, [id number] 09:36:00 Test Item Value Reference Range Interpretation Comments VITAMIN D 25-OH (BEAKER) (test code 5.2 ng/mL 6.6-49.9 L = 2764) Effective 07/24/2017: Reference Range ChangeNew: 6.6-49.9 ng/mL Previous: 13.0- 47.8 ng/mLRecommendedVitamin D Target Range: 30.0-40.0 ng/mLOperator ID - CASS LTSH/FREE T4 IF [id number] 08:53:00 Test Item Value Reference Range Interpretation Comments THYROID STIMULATING HORMONE 3.700 uIU/mL 0.350-4.940 (BEAKER) (test code = 772) Medicaid Plan Compliance Director ID - CASS LVITAMIN B12 AND [id number] 08:53:00 Test Item Value Reference Range Interpretation Comments VITAMIN B12 (BEAKER) 830 pg/mL 213-816 H (test code = 774) FOLATE (BEAKER) 4.50 ng/mL See_Comment L [Automated message] (test code = 362) The system which generated this result transmitted ref erence range: >=7.00. The reference range was not used to interpr et this result as normal/abnormal . Medicaid Plan Compliance Director ID - CASS LCOMPREHENSIVE METABOLIC [id number] 08:20:00 Test Item Value Reference Range Interpretation [...] S NOT APPLICABLE FOR DIALYSIS PATIEN TS. Medicaid Plan Compliance Director ID - PIAYA LCBC W/PLT COUNT & AUTO [id number] 08:04:00 Test Item Value Reference Range Interpretation [...] PERCENT (BEAKER) (test code = 2801) POCT-GLUCOSE [id number] 05:44:00 Test Item Value Reference Range Interpretation Comments POC-GLUCOSE METER 77 mg/dL 70-110 : TESTED A T [facility] 6720 (BEAKER) (test code = [place], 1538) [id number]: Medicaid Plan Compliance Director/Techni mallory ID = [id number] for [facility] Jennifer nicholas COMPREHENSIVE METABOLIC [id number] 05:19:00 Test Item Value Reference Range Interpretation [...] S NOT APPLICABLE FOR DIALYSIS PATIEN TS. Medicaid Plan Compliance Director ID - KAREEN MCBC W/PLT COUNT & AUTO [id number] 04:38:00 Test Item Value Reference Range Interpretation [...] (BEAKER) (test code = 2801) COMPREHENSIVE METABOLIC [id number] 06:06:00 Test Item Value Reference Range Interpretation [...] S NOT APPLICABLE FOR DIALYSIS PATIEN TS. Medicaid Plan Compliance Director ID - KAREEN [id number] 06:06:00 Test Item Value Reference Range Interpretation Comments MAGNESIUM (BEAKER) (test code = 1.5 mg/dL 1.6-2.6 L 627) Medicaid Plan Compliance Director ID - KAREEN [id number] 06:06:00 Test Item Value Reference Range Interpretation Comments PHOSPHORUS (BEAKER) (test code = 2.1 mg/dL 2.3-4.7 L 604) Medicaid Plan Compliance Director ID - KAREEN MCBC W/PLT COUNT & AUTO [id number] 05:32:00 Test Item Value Reference Range Interpretation [...] (BEAKER) (test code = 2801) COMPREHENSIVE METABOLIC [id number] 05:37:00 Test Item Value Reference Range Interpretation [...] S NOT APPLICABLE FOR DIALYSIS PATIEN TS. Medicaid Plan Compliance Director ID Wilbert RADER [id number] 05:37:00 Test Item Value Reference Range Interpretation Comments PHOSPHORUS (BEAKER) (test code = 2.0 mg/dL 2.3-4.7 L 604) Medicaid Plan Compliance Director ID - DIOR WCBC W/PLT COUNT & AUTO [id number] 04:53:00 Test Item Value Reference Range Interpretation [...] (BEAKER) (test code = 2801) BASIC METABOLIC [id number] 07:51:00 Test Item Value Reference Range Interpretation [...] S NOT APPLICABLE FOR DIALYSIS PATIEN TS. Medicaid Plan Compliance Director ID - DBHEPATIC FUNCTION [id number] 07:51:00 Test Item Value Reference Range Interpretation [...] (test code = 54 U/L 6-55 347) Medicaid Plan Compliance Director ID - DBPROTHROMBIN [id number] 07:48:00 Test Item Value Reference Range Interpretation Comments PROTIME (BEAKER) 13.3 seconds 11.9-14.2 (test code = 759) INR (BEAKER) (test 1.03 See_Comment [Automat ed message] code = 370) The system [employer] generated this result transmitted ref erence range: <=5.90. The reference range was not used to int erpret this result as normal/abnormal . RECOMMENDED COUMADIN/WARFARIN INR THERAPY RANGESSTANDARD DOSE: 2.0 - 3.0 Includes: PROPHYLAXIS for venous thrombosis, systemic embolization; TREATMENT for venous thrombosis and/or pulmonary embolus.HIGH RISK: Target INR is 2.5-3.5 for patients with mechanical heart valves.CBC W/PLT COUNT & AUTO [id number] 07:33:00 Test Item Value Reference Range Interpretation [...] 0-1 PERCENT (BEAKER) (test code = 2801) [id number] 07:12:00 Test Item Value Reference Range Interpretation Comments AMMONIA (BEAKER) (test code = 348) 40 mol/L 18-72 Medicaid Plan Compliance Director ID - LORRIE MARTINOAPID DRUG SCREEN, [id number] 03:47:00 Test Item Value Reference Range Interpretation [...] situations. Chain of custody not maintained. Some nmwh-nyq-dhcwojv medications, as well as adulterants, may cause inaccurate results. Clinical correlation should be applied. A more comprehensivedrug screen or confirmation of a detected drug may be performed upon request.Medicaid Plan Compliance Director ID - DBOperator ID - [auto] [id number] 22:04:00 Test Item Value Reference Range Interpretation Comments PROCALCITONIN (BEAKER) (test code 0.15 ng/mL <0.05 H = 3036) SEPSIS RISK (ng/mL)Low: 0.05-0.50Intermediate: 0.51-2.00High: >=2.01 URINALYSIS W/ REFLEX URINE [id number] 22:00:00 Test Item Value Reference Range Interpretation [...] = 1521) SOURCE(BEAKER) (test code = 2795) Medicaid Plan Compliance Director ID - [auto]Medicaid Plan Compliance Director ID - techCOMPREHENSIVE METABOLIC [id number] 21:34:00 Test Item Value Reference Range Interpretation [...] S NOT APPLICABLE FOR DIALYSIS PATIEN TS. Medicaid Plan Compliance Director ID - [id number] 21:34:00 Test Item Value Reference Range Interpretation Comments MAGNESIUM (BEAKER) (test code = 1.8 mg/dL 1.6-2.6 627) Medicaid Plan Compliance Director ID - DBLACTIC ACID, [id number] 21:24:00 Test Item Value Reference Range Interpretation Comments LACTATE BLOOD VENOUS (2) (BEAKER) 1.26 mmol/L 0.50-2.20 (test code = 2872) Medicaid Plan Compliance Director ID - DBPROTHROMBIN [id number] 21:24:00 Test Item Value Reference Range Interpretation Comments PROTIME (BEAKER) 13.5 seconds 11.9-14.2 (test code = 759) INR (BEAKER) (test 1.04 See_Comment [Automat ed message] code = 370) The system [employer] generated this result transmitted ref erence range: <=5.90. The reference range was not used to int erpret this result as normal/abnormal . RECOMMENDED COUMADIN/WARFARIN INR THERAPY RANGESSTANDARD DOSE: 2.0 - 3.0 Includes: PROPHYLAXIS for venous thrombosis, systemic embolization; TREATMENT for venous thrombosis and/or pulmonary embolus.HIGH RISK: Target INR is 2.5-3.5 for patients with mechanical heart valves.CBC W/PLT COUNT & AUTO [id number] 21:16:00 Test Item Value Reference Range Interpretation [...] (BEAKER) (test code = 2801) Comprehensive Metabolic [id number] 21:33:25 Test Item Value Reference Range Interpretation [...] A/G 1.5 ratio N Ratio) Comprehensive Metabolic [id number] 21:33:25 Test Item Value Reference Range Interpretation [...] the National Kidney Foundation, http://nkdep.ni h.gov Lipid [id number] 21:33:25 Test Item Value Reference Range Interpretation Comments Cholesterol Total 132 mg/dL 0-200 RISK OF HE ART (test code = DISEASEPublishe d by Cholesterol Total) [place] [employer] María lyte Optimal Borderl ine [...] LDL/HDL Ratio=L DL Calc/HDL Chol Comprehensive Metabolic [id number] 21:33:25 Test Item Value Reference Range Interpretation [...] ag e have not been validated by [facility] MDRD study and should be interpreted wit [...] ag e have not been validated by [facility] MDRD study and should be interpreted wit h caution. eGFR R esult Interpretation: eGFR > or = 60 is in the Normal RangeeGF R < 60 may mean kid marco a diseaseeGFR < 1 5 may mean kidney failure Rang es recommended by the National Kidney Foundation, http://nkdep.ni h.gov Complete Blood Count with [id number] 20:56:24 Test Item Value Reference Range Interpretation [...] code = IPF) 0 % N Automated [id number] 20:56:24 Test Item Value Reference Range Interpretation Comments Neutro Auto (test code = Neutro 62.4 % 36.0-70.0 Auto) Lymph Auto (test code = Lymph Auto) 26.7 % 12.0-44.0 [place] Auto (test code = [place] Auto) 8.4 % 0.0-11.0 Eos, Auto (test code = Eos, Auto) 1.7 % 0.0-7.0 Basophil Auto (test code = Basophil 0.5 % 0.0-2.0 Auto) Neutro Absolute (test code = Neutro 6.0 x10 1.6-7.4 Absolute) Lymph Absolute (test code = Lymph 2.56 x10 .50-4.60 Absolute) [place] Absolute (test code = [place] .81 x10 .00-1.20 Absolute) Eos Absolute (test code = Eos 0.16 x10 0.00-0.74 Absolute) Baso Absolute (test code = Baso 0.05 x10 0.00-0.21 Absolute) IG [id number] 20:56:24 Test Item Value Reference Range Interpretation Comments IG (test code = IG) 0.3 % 0.0-5.0 IG Abs (test code = IG Abs) 0 x10 N
--- NOTE | 2023-09-02 13:09 | RAD REPORT ---
EXAM DESCRIPTION: CT - CTHCSPWOC - 09/02/2023 12:56 pm CLINICAL HISTORY: Trauma, head and neck injury. TRAUMA COMPARISON: Neck Angio dated 10/10/2022; Neck Angio dated 09/12/2022 TECHNIQUE: Axial 5 mm thick images of the head were obtained. Axial 2 mm thick images of the cervical spine were obtained with sagittal and coronal reconstruction images generated and reviewed. All CT scans are performed using dose optimization technique as appropriate and may include automated exposure control or mA/KV adjustment according to patient size. FINDINGS: CT HEAD WITHOUT CONTRAST: No acute hemorrhage, hydrocephalus or extra-axial collection is identified.No areas of brain edema or midline shift. The paranasal sinuses and mastoids are essentially clear.The calvarium is intact. CT CERVICAL SPINE WITHOUT CONTRAST: No fracture or subluxation.Moderate lower cervical degenerative changes.No prevertebral soft tissues swelling is identified. Upper lung lugo are emphysematous with small spiculated nodule present in t he right apex. IMPRESSION: No acute intracranial or cervical spine findings.
--- NOTE | 2023-09-02 13:16 | RAD REPORT ---
EXAM DESCRIPTION: CT - Thorax Wo Con CLINICAL HISTORY: Chest pain TRAUMA COMPARISON: Abdomen Pelvis W Contrast dated 02/28/2023; Neck Angio dated 10/10/2022 FINDINGS: Diffuse COPD is present. Calcified granuloma is present in the anterior left apex. Small s piculated nodule seen in the medial right upper lobe measuring 5 mm. Small amount of airspace opaciti es present posterior left upper lobe. Minimal atelectasis is present both posterior lung bases. No pl eural thickening or pleural effusion. No pneumothorax. No axillary, mediastinal or hilar adenopathy. No concerning bony finding. No gross upper abdominal finding. All CT scans are performed using dose optimization technique as appropriate and may include automated exposure control or mA/KV adjustment according to patient size. IMPRESSION: No acute intrathoracic abnormality. COPD with small spiculated 5 mm lesion in the right apex medially. The USPSTF recommends annual scree avtar for lung cancer with low-dose CT (LDCT) in adults aged 50 to 80 years who have a 20 pack-year sm oking history and currently smoke or have quit within the past 15 years.
--- NOTE | 2023-09-02 13:21 | RAD REPORT ---
EXAM DESCRIPTION: CT - Spine Lumbar Wo Con - 09/02/2023 12:58 pm CLINICAL HISTORY: Radiculopathy. trauma COMPARISON: Head C Spine Mpr Wo Con dated 09/02/2023; Thorax Wo Con dated 09/02/2023; Neck Angio brent ed 10/10/2022 TECHNIQUE: Axial noncontrast CT imaging of the lumbar spine was performed with coronal and sagittal re-formatted images. All CT scans are performed using dose optimization technique as appropriate and may include automated exposure control or mA/KV adjustment according to patient size. FINDINGS: No acute lumbar spine fracture seen. No aggressive marrow pattern or malalignment. Moderat e osteopenia. Paraspinal tissues are normal in thickness. No paraspinal abscess or hematoma seen. Aortic atheroscle rosis. Moderate posterior disc bulging is present lower lumbar levels. Moderate levels of canal narrowing li norris present. IMPRESSION: No acute lumbar spine abnormality visualized Moderate lower lumbar spondylosis.
[2023-09-02 13:38] LABS: Absolute Lymphocytes (CBC) 1.4 K/uL (0.7-4.9); Hematocrit 46.6 % (39.6-49.0); Lymphocytes % 20.5 % (15.3-44.8); MCV 98.9 fL (80-100); MPV 8.6 fL (7.6-11.3); Platelets 207 thou/uL (152-406); RBC Red Blood Cell Count 4.71 M/uL (4.33-5.43)
--- NOTE | 2023-09-02 13:59 | RAD REPORT ---
EXAM DESCRIPTION: RAD - Chest Single View - 09/02/2023 1:34 pm CLINICAL HISTORY: ams Chest pain. COMPARISON: Abdomen 1 View (KUB) dated 02/28/2023; Chest Single View dated 10/10/2022; Chest Single V iew dated 09/12/2022; Chest Single View dated 04/08/2021 FINDINGS: Portable technique limits examination quality. The lungs are grossly clear. The heart is normal in size. No displaced fractures. IMPRESSION: No acute intrathoracic process suspected.
[2023-09-02] MEDS ORDERED: KETOROLAC 30 MG/ML INJ ONE ×2 (14:28→20:09)
[2023-09-02] MEDS ORDERED: DIAZEPAM 5 MG TABLET ONE ×2 (14:28→19:46)
[2023-09-02 14:39] LABS: Protime INR 1.05
[2023-09-02 17:12] LABS: Albumin 3.2 g/dL (3.4-5.0); Bilirubin Direct 0.2 mg/dL (0-0.2); Bilirubin Indirect, Calculated 0.4 mg/dL (0.2-0.8); Bilirubin Total 0.6 mg/dL (0.2-1.0); Potassium 3.9 mEq/L (3.5-5.1); Protein, Total 7.5 g/dL (6.4-8.2); Troponin High Sensitivity 9.3 pg/mL (<58.9)
[2023-09-02] MEDS ORDERED: NICOTINE 21 MG/PAT TD ONE (19:00)
--- NOTE | 2023-09-02 19:08 | EDPHYS ---
Physician Documentation [facility] Name: Peter Carson Age: 73 yrs Sex: Male : 1950 Arrival Date: 09/02/2023 Time: 12:31 Bed 18 Private MD: ED Physician Rafael Cardenas HPI: 09/02 12:53 This 73 yrs old Male presents to ER via EMS with complaints of Fall. rt 12:53 Patient presents to the ED with 2 falls. Reportedly, last night EMS was called for lift rt assist, very stiff, falling. He had a second fall today, was reportedly having back pain, EMS states that the patient is more alert currently than last night. 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 Historical: - Allergies: 12:35 PENICILLINS; ll1 12:35 Morphine; ll1 12:35 Clonazepam; ll1 - PMHx: 12:35 Chronic obstructive lung disease; Dementia; Diverticulitis; High Cholesterol; Parkinson ll1 like symptoms; warnekes disease; - PSHx: 12:35 colon sx; ll1 - Immunization history:: Adult Immunizations up to date. - Social history:: Smoking status: Patient reports the use of cigarette tobacco products, smokes one-half pack cigarettes per day. - Family history:: not pertinent. ROS: 12:53 Unable to obtain ROS due to baseline dementia, rt Exam: 12:53 Constitutional: This is a well developed, well nourished patient who is awake, alert, rt and in no acute distress. Head/Face: Normocephalic, atraumatic. Chest/axilla: Normal chest wall appearance and motion. Nontender with no deformity. No lesions are appreciated. Cardiovascular: Regular rate and rhythm with a normal S1 and S2. No gallops, murmurs, or rubs. Normal PMI, no JVD. No pulse deficits. Respiratory: Lungs have equal breath sounds bilaterally, clear to auscultation and percussion. No rales, rhonchi or wheezes noted. No increased work of breathing, no retractions or nasal flaring. Abdomen/GI: Soft, non-tender, with normal bowel sounds. No distension or tympany. No guarding or rebound. No evidence of tenderness throughout. Skin: Warm, dry with normal turgor. Normal color with no rashes, no lesions, and no evidence of cellulitis. MS/ Extremity: Pulses equal, no cyanosis. Neurovascular intact. Full, normal range of motion. 12:53 Neuro: Confused, mumbling speech, moves all 4 extremities equally, 13:27 ECG was reviewed by the Attending Physician. rt Vital Signs: 12:36 Weight 90.72 kg; Pain 5/10; ll1 12:42 BP 120 / 72; Pulse 75; Resp 18; Temp 97.8; Pulse Ox 92% on R/A; Pain 5/10; ll1 13:45 BP 134 / 72; Pulse 71; Resp 15; Pulse Ox 94% on R/A; tl4 15:00 BP 116 / 74; Pulse 77; Resp 16; Pulse Ox 95% ; tl4 17:00 BP 109 / 70; Pulse 70; Resp 17; Pulse Ox 95% ; tl4 18:20 BP 122 / 71; Pulse 70; Resp 15; Pulse Ox 94% on R/A; tl4 19:10 BP 133 / 70; Pulse 70; Pulse Ox 95% ; tl4 20:10 BP 131 / 79; Pulse 73; Resp 19; Pulse Ox 98% ; jj7 21:15 BP 124 / 67; Pulse 74; Resp 17; Pulse Ox 97% ; jj7 12:36 Pain Scale: Adult ll1 12:42 Pain Scale: Adult ll1 MDM: 12:34 Patient medically screened. rt 20:26 Differential Diagnosis Intracranial hemorrhage, spinal fracture, Warnicke Korsakoff rt syndrome, electrolyte disturbance. Data reviewed: vital signs, nurses notes, lab test result(s), EKG, radiologic studies. Consideration of Admission/Observation Patient was admitted/placed on observation. Management of patient was discussed with the following: Hospitalist: Agrees to admit. Independent interpretation of the following test(s) in the Emergency Department CT Scan: My interpretation is No intracranial hemorrhage seen on interpretation of CT scan images. 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 Counseling: I had a detailed discussion with the patient and/or guardian regarding the historical points, exam findings, and any diagnostic results supporting the discharge/admit diagnosis, lab results, radiology results, the need for further work-up and treatment in the hospital. 09/02 12:37 Order name: Basic Metabolic Panel; Complete Time: 17:13 rt 09/02 12:37 Order name: CBC with Diff; Complete Time: 14:00 rt 09/02 12:37 Order name: LFT's; Complete Time: 17:13 rt 09/02 12:37 Order name: Magnesium; Complete Time: 17:13 rt 09/02 12:37 Order name: PT-INR; Complete Time: 15:23 rt 09/02 12:37 Order name: Troponin HS; Complete Time: 17:13 rt 09/02 12:37 Order name: AMMONIA; Complete Time: 17:13 rt 09/02 20:14 Order name: Basic Metabolic Panel EDMS 09/02 20:14 Order name: Basic Metabolic Panel EDMS 09/02 20:14 Order name: Basic Metabolic Panel EDMS 09/02 20:14 Order name: Basic Metabolic Panel EDMS 09/02 20:14 Order name: CBC with Automated Diff EDMS 09/02 20:14 Order name: CBC with Automated Diff EDMS 09/02 20:14 Order name: Urinalysis w/ reflexes EDMS 09/02 20:15 Order name: CBC with Automated Diff EDMS 09/02 20:15 Order name: CBC with Automated Diff EDMS 09/02 20:15 Order name: Magnesium EDMS 09/02 20:15 Order name: Magnesium EDMS 09/02 20:15 Order name: Magnesium EDMS 09/02 20:15 Order name: Magnesium EDMS 09/02 20:15 Order name: Phosphorus EDMS 09/02 20:15 Order name: Phosphorus EDMS 09/02 20:15 Order name: Phosphorus EDMS 09/02 20:15 Order name: Phosphorus EDMS 09/02 20:15 Order name: PTT, Activated Partial Thromb EDMS 09/02 20:15 Order name: PTT, Activated Partial Thromb EDMS 09/02 20:15 Order name: PTT, Activated Partial Thromb EDMS 09/02 20:15 Order name: PTT, Activated Partial Thromb EDMS 09/02 12:37 Order name: XRAY Chest (1 view); Complete Time: 14:00 rt 09/02 12:37 Order name: CT Head C Spine; Complete Time: 14:00 rt 09/02 12:37 Order name: CT Lumbar Spine Wo Con; Complete Time: 14:00 rt 09/02 12:37 Order name: Thorax Wo Con CT; Complete Time: 14:00 rt 09/02 12:37 Order name: EKG; Complete Time: 12:38 rt 09/02 12:37 Order name: Cardiac monitoring; Complete Time: 12:43 rt 09/02 12:37 Order name: EKG - Nurse/Tech; Complete Time: 12:43 rt 09/02 12:37 Order name: IV Saline Lock; Complete Time: 13:26 rt 09/02 12:37 Order name: Labs collected and sent; Complete Time: 13:26 rt 09/02 12:37 Order name: O2 Per Protocol; Complete Time: 12:43 rt 09/02 12:37 Order name: O2 Sat Monitoring; Complete Time: 12:43 rt 09/02 13:49 Order name: Labs - recollect needed: light green light blue and ammonia in green top; sp Complete Time: 14:08 EC:27 Rate is 72 beats/min. Rhythm is regular, Normal Sinus Rhythm with Right bundle branch rt block. Left axis deviation noted. SC interval is normal. QRS interval is normal. QT interval is normal. No Q waves. Interpreted by me. Administered Medications: 14:23 Drug: Ketorolac IVP 15 mg IVP once Route: IVP; Site: right upper arm; tl4 18:44 Follow up: Response: No adverse reaction tl4 14:23 Drug: Diazepam PO 10 mg PO once Route: PO; tl4 18:44 Follow up: Response: Anxiety decreased tl4 14:24 Not Given (UNAVAILABLEe): [id number] mg IVPB at calculated rate once tl4 18:46 Drug: Nicoderm CQ Transdermal Patch 21 mg/24 hr 1 patches Transdermal once {Note: tl4 placed on right posterior shoulder.} Route: Transdermal; Site: affected area; 19:44 Drug: Diazepam PO 10 mg PO once Route: PO; jj7 20:07 Drug: Banana Bag - (Multivitamin IV 1 amp, NS 0.9% IV 1000 ml, Thiamine IV 100 mg, jj7 foLIC Acid IVPB 1 mg) IV at calculated rate once Route: IV; Rate: calculated rate; Site: left forearm; 20:07 Drug: Ketorolac IVP 15 mg IVP once Route: IVP; Site: left forearm; jj7 20:32 Follow up: Response: Marked relief of symptoms jj7 Disposition Summary: 09/02/23 19:07 Hospitalization Ordered Notes: Hospitalization Status: Observation rt Provider: Adan Angel rt Location: Telemetry/MedSurg (observation) rt Condition: Stable rt Problem: an ongoing problem rt Symptoms: are unchanged rt Bed/Room Type: Standard rt Room Assignment: 414(09/02/23 21:22) cg Diagnosis - Warnicke Korsakoff syndrome rt Forms: - Medication Reconciliation Form rt - SBAR form rt - Leadership Thank You Letter rt Signatures: Dispatcher [employer] EDNicolette Min Cindy RN RN cg Merced Galloway RN RN ll1 Fuad Marcelo RN RN as6 Bruce Lawson RN RN jj7 Rafael Cardenas MD MD rt Jeevan Rodas tl4 Corrections: (The following items were deleted from the chart) 20:39 19:07 rt as6 21:18 20:39 411 as6 cg 21:22 21:18 cg cg
--- NOTE | 2023-09-02 19:08 | ER ---
Nurse's Notes [facility] Name: Peter Carson Age: 73 yrs Sex: Male : 1950 Arrival Date: 09/02/2023 Time: 12:31 Bed 18 Private MD: Diagnosis: Warnicke Korsakoff syndrome Presentation: 09/02 12:36 Chief complaint: Patient states: Fell twice while transferring into bed at midnight and ll1 again around noon today. Back pain since. Coronavirus screen: Client denies travel out of the [place] in the last 14 days. At this time, the client does not indicate any symptoms associated with coronavirus-19. Ebola Screen: Patient denies travel to an Ebola-affected area in the 21 days before illness onset. Initial Sepsis Screen: Does the patient meet any 2 criteria? No. Patient's initial sepsis screen is negative. Does the patient have a suspected source of infection? No. Patient's initial sepsis screen is negative. Risk Assessment: Do you want to hurt yourself or someone else? Patient reports no desire to harm self or others. Onset of symptoms was September 02, 2023. 12:36 Method Of Arrival: EMS: [facility] ll1 12:36 Acuity: DEMETRI 3 ll1 Triage Assessment: 12:37 General: Appears uncomfortable, Behavior is calm, cooperative, appropriate for age. ll1 Pain: Complains of pain in back Quality of pain is described as aching. Musculoskeletal: Circulation, motion, and sensation intact. Capillary refill < 3 seconds, Reports pain in back. Injury Description: Bruise. Historical: - Allergies: 12:35 PENICILLINS; ll1 12:35 Morphine; ll1 12:35 Clonazepam; ll1 - PMHx: 12:35 Chronic obstructive lung disease; Dementia; Diverticulitis; High Cholesterol; Parkinson ll1 like symptoms; warnekes disease; - PSHx: 12:35 colon sx; ll1 - Immunization history:: Adult Immunizations up to date. - Social history:: Smoking status: Patient reports the use of cigarette tobacco products, smokes one-half pack cigarettes per day. - Family history:: not pertinent. Screenin:26 [facility] ED Fall Risk Assessment (Adult) Score/Fall Risk Level 3 or more points = High iw Risk Oriented to surroundings, Maintained a safe environment, Educated pt \T\ family on fall prevention, incl call for assistance when getting out of bed, Hourly rounding (assess needs \T\ fall precautionary measures) done, Used ambulatory aids as needed (educated on \T\ assisted with), Offered frequent toileting (1:1 observation). Abuse screen: Denies threats or abuse. Nutritional screening: No deficits noted. Tuberculosis screening: No symptoms or risk factors identified. Assessment: 13:26 Reassessment: No changes from previously documented assessment. Patient and/or family iw updated on plan of care and expected duration. Pain level reassessed. 14:23 Reassessment: No changes from previously documented assessment. Patient and/or family tl4 updated on plan of care and expected duration. Pain level reassessed. 15:28 Reassessment: No changes from previously documented assessment. Patient and/or family ll1 updated on plan of care and expected duration. Pain level reassessed. 16:06 Reassessment: No changes from previously documented assessment. Patient and/or family ll1 updated on plan of care and expected duration. Pain level reassessed. 17:55 Reassessment: No changes from previously documented assessment. Patient and/or family tl4 updated on plan of care and expected duration. Pain level reassessed. 18:54 Reassessment: No changes from previously documented assessment. Patient and/or family tl4 updated on plan of care and expected duration. Pain level reassessed. 19:30 Reassessment: No changes from previously documented assessment. ASSUMED CARE OF PT. PT ericj7 LYING IN BED. PT HAS AMS. FAMILY AT BEDSIDE. PT REMOVING BP CUFF AND PULSE OX. FAMILY STATES THIS IS HIS BASELINE. CONFUSION, AMS, AND HALLUCINATIONS. 20:54 Reassessment: ATTEMPTED REPORT TO M/S. NO ONE AVAILABLE. jj7 21:18 Reassessment: M/S NURSES STATE ROOM 411 ALREADY HAS A PT IN THERE. CHARGE NURSE WILL jj7 HAVE TO ASSIGN ANOTHER ROOM. Vital Signs: 12:36 Weight 90.72 kg; Pain 5/10; ll1 12:42 BP 120 / 72; Pulse 75; Resp 18; Temp 97.8; Pulse Ox 92% on R/A; Pain 5/10; ll1 13:45 BP 134 / 72; Pulse 71; Resp 15; Pulse Ox 94% on R/A; tl4 15:00 BP 116 / 74; Pulse 77; Resp 16; Pulse Ox 95% ; tl4 17:00 BP 109 / 70; Pulse 70; Resp 17; Pulse Ox 95% ; tl4 18:20 BP 122 / 71; Pulse 70; Resp 15; Pulse Ox 94% on R/A; tl4 19:10 BP 133 / 70; Pulse 70; Pulse Ox 95% ; tl4 20:10 BP 131 / 79; Pulse 73; Resp 19; Pulse Ox 98% ; jj7 21:15 BP 124 / 67; Pulse 74; Resp 17; Pulse Ox 97% ; jj7 12:36 Pain Scale: Adult ll1 12:42 Pain Scale: Adult ll1 ED Course: 12:33 Patient arrived in ED. iw 12:34 Rafael Cardenas MD is Attending Physician. rt 12:35 Arm band placed on Patient placed in an exam room, on a stretcher. ll1 12:37 Triage completed. ll1 12:40 Provided Education on: ER process and procedures. iw 12:58 CT Head C Spine In Process Unspecified. EDMS 12:58 CT Lumbar Spine Wo Con In Process Unspecified. EDMS 12:[address] In Process Unspecified. EDMS 13:10 Inserted saline lock: 22 gauge in right upper arm, using aseptic technique. Blood iw collected. 13:27 Patient has correct armband on for positive identification. Bed in low position. Call iw light in reach. Side rails up X 1. Client placed on continuous cardiac and pulse oximetry monitoring. NIBP monitoring applied. court recording monitor on. 13:27 No provider procedures requiring assistance completed. iw 13:35 XRAY Chest (1 view) In Process Unspecified. EDMS 14:08 Merced Galloway, ANDRIA is Primary Nurse. ll1 17:55 IV discontinued, intact, bleeding controlled, No redness/swelling at site. R upper arm. tl4 19:07 Adan Angel MD is Hospitalizing Provider. rt 19:30 Inserted saline lock: 24 gauge in left forearm, using aseptic technique. ,using aseptic jj7 technique. INSERTED BY DAY SHIFT NURSE. Administered Medications: 14:23 Drug: Ketorolac IVP 15 mg IVP once Route: IVP; Site: right upper arm; tl4 18:44 Follow up: Response: No adverse reaction tl4 14:23 Drug: Diazepam PO 10 mg PO once Route: PO; tl4 18:44 Follow up: Response: Anxiety decreased tl4 14:24 Not Given (UNAVAILABLEe): [id number] mg IVPB at calculated rate once tl4 18:46 Drug: Nicoderm CQ Transdermal Patch 21 mg/24 hr 1 patches Transdermal once {Note: tl4 placed on right posterior shoulder.} Route: Transdermal; Site: affected area; 19:44 Drug: Diazepam PO 10 mg PO once Route: PO; jj7 20:07 Drug: Banana Bag - (Multivitamin IV 1 amp, NS 0.9% IV 1000 ml, Thiamine IV 100 mg, jj7 foLIC Acid IVPB 1 mg) IV at calculated rate once Route: IV; Rate: calculated rate; Site: left forearm; 20:07 Drug: Ketorolac IVP 15 mg IVP once Route: IVP; Site: left forearm; j7 20:32 Follow up: Response: Marked relief of symptoms j7 Medication: 18:15 VIS not applicable for this client. tl4 Outcome: 19:07 Decision to Hospitalize by Provider. rt 20:53 Admitted to Med/surg accompanied by tech, via wheelchair, room 414, [facility] 21:53 Condition: stable [facility] 21:54 Admitted to Med/surg Report called to ALISE AYERS jj7 22:29 Patient left the ED. as6 Signatures: Dispatcher [employer] EDMS Giuliana Harris RN RN iw Lewis, Lynsay, RN RN ll1 Fuad Marcelo RN RN as6 Bruce Lawson RN RN jj7 Rafael Cardenas MD MD rt Jeevan Rodas tl4 Corrections: (The following items were deleted from the chart) 21:54 20:53 Admitted to Med/surg accompanied by tech, via wheelchair, room 407, [facility]
[2023-09-02] MEDS ORDERED: MULTIVITAMINS 10 ML VIAL (INJ) IV ONE ×2 (20:01→20:03)
[2023-09-02] MEDS ORDERED: THIAMINE 200 MG/2 ML INJ ONE (20:01)
[2023-09-02] MEDS ORDERED: FOLIC ACID 5 MG/ML VIAL ONE (20:02)
[2023-09-02] MEDS ORDERED: NA CHLORIDE 0.9% 1,000 ML ONE (20:02)
[2023-09-02] MEDS ORDERED: ACETAMINOPHEN 500 MG TAB PO PRN (20:09)
[2023-09-02] MEDS ORDERED: ALBUTEROL 2.5 MG/3 ML NEB SOL NEB PRN (20:09)
[2023-09-02] MEDS ORDERED: ONDANSETRON 4 MG/2 ML VIAL IV PRN (20:09)
--- NOTE | 2023-09-02 20:39 | P.HP ---
Certification for Inpatient Patient admitted to: Observation With expected LOS: <2 Midnights Patient will require the following post-hospital care: None Practitioner: I am a practitioner with admitting privileges, knowledge of patient current condition, hospital course, and medical plan of care. Services: Services provided to patient in accordance with Admission requirements found in Title 42 Section 412.3 of the Code of Federal Regulations Patient History Date of Service: 09/02/23 Reason for admission: Warnicke Korsakoff Syndrome History of Present Illness: Mr. Carson a 73-year-old male patient with a history of COPD, dementia, diverticulitis, hyperlipidemia, Parkinson's-like syndrome symptoms and Wernicke's disease. Patient was brought to the EMS with complaints of fall at home patient daughter JOSE L is the historian she reports that patient had 2 falls. Reportedly last night EMS was called to left to assist as patient is very stiff and falling. He had a second fall today. Patient's daughter reports that patient was kicked out of retirement 1 week ago as they were unable to manage the patient's symptoms. At this time the daughter reports that they are unable to manage him at the home. She and daughter understand the prognosis of the condition and wanted to make the patient hospice status and take him home. ED course Patient is alert opening eyes, restless moving continuously in the bed. Vital signs blood pressure 120/72, pulse 75, respiration 18, temperature 98.8, pulse ox 92% on room air. Patient was given diazepam 10 mg p.o. twice in the ER. Initial lab works are unremarkable Admitting the patient the diagnosis of Warnicke Korsakoff syndrome Allergies Penicillins Allergy (Intermediate, Verified 01/25/17 19:56) Itching clonazepam [From Klonopin] Adverse Reaction (Verified 02/28/23 22:25) agitation, combative morphine Adverse Reaction (Verified 02/28/23 22:25) Agitation, combative Home medications list reviewed: Yes Home Medications: Polyethylene Glycol 3350 [Miralax] 17 gm PO BID PRN #60 packet 03/01/23 Sennosides [Senokotxtra] 17.2 mg PO BID #120 tab 03/01/23 - Past Medical/Surgical History Diabetic: No -: Dementia -: Diverticulitis -: COPD -: Hyperlipidemia -: BOWEL SURGERY CUT OUT ADHESIONS -: RIB RESECTION -: NECK SURGERY/CERVICAL -: EAR SURGERY Psychosocial/ Personal History: Patient lives at home with his daughter. His ex helps take care of him as well. - Family History Father -: Heart disease Mother -: GI disease, Cancer Notes: GI cancer (intestines) Brother -: Other (see notes) Notes: Hep C and many back surgeries - Social History Alcohol use: No CD- Drugs: No Caffeine use: Yes Review of Systems 10-point ROS is otherwise unremarkable Physical Examination - Physical Exam General: Alert, Demented, Confused HEENT: Atraumatic, Normocephalic Neck: Supple, 2+ carotid pulse no bruit Respiratory: Clear to auscultation bilaterally, Normal air movement Cardiovascular: No edema, Regular rate/rhythm Capillary refill: <2 Seconds Gastrointestinal: Normal bowel sounds, Soft and benign Musculoskeletal: No clubbing, No swelling Neurological: Dementia (Restless in the bed, opening eyes, not talking) - Studies Laboratory Data (last 24 hrs) 09/02/23 09/02/23 09/02/23 16:35 14:00 13:10 WBC 6.80 Hgb 15.7 Hct 46.6 Plt Count 207 PT 11.6 INR 1.05 Sodium 140 Potassium 3.9 BUN 9 Creatinine 0.99 Glucose 93 Magnesium 2.0 Total Bilirubin 0.6 AST 18 ALT 35 Alkaline Phosphatase 101 Assessment and Plan - Problems (Diagnosis) (1) Wernicke-Korsakoff syndrome Current Visit: Yes Status: Acute (2) Wernicke-Korsakoff psychosis Current Visit: Yes Status: Acute (3) Dementia with behavioral disturbance Current Visit: No Status: Acute - Plan (1) Wernicke-Korsakoff syndrome (2) Wernicke-Korsakoff psychosis (3) Dementia with behavioral disturbance Chronic worsening, patient was brought to the hospital as patient's family is unable to manage the patient at home Patient's daughter who is the POA reports that patient was kicked out of retirement 1 week ago Patient is very restless, patient received diazepam 10 mg p.o. x2 eyes in the emergency room We will continue to monitor Initial work-up negative At home patient become more stiff and and increased to spasm patient had a fall this morning. Patient's family understands the prognosis of the condition and want to make the patient CODE STATUS to hospice Do not want any curative measures for the patient's at this time JOSE L is working with a [facility] hospice phone number [phone] Admitting the patient for 24 hours of observation to arrange hospice admission and support the family Monitor vital signs, IV hydration, check electrolytes replete as appropriate For considerable the home meds and restart Discharge Plan: Home Plan to discharge in: 24 Hours - Advance Directives Does patient have a Living Will: Yes Does patient have a Durable POA for Healthcare: Yes - Code Status/Comfort Care Code Status Assessed: Yes (full code) Code Status: Full Code Physician Review: Patient Assessed, Agree with Above Assessment and Plan Critical Care: Yes (DNR) Time Spent Managing Pts Care (In Minutes): 55 (minutes)
[2023-09-02] MEDS: NA CHLORIDE 0.9% 1,000 ML IV SCH (21:00)
[2023-09-02 22:54] VITALS: BMI 26.9
[2023-09-03] MEDS: LORazepam 2 MG/ML VIAL IV PRN ×4 (01:26→22:49)
[2023-09-03] MEDS: RISPERIDONE 1 MG TABLET PO SCH ×3 (03:28→22:33)
[2023-09-03] MEDS ORDERED: MORPHINE 2 MG/ML SYR IV PRN (03:36)
[2023-09-03 04:56] LABS: Absolute Lymphocytes (CBC) 1.9 K/uL (0.7-4.9); Lymphocytes % 25.2 % (15.3-44.8); MCV 99.4 fL (80-100); MPV 9.3 fL (7.6-11.3); Platelets 180 thou/uL (152-406); RBC Red Blood Cell Count 4.83 M/uL (4.33-5.43)
[2023-09-03 05:46] LABS: Magnesium 1.9 mg/dL (1.6-2.4); Potassium 3.8 mEq/L (3.5-5.1)
[2023-09-03] MEDS: NA CHLORIDE 0.9% 1,000 ML IV SCH (06:36)
[2023-09-03] MEDS ORDERED: INFLUENZA VACCINE (for 6+ mo) 0.5 ML DOSE IMVAC ONE (08:00)
[2023-09-03] MEDS ORDERED: PNEUMOCOCCAL VACCINE 0.5 ML IMVAC ONE (08:00)
[2023-09-03] MEDS ORDERED: ASPIRIN EC 81 MG TAB PO SCH (09:00)
[2023-09-03] MEDS ORDERED: FOLIC ACID 1 MG TABLET PO SCH (09:00)
[2023-09-03] MEDS: POLYETHYL GLY 3350 17 GM/DOSE PO SCH (09:00)
[2023-09-03] MEDS ORDERED: ENOXAPARIN 40 MG/0.4 ML SQ SCH (09:00)
[2023-09-03] MEDS ORDERED: CLOPIDOGREL 75 MG TABLET PO SCH (09:00)
[2023-09-03] MEDS ORDERED: SENNOSIDES 17.2 MG PO SCH (09:00)
[2023-09-03] MEDS: TAMSULOSIN 0.4 MG SR CAP PO SCH (09:02)
[2023-09-03] MEDS: FUROSEMIDE 20 MG TABLET PO SCH (09:03)
[2023-09-03] MEDS: DIAZEPAM 5 MG TABLET PO SCH (09:03)
[2023-09-03] MEDS: SENOSIDES 8.6 MG TAB PO SCH ×2 (09:03→22:32)
--- NOTE | 2023-09-03 12:35 | P.PN ---
Date of Service: 09/03/23 Subjective: Family feels he's less restless after receiving meds this morning family requesting for home hospice pending hospice approval comfort measures only ROS: 10 point ROS as noted above, otherwise negative Physical Exam: GEN: somnolent, confused HEENT: Normal conjunctiva, sclera anicteric CV: Regular rate and rhythm, no edema Pulm: Nonlabored respirations on room air, clear bilaterally ABD: Soft, nontender, nondistended Integumentary: No rashes Neuro: somnolent, moves extremities vitals reviewed Problem List: Wernicke-Korsakoff syndrome with psychosis advanced Dementia with behavioral disturbance COPD, chronic Hyperlipidemia Chronic worsening, patient was brought to the hospital as patient's family is unable to manage the patient at home Patient's daughter who is the POA reports that patient was kicked out of long-term 1 week ago Patient was reportedly very restless at time of admission, s/p 10mg PO diazepam x2 in ER At home patient become more stiff and and increased to spasm patient had a fall. After discussing with family, given patients progressive worsening condition/comorbidities, Patient family requesting for home hospice. Patient's family understands the prognosis of the condition. Do not want any curative measures for the patient's at this time ss/cm consulted for hospice continue supportive care Continue PRN analgesics/antiemetics Comfort measures only Code: DNR Dispo: Home Hospice, pending approval anticipate tomorrow - family state they will be getting house ready for patient tomorrow assuming hospice is approved
[2023-09-03] MEDS ORDERED: ALBUTEROL 2.5 MG/3 ML NEB SOL NEB PRN (14:00)
[2023-09-03] MEDS ORDERED: TRAMADOL HCL 50 MG TAB PO ONE (21:58)
[2023-09-04] MEDS: LORazepam 2 MG/ML VIAL IV PRN (04:30)
[2023-09-04] MEDS: POLYETHYL GLY 3350 17 GM/DOSE PO SCH (09:00)
[2023-09-04] MEDS: SENOSIDES 8.6 MG TAB PO SCH (09:00)
[2023-09-04] MEDS: TAMSULOSIN 0.4 MG SR CAP PO SCH (09:00)
[2023-09-04] MEDS: FUROSEMIDE 20 MG TABLET PO SCH (09:00)
[2023-09-04 09:01] VITALS: BP 173/91; TEMP 98.5
[2023-09-04 09:09] VITALS: O2SAT 94
[2023-09-04] MEDS: RISPERIDONE 1 MG TABLET PO SCH (12:07)
[2023-09-04] MEDS: DIAZEPAM 5 MG TABLET PO SCH (12:07)
--- NOTE | 2023-09-04 16:56 | EKG ---
Test Date: 2023-09-02 Test Time: 13:11:25 Chief Construction Inspector: NANETTE MEASUREMENT RESULTS: Intervals: Rate: 72 NM: 200 QRSD: 114 QT: 416 QTc: 455 [place]: P: 58 NM: 200 QRS: -35 T: -16 INTERPRETIVE STATEMENTS: Normal sinus rhythm Left axis deviation Right bundle branch block Abnormal ECG Compared to ECG 02/28/2023 14:25:05 Sinus bradycardia no longer present Sinus arrhythmia no longer present Electronically Signed On 09-04-23 16:52:03 CAR PORTER by Alex Quispe
--- NOTE | 2023-09-05 07:16 | P.DS ---
Admission Date: 09/02/23 Discharge Date: 09/04/23 Disposition: HOSPICE-HOME Reason for Admission: Warnicke Korsakoff Syndrome Brief History of Present Illness: 73yo m, PMH: COPD, dementia, diverticulitis, hyperlipidemia, Parkinson's-like syndrome symptoms and Wernicke's disease. Patient was brought to the EMS with complaints of fall at home patient daughter JOSE L is the historian she reports that patient had 2 falls. Reportedly last night EMS was called to left to assist as patient is very stiff and falling. He had a second fall today. Patient's daughter reports that patient was kicked out of residential 1 week ago as they were unable to manage the patient's symptoms. At this time the daughter reports that they are unable to manage him at the home. She and daughter understand the prognosis of the condition and wanted to make the patient hospice status and take him home. Patient is alert opening eyes, restless moving continuously in the bed. Vital signs blood pressure 120/72, pulse 75, respiration 18, temperature 98.8, pulse ox 92% on room air. Patient was given diazepam 10 mg p.o. twice in the ER. Initial lab works are unremarkable. Hospital Course: Problem List: Wernicke-Korsakoff syndrome with psychosis advanced Dementia with behavioral disturbance COPD, chronic Hyperlipidemia Patient presented with generalized weakness, failure to thrive, multiple falls. Family reports the patient was kicked out the residential ~1 week ago and they are unable to manage patients care at home. After discussing with family, given patients progressive worsening condition/c omorbidities, Patient family requesting for home hospice. Patient's family understands the prognosis of the condition and do not want any curative measures for the patient's at this time. Patient was given analgensics, comfort measures while hospitalized. Discharged to home hospice. Physical Exam: GEN: somnolent, confused HEENT: Normal conjunctiva, sclera anicteric CV: Regular rate and rhythm, no edema Pulm: Nonlabored respirations on room air, clear bilaterally ABD: Soft, nontender, nondistended Integumentary: No rashes Neuro: somnolent, moves extremities Vital Signs/Physical Exam: Temp Pulse Resp BP Pulse Ox 98.5 F 86 18 173/91 H 91 09/04/23 08:00 09/04/23 08:00 09/04/23 08:00 09/04/23 08:00 09/04/23 08:00 Laboratory Data at Discharge: WBC 7.40 thou/uL (4.3-10.9) 09/03/23 03:51 Hgb 16.1 g/dL (13.6-17.9) 09/03/23 03:51 Hct 48.0 % (39.6-49.0) 09/03/23 03:51 Plt Count 180 thou/uL (152-406) 09/03/23 03:51 PT 11.6 SECONDS (9.5-12.5) 09/02/23 14:00 INR 1.05 09/02/23 14:00 APTT 32.0 SECONDS (24.3-36.9) 09/03/23 03:51 Sodium 140 mEq/L (136-145) 09/03/23 03:51 Potassium 3.8 mEq/L (3.5-5.1) 09/03/23 03:51 BUN 11 mg/dL (7-18) 09/03/23 03:51 Creatinine 0.83 mg/dL (0.70-1.30) 09/03/23 03:51 Glucose 86 mg/dL (74-106) 09/03/23 03:51 Phosphorus 3.0 mg/dL (2.5-4.9) 09/03/23 03:51 Magnesium 1.9 mg/dL (1.6-2.4) 09/03/23 03:51 Total Bilirubin 0.6 mg/dL (0.2-1.0) 09/02/23 16:35 AST 18 U/L (15-37) 09/02/23 16:35 ALT 35 U/L (16-61) 09/02/23 16:35 Alkaline Phosphatase 101 U/L (45-117) 09/02/23 16:35 Home Medications: Sennosides [Senokot] 17.2 mg PO BID #120 tab 03/01/23 Furosemide [Lasix*] 1 tab PO DAILY 09/02/23 Polyethylene Glycol 3350 [Miralax] 17 gm PO DAILY 09/02/23 Risperidone 2 mg PO BID 09/02/23 Tamsulosin [Flomax*] 1 tab PO DAILY 09/02/23 diazePAM [Diazepam] 1 tab PO DAILY 09/02/23 Physician Discharge Instructions: Patient presented with generalized weakness, failure to thrive, multiple falls. Family reports the patient was kicked out the residential ~1 week ago and they are unable to manage patients care at home. After discussing with family, given patients progressive worsening condition/comorbidities, Patient family requesting for home hospice. Patient's family understands the prognosis of the condition and do not want any curative measures for the patient's at this time. Patient was given analgensics, comfort measures while hospitalized. Discharged to home hospice. Followup: NONE,NONE [Primary Care Provider] - Time spent managing pt's care (in minutes): 45
== END 2023-09-04 12:20 | disposition hospice, home (50) ==
LOC: ER 12:31 → ERHOLD 20:04 → 4TH 21:36
PROVIDERS: ADMIT Hospitalist; ATTEND Hospitalist
DX: F04 Amnestic disorder due to known physiological condition (principal); F03.918 Unspecified dementia, unspecified severity, with other behavioral disturbance; J44.9 Chronic obstructive pulmonary disease, unspecified; E78.5 Hyperlipidemia, unspecified; R53.1 Weakness; R62.7 Adult failure to thrive; Z68.26 Body mass index [BMI] 26.0-26.9, adult; Z91.81 History of falling
CPT/HCPCS: 93005; 85025 ×2; 80048 ×2; 36415 ×2; 82140; 83735 ×2; 84100; 85610; 80076; 85730; 84484; 82607; 84425; 72131; 70450; 71250; 72125; 71045; 97161; 97530 ×2; 99285; J3411; J1650; J7030 ×2; G0378 ×5